=== PATIENT | male | born 1960 | race Caucasian/White ===

== ENCOUNTER 2017-04-29 11:39 | Inpatient (IN) ==
[2017-04-29] MEDS ORDERED: 0.9 % Sodium Chloride 1,000 ML IVC ONE (12:17)
--- NOTE | 2017-04-29 12:29 | Emergency Department Note ---
Disposition Clinical Impression: Symptomatic anemia, Portal hypertension due to antiretroviral drug Disposition: Admitted As Inpatient Condition: Fair Referrals: NO,PCP [Non-Partnered Physician] - Forms: Work/School Release, ED Satisfaction Letter General Adult HPI - General Chief complaint: ED Abdominal Pain Stated complaint: N/V Abd Pain Time Seen by Provider: 04/29/17 11:44 Source: patient Limitations: no limitations Nursing Notes Reviewed: Yes Vital Signs Reviewed: Yes - History of Present Illness HPI Narrative: 56-year-old male history of HIV diagnosed [address] Deleon for this. Due to the fact that he was taking care of a friend he was unable to get his medication and his wine out about 3 weeks ago. He has a predispose history of ulcers and hernia on his left lower abdominal area. Patient states he has been having numerous odorous loose stools. Increasing abdominal pain. No vomiting fevers or chills. He shaky. And he has been having scleral icterus according to his friend was present. Patient states he initially contracted HIV from sexual contact from her prior acquaintance was still has since passed on. Patient denies headache, photophobia, chest pain, shortness of breath, dysuria. He states that his appetite has been down. Patient denies alcohol or IV drug use. He says the only drugs he takes as his prescription medicine. Patient does use tobacco and smoke daily. Pain Scale: 8 - Related Data Previous Rx's Medication Instructions Recorded Amoxicillin/Clavulanate [Augmentin] 875 mg PO BIDWM #20 tablet 12/16/15 HYDROcodone/Acet 5/325 mg [[place] 1 tab PO Q6H PRN #10 tab 12/16/15 5-325 mg] Furosemide [Lasix] 40 mg PO DAILY #30 tab 02/24/16 Spironolactone [Aldactone] 25 mg PO DAILY #30 tablet 02/24/16 Albuterol Sulfate [Albuterol 2 puff IH Q4HR #1 hfa.aer.ad 10/30/16 Inhaler] Azithromycin [Azithromycin 6-Tab 250 mg PO PER PKG DI #6 tab 10/30/16 Pack] Benzonatate [Tessalon] 200 mg PO BID #10 capsule 10/30/16 Allergies Allergy/AdvReac Type Severity Reaction Status Date / Time No Known Allergies Allergy Verified 12/16/15 14:52 All systems ED: reviewed and negative except as stated. Constitutional: Reports: weakness, weight change, night sweats Gastrointestinal: Reports: abdominal pain, nausea, diarrhea. Denies: vomiting Neurological: Reports: weakness Past Medical History - Past Medical History Attestation: Yes The following information was validated with the patient. Source: patient Medical history: Reports: HIV/AIDS Psychiatric history: Reports: no psych history - Social History Smoking Status: Current every day smoker Smokeless Tobacco Status: No Alcohol use: Reports: none Drug use: Reports: none Physical Exam - General Limitations: no limitations General appearance: alert, in no apparent distress, cachectic - Head Head exam: atraumatic, normocephalic - Eye Eye exam: Present: PERRL, EOMI, scleral icterus - ENT ENT exam: normal exam, normal oropharynx, mucous membranes moist - Neck Neck exam: Present: normal inspection, full ROM - Chest Chest inspection: Present: normal inspection, symmetric chest wall rise - Respiratory Respiratory exam: Present: normal lung sounds bilaterally - Abdominal Exam Abdominal exam: Present: soft, Non-Tender, hernia (Patient has an easily reducible left inguinal hernia without scrotal involvement. He was to have some hepatomegaly and some slight distention but no fluid wave. No rebound or guarding.). Absent: guarding, rebound - Male exam: Present: normal inspection, normal testicular lie, circumcised - Extremities Exam Extremities exam: Present: normal inspection, full ROM. Absent: tenderness - Expanded Lower Extremity Exam Neurovascular/Tendon exam: Present: normal capillary refill. Absent: pulse deficit Gait: observed and normal - Back Exam Back exam: Present: normal inspection - Neurological Exam Neurological exam: Present: alert, oriented X3, CN II-XII intact - Psychiatric Psychiatric exam: Present: normal affect, normal mood - Skin Skin exam: Present: warm, intact Course - Reevaluation(s) Reevaluation #1: Patient has long-standing history of HIV disease. His been diagnosed over 30 years ago undertreatment.BeenoutofallofhisHIVmeds "mnjyxapn3frmlw.Patientisphysicalexaminationshowsslowicterusslightabdominaldiste ntionpre - existingleftinguinalhernia.Andcomplaintsofloosestoolsandweakness.Patienthadscree ninglabsabdominalpelvicCTIVfluids.Dispositionpending. Time: 12:36 Reevaluation #2: ED workup is nearly complete. Abdominal pelvic CT interpreted by radiology as cirrhosis with hepatosplenomegaly and portal hypertension. With a large amount of ascites.. Rectal examination was normal tone and brown stool guaiac negative. Patient's hemoglobin was critically low at 3.0 low within it has ever been. 3 units PRBC of been ordered. Patient will be admitted for symptomatic anemia. hospitalist pH awaiting callback Time: 14:07 Reevaluation #3: Case with the hospitalist , who recommended that we consult infectious disease which I did. Which was Dr. DOBBS, who agreed to see the patient. I now recalling the hospitalist and will admit the patient. Time: 14:48 Vital Signs Temperature 98.2 F 04/29/17 11:41 Pulse Rate 75 04/29/17 11:41 Respiratory Rate 16 04/29/17 11:41 Blood Pressure 110/47 04/29/17 11:41 O2 Sat by Pulse Oximetry 98 04/29/17 11:41 Temperature 98.2 F 04/29/17 11:41 Pulse Rate 75 04/29/17 11:41 Respiratory Rate 16 04/29/17 11:41 Blood Pressure 110/47 04/29/17 11:41 O2 Sat by Pulse Oximetry 98 04/29/17 11:41 Oxygen Delivery Oxygen Delivery Room Air Medical Decision Making - Lab Data Result diagrams: 04/29/17 13:21 04/29/17 12:41 Lab Results 04/29/17 04/29/17 04/29/17 Range/Units 12:41 13:05 13:21 WBC 5.4 (4.3-11.1) K/mcL RBC 1.35 L (4.19-5.50) M/mcL Hgb 3.0 L* (12.9-16.9) g/dL Hct 10.5 L* (37.5-50.1) % MCV 77.8 L (83.0-100.0) fL MCH 22.2 L (28.0-33.3) pg MCHC 28.6 L (31.6-35.5) g/dL RDW 22.5 H (11.5-14.5) % Plt Count 45 L (140-400) K/mcL MPV 11.9 (9.4-12.4) fL Immature Gran % 0.6 (0-4) % Seg Neutrophils % 70.5 % Lymphocytes % 11.4 % Monocytes % 16.9 % Eosinophils % 0.6 % Basophils % 0.0 % Neutrophils # 3.8 (1.6-8.9) K/mcL Lymphocytes # 0.6 (0.6-4.6) K/mcL Monocytes # 0.9 (0.0-1.3) K/mcL Eosinophils # 0.0 (0.0-0.6) K/mcL Basophils # 0.0 (0.0-0.2) K/mcL Nucleated RBCs/100 WBC 0.4 H (0) /100 WBC Platelet Estimate Decreased L (Normal) Hypochromasia Present A (Not Present) Anisocytosis 2+ A (Not Present) Microcytosis Present A (Not Present) Sodium 138 (136-145) mEq/L Potassium 3.4 L (3.5-4.5) mEq/L Chloride 106 (98-109) mEq/L Carbon Dioxide 22 (19-29) mEq/L BUN 14 (8-26) mg/dL Creatinine 0.92 (0.72-1.25) mg/dL Est GFR ( Amer) > 60 (> 60) Est GFR (Non-Af Amer) > 60 (> 60) BUN/Creatinine Ratio 15 (6-26) Glucose 158 H (70-99) mg/dL Calculated Osmolality 290 (280-300) Lactic Acid 3.1 H (0.5-2.2) mmol/L Calcium 8.2 L (8.6-10.8) mg/dL Total Bilirubin 1.0 (0.2-1.2) mg/dL Direct Bilirubin 0.5 (0.0-0.5) mg/dL Indirect Bilirubin 0.5 (0.0-1.2) mg/dL AST 42 H (5-34) Units/L ALT 33 (0-55) Units/L Alkaline Phosphatase 79 (38-126) Units/L Serum Total Protein 5.2 L (6.0-8.3) g/dL Albumin 2.6 L (3.5-5.0) g/dL Globulin 2.6 (2.4-3.5) g/dL Albumin/Globulin Ratio 1.0 L (1.1-2.2) Amylase 45 (25-125) Units/L Lipase 80 H (8-78) Units/L Blood Type Antibody Screen Crossmatch 04/29/17 Range/Units 13:21 WBC (4.3-11.1) K/mcL RBC (4.19-5.50) M/mcL Hgb (12.9-16.9) g/dL Hct (37.5-50.1) % MCV (83.0-100.0) fL MCH (28.0-33.3) pg MCHC (31.6-35.5) g/dL RDW (11.5-14.5) % Plt Count (140-400) K/mcL MPV (9.4-12.4) fL Immature Gran % (0-4) % Seg Neutrophils % % Lymphocytes % % Monocytes % % Eosinophils % % Basophils % % Neutrophils # (1.6-8.9) K/mcL Lymphocytes # (0.6-4.6) K/mcL Monocytes # (0.0-1.3) K/mcL Eosinophils # (0.0-0.6) K/mcL Basophils # (0.0-0.2) K/mcL Nucleated RBCs/100 WBC (0) /100 WBC Platelet Estimate (Normal) Hypochromasia (Not Present) Anisocytosis (Not Present) Microcytosis (Not Present) Sodium (136-145) mEq/L Potassium (3.5-4.5) mEq/L Chloride (98-109) mEq/L Carbon Dioxide (19-29) mEq/L BUN (8-26) mg/dL Creatinine (0.72-1.25) mg/dL Est GFR ( Amer) (> 60) Est GFR (Non-Af Amer) (> 60) BUN/Creatinine Ratio (6-26) Glucose (70-99) mg/dL Calculated Osmolality (280-300) Lactic Acid (0.5-2.2) mmol/L Calcium (8.6-10.8) mg/dL Total Bilirubin (0.2-1.2) mg/dL Direct Bilirubin (0.0-0.5) mg/dL Indirect Bilirubin (0.0-1.2) mg/dL AST (5-34) Units/L ALT (0-55) Units/L Alkaline Phosphatase (38-126) Units/L Serum Total Protein (6.0-8.3) g/dL Albumin (3.5-5.0) g/dL Globulin (2.4-3.5) g/dL Albumin/Globulin Ratio (1.1-2.2) Amylase (25-125) Units/L Lipase (8-78) Units/L Blood Type A POSITIVE Antibody Screen NEGATIVE Crossmatch See Detail
[2017-04-29 13:04] LABS: Alanine Aminotransferase 33 Units/L (0-55); Albumin 2.6 g/dL (3.5-5.0); Alkaline Phosphatase 79 Units/L (38-126); Amylase 45 Units/L (25-125); Aspartate Amino Transferase 42 Units/L (5-34); BUN/Creatinine Ratio 15 (6-26); Bilirubin,Direct 0.5 mg/dL (0.0-0.5); Bilirubin,Indirect 0.5 mg/dL (0.0-1.2); Blood Urea Nitrogen 14 mg/dL (8-26); Calcium 8.2 mg/dL (8.6-10.8); Carbon Dioxide 22 mEq/L (19-29); Chloride 106 mEq/L (98-109); Globulin 2.6 g/dL (2.4-3.5); Glucose 158 mg/dL (70-99); Lipase 80 Units/L (8-78); Osmolality,Calculated 290 (280-300); Potassium 3.4 mEq/L (3.5-4.5); Sodium 138 mEq/L (136-145); Total Protein 5.2 g/dL (6.0-8.3); eGFR For African Americans > 60 (> 60); eGFR For Non-African Americans > 60 (> 60)
[2017-04-29 13:29] LABS: Eosinophils % 0.6 %; Immature Granulocytes % 0.6 % (0-4); Lymphocytes # 0.6 K/mcL (0.6-4.6); Lymphocytes % 11.4 %; Mean Corpuscular HGB Conc 28.6 g/dL (31.6-35.5); Mean Corpuscular Hemoglobin 22.2 pg (28.0-33.3); Mean Corpuscular Volume 77.8 fL (83.0-100.0); Mean Platelet Volume 11.9 fL (9.4-12.4); Monocytes # 0.9 K/mcL (0.0-1.3); Monocytes % 16.9 %; Neutrophils # 3.8 K/mcL (1.6-8.9); Nucleated Red Blood Cells 0.4 /100 WBC (0); Red Blood Count 1.35 M/mcL (4.19-5.50); Red Cell Distribution Width 22.5 % (11.5-14.5); Segmented Neutrophils % 70.5 %
[2017-04-29 13:32] LABS: Platelet Count 45 K/mcL (140-400)
[2017-04-29 13:35] LABS: Hematocrit 10.5 % (37.5-50.1)
[2017-04-29 13:59] LABS: Hypochromasia Present (Not Present)
[2017-04-29 14:00] LABS: Anisocytosis 2+ (Not Present); Microcytosis Present (Not Present); Platelet Estimate Decreased (Normal)
[2017-04-29] MEDS ORDERED: *HR* OxyCODONE Immed Rel 5 MG TABLET PO PRN (15:37)
[2017-04-29] MEDS ORDERED: Acetaminophen 325 MG TABLET PO PRN (15:37)
[2017-04-29] MEDS ORDERED: Ondansetron 4 MG/2 ML VIAL IVP PRN (15:37)
[2017-04-29] MEDS ORDERED: *HR* HYDROmorphone (PF) 1 MG/ML SYRINGE IVP PRN (15:37)
[2017-04-29] MEDS ORDERED: Naloxone 0.4 MG/ML INJ IVP PRN (15:37)
[2017-04-29] MEDS ORDERED: Azithromycin 250 MG TABLET PO SCH (16:00)
[2017-04-29] MEDS ORDERED: Furosemide 40 MG/4 ML VIAL IVP ONE (16:28)
[2017-04-29] MEDS ORDERED: RITONAVIR PO SCH ×3 (16:30→21:00)
[2017-04-29] MEDS ORDERED: LOPINAVIR PO SCH ×3 (16:30→21:00)
--- NOTE | 2017-04-29 16:30 | Internal Med History&Physical ---
Date of Encounter: 04/29/17 Time of Encounter: 16:29 Assessment and Plan (1) Symptomatic anemia Current visit: Yes Status: Acute Presenting Hb of 3.0 4 RBCS ordered Give one dose lasix prior to transfusion Check iron level, vitamin B12, folate Multifactorial: Possibly chronic GIB , malabsorption from chronic diarrhea, bone marrow suppression from HIV/AIDS High risk patient for sudden decompensation and cardiac arrest Patient is full code (2) Alcoholic cirrhosis of liver with ascites Current visit: Yes Status: Acute IR consulted for drainage Start on Ceftriaxone for prophylaxis for SBP in the setting of suspected GIB with liver cirrhosis LFTS look unremarkable for now Patient is not coagulopathic NO indication to check ammonia level at this time, patient is awake, alert and oriented (3) Diarrhea Current visit: Yes Status: Acute Acute on chronic, 3 weeks duration, In the setting of HIV/AIDS CD4 count unknown Patient is afebrile, no leukocytosis, although patient may not be able to mount a WBC reaction Send Stool work up, ova and parasites, C.diff Stool is not bloody at this time Will replace potassium and continue to monitor Qualifiers: Diarrhea type: unspecified type Qualified Code(s): R19.7 - Diarrhea, unspecified (4) Esophageal varices in alcoholic cirrhosis Current visit: Yes Status: Acute Suspected history of esophageal varices, no documentation per chart Patient's anemia may be acute on chronic, His last HB one year ago was 9 Dr. Delaney has been consulted on the phone, spoke to him, he will see the patient a.m Keep NPO from AL for a.m EGD. (5) HIV disease Current visit: Yes Status: Acute I will start the patient on Azithromycin and Bactrim for MAC and PCP prophylaxis respectively Viral load was sent by ER Infectious disease team has been consulted, will hold off restarting antirtrovirals till ID reviews patient Obtain STAT CXR due to history of chronic, unproductive cough (6) Portal hypertension Current visit: Yes Status: Acute As in cirrhosis (7) Lactic acidosis Current visit: Yes Status: Acute Presenting lactate of 3.1 May be multifactoria given his severe anemia and liver disease Received 1L IVF in ER Repeat lactate 4-6 hrs He denies abdominal pain and his abdomen exam is not tender, he is low suspicion for bowel ischemia (8) Thrombocytopenia associated with AIDS Current visit: Yes Status: Acute Multifactorial: HIV/AIDS, Liver disease/Portal HTN/Splenomegaly PLT count [id number] Suspected chronic GI bleed Receieving RBCs at this time Monitor PLT and transfsue prn (9) AIDS (acquired immune deficiency syndrome) Current visit: Yes Status: Suspected Suspected, follow CD4 count, as in HIV, start PCP and MAC prophylaxis Infectious disease team consulted Internal Medicine - H&P: HPI Chief complaint: Shortness of breath Admitted From: Home Plans for Post Hospital Care: Home History of present illness: Mr. Anthony is a 56 year old male , known HIV/AIDS (Unsure of his last CD4 count ), States he hasn't used his antivirals in 3 weeks because he was taking care of a friend he also has a PMH of Liver Cirrhosis with portal HTN, Tobacco abuse, Questionable CHF Patint presents with complains of one episode of hematemesis with clots one week ago, chronic cough unproductive of sputum 3 weeks now, recurrent watery diarrhea, dyspnea on exertion initially and now at rest. He denies fever or chills or sick contacts' he also reports dizziness and easy fatiguability He has not been to the ER since his episode of hematemesis, he does not know what his CD4 count is He also reports early satiety, leg swelling, abdominal bloating and discomfort He denies melena and reports his stool is tori martins, patient is seen to be incontinent with tori colored stool staining his underwear. He smokes 1PPd for the past 40 years He quit drinking ~30 years ago? after his diagnosis of Cirrhosis He denies chest pain, change in urinary habits, hematuria, or hematochezia Past Med Surg Social Fam HX - Past Medical History Medical history: cirrhosis, HIV/AIDS Psychiatric history: no psych history - Social History Smoking Status: Current every day smoker Smokeless Tobacco Status: No Alcohol use: none Drug use: none Internal Medicine - H&P: Meds Aspirin/Caffeine [Anacin 400-32 mg Tablet] 1 each PO Q4H PRN 04/29/17 [History] Calcium Carbonate [Calcium] 500 mg PO DAILY 04/29/17 [History] Darunavir Ethanolate [Prezista] 800 mg PO DAILY 04/29/17 [History] Multivitamin [Multi-Day Vitamins] 1 each PO DAILY 04/29/17 [History] Paroxetine [Paxil] 20 mg PO DAILY 04/29/17 [History] Potassium 99 mg PO DAILY 04/29/17 [History] Raltegravir Potassium [Isentress] 400 mg PO BID 04/29/17 [History] Ritonavir [Norvir] 100 mg PO DAILY 04/29/17 [History] lamiVUDine [Epivir] 150 mg PO BID 04/29/17 [History] Allergies No Known Allergies Allergy (Verified 12/16/15 14:52) All Systems PM: A 10-system review of systems was performed and is negative for pertinent findings except as documented above in the HPI. - Constitutional Constitutional: as per HPI - EENT Eyes: as per HPI Ears: as per HPI Nose, mouth and throat: as per HPI - Cardiovascular Cardiovascular ROS IM: as per HPI - Respiratory Respiratory: as per HPI - Gastrointestinal Gastrointestinal: as per HPI - Musculoskeletal Musculoskeletal ROS IM: as per HPI - Integumentary Integumentary IM: as per HPI - Neurological Neurological ROS: as per HPI - Hematologic/Lymphatic Hematologic/Lymphatic: as per HPI - Constitutional Vitals: Temp Pulse Resp BP Pulse Ox 98.3 F 98 18 129/72 93 04/29/17 16:00 04/29/17 16:00 04/29/17 16:00 04/29/17 16:00 04/29/17 15:44 Patient is seen at bedside disheveled, unkempt with darkened toes and fingers, cold extremities, clinically pale, in mild respiratory distress, HR 96, BP WNL, he has bilateral basal crackles, no wheezing, he has dry ora mucosa, his HR is WNL and heart sounds are S1, S2 only, no m/g/r. His abdomen is soft but distended, he has ascites with fluid thrill, hepatosplenomegaly, no tenderness. He has bilateral digital clubbing and 1+ pedal edema bilaterally Internal Med - H&P Results - Labs CBC & Chem 7: 04/29/17 13:21 04/29/17 12:41 Labs: Labs and Imaging reviewed: Hb of 3.0, MCV 77, microcytosis, hypochromiasia, PLT count is 4,000, hypokalemia, lactate 3.1, mild hyperbiliruinemia, Abd CT shows bilateral pleural effusions and ascites, esophagitis, splenomegaly and liver cirrhosis No CXR ordered
--- NOTE | 2017-04-29 16:34 | Infectious Disease Consult ---
Date of Encounter: 04/29/17 Time of Encounter: 16:32 Assessment and Plan (1) HIV disease Status: Acute Assessment and plan: Diagnosed 30 years ago Physical patient of Dr. Underwood Most recent regimen included Lamivudine, raltegravir and boosted darunavir most recent CD4 and VL from March of this year are 399 and UD respectively non compliant with meds for now concern for AIDS syndrome check CD4, HIV VL, baseline labs (might check genotype if VL >1000) will start patient on Truvada, Kaletra and Raltegravir d/w pharmacy staff, they dont have any other PI's on formulary (2) Liver cirrhosis, alcoholic Status: Acute Assessment and plan: secondary to ETOH abuse will check MELD score complicated with portal HTN and esophageal varices no signs of SBP on physical exam Qualifiers: Ascites presence: with ascites Qualified Code(s): K70.31 - Alcoholic cirrhosis of liver with ascites (3) Portal hypertension Status: Acute (4) Esophageal varices in alcoholic cirrhosis Status: Acute (5) Severe anemia Status: Acute Assessment and plan: etiology not clear concern for anemia due to UGIB (had vomited blood clots 2 days ago); specially with history of esophageal varices could also be multifactorial specially that patient has has HIV and concern for Disseminated MAC or disseminated Histo will start empiric clarithromycin but will hold off itra until further results are back (since patient with liver cirrhosis) ask heme/onc to evaluate get bone marrow biopsy specially if no obvious source of bleeding is noted. being transfused 4 units of PRBC (6) Diarrhea Status: Acute Assessment and plan: not sure if this is due to HIV itself, an opportunistic infection or other get GI panel Qualifiers: Diarrhea type: unspecified type Qualified Code(s): R19.7 - Diarrhea, unspecified (7) Alcoholic cirrhosis of liver with ascites Status: Acute (8) Cough Status: Acute Assessment and plan: likelly due to copd due to tobacco abuse but since patient is high risk, recommend getting a cxr Infectious Disease HPI - Data of Consult Patient: new to practice Consult date: 04/29/17 Requesting Physician: Kelly Everett Primary Care Provider: Willie Underwood MD - Consult Narrative Reason for consult: HIV History of present illness: Mr. Anthony is a 56 year old male with past medical history significant for HIV diagnosed about 30 years ago, liver cirrhosis secondary to EtOH abuse, portal hypertension and cachexia came into the emergency department complaining of severe fatigue, lightheadedness, weakness, dyspnea on exertion and intermittent diarrhea. Patient denied any fevers or chills. No headache no neck stiffness. Patient denied any URI symptoms. Patient does have cough with sputum production but he tells me that is chronic for him. Patient denied any nausea or vomiting currently but he stated that 2 days ago he had a vomiting episode and he had large amount of blood including large blood clots that he brought up. Patient came into the emergency department for evaluation. Since admission patient has been hemodynamically stable, heart rate has been the 70s, patient has not had any fever. Patient's hemoglobin was noted to be 3. Rest of the workup was really not impressive. Patient was admitted and we were consulted to evaluate the patient's make further recommendations. Currently patient laying in bed, appears comfortable. I asked the patient why he hasn't been compliant with his antiretroviral medication and he states he was too busy because his friend was in the hospital and he was taking care of him. Patient has not had a bowel movement since admission. He otherwise feels stable. On further questioning and reviewing medical records, Patient most recent blood work was done in August 2016 which revealed a WBC of 5.5, CD4 of 399, HIV viral load was under 20, his hemoglobin at that time was 12.1 and platelets of 18 9. On reviewing patient's records patient's most recent regimen included limited Shilpa, raltegravir, boosted darunavir. I called Dr. Underwood to discuss the patient and see if this is the accurate regimen that the patient was on just awaiting his response. CC: Kelly Everett Past Med Surg Social Fam HX - Past Medical History Medical history: HIV/AIDS Psychiatric history: no psych history - Social History Smoking Status: Current every day smoker Smokeless Tobacco Status: No Alcohol use: none Drug use: none Infectious Disease-CN:Meds Aspirin/Caffeine [Anacin 400-32 mg Tablet] 1 each PO Q4H PRN 04/29/17 [History] Calcium Carbonate [Calcium] 500 mg PO DAILY 04/29/17 [History] Darunavir Ethanolate [Prezista] 800 mg PO DAILY 04/29/17 [History] Multivitamin [Multi-Day Vitamins] 1 each PO DAILY 04/29/17 [History] Paroxetine [Paxil] 20 mg PO DAILY 04/29/17 [History] Potassium 99 mg PO DAILY 04/29/17 [History] Raltegravir Potassium [Isentress] 400 mg PO BID 04/29/17 [History] Ritonavir [Norvir] 100 mg PO DAILY 04/29/17 [History] lamiVUDine [Epivir] 150 mg PO BID 04/29/17 [History] Allergies No Known Allergies Allergy (Verified 12/16/15 14:52) Review of systems: 10 point review of systems done, negative other for what mentioned in the history of present illness. Exam - Constitutional Vitals: Temp Pulse Resp BP Pulse Ox 98.3 F 98 18 129/72 93 04/29/17 16:00 04/29/17 16:00 04/29/17 16:00 04/29/17 16:00 04/29/17 15:44 General appearance: cooperative, disheveled, no acute distress, no febrile - Head Head exam: Present: atraumatic, normocephalic - Eye Eye exam: Present: EOMI, PERRL, sclera anicteric. Absent: conjunctival injection - ENT ENT exam: Present: mucous membranes dry Additional comments: No oral lesions appreciated no oral thrush. - Neck Neck exam: Present: full ROM, normal inspection. Absent: lymphadenopathy - Respiratory Additional comments: Air sounds decreased universally both lung [place]. There is some diffuse rhonchi at the bases. Poor inspiratory effort. - Cardiovascular Cardiovascular exam: Present: RRR, +S1, +S2. Absent: systolic murmur - GI/Abdominal GI/Abdominal exam: Present: distended, normal bowel sounds, soft. Absent: rebound Additional comments: Distended with positive shifting dullness likely secondary to ascites - Extremities Exam Extremities exam: Present: full ROM, normal inspection. Absent: tenderness - Back Exam Back exam: Present: normal inspection. Absent: vertebral tenderness - Neurological Exam Neurological exam: Present: alert, oriented X3. Absent: speech deficit - Skin Skin exam: Present: normal color. Absent: rash Additional comments: A couple black lesions one in was for arm on one is on his other hand that does not appear to be malignant Infectious Disease CN: Results - Labs CBC & Chem 7: 04/29/17 13:21 04/29/17 12:41 Consult Discharge Plan - Plan Referrals: Willie Underwood MD [Primary Care Provider] -
[2017-04-29 17:10] LABS: Bilirubin,Urine Negative (Negative); Blood,Urine Negative (Negative); Clarity,Urine Clear (Clear); Color,Urine Yellow (Yellow); Glucose,Urine (UA) Normal (Normal); Ketones,Urine Negative (Negative); Leukocyte Esterase,Urine Negative (Negative); Nitrite,Urine Negative (Negative); Protein,Urine Negative (Neg-Trace); Specific Gravity,Urine 1.018 (1.010-1.025); Urobilinogen,Urine Normal (Normal)
[2017-04-29 18:13] LABS: % Iron Saturation 2 % (20-55); Iron 9 mcg/dL (65-175); Transferrin 289 mg/dL (174-364)
[2017-04-29] MEDS: Nystatin SUSP 5 ML UD.LIQ PO SCH ×2 (18:33→20:02)
[2017-04-29] MEDS: Sulfamethoxazole/Trimeth DS 1 EACH TABLET PO SCH (18:33)
[2017-04-29] MEDS: Pantoprazole 40 MG VIAL IVP SCH (18:33)
[2017-04-29 18:52] LABS: Folate 12.4 ng/mL (7.0-31.4)
--- NOTE | 2017-04-29 20:01 | Oncology Inp Consult Note ---
Date of Encounter: 04/30/17 Time of Encounter: 19:58 Assessment and Plan (1) AIDS (acquired immune deficiency syndrome) Status: Suspected Assessment and plan: He has been treated for 30 years. According to him he has HIV but not active AIDS. Dr. Meyers is concerned about disseminated MAC (2) Alcoholic cirrhosis of liver with ascites Status: Acute Assessment and plan: Thrombocytopenia partially due to cirrhosis. Hematemesis/melena .Again GI workup should help to see if he has any variceal bleeding or an abdominal ultrasound showed cirrhosis and mild ascites. He had interventional radiology guided paracentesis done Mildly elevated AST. Check viral hepatitis panel. His hepatitis panel was negative in 2016 (3) Severe anemia Status: Acute Assessment and plan: Clearly severe iron deficiency is playing a role. We will consider IV iron. GI workup Also we will do complete anemia workup. Ferritin low at 11. We will give IV iron Feraheme 510 mg Total folate TSH normal. No evidence of hemolysis. Vivek test and LDH normal Thrombocytopenia aggravated by cirrhosis. But given worsening of thrombocytopenia in the setting of anemia a bone marrow biopsy may be warranted - Data of Consult Patient: new to practice Requesting Physician: Kelly Everett Primary Care Provider: Willie Underwood MD - Consult Narrative Reason for consult: Severe anemia History of present illness: Mr. Anthony is a 56 year old male with past medical history significant for HIV diagnosed about 30 years ago, liver cirrhosis secondary to EtOH abuse, portal hypertension and cachexia admitted with severe anemia hemoglobin 3. MCV low at 77. 4 units of packed RBC transfusion hemoglobin improved to 6. He is clinically stable. Workup showed that her iron saturation. B12 folate normal Looking at the PCI he had macrocytosis in the past with MCV 102. So MCV 77 may indicate severe microcytosis for him. Rule out any GI bleeding as source of iron deficiency His hemoglobin has been around 9 in February 2016 but prior to that around 13-14 Thrombocytopenia dating back to 2006 and platelet count slowly dropped from 100 range to present to value of 45 By history he got HIV disease about 30 years ago through his then girlfriend. He is being treated for that and currently he has HIV but not active AIDS. He also used to drink alcohol heavily since teenage but stopped drinking alcohol several years ago Upper GI bleed/hematemesis 2 days. Melena for last 3 days He had variceal bleeding in the past and had EGD about the year or less ago. Past Med Surg Social Fam HX - Past Medical History Medical history: cirrhosis, HIV/AIDS Psychiatric history: no psych history - Social History Smoking Status: Current every day smoker Packs per day: 2 Smokeless Tobacco Status: No Alcohol use: none Drug use: none Medications and Allergies Aspirin/Caffeine [Anacin 400-32 mg Tablet] 1 each PO Q4H PRN 04/29/17 [History] Calcium Carbonate [Calcium] 500 mg PO DAILY 04/29/17 [History] Darunavir Ethanolate [Prezista] 800 mg PO DAILY 04/29/17 [History] Multivitamin [Multi-Day Vitamins] 1 each PO DAILY 04/29/17 [History] Paroxetine [Paxil] 20 mg PO DAILY 04/29/17 [History] Potassium 99 mg PO DAILY 04/29/17 [History] Raltegravir Potassium [Isentress] 400 mg PO BID 04/29/17 [History] Ritonavir [Norvir] 100 mg PO DAILY 04/29/17 [History] lamiVUDine [Epivir] 150 mg PO BID 04/29/17 [History] Allergies No Known Allergies Allergy (Verified 12/16/15 14:52) Review of systems: Alert and oriented. Able to carry on conversation. Fatigue which is improved since admission. Oncology - Exam - Constitutional Vitals: Temp Pulse Resp BP Pulse Ox 97.7 F 95 16 126/62 100 04/29/17 19:48 04/29/17 19:48 04/29/17 19:48 04/29/17 19:48 04/29/17 19:48 Exam: GENERAL: Alert and oriented, fatigued. Mental Status: Affect appropriate for circumstances HEENT: Sclerae anicteric. No mucositis or thrush. No other oral or pharyngeal lesions or erythema. Skin: No rashes or petechiae. No evidence of skin malignancy Lymph nodes: No cervical, supraclavicular, axillary, or inguinal adenopathy. Lungs: Air entry normal with normal breath sounds. No rhonchi or wheezing Cardiovascular: Regular rate and rhythm. No skipped beats Abdomen: Soft, mild epigastric tenderness. Mild ascites. Extremities: No edema. No calf swelling or tenderness. No joint deformity. Neurologic: Alert, cranial nerves II-XII intact; normal gait; no focal weakness or sensory abnormalities Oncology - Results - Labs Labs: Urine 04/29/17 Range/Units 16:30 Urine Color Yellow (Yellow) Urine Clarity Clear (Clear) Urine pH 6.0 (5.0-8.0) pH Units Ur Specific [place] 1.018 (1.010-1.025) Urine Protein Negative (Neg-Trace) mg/dL Urine Glucose (UA) Normal (Normal) mg/dL Consult Discharge Plan - Plan Referrals: Willie Underwood MD [Primary Care Provider] - (SENT WEB REQUEST ON 04-30-17 @ [phone] )
[2017-04-29] MEDS: Nicotine 21 MG PATCH.TD24 TD SCH (20:02)
[2017-04-29] MEDS: RALTEGRAVIR POTASSIUM 400 MG TABLET PO SCH (20:03)
[2017-04-29] MEDS ORDERED: 0.9 % Sodium Chloride 250 ML ONE (21:52)
[2017-04-29 22:17] LABS: Lactate Dehydrogenase 188 Units/L (159-327)
[2017-04-29 22:39] LABS: Ferritin 11 ng/ml (22-275)
[2017-04-30] MEDS ORDERED: 0.9 % Sodium Chloride 250 ML ONE ×2 (01:41→05:49)
[2017-04-30 05:24] LABS: Basophils % 0.2 %; Lymphocytes % 16.2 %; Mean Corpuscular HGB Conc 31.6 g/dL (31.6-35.5)
[2017-04-30 05:26] LABS: Eosinophils # 0.1 K/mcL (0.0-0.6); Eosinophils % 1.6 %; Lymphocytes # 0.8 K/mcL (0.6-4.6); Mean Corpuscular Volume 79.2 fL (83.0-100.0); Monocytes # 0.8 K/mcL (0.0-1.3); Monocytes % 15.8 %; Neutrophils # 3.2 K/mcL (1.6-8.9); Red Cell Distribution Width 20.9 % (11.5-14.5); Segmented Neutrophils % 65.2 %
[2017-04-30 05:36] LABS: BUN/Creatinine Ratio 14 (6-26); Blood Urea Nitrogen 11 mg/dL (8-26); Calcium 7.6 mg/dL (8.6-10.8); Carbon Dioxide 24 mEq/L (19-29); Chloride 106 mEq/L (98-109); Glucose 94 mg/dL (70-99); Magnesium 1.5 mg/dL (1.6-2.6); Osmolality,Calculated 281 (280-300); Phosphorous 2.4 mg/dL (2.3-4.7); Sodium 136 mEq/L (136-145); eGFR For African Americans > 60 (> 60); eGFR For Non-African Americans > 60 (> 60)
[2017-04-30 05:49] LABS: Platelet Count 41 K/mcL (140-400)
[2017-04-30] MEDS: Pantoprazole 40 MG VIAL IVP SCH ×2 (05:53→18:07)
[2017-04-30 07:26] LABS: Anisocytosis 2+ (Not Present); Platelet Estimate Decreased (Normal); Poikilocytosis 1+ (Not Present)
[2017-04-30] MEDS: RALTEGRAVIR POTASSIUM 400 MG TABLET PO SCH ×2 (08:23→21:13)
[2017-04-30] MEDS: Nystatin SUSP 5 ML UD.LIQ PO SCH ×4 (08:23→21:13)
[2017-04-30] MEDS: Sulfamethoxazole/Trimeth DS 1 EACH TABLET PO SCH ×2 (08:23→21:13)
[2017-04-30] MEDS: Nicotine 21 MG PATCH.TD24 TD SCH (08:24)
[2017-04-30] MEDS: LOPINAVIR PO SCH ×3 (08:24→21:19)
[2017-04-30] MEDS: RITONAVIR PO SCH ×3 (08:24→21:19)
[2017-04-30] MEDS ORDERED: Furosemide 40 MG/4 ML VIAL IVP SCH (09:00)
[2017-04-30 09:24] LABS: INR 1.7; Prothrombin Time 18.9 Seconds (9.4-12.1)
[2017-04-30 09:31] LABS: Albumin 2.8 g/dL (3.5-5.0); Albumin/Globulin Ratio 0.9 (1.1-2.2); Bilirubin,Direct 0.8 mg/dL (0.0-0.5); Bilirubin,Indirect 2.3 mg/dL (0.0-1.2); Total Protein 5.8 g/dL (6.0-8.3)
[2017-04-30 09:36] LABS: Bilirubin,Total 3.1 mg/dL (0.2-1.2)
--- NOTE | 2017-04-30 11:15 | IR Procedure Note ---
Date of procedure: 04/30/17 Consent Obtained: Written consent Timeout: Correct patient and procedure verified, Time out performed, Skin prep completed Local anesthetic: Lidocaine 1% Indications: Ascites Procedure Performed: Paracentesis Complications: None; Tolerated procedure well (Monitor on floor)
[2017-04-30] MEDS: Iron Sucrose Complex 200 MG in 0.9 % Sodium Chloride 100 ML IVPB SCH (11:38)
[2017-04-30 11:49] LABS: Hepatitis A Antibody IgM Nonreactive (Nonreactive); Hepatitis B Core IgM Nonreactive (Nonreactive); Hepatitis B Surface Antigen Nonreactive (Nonreactive); Hepatitis C Virus Antibody Nonreactive (Nonreactive)
[2017-04-30 12:33] LABS: RBC,Peritoneal Fluid < 0.002 M/mcL
--- NOTE | 2017-04-30 13:02 | Infectious Disease Progress No ---
Date of Encounter: 04/30/17 Time of Encounter: 13:00 - Assessment and Plan (1) HIV disease Current Visit: Yes Status: Acute Diagnosed 30 [address] ago[address] Willie Underwood. Most recent regimen included Lamivudine, Raltegravir, and boosted darunavir. Most recent CD4 399 and viral load undetectable. Non-compliant with medications for three weeks prior to admission. Concern for AIDS syndrome. Check CD4, HIV VL --> pending. WBC normal. Hgb improved at 6 this morning. Continue Truvada, Kaletra, and Raltegravir as prescribed. Continue Clarithromycin 500mg PO BID. Continue Bactrim DS 1 tab PO, but increase frequency to BID. (2) Cough Current Visit: Yes Status: Acute Chronic. Likely secondary to heavy tobacco use. CXR shows bilateral lower lobe airspace opacities concerning for developing PNA. Continue Bactrim, but increase to BID for PCP prophylaxis. Continue Clarithromycin. Continue Rocephin 1 gram IV daily. Get RIP. Check S. pneumo and Legionella UAT. Consider pulmonary consult for further evaluation. (3) Diarrhea Current Visit: Yes Status: Acute Etiology unclear: HIV vs. infectious. Send stool for GI panel. Qualifiers: Diarrhea type: unspecified type Qualified Code(s): R19.7 - Diarrhea, unspecified (4) Severe anemia Current Visit: Yes Status: Acute Etiology unclear: UGI bleed vs. other. Hgb 3 on admission. Improved after 4 units of PRBCs, but still only 6. No bleeding noted since admission. GI consulted and following. Considering possible EGD today. Hem/Onc consulted and following. Considering bone marrow biopsy if GI bleed workup negative. (5) Alcoholic cirrhosis of liver with ascites Current Visit: Yes Status: Acute Secondary to heavy ETOH use. GI consulted and following. Status post liver UTS this morning. Results pending. MELD score 18. Status post paracentesis this morning. Removed 2 liters of turbid fluid. Fluid sent for culture and cell count. Does not appear to be SBP based on cell count. Culture pending. (6) Esophageal varices in alcoholic cirrhosis Current Visit: Yes Status: Acute (7) Lactic acidosis Current Visit: Yes Status: Acute (8) Portal hypertension Current Visit: Yes Status: Chronic - Subjective Interval history: Patient seen and examined. No acute events noted overnight. Status post CT- guided paracentesis this morning. Specimen sent for cell count with diff and culture. States that overall he feels well. Denies fevers, chills, or rigors. Denies chest pain, shortness of breath, or cough. Denies nausea, vomiting, diarrhea, or constipation. Denies abdominal pain or appetite changes. Denies urinary complaints. Requesting something to eat, but is currently NPO for possible EGD later today. Infect Dis PN-Objective Data - Labs CBC & Chem 7: 04/30/17 04:40 04/30/17 04:40 Labs: Laboratory Results - last 24 hr 04/29/17 04/29/17 04/29/17 16:30 21:56 21:56 WBC RBC Hgb Hct MCV MCH MCHC RDW Plt Count MPV Immature Gran % Seg Neutrophils % Lymphocytes % Monocytes % Eosinophils % Basophils % Neutrophils # Lymphocytes # Monocytes # Eosinophils # Basophils # Nucleated RBCs/100 WBC Platelet Estimate Poikilocytosis Anisocytosis PT INR Sodium Potassium Chloride Carbon Dioxide BUN Creatinine Est GFR ( Amer) Est GFR (Non-Af Amer) BUN/Creatinine Ratio Glucose Calculated Osmolality Lactic Acid 2.7 H Calcium Phosphorus Magnesium Ferritin 11 L Total Bilirubin Direct Bilirubin Indirect Bilirubin AST ALT Alkaline Phosphatase Lactate Dehydrogenase 188 Serum Total Protein Albumin Globulin Albumin/Globulin Ratio TSH Urine Color Yellow Urine Clarity Clear Urine pH 6.0 Ur Specific [place] 1.018 Urine Protein Negative Urine Glucose (UA) Normal Urine Ketones Negative Urine Blood Negative Urine Nitrite Negative Urine Bilirubin Negative Urine Urobilinogen Normal Ur Leukocyte Esterase Negative Ur Culture Indicated? NO Peritoneal RBC Periton Tot Nuc Cells Peritoneal Albumin Hepatitis A IgM Ab Hep Bs Antigen Hep B Core IgM Ab Hepatitis C Ab Screen JACKIE, Poly Interpret 04/29/17 04/29/17 04/30/17 21:56 21:56 04:40 WBC 4.9 RBC 2.40 L Hgb 6.0 L* D Hct 19.0 L MCV 79.2 L MCH 25.0 L MCHC 31.6 RDW 20.9 H Plt Count 41 L MPV TNP Immature Gran % 1.0 Seg Neutrophils % 65.2 Lymphocytes % 16.2 Monocytes % 15.8 Eosinophils % 1.6 Basophils % 0.2 Neutrophils # 3.2 Lymphocytes # 0.8 Monocytes # 0.8 Eosinophils # 0.1 Basophils # 0.0 Nucleated RBCs/100 WBC 1.0 H Platelet Estimate Decreased L Poikilocytosis 1+ A Anisocytosis 2+ A PT INR Sodium Potassium Chloride Carbon Dioxide BUN Creatinine Est GFR ( Amer) Est GFR (Non-Af Amer) BUN/Creatinine Ratio Glucose Calculated Osmolality Lactic Acid Calcium Phosphorus Magnesium Ferritin Total Bilirubin Direct Bilirubin Indirect Bilirubin AST ALT Alkaline Phosphatase Lactate Dehydrogenase Serum Total Protein Albumin Globulin Albumin/Globulin Ratio TSH 0.979 Urine Color Urine Clarity Urine pH Ur Specific [place] Urine Protein Urine Glucose (UA) Urine Ketones Urine Blood Urine Nitrite Urine Bilirubin Urine Urobilinogen Ur Leukocyte Esterase Ur Culture Indicated? Peritoneal RBC Periton Tot Nuc Cells Peritoneal Albumin Hepatitis A IgM Ab Hep Bs Antigen Hep B Core IgM Ab Hepatitis C Ab Screen JACKIE, Poly Interpret NEG 04/30/17 04/30/17 04/30/17 04:40 09:03 09:03 WBC RBC Hgb Hct MCV MCH MCHC RDW Plt Count MPV Immature Gran % Seg Neutrophils % Lymphocytes % Monocytes % Eosinophils % Basophils % Neutrophils # Lymphocytes # Monocytes # Eosinophils # Basophils # Nucleated RBCs/100 WBC Platelet Estimate Poikilocytosis Anisocytosis PT 18.9 H INR 1.7 Sodium 136 Potassium 3.0 L Chloride 106 Carbon Dioxide 24 BUN 11 Creatinine 0.80 Est GFR ( Amer) > 60 Est GFR (Non-Af Amer) > 60 BUN/Creatinine Ratio 14 Glucose 94 Calculated Osmolality 281 Lactic Acid Calcium 7.6 L Phosphorus 2.4 Magnesium 1.5 L Ferritin Total Bilirubin 3.1 H D Direct Bilirubin 0.8 H Indirect Bilirubin 2.3 H AST 48 H ALT 41 Alkaline Phosphatase 91 Lactate Dehydrogenase Serum Total Protein 5.8 L Albumin 2.8 L Globulin 3.0 Albumin/Globulin Ratio 0.9 L TSH Urine Color Urine Clarity Urine pH Ur Specific [place] Urine Protein Urine Glucose (UA) Urine Ketones Urine Blood Urine Nitrite Urine Bilirubin Urine Urobilinogen Ur Leukocyte Esterase Ur Culture Indicated? Peritoneal RBC Periton Tot Nuc Cells Peritoneal Albumin Hepatitis A IgM Ab Hep Bs Antigen Hep B Core IgM Ab Hepatitis C Ab Screen JACKIE, Poly Interpret 04/30/17 04/30/17 09:03 11:10 WBC RBC Hgb Hct MCV MCH MCHC RDW Plt Count MPV Immature Gran % Seg Neutrophils % Lymphocytes % Monocytes % Eosinophils % Basophils % Neutrophils # Lymphocytes # Monocytes # Eosinophils # Basophils # Nucleated RBCs/100 WBC Platelet Estimate Poikilocytosis Anisocytosis PT INR Sodium Potassium Chloride Carbon Dioxide BUN Creatinine Est GFR ( Amer) Est GFR (Non-Af Amer) BUN/Creatinine Ratio Glucose Calculated Osmolality Lactic Acid Calcium Phosphorus Magnesium Ferritin Total Bilirubin Direct Bilirubin Indirect Bilirubin AST ALT Alkaline Phosphatase Lactate Dehydrogenase Serum Total Protein Albumin Globulin Albumin/Globulin Ratio TSH Urine Color Urine Clarity Urine pH Ur Specific [place] Urine Protein Urine Glucose (UA) Urine Ketones Urine Blood Urine Nitrite Urine Bilirubin Urine Urobilinogen Ur Leukocyte Esterase Ur Culture Indicated? Peritoneal RBC < 0.002 Periton Tot Nuc Cells 74 Peritoneal Albumin < 0.4 Hepatitis A IgM Ab Nonreactive Hep Bs Antigen Nonreactive Hep B Core IgM Ab Nonreactive Hepatitis C Ab Screen Nonreactive JACKIE, Poly Interpret Cultures: Cultures 04/29/17 18:35 Sputum Culture - Final Sputum Serology 04/30/17 04/30/17 04/29/17 Range/Units 11:10 09:03 16:30 Urine Color Yellow (Yellow) Urine Clarity Clear (Clear) Urine pH 6.0 (5.0-8.0) pH Units Ur Specific [place] 1.018 (1.010-1.025) Urine Protein Negative (Neg-Trace) mg/dL Urine Glucose (UA) Normal (Normal) mg/dL Urine Ketones Negative (Negative) mg/dL Urine Blood Negative (Negative) Urine Nitrite Negative (Negative) Urine Bilirubin Negative (Negative) Urine Urobilinogen Normal (Normal) mg/dL Ur Leukocyte Esterase Negative (Negative) Ur Culture Indicated? NO (NO) Peritoneal Appearance Pending Peritoneal Volume Pending Peritoneal RBC < 0.002 (0.000 - 0.002) M/mcL Periton Tot Nuc Cells 74 (0-300) TNC/mcL Periton Neutrophils Pending Periton Band Neuts Pending Peritoneal Eosinophils Pending Peritoneal Basophils Pending Periton Lymphocytes % Pending Periton Monocytes % Pending Periton Other Cells % Pending Peritoneal Albumin < 0.4 (No Ref Range) g/dL Hepatitis A IgM Ab Nonreactive (Nonreactive) Hep Bs Antigen Nonreactive (Nonreactive) Hep B Core IgM Ab Nonreactive (Nonreactive) Hepatitis C Ab Screen Nonreactive (Nonreactive) - Impressions Impressions Chest X-Ray 04/29/17 16:30 IMPRESSION: Bilateral lower lobe airspace opacity may represent developing infiltrates. Follow-up to resolution is recommended. D/ / Philly Davidson MD / Philly Davidson MD Interpreting Provider: Philly Davidson MD Liver Ultrasound 04/30/17 10:00 IMPRESSION: Cirrhotic liver, without evidence of focal mass. Small to moderate amount of ascites. Edematous appearance of the gallbladder wall, likely related to intrinsic liver disease. No evidence of gallstones. D/ / 04/30/2017 10:51:08 Pillo Andersen MD / cristhian Interpreting Provider: Pillo Andersen MD Exam - Constitutional Vitals: Temp Pulse Resp BP Pulse Ox 97.7 F 75 16 107/68 99 04/30/17 11:46 04/30/17 11:55 04/30/17 11:46 04/30/17 11:46 04/30/17 11:46 General appearance: cooperative, no acute distress, thin - Head Head exam: Present: atraumatic, normal inspection, normocephalic - Eye Eye exam: Present: EOMI, normal appearance, PERRL Pupils: Present: normal accommodation - ENT ENT exam: Present: mucous membranes moist - Neck Neck exam: Present: normal inspection - Respiratory Respiratory exam: Present: CTAB, rhonchi (bilateral bases). Absent: rales, respiratory distress, wheezes - Cardiovascular Cardiovascular exam: Present: RRR, +S1, +S2 - GI/Abdominal GI/Abdominal exam: Present: distended, normal bowel sounds, soft. Absent: tenderness - Extremities Exam Extremities exam: Present: normal inspection. Absent: joint swelling, pedal edema, tenderness - Neurological Exam Neurological exam: Present: alert, oriented X3, no focal deficits - Psychiatric Psychiatric exam: Present: normal affect, normal mood - Skin Skin exam: Present: dry, intact, normal color, warm Consult Discharge Plan - Plan Referrals: Willie Underwood MD [Primary Care Provider] - (SENT WEB REQUEST ON 04-30-17 @ [phone] ) - Attending Attestation I examined this patient and my medical decision-making was reviewed with the [employer]/PA/Advanced Practice Nurse/Resident Physician. I agree with the documented findings, disposition and treatment plan as described except to the extent set forth below.
--- NOTE | 2017-04-30 13:48 | Internal Med Progress Note ---
Date of Encounter: 04/30/17 Time of Encounter: 13:45 - Assessment and plan (1) Symptomatic anemia Current Visit: Yes Status: Acute Assessment and plan: possible multifactorial, has HIV and possible has opportunistic infections. Given history of portal hypertension and esophageal varices, will need to rule out GI bleed as well. Status post with units of blood transfusion last night, repeat hemoglobin today of 7.5 GI consulted for possible EGD, we will follow GI consultation recommendation. Denies any blood in the stool, has not had any bowel movements today. Monitor H&H. Transfuse as needed. noted to have severe iron deficiency, will start on IV iron sucrose as well appreciate oncology and ID recommendtaions. concern for AIDS syndrome check CD4, HIV VL. started on Truvada, Kaletra and Raltegravir, concern for Disseminated MAC or disseminated Histo,has been started on empiric clarithromycin. (2) Diarrhea Current Visit: Yes Status: Acute Assessment and plan: possible from HIV, no diarrhea today f/u GI panel Qualifiers: Qualified Code(s): R19.7 - Diarrhea, unspecified (3) Alcoholic cirrhosis of liver with ascites Current Visit: Yes Status: Acute Assessment and plan: decompensated liver cirrhosis with portal HTN GI has been consulted. Liver ultrasound shows cirrhotic liver without evidence of focal mass and small to moderate amount of ascites. Patient is status post paracentesis today, clinically does not have abdominal pain, no signs of SBP at this time. (4) Thrombocytopenia associated with AIDS Current Visit: Yes Status: Acute Assessment and plan: possible 2/2 portal HTN with cirrhosis. monitor for bleeding. (5) Cough Current Visit: Yes Status: Acute Assessment and plan: CXR shows bilateral lower lobe airspace opacities concerning for developing PNA. Continue Bactrim BID for PCP prophylaxis. Continue Clarithromycin. Continue Rocephin 1 gram IV daily. RIP. Check S. pneumo and Legionella UAT. - Subjective Interval history: Patient seen at the bedside, complaints of mild abdominal discomfort with the hernia. Denies any bowel movement today, no nausea or vomiting. Admitted for severe anemia, status post 4 units of blood transfusion yesterday. - Constitutional Vitals: Temp Pulse Resp BP Pulse Ox 97.7 F 75 16 107/68 99 04/30/17 11:46 04/30/17 11:55 04/30/17 11:46 04/30/17 11:46 04/30/17 11:46 General appearance: Present: A&O X 3, no acute distress Exam: HEENT: Sclerae anicteric. No mucositis or thrush. No other oral or pharyngeal lesions or erythema. Skin: No rashes or petechiae. No evidence of skin malignancy Lymph nodes: No cervical, supraclavicular, axillary, or inguinal adenopathy. Lungs: Air entry normal with normal breath sounds. No rhonchi or wheezing Cardiovascular: Regular rate and rhythm. No skipped beats Abdomen: Soft, mild epigastric tenderness. Mild ascites. Extremities: No edema. No calf swelling or tenderness. No joint deformity. Neurologic: Alert, cranial nerves II-XII intact; normal gait; no focal weakness or sensory abnormalities Internal Medicine: Result - Labs CBC & Chem 7: 04/30/17 14:47 04/30/17 04:40 Labs: Short CBC 04/30/17 Range/Units 04:40 WBC 4.9 (4.3-11.1) K/mcL Hgb 6.0 L* D (12.9-16.9) g/dL Hct 19.0 L (37.5-50.1) % Plt Count 41 L (140-400) K/mcL Neutrophils # 3.2 (1.6-8.9) K/mcL BMP 04/30/17 04:40 Sodium 136 Potassium 3.0 L Chloride 106 Carbon Dioxide 24 BUN 11 Creatinine 0.80 Glucose 94 Calcium 7.6 L Liver Function 04/30/17 Range/Units 09:03 Total Bilirubin 3.1 H D (0.2-1.2) mg/dL Direct Bilirubin 0.8 H (0.0-0.5) mg/dL AST 48 H (5-34) Units/L ALT 41 (0-55) Units/L Alkaline Phosphatase 91 (38-126) Units/L Albumin 2.8 L (3.5-5.0) g/dL Urine 04/29/17 Range/Units 16:30 Urine Color Yellow (Yellow) Urine Clarity Clear (Clear) Urine pH 6.0 (5.0-8.0) pH Units Ur Specific [place] 1.018 (1.010-1.025) Urine Protein Negative (Neg-Trace) mg/dL Urine Glucose (UA) Normal (Normal) mg/dL - ABG Interpretation ABG results: PT/INR, D-dimer PT 18.9 Seconds (9.4-12.1) H 04/30/17 09:03 - Impressions Impressions Chest X-Ray 04/29/17 16:30 IMPRESSION: Bilateral lower lobe airspace opacity may represent developing infiltrates. Follow-up to resolution is recommended. D/ / Philly Davidson MD / Philly Davidson MD Interpreting Provider: Philly Davidson MD Paracentesis Ultrasound 04/30/17 00:00 IMPRESSION: 1. Successful ultrasound guided paracentesis. D/ / Agapito Wyatt MD / Agapito Wyatt MD Interpreting Provider: Agapito Wyatt MD Liver Ultrasound 04/30/17 10:00 IMPRESSION: Cirrhotic liver, without evidence of focal mass. Small to moderate amount of ascites. Edematous appearance of the gallbladder wall, likely related to intrinsic liver disease. No evidence of gallstones. D/ / 04/30/2017 10:51:08 Pillo Andersen MD / cristhian Interpreting Provider: Pillo Andersen MD Consult Discharge Plan - Plan Referrals: Willie Underwood MD [Primary Care Provider] - (SENT WEB REQUEST ON 04-30-17 @ [phone] )
--- NOTE | 2017-04-30 13:52 | Gastroenterology Consult Note ---
Date of Encounter: 04/30/17 Time of Encounter: 10:45 - Assessment and plan (1) Symptomatic anemia Current Visit: Yes Status: Acute Assessment and plan: Hgb 3 with MCV 77.8, iron 9, and ferritin 11. He has received 4 units PRBC and Hgb this AM 6. Plan for EGD and colonoscopy tomorrow. Clear liquid diet today, no red or purple. NPO at midnight. If unable tolerate NuLytely please use MiraLAX prep. If not clear by 6 AM, give 2 tap water enemas. (2) Liver cirrhosis, alcoholic Current Visit: Yes Status: Acute Assessment and plan: MELD-Na 19, Child Kessler class C, DF 41.7. CT A/P shows cirrhosis with portal hypertension, ascites, wall thickening distal esophagus. We will complete liver workup. Check liver ultrasound for HCC surveillance. Plan for EGD tomorrow to evaluate varices. Keep patient NPO at midnight. Qualifiers: Ascites presence: with ascites Qualified Code(s): K70.31 - Alcoholic cirrhosis of liver with ascites (3) Esophageal varices in alcoholic cirrhosis Current Visit: Yes Status: Acute Assessment and plan: Plan for EGD tomorrow. Keep patient NPO at midnight. (4) HIV disease Current Visit: Yes Status: Acute Assessment and plan: Management per ID. - Time Spent With Patient Total time spent is greater than 50% in coordination of care (as documented) at patient's floor/unit and/or counseling patient: GI History of Present Illness - Data of Consult Patient: new to practice Consult date: 04/30/17 Requesting Physician: Kelly Everett - Consult Narrative Reason for consult: EBER History of present illness: Mr. Anthony is a 56 year old male with PMHx of HIV, liver cirrhosis secondary to alcohol abuse with portal HTN who presented with c/o one episode of hematemesis with clots 2 days ago, diarrhea, chronic cough, and dyspnea. He denies fever, chills, chest pain, nausea, vomiting, melena, or hematochezia. Pt states he quit drinking alcohol 30 years ago after his diagnosis with cirrhosis. On admission Hgb 3 with MCV 77.8, iron 9, and ferritin 11. He has received 4 units PRBC and Hgb this AM 6. Procedures: Colonoscopy 08/25/2013 Dr. Delaney: Congested mucosa in the entire colon recommended repeat in 5 years. EGD 01/24/2012 Dr. Delaney: Grade 3 esophageal varices, type I gastroesophageal varices without bleeding, esophagitis, MV tear NSAIDs: None Anticoagulation: None Past Med Surg Social Fam HX - Past Medical History Medical history: cirrhosis, HIV/AIDS Psychiatric history: no psych history - Social History Smoking Status: Current every day smoker Packs per day: 2 Smokeless Tobacco Status: No Alcohol use: none Drug use: none - Gastrointestinal Gastrointestinal: Present: as per HPI - Constitutional Constitutional: as per HPI - EENT Eyes: as per HPI Ears: Present: as per HPI Nose, mouth and throat: Present: as per HPI - Cardiovascular Cardiovascular ROS: Present: as per HPI - Respiratory Respiratory IM: Present: as per HPI - Genitourinary Genitourinary: Absent: change in color, Urinary frequency - Neurological ROS Neurological GI: Present: as per HPI - Hematologic/Lymphatic Hematologic/Lymphatic pediatric: Present: as per HPI - Musculoskeletal Musculoskeletal ROS GI: Present: as per HPI - Integumentary Integumentary GI: Present: as per HPI - Psychiatric ROS Psychiatric GI: Present: as per HPI - Endocrine Endocrine IM: Present: as per HPI - Constitutional Vitals: Temp Pulse Resp BP Pulse Ox 97.7 F 75 16 107/68 99 04/30/17 11:46 04/30/17 11:55 04/30/17 11:46 04/30/17 11:46 04/30/17 11:46 General appearance: Present: cooperative, A&O X 3, no acute distress, answers questions appropriately - Head Head exam: Present: atraumatic, normocephalic - Eye Eye exam: Present: normal appearance, sclera anicteric - ENT ENT exam: Present: mucous membranes moist - Neck Neck exam general surgery: Present: normal inspection, trachea midline - Respiratory Respiratory exam: Present: decreased breath sounds, CTAB. Absent: rales, rhonchi - Cardiovascular Cardiovascular exam: Present: RRR, +S1, +S2 - GI/Abdominal GI/Abdominal exam: Present: soft, no peritoneal signs. Absent: distended, firm , guarding, tenderness - Rectal Rectal exam: Present: deferred - Extremities Exam Extremities exam: Present: warm - Neurological Exam Neurological exam: Present: no focal deficits - Psychiatric Psychiatric exam: Present: normal affect, normal mood - Skin Skin exam: Present: dry, intact, normal color, warm Results - Labs CBC & Chem 7: 04/30/17 14:47 04/30/17 04:40 Labs: Last Result Calcium 7.6 mg/dL (8.6-10.8) L 04/30/17 04:40 Iron 9 mcg/dL (65-175) L 04/29/17 12:41 % Saturation 2 % (20-55) L 04/29/17 12:41 Transferrin 289 mg/dL (174-364) 04/29/17 12:41 Ferritin 11 ng/ml (22-275) L 04/29/17 21:56 Vitamin B12 951 pg/mL (213-816) H 04/29/17 12:40 Folate 12.4 ng/mL (7.0-31.4) 04/29/17 12:40 Peritoneal RBC < 0.002 M/mcL (0.000-0.002) 04/30/17 11:10 Periton Tot Nuc Cells 74 TNC/mcL (0-300) 04/30/17 11:10 Peritoneal Albumin < 0.4 g/dL (No Ref Range) 04/30/17 11:10 Entire Visit Hgb 6.0 g/dL (12.9-16.9) L* D 04/30/17 04:40 Hct 19.0 % (37.5-50.1) L 04/30/17 04:40 PT 18.9 Seconds (9.4-12.1) H 04/30/17 09:03 Ferritin 11 ng/ml (22-275) L 04/29/17 21:56 Total Bilirubin 3.1 mg/dL (0.2-1.2) H D 04/30/17 09:03 AST 48 Units/L (5-34) H 04/30/17 09:03 ALT 41 Units/L (0-55) 04/30/17 09:03 Amylase 45 Units/L (25-125) 04/29/17 12:41 Lipase 80 Units/L (8-78) H 04/29/17 12:41 Folate 12.4 ng/mL (7.0-31.4) 04/29/17 12:40 - ABG ABG results: PT/INR, D-dimer PT 18.9 Seconds (9.4-12.1) H 04/30/17 09:03 - Impressions Impressions Chest X-Ray 04/29/17 16:30 IMPRESSION: Bilateral lower lobe airspace opacity may represent developing infiltrates. Follow-up to resolution is recommended. D/ / Philly Davidson MD / Philly Davidson MD Interpreting Provider: Philly Davidson MD Paracentesis Ultrasound 04/30/17 00:00 IMPRESSION: 1. Successful ultrasound guided paracentesis. D/ / Agapito Wyatt MD / Agapito Wyatt MD Interpreting Provider: Agapito Wyatt MD Liver Ultrasound 04/30/17 10:00 IMPRESSION: Cirrhotic liver, without evidence of focal mass. Small to moderate amount of ascites. Edematous appearance of the gallbladder wall, likely related to intrinsic liver disease. No evidence of gallstones. D/ / 04/30/2017 10:51:08 Pillo Andersen MD / cristhian Interpreting Provider: Pillo Andersen MD Consult Discharge Plan - Plan Referrals: Willie Underwood MD [Primary Care Provider] - (SENT WEB REQUEST ON 04-30-17 @ [id number] )
[2017-04-30] MEDS ORDERED: Dextrose Gel 15 GM PO PRN ×2 (14:40)
[2017-04-30] MEDS ORDERED: *HR* Dextrose 50 % in Water (Syg) 50 ML SYRINGE IVP PRN (14:40)
[2017-04-30] MEDS ORDERED: D5% in Water 1,000 ML IVC PRN (14:40)
[2017-04-30] MEDS ORDERED: Magnesium Sulfate 2 GM in D5% in Water 100 ML IVPB ONE (14:45)
[2017-04-30 14:55] LABS: Hemoglobin 7.5 g/dL (12.9-16.9)
[2017-04-30 14:56] LABS: Appearance of Peritoneal Fl CLEAR (Clear)
[2017-04-30 16:58] LABS: Adenovirus Not Detected (Not Detect); Bordetella Pertussis Not Detected (Not Detect); Chlamydophila pneumoniae Not Detected (Not Detect); Coronavirus 229E Not Detected (Not Detect); Coronavirus HKU1 Not Detected (Not Detect); Coronavirus NL63 Not Detected (Not Detect); Coronavirus OC43 Not Detected (Not Detect); Human Metapneumovirus Not Detected (Not Detect); Human Rhinovirus/Enterovirus Not Detected (Not Detect); Influenza A Subtype 2009 H1 Not Detected (Not Detect); Influenza A Untypeable Not Detected (Not Detect); Influenza B Not Detected (Not Detect); Mycoplasma pneumoniae Not Detected (Not Detect); Parainfluenza Virus 1 Not Detected (Not Detect); Parainfluenza Virus 2 Not Detected (Not Detect); Parainfluenza Virus 3 Not Detected (Not Detect); Parainfluenza Virus 4 Not Detected (Not Detect); Respiratory Syncytial Virus Not Detected (Not Detect)
[2017-04-30] MEDS ORDERED: SODIUM CHLORIDE/NAHCO3/KCL/PEG 4,000 ML SOLN.RECON PO ONE (17:00)
[2017-05-01] MEDS: Pantoprazole 40 MG VIAL IVP SCH ×2 (05:34→19:14)
[2017-05-01 08:49] LABS: Hematocrit 25.1 % (37.5-50.1); Hemoglobin 7.7 g/dL (12.9-16.9); Mean Corpuscular HGB Conc 30.7 g/dL (31.6-35.5); Mean Corpuscular Hemoglobin 24.6 pg (28.0-33.3); Mean Corpuscular Volume 80.2 fL (83.0-100.0); Nucleated Red Blood Cells 1.4 /100 WBC (0); Red Blood Count 3.13 M/mcL (4.19-5.50); Red Cell Distribution Width 20.7 % (11.5-14.5)
[2017-05-01 08:51] LABS: Platelet Count 42 K/mcL (140-400)
[2017-05-01 09:08] LABS: BUN/Creatinine Ratio 9 (6-26); Blood Urea Nitrogen 7 mg/dL (8-26); Calcium 7.9 mg/dL (8.6-10.8); Carbon Dioxide 25 mEq/L (19-29); Chloride 107 mEq/L (98-109); Glucose 91 mg/dL (70-99); Osmolality,Calculated 286 (280-300); Potassium 3.2 mEq/L (3.5-4.5); Sodium 139 mEq/L (136-145); eGFR For African Americans > 60 (> 60); eGFR For Non-African Americans > 60 (> 60)
[2017-05-01] MEDS: Sulfamethoxazole/Trimeth DS 1 EACH TABLET PO SCH ×2 (09:10→20:08)
[2017-05-01] MEDS: Nicotine 21 MG PATCH.TD24 TD SCH (09:11)
[2017-05-01] MEDS: RALTEGRAVIR POTASSIUM 400 MG TABLET PO SCH ×2 (09:11→20:08)
[2017-05-01] MEDS: Nystatin SUSP 5 ML UD.LIQ PO SCH ×4 (09:11→20:08)
[2017-05-01 09:21] LABS: Lymphocytes # 1.1 K/mcL (0.6-4.6); Monocytes # 0.6 K/mcL (0.0-1.3); Neutrophils # 3.2 K/mcL (1.6-8.9)
[2017-05-01 09:22] LABS: Anisocytosis 1+ (Not Present); Polychromasia 1+ (Not Present)
--- NOTE | 2017-05-01 09:52 | Internal Med Progress Note ---
Date of Encounter: 05/01/17 Time of Encounter: 09:49 - Assessment and plan (1) Symptomatic anemia Current Visit: Yes Status: Acute Assessment and plan: possible multifactorial, has HIV and possible has opportunistic infections. Given history of portal hypertension and esophageal varices, will need to rule out GI bleed as well. Status post 4 units of blood transfusion last night, repeat hemoglobin today of 7.7 GI consulted colonoscopy adnEGD today, we will follow GI consultation recommendation. Monitor H&H. Transfuse as needed. noted to have severe iron deficiency, started on IV iron sucrose as well, b12 and folate normal appreciate oncology and ID recommendtaions. concern for AIDS syndrome follow CD4, HIV VL. started on Truvada, Kaletra and Raltegravir, concern for Disseminated MAC or disseminated Histo,has been started on empiric clarithromycin. (2) Diarrhea Current Visit: Yes Status: Acute Assessment and plan: possible from HIV, currently having loose stools from golytely f/u GI panel Qualifiers: Diarrhea type: unspecified type Qualified Code(s): R19.7 - Diarrhea, unspecified (3) Alcoholic cirrhosis of liver with ascites Current Visit: Yes Status: Acute Assessment and plan: decompensated liver cirrhosis with portal HTN GI has been consulted. Liver ultrasound shows cirrhotic liver without evidence of focal mass and small to moderate amount of ascites. Patient is status post paracentesis , clinically does not have abdominal pain, no signs of SBP at this time. (4) Thrombocytopenia associated with AIDS Current Visit: Yes Status: Acute Assessment and plan: possible 2/2 portal HTN with cirrhosis. monitor for bleeding. (5) Cough Current Visit: Yes Status: Acute Assessment and plan: CXR shows bilateral lower lobe airspace opacities concerning for developing PNA. Continue Bactrim BID for PCP prophylaxis. Continue Clarithromycin. Continue Rocephin 1 gram IV daily. will de escalate antibiotics once CD4 comes back. RIP is negative, clinically appears stable, saturating well on RA S. pneumo and Legionella UAT is negative - Subjective Interval history: Patient seen at the bedside, complaints of mild abdominal discomfort with the hernia and asking for a abdominal binder. reports that he was not able to finish the golytely, no nausea or vomiting. Admitted for severe anemia, status post 4 units of blood transfusion , hb remains stable. - Constitutional Vitals: Temp Pulse Resp BP Pulse Ox 98.0 F 95 15 107/69 100 06/29/17 07:08 05/01/17 07:08 05/01/17 07:08 05/01/17 07:08 05/01/17 07:08 General appearance: Present: A&O X 3, no acute distress Exam: HEENT: Sclerae anicteric. No mucositis or thrush. No other oral or pharyngeal lesions or erythema. Skin: No rashes or petechiae. No evidence of skin malignancy Lymph nodes: No cervical, supraclavicular, axillary, or inguinal adenopathy. Lungs: Air entry normal with normal breath sounds. No rhonchi or wheezing Cardiovascular: Regular rate and rhythm. No skipped beats Abdomen: Soft, mild epigastric tenderness. Mild ascites. Extremities: No edema. No calf swelling or tenderness. No joint deformity. Neurologic: Alert, cranial nerves II-XII intact; normal gait; no focal weakness or sensory abnormalities Internal Medicine: Result - Labs CBC & Chem 7: 05/01/17 08:09 05/01/17 08:09 Labs: Short CBC 04/30/17 05/01/17 Range/Units 14:47 08:09 WBC 4.9 (4.3-11.1) K/mcL Hgb 7.5 L D 7.7 L (12.9-16.9) g/dL Hct 24.0 L 25.1 L (37.5-50.1) % Plt Count 42 L (140-400) K/mcL Neutrophils # 3.2 (1.6-8.9) K/mcL BMP 05/01/17 08:09 Sodium 139 Potassium 3.2 L Chloride 107 Carbon Dioxide 25 BUN 7 L Creatinine 0.79 Glucose 91 Calcium 7.9 L - ABG Interpretation ABG results: PT/INR, D-dimer PT 18.9 Seconds (9.4-12.1) H 04/30/17 09:03 - Impressions Impressions Paracentesis Ultrasound 04/30/17 00:00 IMPRESSION: 1. Successful ultrasound guided paracentesis. D/ / Agapito Wyatt MD / Agapito Wyatt MD Interpreting Provider: Agapito Wyatt MD Liver Ultrasound 04/30/17 10:00 IMPRESSION: Cirrhotic liver, without evidence of focal mass. Small to moderate amount of ascites. Edematous appearance of the gallbladder wall, likely related to intrinsic liver disease. No evidence of gallstones. D/ / 04/30/2017 10:51:08 Pillo Andersen MD / cristhian Interpreting Provider: Pillo Andersen MD Consult Discharge Plan - Plan Referrals: Willie Underwood MD [Primary Care Provider] - (SENT WEB REQUEST ON 04-30-17 @ [phone] )
[2017-05-01] MEDS: Iron Sucrose Complex 200 MG in 0.9 % Sodium Chloride 100 ML IVPB SCH (09:59)
[2017-05-01] MEDS: LOPINAVIR PO SCH ×2 (10:23→20:08)
[2017-05-01] MEDS: RITONAVIR PO SCH ×2 (10:23→20:08)
[2017-05-01 14:28] LABS: HIV-1 Viral Load Interp DETECTED (Not Detected)
[2017-05-01 16:26] LABS: CD19 Percent 43 % (6-23); CD3 Percent 47 % (62-87); CD45RA Absolute 51 cells/uL (350-1100); CD45RA Percent 34 % (28-71); CD45RO Absolute 97 cells/uL (340-1150); CD45RO Percent 66 % (28-72); CD8 Percent 17 % (15-46); Natural Killer Cells Absolute 50 cells/uL (78-470); Natural Killer Cells Percent 9 % (4-26)
[2017-05-01] MEDS ORDERED: Tetracaine/Benzocaine/Butamben 200MG/SPRAY (100SPY/BOT) MM ONE (18:04)
[2017-05-01] MEDS ORDERED: Simethicone 40 MG/0.6 ML MLS IR ONE (18:04)
[2017-05-01] MEDS ORDERED: *HR* FentaNYL (PF) 100 MCG/2 ML VIAL ONE (18:14)
[2017-05-01] MEDS ORDERED: *HR* Midazolam HCl 5 MG/5 ML VIAL IVP ONE (18:14)
--- NOTE | 2017-05-01 18:17 | Infectious Disease Progress No ---
Date of Encounter: 05/01/17 Time of Encounter: 18:15 - Assessment and Plan (1) HIV disease Current Visit: Yes Status: Acute Diagnosed 30 years ago[address] with [address] Willie Underwood. Most recent regimen included Lamivudine, Raltegravir, and boosted darunavir. Most recent CD4 399 and viral load undetectable. Non-compliant with medications for three weeks prior to admission. Concern for AIDS syndrome. Check CD4 pending, HIV VL --> 120 WBC normal. Hgb improved Continue Truvada, Kaletra, and Raltegravir as prescribed. Continue Clarithromycin 500mg PO BID. Continue Bactrim DS 1 tab PO, but increase frequency to BID. (2) Cough Current Visit: Yes Status: Acute Chronic. Likely secondary to heavy tobacco use. CXR shows bilateral lower lobe airspace opacities concerning for developing PNA. Continue Bactrim, but increase to BID for PCP prophylaxis. Continue Clarithromycin. Continue Rocephin 1 gram IV daily. Get RIP. Check S. pneumo and Legionella UAT. repeat CXR (3) Diarrhea Current Visit: Yes Status: Acute Etiology unclear: HIV vs. infectious. Send stool for GI panel. Qualifiers: Diarrhea type: unspecified type Qualified Code(s): R19.7 - Diarrhea, unspecified (4) Severe anemia Current Visit: Yes Status: Acute Etiology unclear: UGI bleed vs. other. Hgb 3 on admission. Improved after 4 units of PRBCs, but still only 6. No bleeding noted since admission. GI consulted and following. Considering possible EGD today. Hem/Onc consulted and following. Considering bone marrow biopsy if GI bleed workup negative. (5) Alcoholic cirrhosis of liver with ascites Current Visit: Yes Status: Acute Secondary to heavy ETOH use. GI consulted and following. Status post liver UTS this morning. Results pending. MELD score 18. Status post paracentesis this morning. Removed 2 liters of turbid fluid. Fluid sent for culture and cell count. Does not appear to be SBP based on cell count. Culture pending. (6) Esophageal varices in alcoholic cirrhosis Current Visit: Yes Status: Acute (7) Lactic acidosis Current Visit: Yes Status: Acute (8) Portal hypertension Current Visit: Yes Status: Chronic (9) Indirect hyperbilirubinemia Current Visit: Yes Status: Acute etiology? await hematology input - Subjective Interval history: Patient seen and examined. appears very comfortable no acute distress being prepped for a colonoscopy tomorrow Infect Dis PN-Objective Data - Labs CBC & Chem 7: 05/01/17 08:09 05/01/17 08:09 Labs: Laboratory Results - last 24 hr 05/01/17 05/01/17 08:09 08:09 WBC 4.9 RBC 3.13 L Hgb 7.7 L Hct 25.1 L MCV 80.2 L MCH 24.6 L MCHC 30.7 L RDW 20.7 H Plt Count 42 L MPV TNP Seg Neutrophils % 66.0 Lymphocytes % 22.0 Monocytes % 12.0 Neutrophils # 3.2 Lymphocytes # 1.1 Monocytes # 0.6 Nucleated RBCs/100 WBC 1.4 H Polychromasia 1+ A Anisocytosis 1+ A Sodium 139 Potassium 3.2 L Chloride 107 Carbon Dioxide 25 BUN 7 L Creatinine 0.79 Est GFR ( Amer) > 60 Est GFR (Non-Af Amer) > 60 BUN/Creatinine Ratio 9 Glucose 91 Calculated Osmolality 286 Calcium 7.9 L Cultures: Cultures 04/30/17 11:10 Gram Stain - Final Ascites Fluid 04/30/17 15:58 Legionella Antigen - Final Urine,Random-Not Preferred Streptococcus pneumoniae Antigen (M - Final 04/29/17 18:35 Sputum Culture - Final Sputum Serology 04/30/17 04/30/17 04/30/17 Range/Units 15:10 11:10 09:03 Urine Color (Yellow) Urine Clarity (Clear) Urine pH (5.0-8.0) pH Units Ur Specific [place] (1.010-1.025) Urine Protein (Neg-Trace) mg/dL Urine Glucose (UA) (Normal) mg/dL Urine Ketones (Negative) mg/dL Urine Blood (Negative) Urine Nitrite (Negative) Urine Bilirubin (Negative) Urine Urobilinogen (Normal) mg/dL Ur Leukocyte Esterase (Negative) Ur Culture Indicated? (NO) Peritoneal Appearance CLEAR (Clear) Peritoneal Volume 1200.0 mL Peritoneal RBC < 0.002 (0.000 - 0.002) M/mcL Periton Tot Nuc Cells 74 (0-300) TNC/mcL Periton Neutrophils 34.5 % Periton Band Neuts TNP Peritoneal Eosinophils TNP Peritoneal Basophils TNP Periton Lymphocytes % 55.2 % Periton Monocytes % 10.3 % Periton Other Cells % TNP Peritoneal Albumin < 0.4 (No Ref Range) g/dL Chlamy pneumoniae PCR Not Detected (Not Detect) Adenovirus (PCR) Not Detected (Not Detect) B. pertussis DNA (PCR) Not Detected (Not Detect) Coronavirus OC43 (PCR) Not Detected (Not Detect) Coronavirus HKU1 (PCR) Not Detected (Not Detect) Coronavirus 229E (PCR) Not Detected (Not Detect) Coronavirus NL63 (PCR) Not Detected (Not Detect) Hepatitis A IgM Ab Nonreactive (Nonreactive) Hep Bs Antigen Nonreactive (Nonreactive) Hep B Core IgM Ab Nonreactive (Nonreactive) Hepatitis C Ab Screen Nonreactive (Nonreactive) Human Metapneumovir PCR Not Detected (Not Detect) Influenza A (H1) PCR Not Detected (Not Detect) Influ A (H1N1/09) PCR Not Detected (Not Detect) Influenza A (H3) PCR Not Detected (Not Detect) Influenza A Untype (PCR) Not Detected (Not Detect) Influenza Type B (PCR) Not Detected (Not Detect) M.pneumoniae DNA (PCR) Not Detected (Not Detect) Parainfluenza 1 (PCR) Not Detected (Not Detect) Parainfluenza 2 (PCR) Not Detected (Not Detect) Parainfluenza 3 (PCR) Not Detected (Not Detect) Parainfluenza 4 (PCR) Not Detected (Not Detect) RSV (PCR) Not Detected (Not Detect) Entero/Rhino (PCR) Not Detected (Not Detect) 04/29/17 Range/Units 16:30 Urine Color Yellow (Yellow) Urine Clarity Clear (Clear) Urine pH 6.0 (5.0-8.0) pH Units Ur Specific [place] 1.018 (1.010-1.025) Urine Protein Negative (Neg-Trace) mg/dL Urine Glucose (UA) Normal (Normal) mg/dL Urine Ketones Negative (Negative) mg/dL Urine Blood Negative (Negative) Urine Nitrite Negative (Negative) Urine Bilirubin Negative (Negative) Urine Urobilinogen Normal (Normal) mg/dL Ur Leukocyte Esterase Negative (Negative) Ur Culture Indicated? NO (NO) Peritoneal Appearance (Clear) Peritoneal Volume mL Peritoneal RBC (0.000 - 0.002) M/mcL Periton Tot Nuc Cells (0-300) TNC/mcL Periton Neutrophils % Periton Band Neuts Peritoneal Eosinophils Peritoneal Basophils Periton Lymphocytes % % Periton Monocytes % % Periton Other Cells % Peritoneal Albumin (No Ref Range) g/dL Chlamy pneumoniae PCR (Not Detect) Adenovirus (PCR) (Not Detect) B. pertussis DNA (PCR) (Not Detect) Coronavirus OC43 (PCR) (Not Detect) Coronavirus HKU1 (PCR) (Not Detect) Coronavirus 229E (PCR) (Not Detect) Coronavirus NL63 (PCR) (Not Detect) Hepatitis A IgM Ab (Nonreactive) Hep Bs Antigen (Nonreactive) Hep B Core IgM Ab (Nonreactive) Hepatitis C Ab Screen (Nonreactive) Human Metapneumovir PCR (Not Detect) Influenza A (H1) PCR (Not Detect) Influ A (H1N1/09) PCR (Not Detect) Influenza A (H3) PCR (Not Detect) Influenza A Untype (PCR) (Not Detect) Influenza Type B (PCR) (Not Detect) M.pneumoniae DNA (PCR) (Not Detect) Parainfluenza 1 (PCR) (Not Detect) Parainfluenza 2 (PCR) (Not Detect) Parainfluenza 3 (PCR) (Not Detect) Parainfluenza 4 (PCR) (Not Detect) RSV (PCR) (Not Detect) Entero/Rhino (PCR) (Not Detect) Exam - Constitutional Vitals: Temp Pulse Resp BP Pulse Ox 98.1 F 93 18 119/67 95 05/01/17 14:37 05/01/17 18:12 05/01/17 18:12 05/01/17 18:12 05/01/17 18:12 General appearance: no acute distress, no febrile - Respiratory Respiratory exam: Present: CTAB. Absent: wheezes - Cardiovascular Cardiovascular exam: Present: RRR, +S1, +S2 - GI/Abdominal GI/Abdominal exam: Present: normal bowel sounds, soft. Absent: tenderness - Extremities Exam Extremities exam: Present: normal inspection. Absent: pedal edema - Neurological Exam Neurological exam: Present: alert, oriented X3. Absent: speech deficit Consult Discharge Plan - Plan Referrals: Willie Underwood MD [Primary Care Provider] - (SENT WEB REQUEST ON 04-30-17 @ [phone] )
[2017-05-01] MEDS: *HR* Midazolam HCl 5 MG/5 ML VIAL IVP PRN ×4 (18:18→18:35)
[2017-05-01] MEDS: *HR* FentaNYL (PF) 100 MCG/2 ML VIAL IVP PRN ×3 (18:18→18:32)
[2017-05-02 03:56] LABS: Kappa Qnt Free Light Chains 6.17 mg/dL (0.33-1.94); Lambda Qnt Free Light Chains 5.48 mg/dL (0.57-2.63)
[2017-05-02] MEDS: Pantoprazole 40 MG VIAL IVP SCH (05:55)
[2017-05-02 07:24] LABS: AFP Tumor Marker Non-Pregnant 4 ng/mL (0-9); Alpha-1-Antitrypsin 240 mg/dL (90-200); Ceruloplasmin 24 mg/dL (17-54)
[2017-05-02 07:27] LABS: Myeloperoxidase Ab 4 AU/mL (0-19); Serine Protease-3 Antibody 0 AU/mL (0-19)
[2017-05-02] MEDS: RALTEGRAVIR POTASSIUM 400 MG TABLET PO SCH (08:21)
[2017-05-02] MEDS: Sulfamethoxazole/Trimeth DS 1 EACH TABLET PO SCH (08:22)
[2017-05-02] MEDS: Nystatin SUSP 5 ML UD.LIQ PO SCH ×2 (08:22→16:24)
[2017-05-02] MEDS: LOPINAVIR PO SCH (08:22)
[2017-05-02] MEDS: Sucralfate 1 GM TABLET PO SCH ×2 (08:22→12:32)
[2017-05-02] MEDS: Nicotine 21 MG PATCH.TD24 TD SCH (08:22)
[2017-05-02] MEDS: RITONAVIR PO SCH (08:22)
[2017-05-02 08:48] LABS: Basophils % 0.5 %; Hemoglobin 7.9 g/dL (12.9-16.9); Lymphocytes % 14.9 %
[2017-05-02 08:50] LABS: Eosinophils # 0.1 K/mcL (0.0-0.6); Eosinophils % 1.5 %; Hematocrit 26.1 % (37.5-50.1); Immature Platelets 20.5 % (1.1-6.1); Lymphocytes # 0.8 K/mcL (0.6-4.6); Mean Corpuscular HGB Conc 30.3 g/dL (31.6-35.5); Mean Corpuscular Hemoglobin 25.1 pg (28.0-33.3); Mean Corpuscular Volume 82.9 fL (83.0-100.0); Monocytes % 17.3 %; Neutrophils # 3.5 K/mcL (1.6-8.9); Nucleated Red Blood Cells 0.7 /100 WBC (0); Platelet Count 48 K/mcL (140-400); Red Blood Count 3.15 M/mcL (4.19-5.50); Red Cell Distribution Width 21.4 % (11.5-14.5); Segmented Neutrophils % 63.8 %
[2017-05-02 09:02] LABS: BUN/Creatinine Ratio 10 (6-26); Blood Urea Nitrogen 9 mg/dL (8-26); Calcium 8.1 mg/dL (8.6-10.8); Carbon Dioxide 23 mEq/L (19-29); Chloride 108 mEq/L (98-109); Glucose 122 mg/dL (70-99); Osmolality,Calculated 284 (280-300); Potassium 3.8 mEq/L (3.5-4.5); Sodium 137 mEq/L (136-145); eGFR For African Americans > 60 (> 60); eGFR For Non-African Americans > 60 (> 60)
[2017-05-02] MEDS: Iron Sucrose Complex 200 MG in 0.9 % Sodium Chloride 100 ML IVPB SCH (09:47)
[2017-05-02 14:44] LABS: ANA IgG by ELISA NONE DETECTED (None Detected)
[2017-05-02 14:45] LABS: F-Actin (sm muscle) Ab IgG 14 Units (0-19)
--- NOTE | 2017-05-02 15:54 | Infectious Disease Progress No ---
Date of Encounter: 05/02/17 Time of Encounter: 15:52 - Assessment and Plan (1) HIV disease Current Visit: Yes Status: Acute Diagnosed 30 years ago[address] with Dr[address] Willie Underwood. Most recent regimen included Lamivudine, Raltegravir, and boosted darunavir. Most recent CD4 399 and viral load undetectable. Non-compliant with medications for three weeks prior to admission. Concern for AIDS syndrome. CD4 169, HIV VL --> 120 WBC normal. Hgb improved Continue Truvada, Kaletra, and Raltegravir as prescribed. prescription written Continue Clarithromycin 500mg PO BID x 7 days total Continue Bactrim DS 1 tab PO for pjp prophylaxis. pt to follow up with Dr. jeffries after d/c (2) Cough Current Visit: Yes Status: Acute Chronic. Likely secondary to heavy tobacco use. CXR shows bilateral lower lobe airspace opacities concerning for developing PNA. Continue Bactrim, but increase to BID for PCP prophylaxis. Continue Clarithromycin. Continue Rocephin 1 gram IV daily. Get RIP. Check S. pneumo and Legionella UAT. repeat CXR (3) Diarrhea Current Visit: Yes Status: Acute Etiology unclear: HIV vs. infectious. Send stool for GI panel. Qualifiers: Diarrhea type: unspecified type Qualified Code(s): R19.7 - Diarrhea, unspecified (4) Severe anemia Current Visit: Yes Status: Acute Etiology unclear: UGI bleed vs. other. Hgb 3 on admission. Improved after 4 units of PRBCs, but still only 6. No bleeding noted since admission. GI consulted and following. Considering possible EGD today. Hem/Onc consulted and following. Considering bone marrow biopsy if GI bleed workup negative. (5) Alcoholic cirrhosis of liver with ascites Current Visit: Yes Status: Acute Secondary to heavy ETOH use. GI consulted and following. Status post liver UTS this morning. Results pending. MELD score 18. Status post paracentesis this morning. Removed 2 liters of turbid fluid. Fluid sent for culture and cell count. Does not appear to be SBP based on cell count. Culture pending. (6) Esophageal varices in alcoholic cirrhosis Current Visit: Yes Status: Acute (7) Lactic acidosis Current Visit: Yes Status: Acute (8) Portal hypertension Current Visit: Yes Status: Chronic (9) Indirect hyperbilirubinemia Current Visit: Yes Status: Acute etiology? await hematology input - Subjective Interval history: Patient seen and examined. appears very comfortable no acute distress doing much better. hospitalist wants to d/c home concenr for the anemia and for elevated indirect bilirubin. Notified hospitalist of my concerns Infect Dis PN-Objective Data - Labs CBC & Chem 7: 05/02/17 08:23 05/02/17 08:23 Labs: Laboratory Results - last 24 hr 04/29/17 04/29/17 04/30/17 21:56 21:56 09:03 WBC RBC Hgb Hct MCV MCH MCHC RDW Plt Count MPV Immature Gran % Seg Neutrophils % Lymphocytes % Monocytes % Eosinophils % Basophils % Neutrophils # Lymphocytes # Monocytes # Eosinophils # Basophils # Nucleated RBCs/100 WBC Immature Plt Fraction Sodium Potassium Chloride Carbon Dioxide BUN Creatinine Est GFR ( Amer) Est GFR (Non-Af Amer) BUN/Creatinine Ratio Glucose Calculated Osmolality Calcium Imlii-4-Qqyezloyval 240 H Ceruloplasmin 24 Tumor Marker AFP 4 ERICA Screen NONE DETECTED Myeloperoxidase Ab 4 Mitochondria M2 IgG Ab 4.1 F-Actin IgG Antibody 14 Serine Protease 3 Ab 0 Lymphocyte Subset Cmmnt SEE NOTE Natural Killer Cells 50 L % NK Cells 9 % CD3 Cells 47 L Absolute CD3 Count 272 L % CD4 Cells 29 L Absolute CD4 Count 167 L T-Lymph CD4/CD8 Ratio 1.71 % CD8 Cells 17 Absolute CD8 Count 99 L Absolute CD19 Count 251 Total CD19+ B Cells % 43 H % CD45RA 34 Absolute CD45RA Count 51 L % CD45RO 66 Absolute CD45RO Count 97 L Free [place] LC, Quant 6.17 H Free Lambda LC, Quant 5.48 H Free [place]/Lambda Ratio 1.13 Beta-(1,3)-D-Glucan <31 B-(1,3)-D-Glucan Intrp NEGATIVE 05/02/17 05/02/17 08:23 08:23 WBC 5.5 RBC 3.15 L Hgb 7.9 L Hct 26.1 L MCV 82.9 L MCH 25.1 L MCHC 30.3 L RDW 21.4 H Plt Count 48 L MPV TNP Immature Gran % 2.0 Seg Neutrophils % 63.8 Lymphocytes % 14.9 Monocytes % 17.3 Eosinophils % 1.5 Basophils % 0.5 Neutrophils # 3.5 Lymphocytes # 0.8 Monocytes # 1.0 Eosinophils # 0.1 Basophils # 0.0 Nucleated RBCs/100 WBC 0.7 H Immature Plt Fraction 20.5 H Sodium 137 Potassium 3.8 Chloride 108 Carbon Dioxide 23 BUN 9 Creatinine 0.87 Est GFR ( Amer) > 60 Est GFR (Non-Af Amer) > 60 BUN/Creatinine Ratio 10 Glucose 122 H Calculated Osmolality 284 Calcium 8.1 L [id number] Ceruloplasmin Tumor Marker AFP ERICA Screen Myeloperoxidase Ab Mitochondria M2 IgG Ab F-Actin IgG Antibody Serine Protease 3 Ab Lymphocyte Subset Cmmnt Natural Killer Cells % NK Cells % CD3 Cells Absolute CD3 Count % CD4 Cells Absolute CD4 Count T-Lymph CD4/CD8 Ratio % CD8 Cells Absolute CD8 Count Absolute CD19 Count Total CD19+ B Cells % % CD45RA Absolute CD45RA Count % CD45RO Absolute CD45RO Count Free [place] LC, Quant Free Lambda LC, Quant Free [place]/Lambda Ratio Beta-(1,3)-D-Glucan B-(1,3)-D-Glucan Intrp Cultures: Cultures 04/30/17 11:10 Gram Stain - Final Ascites Fluid Body Fluid Culture - Preliminary 04/30/17 15:58 Legionella Antigen - Final Urine,Random-Not Preferred Streptococcus pneumoniae Antigen (M - Final 04/29/17 18:35 Sputum Culture - Final Sputum Serology 04/30/17 04/30/17 04/30/17 Range/Units 15:10 11:10 09:03 Urine Color (Yellow) Urine Clarity (Clear) Urine pH (5.0-8.0) pH Units Ur Specific [place] (1.010-1.025) Urine Protein (Neg-Trace) mg/dL Urine Glucose (UA) (Normal) mg/dL Urine Ketones (Negative) mg/dL Urine Blood (Negative) Urine Nitrite (Negative) Urine Bilirubin (Negative) Urine Urobilinogen (Normal) mg/dL Ur Leukocyte Esterase (Negative) Ur Culture Indicated? (NO) Peritoneal Appearance CLEAR (Clear) Peritoneal Volume 1200.0 mL Peritoneal RBC < 0.002 (0.000 - 0.002) M/mcL [place] Tot Nuc Cells 74 (0-300) TNC/mcL [place] Neutrophils 34.5 % [place] Band Neuts TNP Peritoneal Eosinophils TNP Peritoneal Basophils TNP [place] Lymphocytes % 55.2 % [place] Monocytes % 10.3 % [place] Other Cells % TNP Peritoneal Albumin < 0.4 (No Ref Range) g/dL Chlamy pneumoniae PCR Not Detected (Not Detect) Adenovirus (PCR) Not Detected (Not Detect) B. pertussis DNA (PCR) Not Detected (Not Detect) Coronavirus OC43 (PCR) Not Detected (Not Detect) Coronavirus HKU1 (PCR) Not Detected (Not Detect) Coronavirus 229E (PCR) Not Detected (Not Detect) Coronavirus NL63 (PCR) Not Detected (Not Detect) Hepatitis A IgM Ab Nonreactive (Nonreactive) Hep Bs Antigen Nonreactive (Nonreactive) Hep B Core IgM Ab Nonreactive (Nonreactive) Hepatitis C Ab Screen Nonreactive (Nonreactive) Human Metapneumovir PCR Not Detected (Not Detect) Influenza A (H1) PCR Not Detected (Not Detect) Influ A (H1N1/09) PCR Not Detected (Not Detect) Influenza A (H3) PCR Not Detected (Not Detect) Influenza A Untype (PCR) Not Detected (Not Detect) Influenza Type B (PCR) Not Detected (Not Detect) M.pneumoniae DNA (PCR) Not Detected (Not Detect) Parainfluenza 1 (PCR) Not Detected (Not Detect) Parainfluenza 2 (PCR) Not Detected (Not Detect) Parainfluenza 3 (PCR) Not Detected (Not Detect) Parainfluenza 4 (PCR) Not Detected (Not Detect) RSV (PCR) Not Detected (Not Detect) Entero/Rhino (PCR) Not Detected (Not Detect) Beta-(1,3)-D-Glucan pg/mL B-(1,3)-D-Glucan Intrp (Negative) 04/29/17 04/29/17 Range/Units 21:56 16:30 Urine Color Yellow (Yellow) Urine Clarity Clear (Clear) Urine pH 6.0 (5.0-8.0) pH Units Ur Specific [place] 1.018 (1.010-1.025) Urine Protein Negative (Neg-Trace) mg/dL Urine Glucose (UA) Normal (Normal) mg/dL Urine Ketones Negative (Negative) mg/dL Urine Blood Negative (Negative) Urine Nitrite Negative (Negative) Urine Bilirubin Negative (Negative) Urine Urobilinogen Normal (Normal) mg/dL Ur Leukocyte Esterase Negative (Negative) Ur Culture Indicated? NO (NO) Peritoneal Appearance (Clear) Peritoneal Volume mL Peritoneal RBC (0.000 - 0.002) M/mcL [place] Tot Nuc Cells (0-300) TNC/mcL [place] Neutrophils % [place] Band Neuts Peritoneal Eosinophils Peritoneal Basophils [place] Lymphocytes % % [place] Monocytes % % [place] Other Cells % Peritoneal Albumin (No Ref Range) g/dL Chlamy pneumoniae PCR (Not Detect) Adenovirus (PCR) (Not Detect) B. pertussis DNA (PCR) (Not Detect) Coronavirus OC43 (PCR) (Not Detect) Coronavirus HKU1 (PCR) (Not Detect) Coronavirus 229E (PCR) (Not Detect) Coronavirus NL63 (PCR) (Not Detect) Hepatitis A IgM Ab (Nonreactive) Hep Bs Antigen (Nonreactive) Hep B Core IgM Ab (Nonreactive) Hepatitis C Ab Screen (Nonreactive) Human Metapneumovir PCR (Not Detect) Influenza A (H1) PCR (Not Detect) Influ A (H1N1/09) PCR (Not Detect) Influenza A (H3) PCR (Not Detect) Influenza A Untype (PCR) (Not Detect) Influenza Type B (PCR) (Not Detect) M.pneumoniae DNA (PCR) (Not Detect) Parainfluenza 1 (PCR) (Not Detect) Parainfluenza 2 (PCR) (Not Detect) Parainfluenza 3 (PCR) (Not Detect) Parainfluenza 4 (PCR) (Not Detect) RSV (PCR) (Not Detect) Entero/Rhino (PCR) (Not Detect) Beta-(1,3)-D-Glucan <31 pg/mL B-(1,3)-D-Glucan Intrp NEGATIVE (Negative) - Impressions Impressions Liver Ultrasound 04/30/17 10:00 IMPRESSION: Cirrhotic liver, without evidence of focal mass. Small to moderate amount of ascites. Edematous appearance of the gallbladder wall, likely related to intrinsic liver disease. No evidence of gallstones. D/ / 04/30/2017 10:51:08 Pillo Andersen MD / cristhian Interpreting Provider: Pillo Andersen MD Exam - Constitutional Vitals: Temp Pulse Resp BP Pulse Ox 97.2 F L 97 16 117/67 93 05/02/17 11:45 05/02/17 11:45 05/02/17 11:45 05/02/17 11:45 05/02/17 11:45 General appearance: no acute distress, no febrile - Head Head exam: Present: atraumatic, normocephalic - Respiratory Respiratory exam: Present: CTAB. Absent: wheezes - Cardiovascular Cardiovascular exam: Present: RRR, +S1, +S2 - Extremities Exam Extremities exam: Present: normal inspection - Neurological Exam Neurological exam: Present: alert, oriented X3. Absent: speech deficit Consult Discharge Plan - Plan Referrals: Willie Underwood MD [Primary Care Provider] - 05/12/17 1:20 pm () Joel Rios, PROJECT LEADER [Advanced Practice Nurse] - (SENT REQUEST ON 05-02-17 @ 1037)
[2017-05-02 15:59] VITALS: BP 114/64
--- NOTE | 2017-05-02 17:03 | Discharge Summary ---
Date of Encounter: 05/02/17 Time of Encounter: 16:54 - Discharge Diagnosis (1) Symptomatic anemia Priority: Primary Status: Acute (2) Diarrhea Priority: Secondary Status: Acute Qualifiers: Diarrhea type: unspecified type Qualified Code(s): R19.7 - Diarrhea, unspecified (3) Alcoholic cirrhosis of liver with ascites Priority: Secondary Status: Acute (4) Thrombocytopenia associated with AIDS Priority: Secondary Status: Acute (5) Cough Priority: Secondary Status: Acute - Discharge Medications Prescriptions: Clarithromycin [Biaxin] 500 mg PO BID #6 tablet Ferrous Sulfate 325 mg PO BIDWM 30 Days Sulfamethoxazole/Trimeth DS [Bactrim Ds] 1 each PO DAILY #30 tablet Home Medications: Aspirin/Caffeine [Anacin 400-32 mg Tablet] 1 each PO Q4H PRN 04/29/17 [History] Calcium Carbonate [Calcium] 500 mg PO DAILY 04/29/17 [History] Multivitamin [Multi-Day Vitamins] 1 each PO DAILY 04/29/17 [History] Paroxetine [Paxil] 20 mg PO DAILY 04/29/17 [History] Potassium 99 mg PO DAILY 04/29/17 [History] Raltegravir Potassium [Isentress] 400 mg PO BID 04/29/17 [History] lamiVUDine [Epivir] 150 mg PO BID 04/29/17 [History] Clarithromycin [Biaxin] 500 mg PO BID #6 tablet 05/02/17 [Rx] Ferrous Sulfate 325 mg PO BIDWM 30 Days 05/02/17 [Rx] Sulfamethoxazole/Trimeth DS [Bactrim Ds] 1 each PO DAILY #30 tablet 05/02/17 [Rx ] Allergies/Adverse Reactions: Allergies No Known Allergies Allergy (Verified 12/16/15 14:52) Procedures/tests Complete & Pending: Procedures Performed prior 72 hours Category Date Time Status US liver [US] Routine Exams 04/30/17 10:00 Completed IR paracentesis ultrasound [IR] Routine IR 04/30/17 Completed Date of admission: 04/29/17 15:31 Primary care physician: Willie Underwood MD Consults: 04/29/17 15:44 Consult to Interventional Radiology [CONS] Routine Consulting Provider: Radiology Interventional Cols Reason for Consult: Ascites, for paracentensis Call Completed: No 04/29/17 15:45 Consult to Gastroenterology [CONS] Routine Consulting Provider: Gastroenterology Shilpa Reason for Consult: Severe iron defficiency anemia, esophagitis, r/o GI bleed , Call Completed: No 04/29/17 16:18 Consult to Oncology Hematology [CONS] Stat Consulting Provider: Sully Moscoso Reason for Consult: severe anemia Call Completed: Yes 04/29/17 17:55 Consult to Can Tester [CONS] Routine Reason for SW Consult: discharge planning. Discharging clinician: Kelly Everett Anticipated date of discharge: 05/02/17 - Patient Status Disposition: Home, Self-Care Condition: Fair Functional capacity at discharge: independent ambulation Overall status at discharge: patient is progressing back to baseline - Discharge Instructions Instructions: Anemia (GEN) Follow Up With: Willie Udnerwood MD [Primary Care Provider] - 05/12/17 1:20 pm () Joel Rios CNP [Advanced Practice Nurse] - (SENT REQUEST ON 05-02-17 @ 1037) - Diet and Activity Activity: resume usual activities as tolerated Diet: advance to your usual diet Interval History: Mr. Anthony is a 56 year old male with past medical history significant for HIV diagnosed about 30 years ago, liver cirrhosis secondary to EtOH abuse, portal hypertension and cachexia came into the emergency department complaining of severe fatigue, lightheadedness, weakness, dyspnea on exertion and intermittent diarrhea. Patient denied any fevers or chills. Patient came into the emergency department for evaluation. Workup at ED revealed severe anemia with hemoglobin of 3, no obvious bleeding, he was transfused 4 units of blood which increased his hemoglobin to 7.5. GI was also consulted given history of esophageal varices, underwent EGD and colonoscopy which did not show any signs of acute bleeding. Anemia workup showed severe iron deficiency and was started on iron sucrose. oncology was consulted, Anemia at this time seems to be multifactorial, possible from long standing HIV(non compliant to meds), severe iron deficiency, he did respond to blood transfusion and iron transfusion without further dropping of hemoglobin. Patient denies any bleeding in the stool or having melena, slight increase in bilirubin was noted which was concerning for possible hemolysis, however H&H has not dropped and patient is clinically better. He also has history of liver cirrhosis secondary to alcohol abuse. No signs of SBP on exam, he underwent therapeutic paracentesis. CD4 169, HIV VL --> 120, he was placed on apropriate prophlactic therapy for PCP with bactrim, CXR showed b/l pneumonia and was tretaed with IV ceftriaxone. RIP ands urien legionella is negative. HE was started on HIV meds by ID. he will be dc on oral clarithromycin to complete 7 days and bactrim DS for PCP propylaxis. HE is being dc in stable condition adn will f/u with oncology and Dr. Willie Underwood. Hospital course: Mr. Anthony is a 56 year old male - Time Spent with Patient Total time spent providing and/or coordinating discharge services: - Constitutional Vitals: Temp Pulse Resp BP Pulse Ox 98.2 F 94 16 114/64 93 05/02/17 15:57 05/02/17 15:57 05/02/17 15:57 05/02/17 15:57 05/02/17 11:45 General appearance: Present: A&O X 3, no acute distress Exam: HEENT: Sclerae anicteric. No mucositis or thrush. No other oral or pharyngeal lesions or erythema. Skin: No rashes or petechiae. No evidence of skin malignancy Lymph nodes: No cervical, supraclavicular, axillary, or inguinal adenopathy. Lungs: Air entry normal with normal breath sounds. No rhonchi or wheezing Cardiovascular: Regular rate and rhythm. No skipped beats Abdomen: Soft, mild epigastric tenderness. Mild ascites. Extremities: No edema. No calf swelling or tenderness. No joint deformity. Neurologic: Alert, cranial nerves II-XII intact; normal gait; no focal weakness or sensory abnormalities
[2017-05-03 04:02] LABS: Alpha 2 Globulin (PEP) 0.51 g/dL (0.48-1.05); Beta Globulin (PEP) 0.59 g/dL (0.48-1.10)
[2017-05-03 10:23] LABS: IFE Reflexed IFE Done; Immunoglobulin A 216 mg/dL (68-408); Immunoglobulin G 824 mg/dL (768-1632); Immunoglobulin M 50 mg/dL (35-263)
== END 2017-05-02 17:49 | disposition home or self-care (01) | DRG 977 ==
LOC: EMEROO 11:39 → 2NNU 15:31
PROVIDERS: ADMIT Internal Medicine; ATTEND Internal Medicine Endocrinology, Diabetes & Metabolism
PROC: ENDOEBX (2017-05-01 18:00)
PROC: ENDOCBX (2017-05-01 18:00)

== ENCOUNTER 2017-05-07 14:08 | Inpatient (IN) ==
--- NOTE | 2017-05-07 16:45 | Emergency Department Note ---
Disposition Clinical Impression: Alcoholic cirrhosis of liver with ascites, HIV disease, Thrombocytopenia associated with AIDS Disposition: Admitted As Inpatient Condition: Undetermined Referrals: Willie Underwood MD [Primary Care Provider] - Forms: Work/School Release, ED Satisfaction Letter Time of Disposition: 19:29 Abdominal Pain HPI - General Chief Complaint: ED Abdominal Pain Stated Complaint: Abdominal pain/bloating Time Seen by Provider: 05/07/17 15:09 Source: patient Mode of arrival: ambulatory Limitations: no limitations Nursing Notes Reviewed: Yes Vital Signs Reviewed: Yes - History of Present Illness HPI Narrative: 56-year-old male with history of HIV, liver cirrhosis associated with alcohol abuse, arrives [facility] emergency department with increase swelling of his abdomen. The patient states that the swelling was drained roughly 2 weeks ago when he was admitted to the hospital for similar complaints. The patient states that it has progressively gotten worse since then. The patient states that was his first paracentesis. The patient denies any fevers, pain associated with it but does admit to a large amount of abdomen swelling that is pushed out an inguinal hernia the patient has had for years. The patient denies any other complaints at this time is resting comfortably. He is alert and oriented and answering questions appropriately. Pt Subjective Complaint: other (Swelling of abdomen) Onset (ago): week(s) (2) Consistency: Worsening Location: diffuse Pain Severity: mild Pain Scale: 2 Quality: aching Radiation: none Migration to: no migration Improves with: nothing Worsens with: nothing Context: history of similar episodes Associated symptoms: Reports: denies other symptoms Treatments prior to arrival: none - Related Data Home Medications Medication Instructions Recorded Confirmed Aspirin/Caffeine [Anacin 400-32 mg 1 each PO Q4H PRN 04/29/17 04/29/17 Tablet] Calcium Carbonate [Calcium] 500 mg PO DAILY 04/29/17 04/29/17 Multivitamin [Multi-Day Vitamins] 1 each PO DAILY 04/29/17 04/29/17 Paroxetine [Paxil] 20 mg PO DAILY 04/29/17 04/29/17 Potassium 99 mg PO DAILY 04/29/17 04/29/17 Raltegravir Potassium [Isentress] 400 mg PO BID 04/29/17 04/29/17 lamiVUDine [Epivir] 150 mg PO BID 06/27/17 06/27/17 Previous Rx's Medication Instructions Recorded Clarithromycin [Biaxin] 500 mg PO BID #6 tablet 05/02/17 Ferrous Sulfate 325 mg PO BIDWM 30 Days 05/02/17 Sulfamethoxazole/Trimeth DS 1 each PO DAILY #30 tablet 05/02/17 [Bactrim Ds] Allergies Allergy/AdvReac Type Severity Reaction Status Date / Time No Known Allergies Allergy Verified 05/07/17 15:08 All systems ED: reviewed and negative except as stated. Constitutional: Reports: weakness. Denies: fever, chills, weight change Eyes: Denies: eye pain, eye discharge, vision change ENT ED: Denies: ear pain, throat pain, dental pain, hearing loss, epistaxis, congestion, dysphagia Cardiovascular: Denies: chest pain, palpitations, dyspnea on exertion, edema, syncope Respiratory: Denies: cough, dyspnea, wheezes, hemoptysis, stridor Gastrointestinal: Reports: other (Abdominal swelling). Denies: abdominal pain, nausea, vomiting, diarrhea, constipation, hematemesis, melena, hematochezia Genitourinary: Denies: urgency, dysuria, frequency, hematuria Musculoskeletal: Denies: back pain, neck pain, arthralgia, myalgia Integumentary: Denies: rash, abrasion, lesions Neurological: Denies: headache, weakness, numbness, paresthesias, confusion, abnormal gait, vertigo Abdominal Pain PMH - Past Medical History Medical history: Reports: cirrhosis, HIV/AIDS Male Surgical History: Reports: no surgical history Psychiatric history: Reports: no psych history - Social History Smoking status: Current every day smoker Alcohol use: Reports: none Drug use: Reports: none Physical Exam - General Limitations: no limitations General appearance: alert, in no apparent distress, cachectic - Head Head exam: atraumatic, normocephalic, normal inspection - Eye Eye exam: Present: normal appearance, PERRL, EOMI - ENT ENT exam: normal exam, normal oropharynx, mucous membranes moist - Neck Neck exam: Present: normal inspection, full ROM, trachea midline - Chest Chest inspection: Present: normal inspection, symmetric chest wall rise - Respiratory Respiratory exam: Present: normal lung sounds bilaterally - Cardiovascular Cardiovascular exam: Present: regular rate, normal rhythm, normal heart sounds - Abdominal Exam Abdominal exam: Present: soft, Non-Tender, distention, normal bowel sounds, ascites. Absent: tenderness, guarding, rebound, rigidity - Extremities Exam Extremities exam: Present: normal inspection - Neurological Exam Neurological exam: Present: alert, oriented X3 - Skin Skin exam: Present: warm, dry, intact, other (Jaundiced) Course Vital Signs Temperature 98.9 F 05/07/17 14:59 Pulse Rate 97 05/07/17 14:59 Respiratory Rate 18 05/07/17 14:59 Blood Pressure 127/75 05/07/17 14:59 O2 Sat by Pulse Oximetry 97 05/07/17 14:59 Temperature 98.9 F 05/07/17 14:59 Pulse Rate 70 05/07/17 18:30 Respiratory Rate 16 05/07/17 18:30 Blood Pressure 149/75 05/07/17 18:30 O2 Sat by Pulse Oximetry 100 05/07/17 18:30 Oxygen Delivery Oxygen Delivery Room Air Abdominal Pain - MDM Narrative Medical decision making narrative: On bedside ultrasound that the patient has ascites. The patient's abdomen is mildly tender but not more than normal. The patient does have a left inguinal hernia that is baseline for him. He states that it is hurting him but is easily reducible just difficult to given the patient's ascites. The patient demonstrates no obvious signs of infectious etiology. The patient's platelets are 41 and we do not currently feel comfortable performing a paracentesis here in the emergency department him and his platelet count. In addition to this interventional radiology is no longer on site. We will admit the patient to the hospital for further workup and consultation to interventional radiology. The patient was made aware and agrees to this plan. Accepted by Dr. aMrte. - Medical Records Medical records reviewed: Yes I reviewed the patient's medical records. - Lab Data Lab results reviewed: Yes I reviewed the patient's lab results. Result diagrams: 05/07/17 17:05/07/17 17: Lab Results 05/07/17 05/07/17 05/07/17 Range/Units 17: 17: 17: WBC 3.0 L (4.3-11.1) K/mcL RBC 3.58 L (4.19-5.50) M/mcL Hgb 9.3 L (12.9-16.9) g/dL Hct 31.7 L (37.5-50.1) % MCV 88.5 (83.0-100.0) fL MCH 26.0 L (28.0-33.3) pg MCHC 29.3 L (31.6-35.5) g/dL RDW 25.8 H (11.5-14.5) % Plt Count 41 L (140-400) K/mcL MPV TNP Immature Gran % 0.7 (0-4) % Seg Neutrophils % 55.7 % Lymphocytes % 25.8 % Monocytes % 15.1 % Eosinophils % 2.0 % Basophils % 0.7 % Neutrophils # 1.7 (1.6-8.9) K/mcL Lymphocytes # 0.8 (0.6-4.6) K/mcL Monocytes # 0.5 (0.0-1.3) K/mcL Eosinophils # 0.1 (0.0-0.6) K/mcL Basophils # 0.0 (0.0-0.2) K/mcL Platelet Estimate Marked Decrease L (Normal) Anisocytosis 3+ A (Not Present) PT (9.4-12.1) Seconds INR Sodium 139 (136-145) mEq/L Potassium 4.3 (3.5-4.5) mEq/L Chloride 110 H (98-109) mEq/L Carbon Dioxide 26 (19-29) mEq/L BUN 9 (8-26) mg/dL Creatinine 0.74 (0.72-1.25) mg/dL Est GFR ( Amer) > 60 (> 60) Est GFR (Non-Af Amer) > 60 (> 60) BUN/Creatinine Ratio 12 (6-26) Glucose 105 H (70-99) mg/dL Calculated Osmolality 287 (280-300) Calcium 8.3 L (8.6-10.8) mg/dL Total Bilirubin 1.7 H (0.2-1.2) mg/dL Direct Bilirubin 0.8 H (0.0-0.5) mg/dL Indirect Bilirubin 0.9 (0.0-1.2) mg/dL AST 51 H (5-34) Units/L ALT 39 (0-55) Units/L Alkaline Phosphatase 95 (38-126) Units/L Ammonia (18-72) mcmol/L Troponin I 0.01 (0-0.03) ng/mL Serum Total Protein 5.7 L (6.0-8.3) g/dL Albumin 2.7 L (3.5-5.0) g/dL Globulin 3.0 (2.4-3.5) g/dL Albumin/Globulin Ratio 0.9 L (1.1-2.2) Lipase 37 (8-78) Units/L Urine Color (Yellow) Urine Clarity (Clear) Urine pH (5.0-8.0) pH Units Ur Specific Biggers (1.010-1.025) Urine Protein (Neg-Trace) mg/dL Urine Glucose (UA) (Normal) mg/dL Urine Ketones (Negative) mg/dL Urine Blood (Negative) Urine Nitrite (Negative) Urine Bilirubin (Negative) Urine Urobilinogen (Normal) mg/dL Ur Leukocyte Esterase (Negative) Urine Microscopic RBC (0-3) per hpf Urine Microscopic WBC (0-3) per hpf Ur Squamous Epith Cells (None-Few) per lpf Urine Bacteria (None-Few) per hpf Hyaline Casts (None-Few) per lpf Urine Mucus (Few) Ur Culture Indicated? (NO) 05/07/17 05/07/17 05/07/17 Range/Units 17:01 17:01 17:27 WBC (4.3-11.1) K/mcL RBC (4.19-5.50) M/mcL Hgb (12.9-16.9) g/dL Hct (37.5-50.1) % MCV (83.0-100.0) fL MCH (28.0-33.3) pg MCHC (31.6-35.5) g/dL RDW (11.5-14.5) % Plt Count (140-400) K/mcL MPV Immature Gran % (0-4) % Seg Neutrophils % % Lymphocytes % % Monocytes % % Eosinophils % % Basophils % % Neutrophils # (1.6-8.9) K/mcL Lymphocytes # (0.6-4.6) K/mcL Monocytes # (0.0-1.3) K/mcL Eosinophils # (0.0-0.6) K/mcL Basophils # (0.0-0.2) K/mcL Platelet Estimate (Normal) Anisocytosis (Not Present) PT 17.5 H (9.4-12.1) Seconds INR 1.6 Sodium (136-145) mEq/L Potassium (3.5-4.5) mEq/L Chloride (98-109) mEq/L Carbon Dioxide (19-29) mEq/L BUN (8-26) mg/dL Creatinine (0.72-1.25) mg/dL Est GFR ( Amer) (> 60) Est GFR (Non-Af Amer) (> 60) BUN/Creatinine Ratio (6-26) Glucose (70-99) mg/dL Calculated Osmolality (280-300) Calcium (8.6-10.8) mg/dL Total Bilirubin (0.2-1.2) mg/dL Direct Bilirubin (0.0-0.5) mg/dL Indirect Bilirubin (0.0-1.2) mg/dL AST (5-34) Units/L ALT (0-55) Units/L Alkaline Phosphatase (38-126) Units/L Ammonia 23 (18-72) mcmol/L Troponin I (0-0.03) ng/mL Serum Total Protein (6.0-8.3) g/dL Albumin (3.5-5.0) g/dL Globulin (2.4-3.5) g/dL Albumin/Globulin Ratio (1.1-2.2) Lipase (8-78) Units/L Urine Color Dark Yellow (Yellow) Urine Clarity Cloudy A (Clear) Urine pH 6.0 (5.0-8.0) pH Units Ur Specific Biggers 1.024 (1.010-1.025) Urine Protein Negative (Neg-Trace) mg/dL Urine Glucose (UA) Normal (Normal) mg/dL Urine Ketones Negative (Negative) mg/dL Urine Blood Negative (Negative) Urine Nitrite Negative (Negative) Urine Bilirubin Negative (Negative) Urine Urobilinogen Normal (Normal) mg/dL Ur Leukocyte Esterase Negative (Negative) Urine Microscopic RBC 0-3 (0-3) per hpf Urine Microscopic WBC 0-3 (0-3) per hpf Ur Squamous Epith Cells Moderate H (None-Few) per lpf Urine Bacteria None Seen (None-Few) per hpf Hyaline Casts None Seen (None-Few) per lpf Urine Mucus Moderate H (Few) Ur Culture Indicated? NO (NO) Attestation Statement - Attestation Attestation: I examined this patient and my medical decision-making was reviewed with the ELECTRON GUN INSPECTOR/PA/Advanced Practice Nurse/Resident Physician. I agree with the documented findings, disposition and treatment plan as described except to the extent set forth below.
--- NOTE | 2017-05-07 16:48 | Emergency Department Note ---
START Narrative - START START: I examined this patient and my medical decision-making was reviewed with the ORDER DETAILER/PA/Advanced Practice Nurse/Resident Physician. I agree with the documented findings, disposition and treatment plan as described except to the extent set forth below. will check serial abd labs. afebrile. vss
[2017-05-07 17:18] LABS: INR 1.6; Prothrombin Time 17.5 Seconds (9.4-12.1)
[2017-05-07 17:24] LABS: Alanine Aminotransferase 39 Units/L (0-55); Albumin 2.7 g/dL (3.5-5.0); Albumin/Globulin Ratio 0.9 (1.1-2.2); Alkaline Phosphatase 95 Units/L (38-126); Aspartate Amino Transferase 51 Units/L (5-34); BUN/Creatinine Ratio 12 (6-26); Bilirubin,Direct 0.8 mg/dL (0.0-0.5); Bilirubin,Indirect 0.9 mg/dL (0.0-1.2); Bilirubin,Total 1.7 mg/dL (0.2-1.2); Blood Urea Nitrogen 9 mg/dL (8-26); Calcium 8.3 mg/dL (8.6-10.8); Carbon Dioxide 26 mEq/L (19-29); Chloride 110 mEq/L (98-109); Glucose 105 mg/dL (70-99); Lipase 37 Units/L (8-78); Osmolality,Calculated 287 (280-300); Potassium 4.3 mEq/L (3.5-4.5); Sodium 139 mEq/L (136-145); Total Protein 5.7 g/dL (6.0-8.3); eGFR For African Americans > 60 (> 60); eGFR For Non-African Americans > 60 (> 60)
[2017-05-07 17:25] LABS: Basophils % 0.7 %; Eosinophils # 0.1 K/mcL (0.0-0.6); Hematocrit 31.7 % (37.5-50.1); Hemoglobin 9.3 g/dL (12.9-16.9); Immature Granulocytes % 0.7 % (0-4); Lymphocytes # 0.8 K/mcL (0.6-4.6); Lymphocytes % 25.8 %; Mean Corpuscular HGB Conc 29.3 g/dL (31.6-35.5); Mean Corpuscular Volume 88.5 fL (83.0-100.0); Monocytes # 0.5 K/mcL (0.0-1.3); Monocytes % 15.1 %; Neutrophils # 1.7 K/mcL (1.6-8.9); Red Blood Count 3.58 M/mcL (4.19-5.50); Red Cell Distribution Width 25.8 % (11.5-14.5); Segmented Neutrophils % 55.7 %
[2017-05-07 17:26] LABS: Platelet Count 41 K/mcL (140-400)
[2017-05-07 17:37] LABS: Bilirubin,Urine Negative (Negative); Blood,Urine Negative (Negative); Clarity,Urine Cloudy (Clear); Color,Urine Dark Yellow (Yellow); Glucose,Urine (UA) Normal (Normal); Ketones,Urine Negative (Negative); Leukocyte Esterase,Urine Negative (Negative); Nitrite,Urine Negative (Negative); Protein,Urine Negative (Neg-Trace); Specific Gravity,Urine 1.024 (1.010-1.025); Urobilinogen,Urine Normal (Normal)
[2017-05-07 17:39] LABS: Bacteria,Urine None Seen per hpf (None-Few); Hyaline Casts,Urine None Seen per lpf (None-Few); RBC,Urine 0-3 per hpf (0-3); Squamous Epithelial Cell,Urine Moderate per lpf (None-Few); WBC,Urine 0-3 per hpf (0-3)
[2017-05-07 17:51] LABS: Mucus,Urine Moderate (Few)
[2017-05-07 18:25] LABS: Anisocytosis 3+ (Not Present); Platelet Estimate Marked Decrease (Normal)
[2017-05-07] MEDS ORDERED: Naloxone 0.4 MG/ML INJ IVP PRN (21:10)
[2017-05-07] MEDS ORDERED: Acetaminophen 325 MG TABLET PO PRN (21:10)
[2017-05-07] MEDS ORDERED: *HR* Morphine 2 MG/ML SYRINGE IVP PRN (21:10)
[2017-05-07] MEDS ORDERED: Ondansetron 4 MG/2 ML VIAL IVP PRN (21:10)
[2017-05-07] MEDS ORDERED: Furosemide 40 MG/4 ML VIAL IVP ONE (21:19)
[2017-05-07] MEDS ORDERED: ASPIRIN PO PRN (21:24)
[2017-05-07] MEDS ORDERED: CAFFEINE PO PRN (21:24)
--- NOTE | 2017-05-07 21:40 | Internal Med History&Physical ---
<Froilan Kwan - Last Filed: 05/07/17 22:23> Date of Encounter: 05/07/17 Time of Encounter: 20:30 Assessment and Plan (1) Alcoholic cirrhosis of liver with ascites Current visit: Yes Status: Acute Patient presents with increased ascites from last admission one week ago. Patient received paracentesis during last admission. Consult for interventional radiology placed for another paracentesis tomorrow (05/08/17). IV Lasix 40 mg ordered. 50 mg spironolactone daily ordered to help with fluid retention. Monitor I&O and daily weight. Nutrition consult ordered for assessment of patient's current diet and dietary needs. (2) Abdominal pain Current visit: Yes Status: Acute Patient presents with abdominal pain related to current ascites. Pain is generalized over abdomen due to increased ascites from the past week. IV Lasix 40 mg ordered ONCE. Spironolactone 50 mg daily ordered to help with fluid retention. Monitor I&O and daily weight. Pain medication ordered for mild, moderate, and severe pain PRN. Qualifiers: Abdominal location: generalized Qualified Code(s): R10.84 - Generalized abdominal pain (3) Cough Current visit: Yes Status: Acute Patient presents with cough and complaint of recent change in color of sputum. He reports his sputum is yellow in color now. Patient was treated during his recent hospital admission of 04/29/17 for pneumonia. Sputum culture ordered. 2- View CXR ordered to assess for resolution of pneumonia. (4) Diarrhea Current visit: Yes Status: Acute Patient presents with acute diarrhea that he reports has worsened over the past few days since his last admission to the hospital. Patient was previously placed on antibiotics for pneumonia and takes Bactrim prophylactically. C diff tox panel ordered as well as GI/stool panel. Will adjust treatment plan based on these results. Qualifiers: Diarrhea type: unspecified type Qualified Code(s): R19.7 - Diarrhea, unspecified (5) Severe anemia Current visit: Yes Status: Chronic Patient presents with history of severe anemia related to his current health status. Patient's current Hgb is 9.3 and Hct is 31.7 upon admission. This is improved from his previous admission of 04/29/17 when he required 4 units of PRBCs due to his anemia. Will monitor patient's H&H. (6) Thrombocytopenia Current visit: Yes Status: Acute Patient presents with chronic thrombocytopenia related to his HIV and immunocompromised status. Follow-up labs ordered to monitor patient's WBC and platelet status. Will continue patient's antiretroviral medications. (7) HIV disease Current visit: Yes Status: Chronic Patient presents with history of chronic HIV. Will continue patient's antiretroviral medications. Sputum culture and 2-View CXR ordered to assess for resolution of previous pneumonia. Will also continue patient's PO Bactrim. Follow-up labs ordered. (8) DVT prophylaxis Current visit: Yes Status: Acute Patient to be placed on DVT prophylaxis due to admission protocol and current bed rest status. Continuous SCDs for his lower extremities ordered. Internal Medicine - H&P: HPI Chief complaint: Abdominal pain r/t ascites Admitted From: Emergency Dept Plans for Post Hospital Care: Home History of present illness: Mr. Anthony is a 56 year old male who presents from the ED with chief complaint of abdominal pain related to his chronic ascites. Patient reports he was hospitalized for similar complaint on 04/29/17 when paracentesis was done to remove ascites fluid. Patient was also chronically anemic during his last admission which required transfusion of 4 units of PRBCs. Patient also reports he has HIV and is currently under the care of Dr. Underwood and he is compliant with taking his medications. Patient reports abdominal tenderness and pain as well as some dizziness but denies recent illness, fever, chills, nausea, vomiting, generalized weakness, unusual bleeding at this time, pre-syncope, or syncope. Patient was diagnosed during previous admission with pneumonia and placed on antibiotics and sent home with PO antibiotics. Patient is at moderate risk for continued infection due to recent hospitalization and previous diagnosis, so he will be placed as observation status with orders for C diff toxin screen, sputum culture, GI/stool panel, continuation of his home Bactrim, and 2-view CXR to assess lungs for infection. Order for consult to interventional radiology placed for possible paracentesis. Follow-up labs ordered. Patient to be monitored closely. Time spent with patient >40 minutes. Past Med Surg Social Fam HX - Past Medical History Source: patient Medical history: cirrhosis, HIV/AIDS Psychiatric history: no psych history - Past Surgical History Surgical History: no surgical history - Social History Smoking Status: Current every day smoker Packs per day: 1 1/2 PPD Smokeless Tobacco Status: No Alcohol use: none Drug use: none Current living situation: Home Activity Level: Independent ambulation Recent Out of Country Travel Within the Last 8 Weeks: No Exposure or Possible Exposure to Illness During Travel: No - Family History Father Living Status: Age at : 61 Cause of : Lung cancer Hx Family Cancer: Yes (Lung) Mother Living Status: Age at : 56 Cause of : Breast cancer Hx Family Cancer: Yes (Breast) Grandfather Hx Family Cancer: Yes (Lung) Hx Family Psychosocial Disorders: Yes (Alcoholism) Brother History Unknown: Yes Living Status: Still Living Sister History Unknown: Yes Internal Medicine - H&P: Meds Aspirin/Caffeine [Anacin 400-32 mg Tablet] 1 each PO Q4H PRN 04/29/17 [History] Calcium Carbonate [Calcium] 500 mg PO DAILY 04/29/17 [History] Multivitamin [Multi-Day Vitamins] 1 each PO DAILY 04/29/17 [History] Paroxetine [Paxil] 20 mg PO DAILY 04/29/17 [History] Potassium 99 mg PO DAILY 04/29/17 [History] Raltegravir Potassium [Isentress] 400 mg PO BID 04/29/17 [History] Clarithromycin [Biaxin] 500 mg PO BID #6 tablet 05/02/17 [Rx] Ferrous Sulfate 325 mg PO BIDWM 30 Days 05/02/17 [Rx] Sulfamethoxazole/Trimeth DS [Bactrim Ds] 1 each PO DAILY #30 tablet 05/02/17 [Rx ] Emtricitabine/Tenofovir [Truvada] 1 tab PO DAILY 05/07/17 [History] Lopinavir/Ritonavir [Kaletra] 1 tab PO BID 05/07/17 [History] Allergies No Known Allergies Allergy (Verified 05/07/17 15:08) All Systems PM: A 10-system review of systems was performed and is negative for pertinent findings except as documented above in the HPI. - Constitutional Constitutional: no chills, no fever(s), no night sweats - EENT Eyes: no change in vision, no discharge, no pain, no photophobia Ears: no ear discharge, no ear pain, no tinnitus Nose, mouth and throat: no dysphagia, no nasal discharge, no neck pain, no sore throat - Breasts Breasts: as per HPI - Cardiovascular Cardiovascular ROS IM: no chest pain, no diaphoresis, no dyspnea, no lightheadedness, no palpitations, no syncope - Respiratory Respiratory: as per HPI, cough, change in phlegm color (Yellow), no dyspnea, no wheezing, no excessive phlegm production - Gastrointestinal Gastrointestinal: as per HPI, abdominal pain, diarrhea, other (Ascites) - Genitourinary Genitourinary ROS male: as per HPI - Musculoskeletal Musculoskeletal ROS IM: no numbness, no tingling - Integumentary Integumentary IM: no rash, no unusual bruising - Neurological Neurological ROS: no confusion, no convulsions, no focal weakness, no numbness, no tingling, no tremor(s) - Psychiatric Psychiatric: as per HPI - Endocrine Endocrine IM: as per HPI - Hematologic/Lymphatic Hematologic/Lymphatic: no easy bruising - Allergic/Immunologic Allergic/Immunologic: as per HPI - Constitutional Vitals: Temp Pulse Resp BP Pulse Ox 97.2 F L 77 16 142/72 95 05/07/17 20:15 05/07/17 20:15 05/07/17 20:15 05/07/17 20:15 05/07/17 20:15 General appearance: Present: cooperative, A&O X 3, pleasant, no acute distress, answers questions appropriately - Head Head exam: Present: atraumatic, normocephalic - Eye Eye exam: Present: PERRL, conjuntiva pink, sclera anicteric Pupils: Present: PERRL - ENT ENT exam: Present: normal exam, normal external ear exam - Neck Neck exam general surgery: Present: supple, trachea midline. Absent: lymphadenopathy - Respiratory Respiratory exam: Present: wheezes (All lobes bilaterally) - Cardiovascular Cardiovascular exam: Present: RRR, +S1, +S2. Absent: diastolic murmur, gallop, rubs, systolic murmur - GI/Abdominal GI/Abdominal exam: Present: diminished bowel sounds, distended, firm, tenderness - Rectal Rectal exam: Present: deferred - Additional comments: exam deferred. - Extremities Exam Extremities exam: Present: warm, radial pulses palpable and symetrical. Absent : calf tenderness, cyanotic, pedal edema - Back Exam Back exam: Present: normal inspection - Neurological Exam Neurological exam: Present: CN II-XII intact, oriented X3, no focal deficits. Absent: pronater drift, facial droop, speech deficit - Psychiatric Psychiatric exam: Present: normal affect, normal mood - Skin Skin exam: Present: dry, intact Internal Med - H&P Results - Labs CBC & Chem 7: 05/07/17 17:01 05/07/17 17:01 - Diagnostic Studies Abdominal x-ray Additional comments: Impressions Abdomen X-Ray 05/07/17 15:10 IMPRESSION: 1. Nonobstructive bowel gas pattern. 2. Fullness of the abdomen, likely due to ascites. D/ / Jeff Farrell MD / Jeff Farrell MD Interpreting Provider: Jeff Farrell MD <Kelly Everett - Last Filed: 05/08/17 01:03> Date of Encounter: 05/08/17 Internal Medicine - H&P: HPI History of present illness: Mr. Anthony is a 56 year old male All Systems PM: A 10-system review of systems was performed and is negative for pertinent findings except as documented above in the HPI. - Constitutional Vitals: Temp Pulse Resp BP Pulse Ox 97.5 F L 81 14 129/68 98 05/08/17 00:17 05/08/17 00:17 05/08/17 00:17 05/08/17 00:17 05/08/17 00:17 Internal Med - H&P Results - Labs CBC & Chem 7: 05/07/17 17:01 05/07/17 17:01 - Impressions ITS Impressions Chest X-Ray 05/07/17 21:46 IMPRESSION: Mild left basilar airspace disease, atelectasis and/or pneumonia. D/ / Mackenzie Turner Cha, MD / Mackenzie Turner Cha, MD Interpreting Provider: Mackenzie Turner Cha, MD - Attending Attestation I examined this patient and my medical decision-making was reviewed with the INTEGRITY ASSESSOR/PA/Advanced Practice Nurse/Resident Physician. I agree with the documented findings, disposition and treatment plan as described except to the extent set forth below. 56 y/o male with HIV and alcoholic cirrhosis with portal hypertension and ascites who was recently admitted to the hospital for severe anemia. CD4 count less than 200, ID was consulted, restarted on HIV medication, patient noncompliant to medications, status post 4 units of blood transfusion, status post EGD and colonoscopy with no esophageal viruses or acute bleeding on last admission. Was also started on PCP prophylaxis and was treated for pneumonia with IV ceftriaxone, discharged on clarithromycin. Comes back again with abdominal distention and discomfort, also has an inguinal hernia that is reducible however reports that it is very uncomfortable. Does not have any signs of SBP on exam, had paracentesis on last admission. Consult IR for repeat paracentesis, will give 1 dose of Lasix IV and start on spironolactone. Patient was just treated for pneumonia, doubt he has a new pneumonia, will observe for now, follow sputum gram stain and cx.
[2017-05-07] MEDS: Pantoprazole 40 MG VIAL IVP SCH (22:25)
[2017-05-08] MEDS: *HR* HYDROcodone/Acet 5/325 mg TABLET PO PRN ×3 (04:41→17:56)
[2017-05-08 05:32] LABS: Eosinophils % 2.3 %
[2017-05-08 05:34] LABS: Basophils % 0.3 %; Eosinophils # 0.1 K/mcL (0.0-0.6); Hematocrit 27.9 % (37.5-50.1); Hemoglobin 8.1 g/dL (12.9-16.9); Immature Platelets 19.9 % (1.1-6.1); Lymphocytes # 0.8 K/mcL (0.6-4.6); Lymphocytes % 26.8 %; Mean Corpuscular Hemoglobin 25.6 pg (28.0-33.3); Monocytes # 0.4 K/mcL (0.0-1.3); Monocytes % 13.4 %; Neutrophils # 1.7 K/mcL (1.6-8.9); Red Blood Count 3.17 M/mcL (4.19-5.50); Segmented Neutrophils % 56.2 %
[2017-05-08 05:40] LABS: Platelet Count 39 K/mcL (140-400)
[2017-05-08 05:44] LABS: BUN/Creatinine Ratio 10 (6-26); Blood Urea Nitrogen 8 mg/dL (8-26); Calcium 8.1 mg/dL (8.6-10.8); Carbon Dioxide 24 mEq/L (19-29); Chloride 108 mEq/L (98-109); Chol/HDL Ratio 3.7 (0-4.9); Cholesterol 81 mg/dL (< 200); Glucose 107 mg/dL (70-99); HDL Cholesterol 22 mg/dL (40-59); LDL Cholesterol,Calculated 47 mg/dL (0-99); Magnesium 1.5 mg/dL (1.6-2.6); Osmolality,Calculated 287 (280-300); Phosphorous 3.7 mg/dL (2.3-4.7); Potassium 4.1 mEq/L (3.5-4.5); Sodium 139 mEq/L (136-145); Triglycerides 60 mg/dL (< 150); eGFR For African Americans > 60 (> 60); eGFR For Non-African Americans > 60 (> 60)
[2017-05-08 06:09] LABS: Platelet Estimate Marked Decrease (Normal)
[2017-05-08 06:10] LABS: Anisocytosis 2+ (Not Present); Hypochromasia Present (Not Present); Polychromasia 1+ (Not Present)
[2017-05-08] MEDS: Pantoprazole 40 MG VIAL IVP SCH (08:30)
[2017-05-08] MEDS: RITONAVIR PO SCH ×2 (08:30→20:07)
[2017-05-08] MEDS: Sulfamethoxazole/Trimeth DS 1 EACH TABLET PO SCH (08:30)
[2017-05-08] MEDS: RALTEGRAVIR POTASSIUM 400 MG TABLET PO SCH ×2 (08:30→20:07)
[2017-05-08] MEDS: LOPINAVIR PO SCH ×2 (08:30→20:07)
[2017-05-08] MEDS: Multivit/Ca/Min/Fe/FA 1 TAB TABLET PO SCH (08:30)
--- NOTE | 2017-05-08 09:53 | Internal Med Progress Note ---
Date of Encounter: 05/08/17 Time of Encounter: 09:51 - Assessment and plan (1) Alcoholic cirrhosis of liver with ascites Current Visit: Yes Status: Acute Assessment and plan: Ascites secondary to liver cirrhosis Interventional radiology consulted for paracenteses, give albumin prior to procedure Avoid alcohol (2) HIV disease Current Visit: Yes Status: Chronic Assessment and plan: continue patient's antiretroviral medications (3) Diarrhea Current Visit: Yes Status: Acute Assessment and plan: related to HIV Qualifiers: Diarrhea type: unspecified type Qualified Code(s): R19.7 - Diarrhea, unspecified (4) Cough Current Visit: Yes Status: Acute Assessment and plan: The patient was treated for pneumonia, chest x-ray shows left lower lobe opacity , he is a lot less symptomatic and is currently on prophylactic Bactrim (5) Thrombocytopenia associated with AIDS Current Visit: Yes Status: Chronic - Subjective Interval history: Physical very bloated, complains of abdominal pain, mild shortness of breath, his cough has not gotten worse, no fevers, no dysuria, has chronic diarrhea - Constitutional Vitals: Temp Pulse Resp BP Pulse Ox 97.3 F L 80 18 96/56 97 05/08/17 07:20 05/08/17 07:20 05/08/17 07:20 05/08/17 08:07 05/08/17 08:43 General appearance: Present: cooperative, A&O X 3, pleasant, no acute distress, answers questions appropriately - Head Head exam: Present: atraumatic, normocephalic - Eye Eye exam: Present: PERRL, conjuntiva pink, sclera anicteric Pupils: Present: PERRL - Neck Neck exam general surgery: Present: supple, trachea midline. Absent: lymphadenopathy - Respiratory Respiratory exam: Present: CTAB. Absent: accessory muscle use, rales, rhonchi, wheezes - Cardiovascular Cardiovascular exam: Present: RRR, +S1, +S2. Absent: diastolic murmur, gallop, rubs, systolic murmur - GI/Abdominal GI/Abdominal exam: Present: distended (Ascites noticed), normal bowel sounds, soft, no peritoneal signs. Absent: tenderness - Extremities Exam Extremities exam: Present: warm, radial pulses palpable and symetrical. Absent : calf tenderness, cyanotic, pedal edema - Neurological Exam Neurological exam: Present: CN II-XII intact, oriented X3, no focal deficits. Absent: pronater drift, facial droop, speech deficit - Skin Skin exam: Present: dry, intact Internal Medicine: Result - Labs CBC & Chem 7: 05/08/17 04:35 05/08/17 04:35 Labs: Short CBC 05/08/17 Range/Units 04:35 WBC 3.1 L (4.3-11.1) K/mcL Hgb 8.1 L (12.9-16.9) g/dL Hct 27.9 L (37.5-50.1) % Plt Count 39 L (140-400) K/mcL Neutrophils # 1.7 (1.6-8.9) K/mcL BMP 05/08/17 04:35 Sodium 139 Potassium 4.1 Chloride 108 Carbon Dioxide 24 BUN 8 Creatinine 0.79 Glucose 107 H Calcium 8.1 L - ABG Interpretation ABG results: PT/INR, D-dimer PT 17.5 Seconds (9.4-12.1) H 05/07/17 17:01 - Impressions Impressions Chest X-Ray 05/07/17 21:46 IMPRESSION: Mild left basilar airspace disease, atelectasis and/or pneumonia. D/ / Mackenzie Turner Cha, MD / Mackenzie Turner Cha, MD Interpreting Provider: Mackenzie Turner Cha, MD - VTE Documentation of Mechanical Device: Intermittent pneumatic compression device Consult Discharge Plan - Plan Referrals: Willie Underwood MD [Primary Care Provider] -
[2017-05-08] MEDS ORDERED: Albumin 25% 25gram/100mL 25 GM/100 ML IV.SOLN IVC SCH (10:00)
[2017-05-08] MEDS: Nicotine 21 MG PATCH.TD24 TD SCH (10:17)
[2017-05-08] MEDS ORDERED: 0.9 % Sodium Chloride 250 ML ONE ×2 (12:48→18:09)
[2017-05-08] MEDS: Sucralfate 1 GM TABLET PO SCH ×2 (17:57→20:07)
[2017-05-08] MEDS ORDERED: Lactulose Oral Soln 20 GM/30 ML UDC PO ONE (18:33)
[2017-05-09 05:03] LABS: Hemoglobin 8.2 g/dL (12.9-16.9)
[2017-05-09 05:05] LABS: Hematocrit 27.7 % (37.5-50.1); Immature Platelets 12.1 % (1.1-6.1); Mean Corpuscular HGB Conc 29.6 g/dL (31.6-35.5); Mean Corpuscular Hemoglobin 25.3 pg (28.0-33.3); Mean Corpuscular Volume 85.5 fL (83.0-100.0); Red Blood Count 3.24 M/mcL (4.19-5.50); Red Cell Distribution Width 24.4 % (11.5-14.5)
[2017-05-09 05:13] LABS: Platelet Count 47 K/mcL (140-400)
[2017-05-09 05:15] LABS: BUN/Creatinine Ratio 11 (6-26); Blood Urea Nitrogen 9 mg/dL (8-26); Calcium 8.4 mg/dL (8.6-10.8); Carbon Dioxide 25 mEq/L (19-29); Chloride 106 mEq/L (98-109); Glucose 103 mg/dL (70-99); Osmolality,Calculated 277 (280-300); Potassium 4.2 mEq/L (3.5-4.5); Sodium 134 mEq/L (136-145); eGFR For African Americans > 60 (> 60); eGFR For Non-African Americans > 60 (> 60)
[2017-05-09] MEDS: Sucralfate 1 GM TABLET PO SCH ×2 (07:51→11:45)
--- NOTE | 2017-05-09 08:01 | Discharge Summary ---
Date of Encounter: 05/09/17 Time of Encounter: 07:58 - Discharge Diagnosis (1) Alcoholic cirrhosis of liver with ascites Priority: Primary Status: Acute (2) HIV disease Priority: Secondary Status: Chronic (3) Diarrhea Priority: Secondary Status: Acute Qualifiers: Diarrhea type: unspecified type Qualified Code(s): R19.7 - Diarrhea, unspecified (4) Cough Priority: Secondary Status: Acute (5) Thrombocytopenia associated with AIDS Priority: Secondary Status: Chronic - Discharge Medications Prescriptions: Furosemide [Lasix] 20 mg PO DAILY #30 tablet Spironolactone [Aldactone] 50 mg PO DAILY #30 tablet Home Medications: Aspirin/Caffeine [Anacin 400-32 mg Tablet] 1 each PO Q4H PRN 04/29/17 [History] Calcium Carbonate [Calcium] 500 mg PO DAILY 04/29/17 [History] Multivitamin [Multi-Day Vitamins] 1 each PO DAILY 04/29/17 [History] Paroxetine [Paxil] 20 mg PO DAILY 04/29/17 [History] Potassium 99 mg PO DAILY 04/29/17 [History] Raltegravir Potassium [Isentress] 400 mg PO BID 04/29/17 [History] Clarithromycin [Biaxin] 500 mg PO BID #6 tablet 05/02/17 [Rx] Ferrous Sulfate 325 mg PO BIDWM 30 Days 05/02/17 [Rx] Sulfamethoxazole/Trimeth DS [Bactrim Ds] 1 each PO DAILY #30 tablet 05/02/17 [Rx ] Emtricitabine/Tenofovir [Truvada] 1 tab PO DAILY 05/07/17 [History] Lopinavir/Ritonavir [Kaletra] 1 tab PO BID 05/07/17 [History] Furosemide [Lasix] 20 mg PO DAILY #30 tablet 05/09/17 [Rx] Spironolactone [Aldactone] 50 mg PO DAILY #30 tablet 05/09/17 [Rx] Allergies/Adverse Reactions: Allergies No Known Allergies Allergy (Verified 05/07/17 15:08) Date of admission: 05/08/17 13:08 Primary care physician: Willie Underwood MD - Patient Status Disposition: Home, Self-Care Condition: Fair Overall status at discharge: patient is progressing back to baseline - Discharge Instructions Follow Up With: Willie Underwood MD [Primary Care Provider] - Additional Instructions: Follow-up with primary care physician within the next 7 days. Start spironolactone and Lasix. Quit smoking. - Diet and Activity Activity: increase activity as tolerated Diet: low fat, low cholesterol Hospital course: Mr. Anthony is a 56 year old male with a past medical history of HIV, cirrhosis , alcohol abuse, tobacco abuse, hypertension, GERD who presented from the ED with a chief complaint of abdominal pain related to his chronic ascites. Patient reported that he was hospitalized for similar complaint on 04/29/17 when a paracentesis was done to remove ascites fluid. Patient was also chronically anemic during his last admission which required transfusion of 4 units of PRBCs. Patient also reports he has HIV and is currently under the care of Dr. Underwood and he is compliant with taking his medications. Patient reported abdominal tenderness and pain as well as some dizziness but denies recent illness, fever, chills, nausea, vomiting, generalized weakness, unusual bleeding at this time, pre-syncope, or syncope. Patient was diagnosed during previous admission with pneumonia and was placed on antibiotics and sent home with PO antibiotics. A chest x-ray showed a persistent left lower lobe opacity but he was not symptomatic. Will require another chest x-ray in 4 weeks. His platelets were low at 39 and improved to 47 after 2 units of platelets. He was scheduled to have a paracenteses but he had to be postponed as his platelets were low. She will be discharged home after having the paracentesis later today. The patient was started also on Lasix and spironolactone. The patient will receive albumin prior to the procedure Time spent discussing smoking cessation with patient: 3 to 10 minutes - Time Spent with Patient Total time spent providing and/or coordinating discharge services: Greater than 30 minutes (40 min) - Constitutional Vitals: Temp Pulse Resp BP Pulse Ox 97.7 F 84 17 121/79 96 05/09/17 07:08 05/09/17 07:08 05/09/17 07:08 05/09/17 07:08 05/09/17 07:08 General appearance: Present: cachectic, cooperative, A&O X 3, pleasant, no acute distress, answers questions appropriately - Head Head exam: Present: atraumatic, normocephalic - Eye Eye exam: Present: PERRL, conjuntiva pink, sclera anicteric Pupils: Present: PERRL - Neck Neck exam general surgery: Present: supple, trachea midline. Absent: lymphadenopathy - Respiratory Respiratory exam: Present: decreased breath sounds, CTAB. Absent: accessory muscle use, rales, rhonchi, wheezes - Cardiovascular Cardiovascular exam: Present: RRR, +S1, +S2. Absent: diastolic murmur, gallop, rubs, systolic murmur - GI/Abdominal GI/Abdominal exam: Present: distended (Ascites noticed with left inguinal hernia easily reducible), normal bowel sounds, soft, no peritoneal signs. Absent: tenderness - Extremities Exam Extremities exam: Present: warm, radial pulses palpable and symetrical. Absent : calf tenderness, cyanotic, pedal edema - Neurological Exam Neurological exam: Present: CN II-XII intact, oriented X3, no focal deficits. Absent: pronater drift, facial droop, speech deficit - Skin Skin exam: Present: dry, intact - VTE Documentation of Mechanical Device: Intermittent pneumatic compression device
--- NOTE | 2017-05-09 09:03 | IR Procedure Note ---
Date of procedure: 05/09/17 Consent Obtained: Verbal consent, Written consent Timeout: Correct patient and procedure verified, Correct site verified, Time out performed, Skin prep completed Local anesthetic: Lidocaine 1% Indications: Ascites Procedure Performed: Paracentesis Site/Technique: US guided paracentesis Results/Findings: Moderate ascites Estimated blood loss (cc): 0 Complications: None; Tolerated procedure well Post Procedure Treatment Plan: Continue inpatient care
[2017-05-09] MEDS: Albumin 25% 25gram/100mL 25 GM/100 ML IV.SOLN IVC SCH ×2 (09:36→11:45)
[2017-05-09 10:13] LABS: Appearance of Peritoneal Fl CLEAR (Clear)
[2017-05-09 10:16] LABS: RBC,Peritoneal Fluid < 0.002 M/mcL
[2017-05-09] MEDS: RITONAVIR PO SCH (10:19)
[2017-05-09] MEDS: LOPINAVIR PO SCH (10:19)
[2017-05-09] MEDS: Multivit/Ca/Min/Fe/FA 1 TAB TABLET PO SCH (10:20)
[2017-05-09] MEDS: RALTEGRAVIR POTASSIUM 400 MG TABLET PO SCH (10:20)
[2017-05-09] MEDS: Sulfamethoxazole/Trimeth DS 1 EACH TABLET PO SCH (10:21)
[2017-05-09] MEDS: Nicotine 21 MG PATCH.TD24 TD SCH (10:21)
[2017-05-09 10:43] VITALS: BP 109/63
== END 2017-05-09 14:17 | disposition home or self-care (01) | DRG 432 ==
LOC: EMEROO 14:08 → 3ANU 14:08
PROVIDERS: ADMIT Internal Medicine Endocrinology, Diabetes & Metabolism; ATTEND Internal Medicine

== ENCOUNTER 2017-08-19 17:31 | Inpatient (IN) ==
[2017-08-19] MEDS ORDERED: *HR* LORazepam 2 MG/ML VIAL IVP ONE (17:37)
[2017-08-19] MEDS ORDERED: MVI, adult with vitamin K 10 ML in 0.9 % Sodium Chloride 1,000 ML IVC ONE (17:37)
[2017-08-19] MEDS ORDERED: Pantoprazole 40 MG VIAL IVP ONE (17:41)
--- NOTE | 2017-08-19 17:56 | Emergency Department Note ---
START Narrative - START START: I examined this patient and my medical decision-making was reviewed with the Resident Physician. I agree with the documented findings, disposition and treatment plan as described except to the extent set forth below. 58 year old HIV/TILA alcoholic with liver cirrhoiss presents with upper GI bleed and bloody diarrhea. He has presented like this a few months ago but then had ascites as well. Patinet states that he has been evlauted for his bloody stools but today started vomitting with increased blood and does not have a history of esophageal varcies secondary to a scope. WE will work up paitnet as an upper GI bleed and treat with protonix at this time and treat with banana bag and MVI for likely defecincies. Most likely will be admitted to medicine today.
--- NOTE | 2017-08-19 17:57 | Emergency Department Note ---
Disposition Clinical Impression: Upper gastrointestinal hemorrhage, Melena Syncope Qualifiers: Syncope type: unspecified Qualified Code(s): R55 - Syncope and collapse Fatigue Qualifiers: Fatigue type: unspecified Qualified Code(s): R53.83 - Other fatigue Disposition: Admitted As Inpatient Condition: Serious Time of Disposition: 00:16 GI Bleed HPI - General Chief complaint: ED GI Bleed Stated complaint: gi bleed Time Seen by Provider: 08/19/17 17:32 Source: EMS Mode of arrival: EMS Limitations: no limitations Nursing Notes Reviewed: Yes Vital Signs Reviewed: Yes - History of Present Illness HPI Narrative: 57 year old male presents to ED via EMS for syncopal episode x1 this afternoon as well as gross hematemesis x1 today. States stood up from seated position, felt lightheaded, and layed back on bed before blacking out. Was in presence of friend; patient states was not witnessed seizing and was oriented on return of consciousness. Denies any injury during episode. Afterwards, had one episode of gross hematemesis; states has also noted melanotic stools. Has been generally fatigued for several weeks. No fevers, chills, sweats, chest pain, palpitations, abdominal pain, nausea, diarrhea, dysuria, hematuria, or leg edema. Patient states has had similar bleeding in the past, but EGD & colonoscopy failed to elucidate source. Patient is HIV positive and currently is not on any pharmacology therapy. Denies any other medical conditions or medications at this time. Current smoker. States has history of alcohol abuse, but denies current use. - Related Data Home Medications Medication Instructions Recorded Confirmed Aspirin/Caffeine [Anacin 400-32 mg 1 each PO Q4H PRN 04/29/17 05/07/17 Tablet] Calcium Carbonate [Calcium] 500 mg PO DAILY 04/29/17 05/07/17 Multivitamin [Multi-Day Vitamins] 1 each PO DAILY 04/29/17 05/07/17 Paroxetine [Paxil] 20 mg PO DAILY 04/29/17 05/07/17 Potassium 99 mg PO DAILY 04/29/17 05/07/17 Raltegravir Potassium [Isentress] 400 mg PO BID 04/29/17 05/07/17 Emtricitabine/Tenofovir [Truvada] 1 tab PO DAILY 05/07/17 05/07/17 Lopinavir/Ritonavir [Kaletra] 1 tab PO BID 05/07/17 05/07/17 Previous Rx's Medication Instructions Recorded Clarithromycin [Biaxin] 500 mg PO BID #6 tablet 05/02/17 Ferrous Sulfate 325 mg PO BIDWM 30 Days tablet 05/02/17 Sulfamethoxazole/Trimeth DS 1 each PO DAILY #30 tablet 05/02/17 [Bactrim Ds] Furosemide [Lasix] 20 mg PO DAILY #30 tablet 05/09/17 Spironolactone [Aldactone] 50 mg PO DAILY #30 tablet 05/09/17 Allergies Allergy/AdvReac Type Severity Reaction Status Date / Time No Known Allergies Allergy Verified 08/19/17 17:49 All systems ED: reviewed and negative except as stated. Review of Systems: As Per HPI Past Medical History - Past Medical History Attestation: Yes The following information was validated with the patient. Medical history: Reports: cirrhosis, HIV/AIDS Surgical history: Reports: no surgical history Psychiatric history: Reports: no psych history - Social History Smoking Status: Current every day smoker Smokeless Tobacco Status: No Alcohol use: Reports: none Drug use: Reports: none Physical Exam - General General appearance: alert, in no apparent distress - Head Head exam: normocephalic - Eye Eye exam: Present: PERRL, EOMI. Absent: scleral icterus, conjunctival injection - ENT ENT exam: other (Mucosal pallor appreciable, dry mucosa, dry blood around lips) - Chest Chest inspection: Present: normal inspection, symmetric chest wall rise - Respiratory Respiratory exam: Present: normal lung sounds bilaterally. Absent: respiratory distress, wheezes - Cardiovascular Cardiovascular exam: Present: regular rate, normal rhythm, normal heart sounds - Abdominal Exam Abdominal exam: Present: soft, Non-Tender, organomegaly (Liver palpable below right rib margin) - Rectal Exam Peer Educator present during exam: Yes (CATRACHITA Muñiz) Rectal exam: Present: normal rectal tone, black stool. Absent: bloody stool - Extremities Exam Extremities exam: Absent: pedal edema - Expanded Lower Extremity Exam Neurovascular/Tendon exam: Absent: pulse deficit - Neurological Exam Neurological exam: Present: alert, oriented X3 - Psychiatric Psychiatric exam: Present: normal affect - Skin Skin exam: Present: warm, dry, pallor. Absent: cyanosis, diaphoresis Course Course Narrative: HIV-positive patient with history of hepatic cirrhosis due to alcoholism and history of G.I. bleed presents with syncopal episode and gross bloody vomitus. Checked CBC, CMP, EtOH, PT/PTT, and hemoccult. Patient anemic and questionably at baseline, does have positive hemoccult stool. CT head ordered due to fall during ED course which was negative for intracranial hemorrhage. Also did CT Chest/Abd/Pelvis; see results. - Reevaluation(s) Reevaluation #1: Patient fell out of bed attempting to ambulate to room toilet sustaining laceration to left superolateral orbit. CT ordered. Time: 19:34 Vital Signs Temperature 98.2 F 08/19/17 17:46 Pulse Rate 108 08/19/17 17:46 Respiratory Rate 16 08/19/17 17:46 Blood Pressure 109/69 08/19/17 17:46 O2 Sat by Pulse Oximetry 97 08/19/17 17:46 Temperature 98.2 F 08/19/17 17:46 Pulse Rate 98 08/19/17 22:26 Respiratory Rate 14 08/19/17 23:35 Blood Pressure 114/70 08/19/17 23:35 O2 Sat by Pulse Oximetry 94 08/19/17 22:26 Oxygen Delivery Oxygen Delivery Room Air GI Bleed - MDM Narrative Medical decision making narrative: Patient has had syncopal episode as well as clinical signs of gastrointestinal bleed, including grossly bloody vomitus and dry blood around mouth; patient also has heme-positive stool and is generally unsteady on his feet as evidenced by a fall while simply attempting to ambulate to ED room commode. Patient is also anemic at this time though it is not clear whether not this is a baseline for him; this will need trending. Thoracic and abdominal imaging demonstrate several abnormalities including possible gastroesophageal varices which, combined with gross hematemesis, will necessitate consult by GI. Hospitalist, Dr. Russ, accepts patient as medical inpatient. - Lab Data Lab results reviewed: Yes I reviewed the patient's lab results. Lab results narrative: Laboratory Last Values WBC 10.5 K/mcL (4.3-11.1) 08/19/17 18:13 RBC 3.43 M/mcL (4.19-5.50) L 08/19/17 18:13 Hgb 8.0 g/dL (12.9-16.9) L 08/19/17 18:13 Hct 25.4 % (37.5-50.1) L 08/19/17 18:13 MCV 74.1 fL (83.0-100.0) L 08/19/17 18:13 MCH 23.3 pg (28.0-33.3) L 08/19/17 18:13 MCHC 31.5 g/dL (31.6-35.5) L 08/19/17 18:13 RDW 19.0 % (11.5-14.5) H 08/19/17 18:13 Plt Count 119 K/mcL (140-400) L 08/19/17 18:13 MPV TNP 08/19/17 18:13 Immature Gran % 0.9 % (0-4) 08/19/17 18:13 Seg Neutrophils % 65.8 % 08/19/17 18:13 Lymphocytes % 21.0 % 08/19/17 18:13 Monocytes % 11.1 % 08/19/17 18:13 Eosinophils % 0.9 % 08/19/17 18:13 Basophils % 0.3 % 08/19/17 18:13 Neutrophils # 6.9 K/mcL (1.6-8.9) 08/19/17 18:13 Lymphocytes # 2.2 K/mcL (0.6-4.6) 08/19/17 18:13 Monocytes # 1.2 K/mcL (0.0-1.3) 08/19/17 18:13 Eosinophils # 0.1 K/mcL (0.0-0.6) 08/19/17 18:13 Basophils # 0.0 K/mcL (0.0-0.2) 08/19/17 18:13 Platelet Estimate Slight Decrease (Normal) L 08/19/17 18:13 Immature Plt Fraction 9.6 % (1.1-6.1) H 08/19/17 18:13 Polychromasia 1+ (Not Present) A 08/19/17 18:13 Hypochromasia Present (Not Present) A 08/19/17 18:13 PT 17.5 Seconds (9.4-12.1) H 08/19/17 18:13 INR 1.6 08/19/17 18:13 APTT 28.8 Seconds (26.0-36.0) 08/19/17 18:13 Sodium 137 mEq/L (136-145) 08/19/17 18:13 Potassium 4.4 mEq/L (3.5-4.5) 08/19/17 18:13 Chloride 107 mEq/L (98-109) 08/19/17 18:13 Carbon Dioxide 25 mEq/L (19-29) 08/19/17 18:13 BUN 43 mg/dL (8-26) H 08/19/17 18:13 Creatinine 0.83 mg/dL (0.72-1.25) 08/19/17 18:13 Est GFR ( Amer) > 60 (> 60) 08/19/17 18:13 Est GFR (Non-Af Amer) > 60 (> 60) 08/19/17 18:13 BUN/Creatinine Ratio 52 (6-26) H 08/19/17 18:13 Glucose 100 mg/dL (70-99) H 08/19/17 18:13 Calculated Osmolality 295 (280-300) 08/19/17 18:13 Lactic Acid 2.3 mmol/L (0.5-2.2) H 08/19/17 18:13 Calcium 8.8 mg/dL (8.6-10.8) 08/19/17 18:13 Magnesium 1.3 mg/dL (1.6-2.6) L 08/19/17 18:13 Total Bilirubin 0.5 mg/dL (0.2-1.2) 08/19/17 18:13 AST 36 Units/L (5-34) H 08/19/17 18:13 ALT 28 Units/L (0-55) 08/19/17 18:13 Alkaline Phosphatase 59 Units/L (38-126) 08/19/17 18:13 Troponin I 0.00 ng/mL (0-0.03) 08/19/17 18:13 Serum Total Protein 5.4 g/dL (6.0-8.3) L 08/19/17 18:13 Albumin 2.5 g/dL (3.5-5.0) L 08/19/17 18:13 Globulin 2.9 g/dL (2.4-3.5) 08/19/17 18:13 Albumin/Globulin Ratio 0.9 (1.1-2.2) L 08/19/17 18:13 Lipase 96 Units/L (8-78) H 08/19/17 18:13 Stool Occult Blood Positive (Negative) A 08/19/17 19:30 Ethyl Alcohol < 10 mg/dL (0-10) 08/19/17 20:50 Blood Type A POSITIVE 08/19/17 18:13 Antibody Screen NEGATIVE 08/19/17 18:13 Result diagrams: 08/19/17 18:13 08/19/17 18:13 Lab Results 08/19/17 08/19/17 08/19/17 Range/Units 18:13 18:13 18:13 WBC 10.5 (4.3-11.1) K/mcL RBC 3.43 L (4.19-5.50) M/mcL Hgb 8.0 L (12.9-16.9) g/dL Hct 25.4 L (37.5-50.1) % MCV 74.1 L (83.0-100.0) fL MCH 23.3 L (28.0-33.3) pg MCHC 31.5 L (31.6-35.5) g/dL RDW 19.0 H (11.5-14.5) % Plt Count 119 L (140-400) K/mcL MPV TNP Immature Gran % 0.9 (0-4) % Seg Neutrophils % 65.8 % Lymphocytes % 21.0 % Monocytes % 11.1 % Eosinophils % 0.9 % Basophils % 0.3 % Neutrophils # 6.9 (1.6-8.9) K/mcL Lymphocytes # 2.2 (0.6-4.6) K/mcL Monocytes # 1.2 (0.0-1.3) K/mcL Eosinophils # 0.1 (0.0-0.6) K/mcL Basophils # 0.0 (0.0-0.2) K/mcL Platelet Estimate Slight Decrease L (Normal) Immature Plt Fraction 9.6 H (1.1-6.1) % Polychromasia 1+ A (Not Present) Hypochromasia Present A (Not Present) PT 17.5 H (9.4-12.1) Seconds INR 1.6 APTT 28.8 (26.0-36.0) Seconds Sodium 137 (136-145) mEq/L Potassium 4.4 (3.5-4.5) mEq/L Chloride 107 (98-109) mEq/L Carbon Dioxide 25 (19-29) mEq/L BUN 43 H (8-26) mg/dL Creatinine 0.83 (0.72-1.25) mg/dL Est GFR ( Amer) > 60 (> 60) Est GFR (Non-Af Amer) > 60 (> 60) BUN/Creatinine Ratio 52 H (6-26) Glucose 100 H (70-99) mg/dL Calculated Osmolality 295 (280-300) Lactic Acid (0.5-2.2) mmol/L Calcium 8.8 (8.6-10.8) mg/dL Magnesium 1.3 L (1.6-2.6) mg/dL Total Bilirubin 0.5 (0.2-1.2) mg/dL AST 36 H (5-34) Units/L ALT 28 (0-55) Units/L Alkaline Phosphatase 59 (38-126) Units/L Troponin I (0-0.03) ng/mL Serum Total Protein 5.4 L (6.0-8.3) g/dL Albumin 2.5 L (3.5-5.0) g/dL Globulin 2.9 (2.4-3.5) g/dL Albumin/Globulin Ratio 0.9 L (1.1-2.2) Lipase 96 H (8-78) Units/L Stool Occult Blood (Negative) Ethyl Alcohol (0-10) mg/dL Blood Type Antibody Screen 08/19/17 08/19/17 08/19/17 Range/Units 18:13 18:13 18:13 WBC (4.3-11.1) K/mcL RBC (4.19-5.50) M/mcL Hgb (12.9-16.9) g/dL Hct (37.5-50.1) % MCV (83.0-100.0) fL MCH (28.0-33.3) pg MCHC (31.6-35.5) g/dL RDW (11.5-14.5) % Plt Count (140-400) K/mcL MPV Immature Gran % (0-4) % Seg Neutrophils % % Lymphocytes % % Monocytes % % Eosinophils % % Basophils % % Neutrophils # (1.6-8.9) K/mcL Lymphocytes # (0.6-4.6) K/mcL Monocytes # (0.0-1.3) K/mcL Eosinophils # (0.0-0.6) K/mcL Basophils # (0.0-0.2) K/mcL Platelet Estimate (Normal) Immature Plt Fraction (1.1-6.1) % Polychromasia (Not Present) Hypochromasia (Not Present) PT (9.4-12.1) Seconds INR APTT (26.0-36.0) Seconds Sodium (136-145) mEq/L Potassium (3.5-4.5) mEq/L Chloride (98-109) mEq/L Carbon Dioxide (19-29) mEq/L BUN (8-26) mg/dL Creatinine (0.72-1.25) mg/dL Est GFR ( Amer) (> 60) Est GFR (Non-Af Amer) (> 60) BUN/Creatinine Ratio (6-26) Glucose (70-99) mg/dL Calculated Osmolality (280-300) Lactic Acid 2.3 H (0.5-2.2) mmol/L Calcium (8.6-10.8) mg/dL Magnesium (1.6-2.6) mg/dL Total Bilirubin (0.2-1.2) mg/dL AST (5-34) Units/L ALT (0-55) Units/L Alkaline Phosphatase (38-126) Units/L Troponin I 0.00 (0-0.03) ng/mL Serum Total Protein (6.0-8.3) g/dL Albumin (3.5-5.0) g/dL Globulin (2.4-3.5) g/dL Albumin/Globulin Ratio (1.1-2.2) Lipase (8-78) Units/L Stool Occult Blood (Negative) Ethyl Alcohol (0-10) mg/dL Blood Type A POSITIVE Antibody Screen NEGATIVE 08/19/17 08/19/17 Range/Units 19:30 20:50 WBC (4.3-11.1) K/mcL RBC (4.19-5.50) M/mcL Hgb (12.9-16.9) g/dL Hct (37.5-50.1) % MCV (83.0-100.0) fL MCH (28.0-33.3) pg MCHC (31.6-35.5) g/dL RDW (11.5-14.5) % Plt Count (140-400) K/mcL MPV Immature Gran % (0-4) % Seg Neutrophils % % Lymphocytes % % Monocytes % % Eosinophils % % Basophils % % Neutrophils # (1.6-8.9) K/mcL Lymphocytes # (0.6-4.6) K/mcL Monocytes # (0.0-1.3) K/mcL Eosinophils # (0.0-0.6) K/mcL Basophils # (0.0-0.2) K/mcL Platelet Estimate (Normal) Immature Plt Fraction (1.1-6.1) % Polychromasia (Not Present) Hypochromasia (Not Present) PT (9.4-12.1) Seconds INR APTT (26.0-36.0) Seconds Sodium (136-145) mEq/L Potassium (3.5-4.5) mEq/L Chloride (98-109) mEq/L Carbon Dioxide (19-29) mEq/L BUN (8-26) mg/dL Creatinine (0.72-1.25) mg/dL Est GFR ( Amer) (> 60) Est GFR (Non-Af Amer) (> 60) BUN/Creatinine Ratio (6-26) Glucose (70-99) mg/dL Calculated Osmolality (280-300) Lactic Acid (0.5-2.2) mmol/L Calcium (8.6-10.8) mg/dL Magnesium (1.6-2.6) mg/dL Total Bilirubin (0.2-1.2) mg/dL AST (5-34) Units/L ALT (0-55) Units/L Alkaline Phosphatase (38-126) Units/L Troponin I (0-0.03) ng/mL Serum Total Protein (6.0-8.3) g/dL Albumin (3.5-5.0) g/dL Globulin (2.4-3.5) g/dL Albumin/Globulin Ratio (1.1-2.2) Lipase (8-78) Units/L Stool Occult Blood Positive A (Negative) Ethyl Alcohol < 10 (0-10) mg/dL Blood Type Antibody Screen - Radiology Data Radiology results reviewed: Yes I reviewed the patient's radiology results. Chest X-Ray 08/19/17 17:37 IMPRESSION: No acute cardiopulmonary process. D/ / Joel Willis MD / Joel Willis MD Interpreting Provider: Joel Willis MD Abdomen/Pelvis CT 08/19/17 19:17 IMPRESSION: Mild wall thickening involving multiple loops of small bowel as well as more prominent wall thickening involving the ascending colon. Findings likely infectious or inflammatory in etiology. Prominent wall thickening of the bladder which is slightly asymmetrically more prominent on the right. Findings may be related to chronic cystitis however recommend direct visualization to exclude underlying lesion. Pelvic varices. D/ / Rosa Goodrich MD / Rosa Goodrich MD Interpreting Provider: Rosa Goodrich MD Chest CTA 08/19/17 19:17 IMPRESSION: 1. No evidence of pulmonary embolism or aortic dissection. 2. Marked mural thickening of the esophagus, especially inferiorly. Although this could be secondary to esophagitis or possibly gastroesophageal varices, neoplasm must also be considered. Direct visualization is recommended. Gastroenterologic consultation also recommended. 3. Evidence of splenomegaly, with possible cirrhosis. D/ / Jesus Mata MD / Jesus Mata MD Interpreting Provider: Jesus Mata MD Head CT 08/19/17 19:23 IMPRESSION: No acute intracranial abnormality. Right maxillary sinusitis. D/ / Rosa Goodrich MD / Rosa Goodrich MD Interpreting Provider: Rosa Goodrich MD - EKG Data EKG attestation: Yes I reviewed and interpreted this EKG. EKG results narrative: 08/19/2017 1738: rate 118, KS interval 96, QRS 92, QTC 427, axis 75, no significant ST segment or T wave abnormalities. Sinus tach without evidence of STEMI.
[2017-08-19 18:26] LABS: Eosinophils % 0.9 %; Immature Granulocytes % 0.9 % (0-4); Mean Corpuscular Volume 74.1 fL (83.0-100.0); Platelet Count 119 K/mcL (140-400)
[2017-08-19 18:28] LABS: Basophils % 0.3 %; Eosinophils # 0.1 K/mcL (0.0-0.6); Hematocrit 25.4 % (37.5-50.1); Immature Platelets 9.6 % (1.1-6.1); Lymphocytes # 2.2 K/mcL (0.6-4.6); Mean Corpuscular HGB Conc 31.5 g/dL (31.6-35.5); Mean Corpuscular Hemoglobin 23.3 pg (28.0-33.3); Monocytes # 1.2 K/mcL (0.0-1.3); Monocytes % 11.1 %; Neutrophils # 6.9 K/mcL (1.6-8.9); Red Blood Count 3.43 M/mcL (4.19-5.50); Segmented Neutrophils % 65.8 %
[2017-08-19 18:30] LABS: INR 1.6; Prothrombin Time 17.5 Seconds (9.4-12.1)
[2017-08-19 18:33] LABS: Activated Partial Thrombo Time 28.8 Seconds (26.0-36.0)
[2017-08-19 18:42] LABS: Alanine Aminotransferase 28 Units/L (0-55); Albumin 2.5 g/dL (3.5-5.0); Albumin/Globulin Ratio 0.9 (1.1-2.2); Alkaline Phosphatase 59 Units/L (38-126); Aspartate Amino Transferase 36 Units/L (5-34); BUN/Creatinine Ratio 52 (6-26); Bilirubin,Total 0.5 mg/dL (0.2-1.2); Blood Urea Nitrogen 43 mg/dL (8-26); Calcium 8.8 mg/dL (8.6-10.8); Carbon Dioxide 25 mEq/L (19-29); Chloride 107 mEq/L (98-109); Globulin 2.9 g/dL (2.4-3.5); Glucose 100 mg/dL (70-99); Lipase 96 Units/L (8-78); Magnesium 1.3 mg/dL (1.6-2.6); Osmolality,Calculated 295 (280-300); Potassium 4.4 mEq/L (3.5-4.5); Sodium 137 mEq/L (136-145); Total Protein 5.4 g/dL (6.0-8.3); eGFR For African Americans > 60 (> 60); eGFR For Non-African Americans > 60 (> 60)
[2017-08-19 18:56] LABS: Hypochromasia Present (Not Present); Platelet Estimate Slight Decrease (Normal); Polychromasia 1+ (Not Present)
[2017-08-19] MEDS ORDERED: MetroNIDAZOLE 500 MG/100 ML 500 MG/100 ML BAG IVPB ONE (22:14)
[2017-08-20] MEDS ORDERED: Naloxone 0.4 MG/ML INJ IVP PRN (00:34)
[2017-08-20] MEDS ORDERED: *HR* LORazepam 2 MG/ML VIAL IVP PRN ×3 (00:40)
[2017-08-20] MEDS ORDERED: Magnesium Sulfate 2 GM in D5% in Water 100 ML IVPB ONE (00:43)
[2017-08-20] MEDS ORDERED: Pantoprazole 40 MG VIAL IVP SCH (00:45)
[2017-08-20] MEDS ORDERED: 0.9 % Sodium Chloride 1,000 ML IVC SCH ×2 (00:45→19:15)
--- NOTE | 2017-08-20 01:05 | Internal Med History&Physical ---
Date of Encounter: 08/19/17 Time of Encounter: 23:00 Assessment and Plan (1) HIV disease Current visit: No Status: Chronic Patient on HIV medication. CD4 count 167 on 04/29/17. Continue outpatient follow-up (2) Liver cirrhosis, alcoholic Current visit: No Status: Acute Continue supportive treatment. CT abdominal shows no large amount of ascites to be drained now Qualifiers: Ascites presence: without ascites Qualified Code(s): K70.30 - Alcoholic cirrhosis of liver without ascites (3) Esophageal varices in alcoholic cirrhosis Current visit: No Status: Acute Patient's CT scan suspect esophagitis neoplasm. Patient has GI bleed. We will consider consult GI. Review patient's old chart. He had EGD in April 2017, unremarkable. (4) DVT prophylaxis Current visit: No Status: Acute EPCD, No anticoagulation because of GI bleed. (5) Upper gastrointestinal hemorrhage Current visit: Yes Status: Acute Pt has melena, coffee-ground emesis, dizziness/syncope probably due to orthostatic hypotension. Patient has esophagus varicosis with a high risk of GI bleed. - We will place patient on nothing by mouth, IV fluid. - Closely monitor his vitals and H/H, may consider transfuse 1 unit of blood as patient has symptomatic anemia. - IV PPI - GI consult (6) Syncope Current visit: Yes Status: Acute Most likely due to orthostatic hypotension caused by a GI bleed. We will place the patient on continuous cardiac monitoring. Will check echo and duplex carotid. Qualifiers: Syncope type: unspecified Qualified Code(s): R55 - Syncope and collapse Internal Medicine - H&P: HPI Chief complaint: Coffee-ground emesis Admitted From: Home Plans for Post Hospital Care: Home History of present illness: Mr. Anthony is a 57 year old male with history of alcoholism, cirrhosis, HIV presents to ER for dizziness, syncope, and coffee-ground emesis since this noon. Patient said he has black stool recently. Start to have dizziness and syncope once today. Patient denies any trauma during syncope. He was sent to ER, where he was found guaiac positive. Patient's hemoglobin is at about 8, which is his baseline. He has mild tachycardia and BP at the lower side. Patient was admitted for GI bleed. Patient is full code. Past Med Surg Social Fam HX - Past Medical History Medical history: cirrhosis, HIV/AIDS Psychiatric history: no psych history - Past Surgical History Surgical History: no surgical history - Social History Smoking Status: Current every day smoker Packs per day: 1 Smokeless Tobacco Status: No Alcohol use: none Drug use: none - Family History Father Living Status: Hx Family Cancer: Yes (Lung) Mother Living Status: Hx Family Cancer: Yes (Breast) Grandfather Hx Family Cancer: Yes (Lung) Brother Living Status: Still Living Internal Medicine - H&P: Meds Aspirin/Caffeine [Anacin 400-32 mg Tablet] 1 each PO Q4H PRN 04/29/17 [History] Calcium Carbonate [Calcium] 500 mg PO DAILY 04/29/17 [History] Multivitamin [Multi-Day Vitamins] 1 each PO DAILY 04/29/17 [History] Paroxetine [Paxil] 20 mg PO DAILY 04/29/17 [History] Potassium 99 mg PO DAILY 04/29/17 [History] Raltegravir Potassium [Isentress] 400 mg PO BID 04/29/17 [History] Clarithromycin [Biaxin] 500 mg PO BID #6 tablet 05/02/17 [Rx] Ferrous Sulfate 325 mg PO BIDWM 30 Days tablet 05/02/17 [Rx] Sulfamethoxazole/Trimeth DS [Bactrim Ds] 1 each PO DAILY #30 tablet 05/02/17 [Rx ] Emtricitabine/Tenofovir [Truvada] 1 tab PO DAILY 05/07/17 [History] Lopinavir/Ritonavir [Kaletra] 1 tab PO BID 05/07/17 [History] Furosemide [Lasix] 20 mg PO DAILY #30 tablet 05/09/17 [Rx] Spironolactone [Aldactone] 50 mg PO DAILY #30 tablet 05/09/17 [Rx] 3 Allergy/AdvReac Type Severity Reaction Status Date / Time No Known Allergies Allergy Verified 08/19/17 17:49 All Systems PM: A 10-system review of systems was performed and is negative for pertinent findings except as documented above in the HPI. - Constitutional Vitals: Temp Pulse Resp BP Pulse Ox 97.9 F 97 17 99/58 100 08/20/17 00:14 08/20/17 00:14 08/20/17 00:14 08/20/17 00:14 08/20/17 00:14 General appearance: Present: A&O X 3, no acute distress, answers questions appropriately - Head Head exam: Present: atraumatic, normocephalic - Eye Eye exam: Present: PERRL, conjuntiva pink, sclera anicteric Pupils: Present: PERRL - Neck Neck exam general surgery: Present: supple, trachea midline. Absent: lymphadenopathy - Respiratory Respiratory exam: Present: CTAB. Absent: accessory muscle use, rales, rhonchi, wheezes - Cardiovascular Cardiovascular exam: Present: RRR, +S1, +S2. Absent: diastolic murmur, gallop, rubs, systolic murmur - GI/Abdominal GI/Abdominal exam: Present: normal bowel sounds, soft, no peritoneal signs. Absent: distended, tenderness - Extremities Exam Extremities exam: Present: warm, radial pulses palpable and symmetrical. Absent : calf tenderness, cyanotic, pedal edema - Neurological Exam Neurological exam: Present: CN II-XII intact, oriented X3, no focal deficits. Absent: pronater drift, facial droop, speech deficit - Skin Skin exam: Present: dry, intact Internal Med - H&P Results - Labs CBC & Chem 7: 08/19/17 18:13 08/19/17 18:13
[2017-08-20] MEDS: 0.9 % Sodium Chloride 1,000 ML IVC SCH ×4 (01:31→15:41)
[2017-08-20 02:01] LABS: INR 1.5; Prothrombin Time 16.7 Seconds (9.4-12.1)
[2017-08-20 02:02] LABS: BUN/Creatinine Ratio 49 (6-26); Blood Urea Nitrogen 38 mg/dL (8-26); Carbon Dioxide 24 mEq/L (19-29); Chloride 110 mEq/L (98-109); Glucose 119 mg/dL (70-99); Magnesium 1.8 mg/dL (1.6-2.6); Osmolality,Calculated 300 (280-300); Potassium 4.5 mEq/L (3.5-4.5); Sodium 140 mEq/L (136-145); eGFR For African Americans > 60 (> 60); eGFR For Non-African Americans > 60 (> 60)
[2017-08-20 02:08] LABS: Basophils % 0.2 %; Hematocrit 21.1 % (37.5-50.1); Hemoglobin 6.5 g/dL (12.9-16.9); Mean Corpuscular HGB Conc 30.8 g/dL (31.6-35.5)
[2017-08-20 02:10] LABS: Eosinophils % 0.5 %; Immature Granulocytes % 0.3 % (0-4); Immature Platelets 8.9 % (1.1-6.1); Lymphocytes # 1.8 K/mcL (0.6-4.6); Lymphocytes % 29.4 %; Mean Corpuscular Hemoglobin 23.4 pg (28.0-33.3); Mean Corpuscular Volume 75.9 fL (83.0-100.0); Monocytes # 0.9 K/mcL (0.0-1.3); Monocytes % 15.1 %; Neutrophils # 3.3 K/mcL (1.6-8.9); Red Blood Count 2.78 M/mcL (4.19-5.50); Segmented Neutrophils % 54.5 %
[2017-08-20 02:11] LABS: Platelet Count 79 K/mcL (140-400)
[2017-08-20] MEDS: Octreotide 400 MCG in 0.9 % Sodium Chloride 100 ML IVC SCH ×3 (02:36→19:55)
[2017-08-20 02:38] LABS: Hypochromasia Present (Not Present); Platelet Estimate Decreased (Normal)
[2017-08-20] MEDS ORDERED: 0.9 % Sodium Chloride 250 ML ONE ×2 (02:59→06:15)
[2017-08-20] MEDS ORDERED: Pantoprazole 40 MG in 0.9 % Sodium Chloride Mini Bag 100 ML IVC SCH (07:45)
[2017-08-20] MEDS: Nicotine 21 MG PATCH.TD24 TD SCH (08:07)
[2017-08-20] MEDS ORDERED: *HR* Midazolam HCl 2 MG/2 ML VIAL IV ONE (09:53)
[2017-08-20] MEDS ORDERED: *HR* Midazolam HCl 5 MG/5 ML VIAL IVP ONE ×2 (09:53→14:56)
[2017-08-20] MEDS ORDERED: *HR* Etomidate 20 MG/10 ML AMPUL IVP ONE (09:53)
[2017-08-20 10:56] LABS: Hematocrit 22.2 % (37.5-50.1); Hemoglobin 7.5 g/dL (12.9-16.9)
[2017-08-20] MEDS: Pantoprazole 40 MG VIAL IVP SCH ×2 (10:59→17:16)
[2017-08-20] MEDS ORDERED: 0.9 % Sodium Chloride 4,000 ML ONE (11:39)
--- NOTE | 2017-08-20 11:56 | Gastroenterology Consult Note ---
<Joel Rios - Last Filed: 08/20/17 11:53> Date of Encounter: 08/20/17 Time of Encounter: 10:20 - Assessment and plan (1) Symptomatic anemia Current Visit: No Status: Acute Assessment and plan: Hgb on admission was 8 and this AM Hgb 6.5. Continue to monitor CBC and transfuse PRBC as needed. Plan for EGD today to r/o esophagitis, gastritis, duodenitis, PUD, MW tear, or AVM. (2) Esophagitis determined by endoscopy Current Visit: Yes Status: Acute Assessment and plan: EGD 05/01/2017 shows LA grade D esophagitis, continue PPI. (3) Liver cirrhosis, alcoholic Current Visit: No Status: Acute Assessment and plan: On this admission, MELD Na 14, Child-Kessler class B, DF 32.7. Qualifiers: Ascites presence: without ascites Qualified Code(s): K70.30 - Alcoholic cirrhosis of liver without ascites (4) HIV disease Current Visit: No Status: Chronic - Time Spent With Patient Total time spent is greater than 50% in coordination of care (as documented) at patient's floor/unit and/or counseling patient: GI History of Present Illness - Data of Consult Patient: known to practice within the last 3 years Consult date: 08/20/17 Requesting Physician: Kelsey Fonseca MD - Consult Narrative Reason for consult: GI Bleed History of present illness: Mr. Anthony is a 57 year old male with PMHx of HIV, liver cirrhosis secondary to alcohol abuse with portal HTN who presented to the ED with dizziness, syncope , and coffee-ground emesis. He also reported lack stool recently. He denied any trauma during syncope. FOBT was positive in the ED. Hgb on admission was 8 and this AM Hgb 6.5. CT A/P with mild wall thickening involving multiple loops of small bowel as well as prominent wall thickening involving ascending colon, likely infectious or inflammatory etiology. CTA chest with marked mural thickening of esophagus, especially inferiorly. Could be secondary to esophagitis or varices, but neoplasm considered. He was started on Octreotide gtt and Protonix gtt. Procedures: EGD 05/01/2017: LA grade D esophagitis; non-bleeding gastric ulcers. Colonoscopy 05/01/2017 Dr. Delaney: No polyps. 3 small anal warts noted. Repeat Cscope 10 years. NSAIDs: None Anticoagulation: None Past Med Surg Social Fam HX - Past Medical History Medical history: cirrhosis, HIV/AIDS Psychiatric history: no psych history - Past Surgical History Surgical History: no surgical history - Social History Smoking Status: Current every day smoker Packs per day: 1 Smokeless Tobacco Status: No Alcohol use: none Drug use: none - Family History Father Living Status: Hx Family Cancer: Yes (Lung) Mother Living Status: Hx Family Cancer: Yes (Breast) Grandfather Hx Family Cancer: Yes (Lung) Brother Living Status: Still Living - Gastrointestinal Gastrointestinal: Present: as per HPI - Constitutional Constitutional: as per HPI - EENT Eyes: as per HPI Ears: Present: as per HPI Nose, mouth and throat: Present: as per HPI - Cardiovascular Cardiovascular ROS: Present: as per HPI - Respiratory Respiratory IM: Present: as per HPI - Genitourinary Genitourinary: Absent: change in color, Urinary frequency - Neurological ROS Neurological GI: Present: as per HPI - Hematologic/Lymphatic Hematologic/Lymphatic pediatric: Present: as per HPI - Musculoskeletal Musculoskeletal ROS GI: Present: as per HPI - Integumentary Integumentary GI: Present: as per HPI - Psychiatric ROS Psychiatric GI: Present: as per HPI - Endocrine Endocrine IM: Present: as per HPI - Constitutional Vitals: Temp Pulse Resp BP Pulse Ox 98.7 F 82 14 82/54 93 08/20/17 09:16 08/20/17 11:13 08/20/17 09:16 08/20/17 11:13 08/20/17 11:13 General appearance: Present: cooperative, A&O X 3, no acute distress, answers questions appropriately - Head Head exam: Present: atraumatic, normocephalic - Eye Eye exam: Present: normal appearance, sclera anicteric - ENT ENT exam: Present: mucous membranes dry - Neck Neck exam general surgery: Present: normal inspection, trachea midline - Respiratory Respiratory exam: Present: CTAB - Cardiovascular Cardiovascular exam: Present: RRR, +S1, +S2 - GI/Abdominal GI/Abdominal exam: Present: soft, no peritoneal signs. Absent: distended, firm , guarding, tenderness - Rectal Rectal exam: Present: deferred - Extremities Exam Extremities exam: Present: warm - Neurological Exam Neurological exam: Present: no focal deficits - Psychiatric Psychiatric exam: Present: normal affect, normal mood - Skin Skin exam: Present: dry, intact, normal color, warm Results - Labs CBC & Chem 7: 08/20/17 10:48 08/20/17 01:43 Labs: Last Result Calcium 8.0 mg/dL (8.6-10.8) L 08/20/17 01:43 Troponin I 0.00 ng/mL (0-0.03) 08/19/17 18:13 Stool Occult Blood Positive (Negative) A 08/19/17 19:30 Entire Visit Hgb 7.5 g/dL (12.9-16.9) L 08/20/17 10:48 Hct 22.2 % (37.5-50.1) L 08/20/17 10:48 PT 16.7 Seconds (9.4-12.1) H 08/20/17 01:43 Total Bilirubin 0.5 mg/dL (0.2-1.2) 08/19/17 18:13 AST 36 Units/L (5-34) H 08/19/17 18:13 ALT 28 Units/L (0-55) 08/19/17 18:13 Lipase 96 Units/L (8-78) H 08/19/17 18:13 - ABG ABG results: PT/INR, D-dimer PT 16.7 Seconds (9.4-12.1) H 08/20/17 01:43 Consult Discharge Plan - Plan Referrals: Willie Underwood MD [Primary Care Provider] - <Siria Delaney - Last Filed: 08/20/17 13:53> Date of Encounter: 08/20/17 Time of Encounter: 13:40 - Time Spent With Patient Total time spent is greater than 50% in coordination of care (as documented) at patient's floor/unit and/or counseling patient: GI History of Present Illness - Data of Consult Requesting Physician: Kelsey Fonseca MD - Consult Narrative History of present illness: Mr. Anthony is a 57 year old male - Constitutional Vitals: Temp Pulse Resp BP Pulse Ox 98.7 F 104 12 95/58 100 08/20/17 09:16 08/20/17 12:00 08/20/17 12:00 08/20/17 12:00 08/20/17 12:00 Results - Labs CBC & Chem 7: 08/20/17 10:48 08/20/17 01:43 Labs: Last Result Calcium 8.0 mg/dL (8.6-10.8) L 08/20/17 01:43 Troponin I 0.00 ng/mL (0-0.03) 08/19/17 18:13 Stool Occult Blood Positive (Negative) A 08/19/17 19:30 Entire Visit Hgb 7.5 g/dL (12.9-16.9) L 08/20/17 10:48 Hct 22.2 % (37.5-50.1) L 08/20/17 10:48 PT 16.7 Seconds (9.4-12.1) H 08/20/17 01:43 Total Bilirubin 0.5 mg/dL (0.2-1.2) 08/19/17 18:13 AST 36 Units/L (5-34) H 08/19/17 18:13 ALT 28 Units/L (0-55) 08/19/17 18:13 Lipase 96 Units/L (8-78) H 08/19/17 18:13 - ABG ABG results: PT/INR, D-dimer PT 16.7 Seconds (9.4-12.1) H 08/20/17 01:43 - Impressions Impressions Echocardiogram 08/20/17 00:59 Impressions: Technically challenging study with suboptimal windows. Exam was performed in the supine position using subcostal images only. Overall, grossly LV systolic function appears normal and is estimated at EF 65%. Mild left ventricular diastolic dysfunction. Normal right ventricular structure and function. Valves not well visualized. No significant valvular dysfunction by Doppler. Unable to estimate RVSP. Findings: Study Quality * Technically challenging due to suboptimal echocardiographic windows. Exam was performed in the supine position. Only subcostal images were obtained. ECG Findings * Normal sinus rhythm. Left Ventricle * Normal LV chamber size, wall thickness and function. * LVEF 65%. * Mild left ventricular diastolic dysfunction. Aortic Valve * No aortic regurgitation. * Aortic valve not well visualized. * No aortic stenosis. Mitral Valve * No mitral regurgitation. * No mitral stenosis. * Normal mitral valve structure. Tricuspid Valve * Tricuspid valve not well visualized. * No tricuspid regurgitation. Pulmonic Valve * Pulmonic valve not well visualized. * Suboptimal Doppler signal. Pulmonary Artery * Pulmonary artery not well visualized. Aorta * Not well visualized. Right Ventricle * Normal right ventricular structure and function. Left Atrium * Left atrium is not well visualized. Right Atrium * Right atrium is not well visualized. Pericardium * There is no pericardial effusion present. Interatrial Septum * Interatrial septum not well evaluated. IVC * The IVC is not well evaluated. - Attending Attestation I examined this patient and my medical decision-making was reviewed with the Resident Physician. I agree with the documented findings, disposition and treatment plan as described except to the extent set forth by colopathy. Patient with cirrhosis and/HIV now with upper GI bleeding last EGD did not show any obvious varices and review of CAT scan [facility] radiologist does not show any obvious varices. Patient already intubated on the ventilator and he will have an EGD done in the OR. Meanwhile transfuse as needed continue octreotide And PPI drip. Correct coagulopathy/low platelets
[2017-08-20] MEDS ORDERED: *HR* FentaNYL (PF) 100 MCG/2 ML VIAL ONE ×2 (12:12→13:29)
[2017-08-20] MEDS ORDERED: Heparin 1,000 UNITS/500 mL NS 500 ML ONE (12:13)
--- NOTE | 2017-08-20 12:32 | Anesthesia Evaluation PreOp ---
Date of Encounter: 08/20/17 Time of Encounter: 12:32 - Past History Planned Operation: Emergent Alcohol Use: none Drug use: none Medications and Allergies Aspirin/Caffeine [Anacin 400-32 mg Tablet] 1 each PO Q4H PRN 04/29/17 [History] Calcium Carbonate [Calcium] 500 mg PO DAILY 04/29/17 [History] Multivitamin [Multi-Day Vitamins] 1 each PO DAILY 04/29/17 [History] Paroxetine [Paxil] 20 mg PO DAILY 04/29/17 [History] Potassium 99 mg PO DAILY 04/29/17 [History] Raltegravir Potassium [Isentress] 400 mg PO BID 04/29/17 [History] Clarithromycin [Biaxin] 500 mg PO BID #6 tablet 05/02/17 [Rx] Ferrous Sulfate 325 mg PO BIDWM 30 Days tablet 05/02/17 [Rx] Sulfamethoxazole/Trimeth DS [Bactrim Ds] 1 each PO DAILY #30 tablet 05/02/17 [Rx ] Emtricitabine/Tenofovir [Truvada] 1 tab PO DAILY 05/07/17 [History] Lopinavir/Ritonavir [Kaletra] 1 tab PO BID 05/07/17 [History] Furosemide [Lasix] 20 mg PO DAILY #30 tablet 05/09/17 [Rx] Spironolactone [Aldactone] 50 mg PO DAILY #30 tablet 05/09/17 [Rx] 3 Allergy/AdvReac Type Severity Reaction Status Date / Time No Known Allergies Allergy Verified 08/19/17 17:49 Anesthesia Results - Labs 08/20/17 10:48 08/20/17 01:43 Laboratory Results WBC 6.0 K/mcL (4.3-11.1) 08/20/17 01:43 RBC 2.78 M/mcL (4.19-5.50) L 08/20/17 01:43 Hgb 7.5 g/dL (12.9-16.9) L 08/20/17 10:48 Hct 22.2 % (37.5-50.1) L 08/20/17 10:48 MCV 75.9 fL (83.0-100.0) L 08/20/17 01:43 MCH 23.4 pg (28.0-33.3) L 08/20/17 01:43 MCHC 30.8 g/dL (31.6-35.5) L 08/20/17 01:43 RDW 19.0 % (11.5-14.5) H 08/20/17 01:43 Plt Count 79 K/mcL (140-400) L 08/20/17 01:43 MPV TNP 08/20/17 01:43 Immature Gran % 0.3 % (0-4) 08/20/17 01:43 Seg Neutrophils % 54.5 % 08/20/17 01:43 Lymphocytes % 29.4 % 08/20/17 01:43 Monocytes % 15.1 % 08/20/17 01:43 Eosinophils % 0.5 % 08/20/17 01:43 Basophils % 0.2 % 08/20/17 01:43 Neutrophils # 3.3 K/mcL (1.6-8.9) 08/20/17 01:43 Lymphocytes # 1.8 K/mcL (0.6-4.6) 08/20/17 01:43 Monocytes # 0.9 K/mcL (0.0-1.3) 08/20/17 01:43 Eosinophils # 0.0 K/mcL (0.0-0.6) 08/20/17 01:43 Basophils # 0.0 K/mcL (0.0-0.2) 08/20/17 01:43 Platelet Estimate Decreased (Normal) L 08/20/17 01:43 Immature Plt Fraction 8.9 % (1.1-6.1) H 08/20/17 01:43 Polychromasia 1+ (Not Present) A 08/19/17 18:13 Hypochromasia Present (Not Present) A 08/20/17 01:43 PT 16.7 Seconds (9.4-12.1) H 08/20/17 01:43 INR 1.5 08/20/17 01:43 APTT 28.8 Seconds (26.0-36.0) 08/19/17 18:13 Sodium 140 mEq/L (136-145) 08/20/17 01:43 Potassium 4.5 mEq/L (3.5-4.5) 08/20/17 01:43 Chloride 110 mEq/L (98-109) H 08/20/17 01:43 Carbon Dioxide 24 mEq/L (19-29) 08/20/17 01:43 BUN 38 mg/dL (8-26) H 08/20/17 01:43 Creatinine 0.78 mg/dL (0.72-1.25) 08/20/17 01:43 Est GFR ( Amer) > 60 (> 60) 08/20/17 01:43 Est GFR (Non-Af Amer) > 60 (> 60) 08/20/17 01:43 BUN/Creatinine Ratio 49 (6-26) H 08/20/17 01:43 Glucose 119 mg/dL (70-99) H 08/20/17 01:43 POC Glucose 140 (58-89) H 08/20/17 05:42 Calculated Osmolality 300 (280-300) 08/20/17 01:43 Lactic Acid 2.3 mmol/L (0.5-2.2) H 08/19/17 18:13 Calcium 8.0 mg/dL (8.6-10.8) L 08/20/17 01:43 Magnesium 1.8 mg/dL (1.6-2.6) 08/20/17 01:43 Total Bilirubin 0.5 mg/dL (0.2-1.2) 08/19/17 18:13 AST 36 Units/L (5-34) H 08/19/17 18:13 ALT 28 Units/L (0-55) 08/19/17 18:13 Alkaline Phosphatase 59 Units/L (38-126) 08/19/17 18:13 Troponin I 0.00 ng/mL (0-0.03) 08/19/17 18:13 Serum Total Protein 5.4 g/dL (6.0-8.3) L 08/19/17 18:13 Albumin 2.5 g/dL (3.5-5.0) L 08/19/17 18:13 Globulin 2.9 g/dL (2.4-3.5) 08/19/17 18:13 Albumin/Globulin Ratio 0.9 (1.1-2.2) L 08/19/17 18:13 Lipase 96 Units/L (8-78) H 08/19/17 18:13 Stool Occult Blood Positive (Negative) A 08/19/17 19:30 Ethyl Alcohol < 10 mg/dL (0-10) 08/19/17 20:50 Blood Type A POSITIVE 08/19/17 18:13 Antibody Screen NEGATIVE 08/19/17 18:13 Crossmatch See Detail 08/19/17 18:13 Impressions Chest X-Ray 08/19/17 17:37 IMPRESSION: No acute cardiopulmonary process. D/ / Joel Willis MD / Joel Willis MD Interpreting Provider: Joel Willis MD Abdomen/Pelvis CT 08/19/17 19:17 IMPRESSION: Mild wall thickening involving multiple loops of small bowel as well as more prominent wall thickening involving the ascending colon. Findings likely infectious or inflammatory in etiology. Prominent wall thickening of the bladder which is slightly asymmetrically more prominent on the right. Findings may be related to chronic cystitis however recommend direct visualization to exclude underlying lesion. Pelvic varices. D/ / Rosa Goodrich MD / Rosa Goodrich MD Interpreting Provider: Rosa Goodrich MD Chest CTA 08/19/17 19:17 IMPRESSION: 1. No evidence of pulmonary embolism or aortic dissection. 2. Marked mural thickening of the esophagus, especially inferiorly. Although this could be secondary to esophagitis or possibly gastroesophageal varices, neoplasm must also be considered. Direct visualization is recommended. Gastroenterologic consultation also recommended. 3. Evidence of splenomegaly, with possible cirrhosis. D/ / Jesus Mata MD / Jesus Mata MD Interpreting Provider: Jesus Mata MD Head CT 08/19/17 19:23 IMPRESSION: No acute intracranial abnormality. Right maxillary sinusitis. D/ / Rosa Goodrich MD / Rosa Goodrich MD Interpreting Provider: Rosa Goodrich MD Echocardiogram 08/20/17 00:59 Impressions: Technically challenging study with suboptimal windows. Exam was performed in the supine position using subcostal images only. Overall, grossly LV systolic function appears normal and is estimated at EF 65%. Mild left ventricular diastolic dysfunction. Normal right ventricular structure and function. Valves not well visualized. No significant valvular dysfunction by Doppler. Unable to estimate RVSP. Findings: Study Quality * Technically challenging due to suboptimal echocardiographic windows. Exam was performed in the supine position. Only subcostal images were obtained. ECG Findings * Normal sinus rhythm. Left Ventricle * Normal LV chamber size, wall thickness and function. * LVEF 65%. * Mild left ventricular diastolic dysfunction. Aortic Valve * No aortic regurgitation. * Aortic valve not well visualized. * No aortic stenosis. Mitral Valve * No mitral regurgitation. * No mitral stenosis. * Normal mitral valve structure. Tricuspid Valve * Tricuspid valve not well visualized. * No tricuspid regurgitation. Pulmonic Valve * Pulmonic valve not well visualized. * Suboptimal Doppler signal. Pulmonary Artery * Pulmonary artery not well visualized. Aorta * Not well visualized. Right Ventricle * Normal right ventricular structure and function. Left Atrium * Left atrium is not well visualized. Right Atrium * Right atrium is not well visualized. Pericardium * There is no pericardial effusion present. Interatrial Septum * Interatrial septum not well evaluated. IVC * The IVC is not well evaluated.
--- NOTE | 2017-08-20 12:35 | Procedure Note ---
Date of procedure: 08/20/17 Anesthesia: IV sedation Surgeon: Gilbert Mendieta Condition: critical Disposition: ICU Procedures: Internal Med - Intubation Sedative: Versed Amount Given: 2 Laryngoscope: fiber optic video scope ET tube size: 8 ET tube uncuffed: No Tube secured depth (cm): 23 Tube secured location: lips Tube placement confirmation: visualized tube passing through cords, equal breath sounds bilaterally, no breath sounds over epigastrium, confirmation by capnometry Patient tolerated procedure: well, no complications Intubation complications: none Additional comments: I personally did the procedure myself
--- NOTE | 2017-08-20 12:35 | Pulmonology Progress Note ---
Date of Encounter: 08/20/17 Time of Encounter: 12:30 Subjective Principal diagnosis: GI Bleed Interval history: Patient arrived in critical condition with hemoptysis and AO on arrival. Patient was receiving blood at the time. Patient intubated and a central line was placed. He will go straight to surgery. Objective PUL Vital signs: Last Vital Signs Temp 98.7 F 08/20/17 09:16 Pulse 82 08/20/17 11:13 Resp 14 08/20/17 09:16 BP 82/54 08/20/17 11:13 Pulse Ox 93 08/20/17 11:13 Results - Laboratory Findings CBC and BMP: 08/20/17 10:48 08/20/17 01:43 PT/INR, D-dimer PT 16.7 Seconds (9.4-12.1) H 08/20/17 01:43 Abnormal lab findings: Abnormal lab results RBC 2.78 M/mcL (4.19-5.50) L 08/20/17 01:43 Hgb 7.5 g/dL (12.9-16.9) L 08/20/17 10:48 Hct 22.2 % (37.5-50.1) L 08/20/17 10:48 MCV 75.9 fL (83.0-100.0) L 08/20/17 01:43 MCH 23.4 pg (28.0-33.3) L 08/20/17 01:43 MCHC 30.8 g/dL (31.6-35.5) L 08/20/17 01:43 RDW 19.0 % (11.5-14.5) H 08/20/17 01:43 Plt Count 79 K/mcL (140-400) L 08/20/17 01:43 Platelet Estimate Decreased (Normal) L 08/20/17 01:43 Immature Plt Fraction 8.9 % (1.1-6.1) H 08/20/17 01:43 Polychromasia 1+ (Not Present) A 08/19/17 18:13 Hypochromasia Present (Not Present) A 08/20/17 01:43 PT 16.7 Seconds (9.4-12.1) H 08/20/17 01:43 Chloride 110 mEq/L (98-109) H 08/20/17 01:43 BUN 38 mg/dL (8-26) H 08/20/17 01:43 BUN/Creatinine Ratio 49 (6-26) H 08/20/17 01:43 Glucose 119 mg/dL (70-99) H 08/20/17 01:43 POC Glucose 140 (58-89) H 08/20/17 05:42 Lactic Acid 2.3 mmol/L (0.5-2.2) H 08/19/17 18:13 Calcium 8.0 mg/dL (8.6-10.8) L 08/20/17 01:43 AST 36 Units/L (5-34) H 08/19/17 18:13 Serum Total Protein 5.4 g/dL (6.0-8.3) L 08/19/17 18:13 Albumin 2.5 g/dL (3.5-5.0) L 08/19/17 18:13 Albumin/Globulin Ratio 0.9 (1.1-2.2) L 08/19/17 18:13 Lipase 96 Units/L (8-78) H 08/19/17 18:13 Stool Occult Blood Positive (Negative) A 08/19/17 19:30 - Clinical Findings Intake & Output: Intake & Output 08/19/17 08/20/17 08/20/17 23:59 07:59 15:59 Intake Total 300 / 300 1804 / 1804 Output Total 200 / 200 Balance 100 / 100 1804 / 1804 Pulmonary Procedures - Central Line Placement Right Femoral Patient placed on monitor/pulse ox: Yes MD prep: mask, gown, gloves Central line prep: Chlorhexidine scrub, sterile drapes applied Ultrasound used for placement: Yes Central line lumen inserted: triple Post procedure: sutured in place, good blood return, all ports aspirated, flushed, capped, sterile dressing applied Patient tolerated procedure: well Complications: none Additional comments: Procedure was done emergently due to patient vomiting copious amounts of blood and bloody diarrhea as well. Patient intubated then line was placed. Consult Discharge Plan - Plan Referrals: Willie Underwood MD [Primary Care Provider] -
[2017-08-20] MEDS ORDERED: EPHEDrine 50 MG/ML VIAL ONE (12:51)
[2017-08-20] MEDS ORDERED: *HR* Propofol 200 MG/20 ML VIAL IVP ONE (12:52)
[2017-08-20] MEDS ORDERED: *HR* Etomidate 40 MG/20 ML VIAL IVP ONE (12:53)
[2017-08-20] MEDS ORDERED: *HR* Phenylephrine 10 MG/ML VIAL ONE (12:53)
[2017-08-20] MEDS ORDERED: *HR* FentaNYL (PF) 100 MCG/2 ML VIAL IVP ONE (13:36)
--- NOTE | 2017-08-20 13:44 | Internal Med Progress Note ---
Date of Encounter: 08/20/17 Time of Encounter: 09:20 - Assessment and plan (1) Hemorrhagic shock Current Visit: Yes Status: Acute Assessment and plan: Transferred patient to ICU and he will now be followed and managed per intensive care team. PRBC transfusion. Also transfuse platelets and FFP. He did receive IV vitamin K this morning. INR 1.5. Gastroenterology consulted and awaiting to and will take patient to or for upper GI endoscopy. Most likely bleeding varices versus bleeding ulcer. Patient did have grade D esophagitis during his last scope done in April of this year. High risk for complications including from hemorrhagic shock. Critical care time 35 minutes (2) Upper gastrointestinal hemorrhage Current Visit: Yes Status: Acute Assessment and plan: From possible esophageal varices or peptic ulcer disease. Continue IV PPI and octreotide. (3) Anemia Current Visit: Yes Status: Acute Assessment and plan: Severe anemia due to GI bleed. Hemoglobin 7.5 with patient continued episodes of hematemesis. We will transfuse packed red blood cells and monitor blood counts closely. Qualifiers: Anemia type: other cause Other causes of anemia: acute posthemorrhagic Qualified Code(s): D62 - Acute posthemorrhagic anemia (4) HIV disease Current Visit: Yes Status: Chronic Assessment and plan: Patient has not been on any medications for 3-4 months. Ordered viral load and CD4 count (5) Liver cirrhosis, alcoholic Current Visit: Yes Status: Chronic Assessment and plan: With esophageal viruses. Supportive care. IV fluids. Folic acid and thiamine. Qualifiers: Ascites presence: without ascites Qualified Code(s): K70.30 - Alcoholic cirrhosis of liver without ascites (6) Syncope Current Visit: Yes Status: Acute Assessment and plan: Patient had an episode of syncope from severe anemia. He has not had any further episodes since then but remains at risk with hemorrhagic shock. Continue to monitor vital signs closely. Qualifiers: Syncope type: unspecified Qualified Code(s): R55 - Syncope and collapse (7) Symptomatic anemia Current Visit: Yes Status: Acute (8) Severe anemia Current Visit: Yes Status: Chronic - Subjective Interval history: Initially patient was seen lying in bed. Appeared comfortable. Denied any new episodes of emesis. Was feeling very thirsty and requesting ice chips. Was told that he was going to undergo upper GI endoscopy soon as requested to be nothing by mouth for the procedure. At around 11 AM, patient began to have an episode of hematemesis with bright red blood. His blood pressure was around 82/54. He was immediately started on normal saline bolus. 2 more units of packed red blood cells were ordered for stat transfusion. Patient's wound began to have another episode of hematemesis and so was transferred to ICU. I also spoke again with Dr. Delaney and notified him about patient's change in status and he was going to make arrangements for taking patient to OR for upper GI endoscopy. Patient continues to be on intravenous octreotide drip. I also discussed his case with the fishing floats assembler Dr. Mendieta. - Constitutional Vitals: Temp Pulse Resp BP Pulse Ox 98.7 F 104 12 95/58 100 08/20/17 09:16 08/20/17 12:00 08/20/17 12:00 08/20/17 12:00 08/20/17 12:00 General appearance: Present: cachectic, A&O X 3, severe distress, answers questions appropriately - ENT Additional comments: Blood-tinged oral mucosa - Neck Neck exam general surgery: Present: supple, trachea midline. Absent: lymphadenopathy - Respiratory Respiratory exam: Present: CTAB. Absent: accessory muscle use, rales, rhonchi, wheezes - Cardiovascular Cardiovascular exam: Present: RRR, +S1, +S2. Absent: diastolic murmur, gallop, rubs, systolic murmur - GI/Abdominal GI/Abdominal exam: Present: normal bowel sounds, soft, tenderness (epigastric), no peritoneal signs. Absent: distended - Neurological Exam Neurological exam: Present: alert, oriented X3, no focal deficits. Absent: facial droop, speech deficit - Skin Skin exam: Present: dry, intact Internal Medicine: Result - Labs CBC & Chem 7: 08/20/17 10:48 08/20/17 01:43 Labs: Short CBC 08/20/17 08/20/17 Range/Units 01:43 10:48 WBC 6.0 (4.3-11.1) K/mcL Hgb 6.5 L D 7.5 L (12.9-16.9) g/dL Hct 21.1 L 22.2 L (37.5-50.1) % Plt Count 79 L (140-400) K/mcL Neutrophils # 3.3 (1.6-8.9) K/mcL [facility] 08/20/17 01:43 Sodium 140 Potassium 4.5 Chloride 110 H Carbon Dioxide 24 BUN 38 H Creatinine 0.78 Glucose 119 H Calcium 8.0 L - ABG Interpretation ABG results: PT/INR, D-dimer PT 16.7 Seconds (9.4-12.1) H 08/20/17 01:43 - Impressions Impressions Echocardiogram 08/20/17 00:59 Impressions: Technically challenging study with suboptimal windows. Exam was performed in the supine position using subcostal images only. Overall, grossly LV systolic function appears normal and is estimated at EF 65%. Mild left ventricular diastolic dysfunction. Normal right ventricular structure and function. Valves not well visualized. No significant valvular dysfunction by Doppler. Unable to estimate RVSP. Findings: Study Quality * Technically challenging due to suboptimal echocardiographic windows. Exam was performed in the supine position. Only subcostal images were obtained. ECG Findings * Normal sinus rhythm. Left Ventricle * Normal LV chamber size, wall thickness and function. * LVEF 65%. * Mild left ventricular diastolic dysfunction. Aortic Valve * No aortic regurgitation. * Aortic valve not well visualized. * No aortic stenosis. Mitral Valve * No mitral regurgitation. * No mitral stenosis. * Normal mitral valve structure. Tricuspid Valve * Tricuspid valve not well visualized. * No tricuspid regurgitation. Pulmonic Valve * Pulmonic valve not well visualized. * Suboptimal Doppler signal. Pulmonary Artery * Pulmonary artery not well visualized. Aorta * Not well visualized. Right Ventricle * Normal right ventricular structure and function. Left Atrium * Left atrium is not well visualized. Right Atrium * Right atrium is not well visualized. Pericardium * There is no pericardial effusion present. Interatrial Septum * Interatrial septum not well evaluated. IVC * The IVC is not well evaluated. Consult Discharge Plan - Plan Referrals: Willie nUderwood MD [Primary Care Provider] -
[2017-08-20] MEDS ORDERED: *HR* EPINEPHrine 1 MG/10 ML SYRINGE ONE (14:09)
[2017-08-20] MEDS ORDERED: Lacri-Lube 3.5 GM TUBE BOTH EYES PRN (14:19)
[2017-08-20] MEDS: Thiamine (B-1) 100 MG, Folic Acid 1 MG, MVI, adult with vitamin K 10 ML in 0.9 % Sodi... IVPB SCH (14:20)
[2017-08-20] MEDS ORDERED: FentaNYL (PF) 1,000 MCG in 0.9 % Sodium Chloride 80 ML IVC SCH (14:30)
[2017-08-20 15:13] LABS: INR 1.7; Prothrombin Time 18.2 Seconds (9.4-12.1)
[2017-08-20 15:15] LABS: Activated Partial Thrombo Time 28.4 Seconds (26.0-36.0); Ionized Calcium 0.91 mmol/L (1.15-1.35)
[2017-08-20 15:18] LABS: BUN/Creatinine Ratio 39 (6-26); Blood Urea Nitrogen 31 mg/dL (8-26); Carbon Dioxide 19 mEq/L (19-29); Chloride 116 mEq/L (98-109); Glucose 160 mg/dL (70-99); Magnesium 1.6 mg/dL (1.6-2.6); Osmolality,Calculated 302 (280-300); Phosphorous 3.9 mg/dL (2.3-4.7); Potassium 5.1 mEq/L (3.5-4.5); Sodium 141 mEq/L (136-145); eGFR For African Americans > 60 (> 60); eGFR For Non-African Americans > 60 (> 60)
[2017-08-20 15:21] LABS: Calcium 6.3 mg/dL (8.6-10.8)
[2017-08-20 15:56] LABS: Hematocrit 26.1 % (37.5-50.1); Hemoglobin 8.6 g/dL (12.9-16.9)
[2017-08-20] MEDS: Calcium Gluconate 1,000 MG in D5% in Water 100 ML IVPB PRN (15:57)
[2017-08-20] MEDS: Magnesium Sulfate 2 GM in D5% in Water 100 ML IVPB PRN (16:02)
[2017-08-20 16:05] LABS: ABG Base Excess -6 mEq/L (-2 to 3); ABG HCO3 20 mEq/L (21-27); ABG Oxygen Saturation 99 % (95-98); ABG PCO2 40 mmHg (35-45); ABG PH 7.31 pH Units (7.32-7.45); ABG PO2 167 mmHg (85-104); ABG TCO2 21 mEq/L (20-26); Blood Gas Modality PRVC; Blood Gas PEEP 5 cm H2O; Blood Gas Respiration Rate 12; Blood Gas VT 430 cc
--- NOTE | 2017-08-20 16:50 | Pulmonology Consult Note ---
<Anthony Casey - Last Filed: 08/20/17 19:20> Date of Encounter: 08/20/17 Time of Encounter: 12:30 Assessment and Plan (1) Hemorrhagic shock Current Visit: Yes Status: Acute Patient arrived to ICU AOx3 however he was having copious amounts of hematemesis. Patient was intubated immediately and taken to OR Patient found to having bleeding gastric ulcer that was clipped Central line placed in right femoral Hgb is 8.6 at this time Patient receiving LR's for fluid resuscitation. Received multiple pRBC and FFP prior to surgery. (2) Upper gastrointestinal hemorrhage Current Visit: Yes Status: Acute Cause found to be gastric ulcer. Continue IV PPI. On prophylactic antibiotics. (3) Anemia Current Visit: Yes Status: Acute stable at this time, bleeding controlled. Will check coags. Qualifiers: Anemia type: other cause Other causes of anemia: acute posthemorrhagic Qualified Code(s): D62 - Acute posthemorrhagic anemia (4) HIV disease Current Visit: Yes Status: Chronic Patient has not been on medications for 3-4 months. Medicine is following viral load and CD4 count. (5) Liver cirrhosis, alcoholic Current Visit: Yes Status: Chronic Receiving folic acid and thiamine. Qualifiers: Ascites presence: without ascites Qualified Code(s): K70.30 - Alcoholic cirrhosis of liver without ascites (6) Syncope Current Visit: Yes Status: Acute Patient had an episode of syncope from severe anemia. He has not had any further episodes since then but remains at risk with hemorrhagic shock. Continue to monitor vital signs closely. Qualifiers: Syncope type: unspecified Qualified Code(s): R55 - Syncope and collapse History of Present Illness Consult date: 08/20/17 Requesting physician: Kelsey Fonseca Chief complaint: GI Bleed History of present illness: Pt is a 57M MHx of alcoholism, HIV/AIDS, and cirrhosis presenting with hx of coffee-ground emesis that started yesterday around noon associated with syncope and dizziness. His BP was 82/54 and he was immediately started on NS bolus. He received 2 more units of pRBCs for stat transfusion and ICU was consulted. He was intubated immediately, central line placed, and sent to OR. Patient found to have gastric ulcer bleed that was clipped. Will continue to monitor hgb and replace fluids. On GI Bleed prophylactic antibiotics. Past Med Surg Social Fam HX - Past Medical History Medical history: cirrhosis, HIV/AIDS Psychiatric history: no psych history - Past Surgical History Surgical History: no surgical history - Social History Smoking Status: Current every day smoker Packs per day: 1 Smokeless Tobacco Status: No Alcohol use: none Drug use: none - Family History Father Living Status: Hx Family Cancer: Yes (Lung) Mother Living Status: Hx Family Cancer: Yes (Breast) Grandfather Hx Family Cancer: Yes (Lung) Brother Living Status: Still Living Medications and Allergies Aspirin/Caffeine [Anacin 400-32 mg Tablet] 1 each PO Q4H PRN 04/29/17 [History] Calcium Carbonate [Calcium] 500 mg PO DAILY 04/29/17 [History] Multivitamin [Multi-Day Vitamins] 1 each PO DAILY 04/29/17 [History] Paroxetine [Paxil] 20 mg PO DAILY 04/29/17 [History] Potassium 99 mg PO DAILY 04/29/17 [History] Raltegravir Potassium [Isentress] 400 mg PO BID 04/29/17 [History] Clarithromycin [Biaxin] 500 mg PO BID #6 tablet 05/02/17 [Rx] Ferrous Sulfate 325 mg PO BIDWM 30 Days tablet 05/02/17 [Rx] Sulfamethoxazole/Trimeth DS [Bactrim Ds] 1 each PO DAILY #30 tablet 05/02/17 [Rx ] Emtricitabine/Tenofovir [Truvada] 1 tab PO DAILY 05/07/17 [History] Lopinavir/Ritonavir [Kaletra] 1 tab PO BID 05/07/17 [History] Furosemide [Lasix] 20 mg PO DAILY #30 tablet 05/09/17 [Rx] Spironolactone [Aldactone] 50 mg PO DAILY #30 tablet 05/09/17 [Rx] 3 Allergy/AdvReac Type Severity Reaction Status Date / Time No Known Allergies Allergy Verified 08/19/17 17:49 ROS unobtainable: due to endotracheal tube All Systems: A 10-system review of systems was performed and is negative for pertinent findings except as documented above in the HPI. Physical Examination Vital Signs: Vital Signs, Last 4 Hours Temp Pulse Resp BP Pulse Ox 08/20/17 16:00 98 26 107/72 100 08/20/17 15:42 26 108/70 100 08/20/17 15:24 98 26 114/67 100 08/20/17 14:05 97.7 F 97 24 130/83 100 08/20/17 14:00 27 100 General appearance: other (patient was having hematemesis and intubated. ) Eyes: nonicteric ENT: oropharynx moist Cardiovascular: regular rate and rhythm Extremities: no edema, no ischemia or petechiae Musculoskeletal: no deformities normal mental status mood appropriate, affect normal Exam limited due to patient clinical status. Ventilator Settings Ventilator Settings: Ventilator Settings, Last 8 Hours Ventilator Mode VC+ Ventilator Mode A/C Ventilator Mode A/C Ventilator Mode A/C Ventilator Mode A/C Ventilator Mode VC+ Ventilator Mode A/C Ventilator Mode A/C Ventilator Tidal Volume 430 Setting Ventilator Tidal Volume 430 Setting Ventilator Tidal Volume 430 Setting Ventilator Tidal Volume 430 Setting Ventilator Tidal Volume 430 Setting Ventilator Tidal Volume 500 Setting Ventilator Tidal Volume 500 Setting Ventilator Tidal Volume 500 Setting Ventilator Respiratory Rate 12 Setting Ventilator Respiratory Rate 12 Setting Ventilator Respiratory Rate 12 Setting Ventilator Respiratory Rate 12 Setting Ventilator Respiratory Rate 12 Setting Ventilator Respiratory Rate 12 Setting Ventilator Respiratory Rate 12 Setting Ventilator Respiratory Rate 12 Setting Actual Respiratory Rate 26 Actual Respiratory Rate 26 Actual Respiratory Rate 27 Actual Respiratory Rate 19 Positive End Expiratory 5 Pressure Positive End Expiratory 5 Pressure Positive End Expiratory 5 Pressure Positive End Expiratory 5 Pressure Positive End Expiratory 5 Pressure Positive End Expiratory 5 Pressure Positive End Expiratory 5 Pressure Positive End Expiratory 5 Pressure Peak Inspiratory Airway 9 Pressure Peak Inspiratory Airway 13 Pressure Peak Inspiratory Airway 29 Pressure Results - Laboratory Findings CBC and BMP: 08/20/17 14:44 08/20/17 14:44 ABG ABG pH 7.31 pH Units (7.32-7.45) L 08/20/17 16:00 ABG pCO2 40 mmHg (35-45) 08/20/17 16:00 ABG pO2 167 mmHg (85-104) H 08/20/17 16:00 ABG O2 Saturation 99 % (95-98) H 08/20/17 16:00 PT/INR, D-dimer PT 18.2 Seconds (9.4-12.1) H 08/20/17 14:44 Abnormal lab findings: Abnormal lab results RBC 2.78 M/mcL (4.19-5.50) L 08/20/17 01:43 Hgb 8.6 g/dL (12.9-16.9) L 08/20/17 14:44 Hct 26.1 % (37.5-50.1) L 08/20/17 14:44 MCV 75.9 fL (83.0-100.0) L 08/20/17 01:43 MCH 23.4 pg (28.0-33.3) L 08/20/17 01:43 MCHC 30.8 g/dL (31.6-35.5) L 08/20/17 01:43 RDW 19.0 % (11.5-14.5) H 08/20/17 01:43 Plt Count 79 K/mcL (140-400) L 08/20/17 01:43 Platelet Estimate Decreased (Normal) L 08/20/17 01:43 Immature Plt Fraction 8.9 % (1.1-6.1) H 08/20/17 01:43 Polychromasia 1+ (Not Present) A 08/19/17 18:13 Hypochromasia Present (Not Present) A 08/20/17 01:43 PT 18.2 Seconds (9.4-12.1) H 08/20/17 14:44 Fibrinogen 102 mg/dL (169-393) L 08/20/17 14:44 ABG pH 7.31 pH Units (7.32-7.45) L 08/20/17 16:00 ABG pO2 167 mmHg (85-104) H 08/20/17 16:00 ABG HCO3 20 mEq/L (21-27) L 08/20/17 16:00 ABG O2 Saturation 99 % (95-98) H 08/20/17 16:00 ABG Base Excess -6 mEq/L (-2 to 3) L 08/20/17 16:00 Potassium 5.1 mEq/L (3.5-4.5) H 08/20/17 14:44 Chloride 116 mEq/L (98-109) H 08/20/17 14:44 BUN 31 mg/dL (8-26) H 08/20/17 14:44 BUN/Creatinine Ratio 39 (6-26) H 08/20/17 14:44 Glucose 160 mg/dL (70-99) H 08/20/17 14:44 POC Glucose 138 (58-89) H 08/20/17 14:06 Calculated Osmolality 302 (280-300) H 08/20/17 14:44 Lactic Acid 2.3 mmol/L (0.5-2.2) H 08/19/17 18:13 Calcium 6.3 mg/dL (8.6-10.8) L D 08/20/17 14:44 Ionized Calcium 0.91 mmol/L (1.15-1.35) L 08/20/17 14:44 AST 36 Units/L (5-34) H 08/19/17 18:13 Serum Total Protein 5.4 g/dL (6.0-8.3) L 08/19/17 18:13 Albumin 2.5 g/dL (3.5-5.0) L 08/19/17 18:13 Albumin/Globulin Ratio 0.9 (1.1-2.2) L 08/19/17 18:13 Lipase 96 Units/L (8-78) H 08/19/17 18:13 Stool Occult Blood Positive (Negative) A 08/19/17 19:30 - Clinical Findings Intake & Output: Intake & Output 08/20/17 08/20/17 08/20/17 07:59 15:59 23:59 Intake Total 300 / 300 2804 / 2804 Output Total 200 / 200 600 / 600 Balance 100 / 100 2204 / 2204 Weight 65.771 kg Pulmonary Procedures - Central Line Placement Right Femoral MD prep: mask, gown, gloves Central line prep: Chlorhexidine scrub Ultrasound used for placement: Yes Central line lumen inserted: triple Post procedure: sutured in place, good blood return, all ports aspirated, flushed, capped, sterile dressing applied Patient tolerated procedure: well Complications: none Additional comments: Procedure was done emergently, patient was intubated due to hematemesis from GI bleed Consult Discharge Plan - Plan Referrals: Willie Underwood MD [Primary Care Provider] - <Gilbert Mendieta - Last Filed: 08/20/17 20:42> Date of Encounter: 08/20/17 All Systems: A 10-system review of systems was performed and is negative for pertinent findings except as documented above in the HPI. Physical Examination Vital Signs: Vital Signs, Last 4 Hours Pulse Resp BP Pulse Ox 08/20/17 19:26 22 100 08/20/17 18:00 107 25 108/61 100 08/20/17 17:10 25 100 08/20/17 17:00 100 26 105/60 100 Ventilator Settings Ventilator Settings: Ventilator Settings, Last 8 Hours Ventilator Mode VC+ Ventilator Mode VC+ Ventilator Mode VC+ Ventilator Mode VC+ Ventilator Mode VC+ Ventilator Mode A/C Ventilator Mode A/C Ventilator Mode A/C Ventilator Mode A/C Ventilator Mode VC+ Ventilator Tidal Volume 460 Setting Ventilator Tidal Volume 460 Setting Ventilator Tidal Volume 460 Setting Ventilator Tidal Volume 430 Setting Ventilator Tidal Volume 430 Setting Ventilator Tidal Volume 430 Setting Ventilator Tidal Volume 430 Setting Ventilator Tidal Volume 430 Setting Ventilator Tidal Volume 430 Setting Ventilator Tidal Volume 500 Setting Ventilator Respiratory Rate 16 Setting Ventilator Respiratory Rate 16 Setting Ventilator Respiratory Rate 16 Setting Ventilator Respiratory Rate 12 Setting Ventilator Respiratory Rate 12 Setting Ventilator Respiratory Rate 12 Setting Ventilator Respiratory Rate 12 Setting Ventilator Respiratory Rate 12 Setting Ventilator Respiratory Rate 12 Setting Ventilator Respiratory Rate 12 Setting Actual Respiratory Rate 22 Actual Respiratory Rate 25 Actual Respiratory Rate 25 Actual Respiratory Rate 26 Actual Respiratory Rate 26 Actual Respiratory Rate 26 Actual Respiratory Rate 27 Positive End Expiratory 5 Pressure Positive End Expiratory 5 Pressure Positive End Expiratory 5 Pressure Positive End Expiratory 5 Pressure Positive End Expiratory 5 Pressure Positive End Expiratory 5 Pressure Positive End Expiratory 5 Pressure Positive End Expiratory 5 Pressure Positive End Expiratory 5 Pressure Positive End Expiratory 5 Pressure Peak Inspiratory Airway 10 Pressure Peak Inspiratory Airway 10 Pressure Peak Inspiratory Airway 10 Pressure Peak Inspiratory Airway 9 Pressure Peak Inspiratory Airway 13 Pressure Results - Laboratory Findings CBC and BMP: 08/20/17 14:44 08/20/17 14:44 ABG ABG pH 7.31 pH Units (7.32-7.45) L 08/20/17 16:00 ABG pCO2 40 mmHg (35-45) 08/20/17 16:00 ABG pO2 167 mmHg (85-104) H 08/20/17 16:00 ABG O2 Saturation 99 % (95-98) H 08/20/17 16:00 PT/INR, D-dimer PT 18.2 Seconds (9.4-12.1) H 08/20/17 14:44 Abnormal lab findings: Abnormal lab results RBC 2.78 M/mcL (4.19-5.50) L 08/20/17 01:43 Hgb 8.6 g/dL (12.9-16.9) L 08/20/17 14:44 Hct 26.1 % (37.5-50.1) L 08/20/17 14:44 MCV 75.9 fL (83.0-100.0) L 08/20/17 01:43 MCH 23.4 pg (28.0-33.3) L 08/20/17 01:43 MCHC 30.8 g/dL (31.6-35.5) L 08/20/17 01:43 RDW 19.0 % (11.5-14.5) H 08/20/17 01:43 Plt Count 79 K/mcL (140-400) L 08/20/17 01:43 Platelet Estimate Decreased (Normal) L 08/20/17 01:43 Immature Plt Fraction 8.9 % (1.1-6.1) H 08/20/17 01:43 Polychromasia 1+ (Not Present) A 08/19/17 18:13 Hypochromasia Present (Not Present) A 08/20/17 01:43 PT 18.2 Seconds (9.4-12.1) H 08/20/17 14:44 Fibrinogen 102 mg/dL (169-393) L 08/20/17 14:44 ABG pH 7.31 pH Units (7.32-7.45) L 08/20/17 16:00 ABG pO2 167 mmHg (85-104) H 08/20/17 16:00 ABG HCO3 20 mEq/L (21-27) L 08/20/17 16:00 ABG O2 Saturation 99 % (95-98) H 08/20/17 16:00 ABG Base Excess -6 mEq/L (-2 to 3) L 08/20/17 16:00 Potassium 5.1 mEq/L (3.5-4.5) H 08/20/17 14:44 Chloride 116 mEq/L (98-109) H 08/20/17 14:44 BUN 31 mg/dL (8-26) H 08/20/17 14:44 BUN/Creatinine Ratio 39 (6-26) H 08/20/17 14:44 Glucose 160 mg/dL (70-99) H 08/20/17 14:44 POC Glucose 138 (58-89) H 08/20/17 14:06 Calculated Osmolality 302 (280-300) H 08/20/17 14:44 Lactic Acid 2.3 mmol/L (0.5-2.2) H 08/19/17 18:13 Calcium 6.3 mg/dL (8.6-10.8) L D 08/20/17 14:44 Ionized Calcium 0.91 mmol/L (1.15-1.35) L 08/20/17 14:44 AST 36 Units/L (5-34) H 08/19/17 18:13 Serum Total Protein 5.4 g/dL (6.0-8.3) L 08/19/17 18:13 Albumin 2.5 g/dL (3.5-5.0) L 08/19/17 18:13 Albumin/Globulin Ratio 0.9 (1.1-2.2) L 08/19/17 18:13 Lipase 96 Units/L (8-78) H 08/19/17 18:13 Stool Occult Blood Positive (Negative) A 08/19/17 19:30 - Clinical Findings Intake & Output: Intake & Output 08/20/17 08/20/17 08/20/17 07:59 15:59 23:59 Intake Total 300 / 300 2804 / 2804 314 / 314 Output Total 200 / 200 600 / 600 Balance 100 / 100 2204 / 2204 314 / 314 Weight 65.771 kg - Attending Attestation I saw the patient with the resident agree with History and Physical exam findings. Labs and Radiology were reviewed Patient is on PRVC mode BEAD PICKER: Patient is intubated and sedated , before intubation was conscious oriented ,intubated for airway protection for GI bleed. NECK : No JVD appreciated Pulmonary : Patient aspirated after three episodes of hematemesis was intubated was put on PRVC mode adjusted TV 6-7 ml of ideal body weight , Gas exchange adequate . CXR shows ET tube in satisfactory position with some keft sided effusion Cardiac : Acute blood loss anemia leading to hemorrhagic shock resuscitated now hemodynamically stable will recheck lactate in AM. Nutrition/GI: Patient had a emergency endoscopy in the OR which showed bleeding ulcer at the cardia of the stomach , the base of the ulcer was clipped.Will continue IV PPI Renal : Keep up the resuscitation renal labs reviewed Heme onc : Patient has acute blood anemia with coagulopathy , INR is stable , hypofribrinogenemia ID : Will do SBP prophy;axis to continue Ciprofloxacin Musculo skeletal : No acute issues Disposition : Critical Code status: Full Code Family/POA: not known will coordinate with social work. Patient spent 35 minutes of Critical Care time excluding putting Central line and Intubation.
[2017-08-20] MEDS: Lacri-Lube 3.5 GM TUBE BOTH EYES SCH ×3 (17:12→23:13)
[2017-08-20] MEDS ORDERED: Famotidine 20 MG/2 ML VIAL IVP SCH (18:00)
[2017-08-20] MEDS ORDERED: Ringers Solution, Lactated 1,000 ML IVC ONE (18:50)
[2017-08-20] MEDS: Chlorhexidine Rinse 15 ML MOUTHWASH MM SCH (20:01)
[2017-08-20] MEDS: Pantoprazole 40 MG in 0.9 % Sodium Chloride Mini Bag 100 ML IVC SCH (21:20)
[2017-08-20] MEDS ORDERED: Sod Bicarb 150mEq/D5W 150 MEQ/1,000 ML IV.SOLN IVC SCH (21:30)
[2017-08-20 22:28] LABS: Eosinophils % 0.7 %; Red Cell Distribution Width 17.2 % (11.5-14.5)
[2017-08-20 22:30] LABS: Basophils % 0.3 %; Eosinophils # 0.1 K/mcL (0.0-0.6); Hematocrit 25.9 % (37.5-50.1); Hemoglobin 8.5 g/dL (12.9-16.9); Immature Granulocytes % 0.5 % (0-4); Immature Platelets 7.1 % (1.1-6.1); Lymphocytes # 1.8 K/mcL (0.6-4.6); Mean Corpuscular HGB Conc 32.8 g/dL (31.6-35.5); Mean Corpuscular Hemoglobin 27.4 pg (28.0-33.3); Mean Corpuscular Volume 83.5 fL (83.0-100.0); Mean Platelet Volume 11.9 fL (9.4-12.4); Monocytes % 9.9 %; Nucleated Red Blood Cells 0.3 /100 WBC (0); Segmented Neutrophils % 69.6 %
[2017-08-20 22:35] LABS: Neutrophils # 6.8 K/mcL (1.6-8.9); Platelet Count 87 K/mcL (140-400)
[2017-08-20 22:43] LABS: BUN/Creatinine Ratio 33 (6-26); Blood Urea Nitrogen 28 mg/dL (8-26); Calcium 6.3 mg/dL (8.6-10.8); Carbon Dioxide 20 mEq/L (19-29); Chloride 116 mEq/L (98-109); Glucose 129 mg/dL (70-99); Osmolality,Calculated 297 (280-300); Potassium 4.4 mEq/L (3.5-4.5); Sodium 140 mEq/L (136-145); eGFR For African Americans > 60 (> 60); eGFR For Non-African Americans > 60 (> 60)
[2017-08-21] MEDS: Calcium Gluconate 1,000 MG in D5% in Water 100 ML IVPB PRN ×3 (00:12→17:19)
[2017-08-21] MEDS: FentaNYL (PF) 3,000 MCG in 0.9 % Sodium Chloride 240 ML IVC SCH (01:05)
[2017-08-21] MEDS: Pantoprazole 40 MG in 0.9 % Sodium Chloride Mini Bag 100 ML IVC SCH ×5 (01:10→20:33)
[2017-08-21] MEDS: Lacri-Lube 3.5 GM TUBE BOTH EYES SCH ×6 (04:05→23:44)
[2017-08-21 04:30] LABS: Basophils % 0.3 %; Eosinophils # 0.1 K/mcL (0.0-0.6); Eosinophils % 1.7 %; Hematocrit 22.9 % (37.5-50.1); Hemoglobin 7.6 g/dL (12.9-16.9); Immature Platelets 6.7 % (1.1-6.1); Lymphocytes # 1.3 K/mcL (0.6-4.6); Lymphocytes % 21.6 %; Mean Corpuscular HGB Conc 33.2 g/dL (31.6-35.5); Mean Corpuscular Hemoglobin 27.8 pg (28.0-33.3); Mean Corpuscular Volume 83.9 fL (83.0-100.0); Mean Platelet Volume 12.4 fL (9.4-12.4); Monocytes # 0.8 K/mcL (0.0-1.3); Monocytes % 13.7 %; Neutrophils # 3.8 K/mcL (1.6-8.9); Nucleated Red Blood Cells 0.8 /100 WBC (0); Platelet Count 68 K/mcL (140-400); Red Blood Count 2.73 M/mcL (4.19-5.50); Red Cell Distribution Width 17.3 % (11.5-14.5); Segmented Neutrophils % 61.7 %
[2017-08-21 04:33] LABS: INR 1.5; Ionized Calcium 0.96 mmol/L (1.15-1.35); Prothrombin Time 16.4 Seconds (9.4-12.1)
[2017-08-21 04:35] LABS: Activated Partial Thrombo Time 29.5 Seconds (26.0-36.0)
[2017-08-21 04:40] LABS: BUN/Creatinine Ratio 33 (6-26); Blood Urea Nitrogen 29 mg/dL (8-26); Calcium 6.5 mg/dL (8.6-10.8); Carbon Dioxide 23 mEq/L (19-29); Chloride 114 mEq/L (98-109); Glucose 136 mg/dL (70-99); Osmolality,Calculated 300 (280-300); Phosphorous 3.1 mg/dL (2.3-4.7); Potassium 4.2 mEq/L (3.5-4.5); Sodium 141 mEq/L (136-145); eGFR For African Americans > 60 (> 60); eGFR For Non-African Americans > 60 (> 60)
[2017-08-21] MEDS: Octreotide 400 MCG in 0.9 % Sodium Chloride 100 ML IVC SCH ×4 (04:47→21:53)
[2017-08-21] MEDS ORDERED: 0.9 % Sodium Chloride 250 ML ONE (06:39)
[2017-08-21] MEDS ORDERED: Sodium Bicarbonate 150 MEQ in D5% in Water 1,000 ML IVC SCH (07:30)
[2017-08-21] MEDS: Nicotine 21 MG PATCH.TD24 TD SCH (08:41)
[2017-08-21] MEDS: Chlorhexidine Rinse 15 ML MOUTHWASH MM SCH ×2 (08:41→20:32)
--- NOTE | 2017-08-21 08:42 | Pulmonology Progress Note ---
<Anthony Casey - Last Filed: 08/21/17 11:16> Date of Encounter: 08/21/17 Time of Encounter: 08:36 Assessment and Plan (1) Hemorrhagic shock Current Visit: Yes Status: Acute Patient found to having bleeding gastric ulcer that was clipped Patient is borderline tachycardic and BP is 106/65. He has received a total of 5 PRBC, 1 plasma, and 1 platelets prior to surgery. HgB is 7.6 down from 8.6 yesterday, I suspect this is due to decrease in hemoconcentration after fluid administration. No bright red blood from g-tube. Patient received 2 L of NS a 1L LR since surgery Patient receiving LR's for fluid resuscitation. Received multiple pRBC - 5 units and FFP prior to surgery. Plan to extubate later this afternoon as well. (2) Upper gastrointestinal hemorrhage Current Visit: Yes Status: Acute Bleeding ulcer - clipped in OR Patient stable overnight IV protonix Continue IV octreotide Cipro BID 400mg (3) Anemia Current Visit: Yes Status: Acute As discussed above Coags improving - PT 18.2 --> 16.4, INR 1.7 --> 1.5, and PTT 29.5 --> 29.5, Fibrinogen 102 aiming for fibrinogen >150 Patient receiving 1 unit cryoprecipitate Recheck in afternoon Qualifiers: Anemia type: other cause Other causes of anemia: acute posthemorrhagic Qualified Code(s): D62 - Acute posthemorrhagic anemia (4) Pleural effusion Current Visit: Yes Status: Acute Left pleural effusion. Suspect secondary to liver disease and 3rd spacing of fluids. Will diurese this afternoon if VS remain stable. (5) Fever Current Visit: Yes Status: Acute 102F yesterday around 18:00 Blood cultures sent. On GI Bleed prophylactic antibiotic Urine and culture added today Qualifiers: Fever type: unspecified Qualified Code(s): R50.9 - Fever, unspecified (6) Liver cirrhosis, alcoholic Current Visit: Yes Status: Chronic Monitoring vitals and I/Os closely Will order Liver US If blood pressure stable, patient will undergo diuresis this afternoon Vitamin B-1 and Folate replacement Negative for Hepatitis C in April 2017 Qualifiers: Ascites presence: without ascites Qualified Code(s): K70.30 - Alcoholic cirrhosis of liver without ascites (7) HIV disease Current Visit: Yes Status: Chronic Patient has not been on medications for 3-[address] Zapata is following patient, recommend consult when patient is stepdown prior to discharge (8) Syncope Current Visit: Yes Status: Acute Patient had an episode of syncope from severe anemia. He has not had any further episodes since then but remains at risk with hemorrhagic shock. Continue to monitor vital signs closely. Qualifiers: Syncope type: unspecified Qualified Code(s): R55 - Syncope and collapse Subjective Principal diagnosis: GI Bleed Interval history: Pt is a 57M MHx of alcoholism, HIV/AIDS, and cirrhosis presenting with hx of coffee-ground emesis that started yesterday around noon associated with syncope and dizziness. His BP was 82/54 and he was immediately started on NS bolus. He received 2 more units of pRBCs for stat transfusion and ICU was consulted. He was intubated immediately, central line placed, and sent to OR. Patient found to have gastric ulcer bleed that was clipped. Will continue to monitor hgb and replace fluids. On GI Bleed prophylactic antibiotics. Continue on octreotide. Plan to extubate later today. Objective PUL Vital signs: Last Vital Signs Temp 99.6 F 08/21/17 08:05 Pulse 102 08/21/17 08:05 Resp 19 08/21/17 08:05 BP 106/65 08/21/17 08:05 Pulse Ox 98 08/21/17 08:05 General appearance: other (Patient on ventilator at this time) Eyes: nonicteric ENT: oropharynx dry Neck: supple Effort: other (ON vent) Cardiovascular: other (Regular rhythm, patient is tachycardic around 110) Gastrointestinal: normoactive bowel sounds, soft, non-distended Integumentary: normal Extremities: no cyanosis, no edema, no clubbing other (intubated on vent) Ventilator Settings Ventilator Settings: Ventilator Settings, Last 8 Hours Ventilator Mode VC+ Ventilator Mode VC+ Ventilator Mode VC+ Ventilator Mode VC+ Ventilator Mode VC+ Ventilator Mode VC+ Ventilator Mode VC+ Ventilator Mode VC+ Ventilator Mode VC+ Ventilator Mode VC+ Ventilator Mode VC+ Ventilator Mode VC+ Ventilator Mode VC+ Ventilator Tidal Volume 460 Setting Ventilator Tidal Volume 460 Setting Ventilator Tidal Volume 460 Setting Ventilator Tidal Volume 460 Setting Ventilator Tidal Volume 460 Setting Ventilator Tidal Volume 460 Setting Ventilator Tidal Volume 460 Setting Ventilator Tidal Volume 460 Setting Ventilator Tidal Volume 460 Setting Ventilator Tidal Volume 460 Setting Ventilator Tidal Volume 460 Setting Ventilator Tidal Volume 460 Setting Ventilator Tidal Volume 460 Setting Ventilator Respiratory Rate 16 Setting Ventilator Respiratory Rate 16 Setting Ventilator Respiratory Rate 16 Setting Ventilator Respiratory Rate 16 Setting Ventilator Respiratory Rate 16 Setting Ventilator Respiratory Rate 16 Setting Ventilator Respiratory Rate 16 Setting Ventilator Respiratory Rate 16 Setting Ventilator Respiratory Rate 16 Setting Ventilator Respiratory Rate 16 Setting Ventilator Respiratory Rate 16 Setting Ventilator Respiratory Rate 16 Setting Ventilator Respiratory Rate 16 Setting Actual Respiratory Rate 19 Actual Respiratory Rate 16 Actual Respiratory Rate 16 Actual Respiratory Rate 16 Actual Respiratory Rate 16 Actual Respiratory Rate 20 Actual Respiratory Rate 16 Actual Respiratory Rate 16 Actual Respiratory Rate 21 Actual Respiratory Rate 16 Actual Respiratory Rate 16 Actual Respiratory Rate 21 Actual Respiratory Rate 16 Positive End Expiratory 5 Pressure Positive End Expiratory 5 Pressure Positive End Expiratory 5 Pressure Positive End Expiratory 5 Pressure Positive End Expiratory 5 Pressure Positive End Expiratory 5 Pressure Positive End Expiratory 5 Pressure Positive End Expiratory 5 Pressure Positive End Expiratory 5 Pressure Positive End Expiratory 5 Pressure Positive End Expiratory 5 Pressure Positive End Expiratory 5 Pressure Positive End Expiratory 5 Pressure Peak Inspiratory Airway 26 Pressure Peak Inspiratory Airway 24 Pressure Peak Inspiratory Airway 24 Pressure Peak Inspiratory Airway 22 Pressure Peak Inspiratory Airway 21 Pressure Peak Inspiratory Airway 23 Pressure Peak Inspiratory Airway 25 Pressure Peak Inspiratory Airway 23 Pressure Peak Inspiratory Airway 21 Pressure Peak Inspiratory Airway 23 Pressure Peak Inspiratory Airway 23 Pressure Peak Inspiratory Airway 23 Pressure Results - Laboratory Findings CBC and BMP: 08/21/17 04:20 08/21/17 04:20 ABG ABG pH 7.31 pH Units (7.32-7.45) L 08/20/17 16:00 ABG pCO2 40 mmHg (35-45) 08/20/17 16:00 ABG pO2 167 mmHg (85-104) H 08/20/17 16:00 ABG O2 Saturation 99 % (95-98) H 08/20/17 16:00 PT/INR, D-dimer PT 16.4 Seconds (9.4-12.1) H 08/21/17 04:20 Abnormal lab findings: Abnormal lab results RBC 2.73 M/mcL (4.19-5.50) L 08/21/17 04:20 Hgb 7.6 g/dL (12.9-16.9) L 08/21/17 04:20 Hct 22.9 % (37.5-50.1) L 08/21/17 04:20 MCH 27.8 pg (28.0-33.3) L 08/21/17 04:20 RDW 17.3 % (11.5-14.5) H 08/21/17 04:20 Plt Count 68 K/mcL (140-400) L 08/21/17 04:20 Nucleated RBCs/100 WBC 0.8 /100 WBC (0) H 08/21/17 04:20 Platelet Estimate Decreased (Normal) L 08/20/17 01:43 Immature Plt Fraction 6.7 % (1.1-6.1) H 08/21/17 04:20 Polychromasia 1+ (Not Present) A 08/19/17 18:13 Hypochromasia Present (Not Present) A 08/20/17 01:43 PT 16.4 Seconds (9.4-12.1) H 08/21/17 04:20 Fibrinogen 102 mg/dL (169-393) L 08/20/17 14:44 ABG pH 7.31 pH Units (7.32-7.45) L 08/20/17 16:00 ABG pO2 167 mmHg (85-104) H 08/20/17 16:00 ABG HCO3 20 mEq/L (21-27) L 08/20/17 16:00 ABG O2 Saturation 99 % (95-98) H 08/20/17 16:00 ABG Base Excess -6 mEq/L (-2 to 3) L 08/20/17 16:00 Chloride 114 mEq/L (98-109) H 08/21/17 04:20 BUN 29 mg/dL (8-26) H 08/21/17 04:20 BUN/Creatinine Ratio 33 (6-26) H 08/21/17 04:20 Glucose 136 mg/dL (70-99) H 08/21/17 04:20 POC Glucose 136 (58-89) H 08/20/17 23:48 Calcium 6.5 mg/dL (8.6-10.8) L 08/21/17 04:20 Ionized Calcium 0.96 mmol/L (1.15-1.35) L 08/21/17 04:20 AST 36 Units/L (5-34) H 08/19/17 18:13 Serum Total Protein 5.4 g/dL (6.0-8.3) L 08/19/17 18:13 Albumin 2.5 g/dL (3.5-5.0) L 08/19/17 18:13 Albumin/Globulin Ratio 0.9 (1.1-2.2) L 08/19/17 18:13 Lipase 96 Units/L (8-78) H 08/19/17 18:13 Stool Occult Blood Positive (Negative) A 08/19/17 19:30 - Clinical Findings Intake & Output: Intake & Output 08/20/17 08/21/17 08/21/17 23:59 07:59 15:59 Intake Total 1825.2 / 1825.2 721 / 721 Output Total 875 / 875 620 / 620 175 / 175 Balance 950.2 / 950.2 101 / 101 -175 / -175 Consult Discharge Plan - Plan Referrals: Willie Underwood MD [Primary Care Provider] - <Gilbert Mendieta S - Last Filed: 08/21/17 19:19> Date of Encounter: 08/21/17 Objective PUL Vital signs: Last Vital Signs Temp 101.7 F H 08/21/17 16:00 Pulse 110 08/21/17 16:00 Resp 13 08/21/17 16:00 BP 107/55 08/21/17 16:00 Pulse Ox 100 08/21/17 16:00 Ventilator Settings Ventilator Settings: Ventilator Settings, Last 8 Hours Ventilator Mode CPAP Ventilator Mode CPAP Ventilator Mode VC+ Ventilator Mode VC+ Ventilator Mode VC+ Ventilator Mode VC+ Ventilator Mode VC+ Ventilator Mode VC+ Ventilator Mode VC+ Ventilator Mode VC+ Ventilator Mode VC+ Ventilator Tidal Volume 460 Setting Ventilator Tidal Volume 460 Setting Ventilator Tidal Volume 460 Setting Ventilator Tidal Volume 460 Setting Ventilator Tidal Volume 460 Setting Ventilator Tidal Volume 460 Setting Ventilator Tidal Volume 460 Setting Ventilator Tidal Volume 460 Setting Ventilator Tidal Volume 460 Setting Ventilator Respiratory Rate 16 Setting Ventilator Respiratory Rate 16 Setting Ventilator Respiratory Rate 16 Setting Ventilator Respiratory Rate 16 Setting Ventilator Respiratory Rate 16 Setting Ventilator Respiratory Rate 16 Setting Ventilator Respiratory Rate 16 Setting Ventilator Respiratory Rate 16 Setting Ventilator Respiratory Rate 16 Setting Actual Respiratory Rate 14 Actual Respiratory Rate 20 Actual Respiratory Rate 22 Actual Respiratory Rate 22 Actual Respiratory Rate 23 Actual Respiratory Rate 23 Actual Respiratory Rate 25 Actual Respiratory Rate 22 Actual Respiratory Rate 22 Actual Respiratory Rate 22 Positive End Expiratory 5 Pressure Positive End Expiratory 5 Pressure Positive End Expiratory 5 Pressure Positive End Expiratory 5 Pressure Positive End Expiratory 5 Pressure Positive End Expiratory 5 Pressure Positive End Expiratory 5 Pressure Positive End Expiratory 5 Pressure Positive End Expiratory 5 Pressure Positive End Expiratory 5 Pressure Peak Inspiratory Airway 10 Pressure Peak Inspiratory Airway 18 Pressure Peak Inspiratory Airway 17 Pressure Peak Inspiratory Airway 17 Pressure Peak Inspiratory Airway 17 Pressure Peak Inspiratory Airway 10 Pressure Peak Inspiratory Airway 13 Pressure Peak Inspiratory Airway 23 Pressure Peak Inspiratory Airway 23 Pressure Peak Inspiratory Airway 24 Pressure Results - Laboratory Findings CBC and BMP: 08/21/17 17:16 08/21/17 17:16 ABG ABG pH 7.31 pH Units (7.32-7.45) L 08/20/17 16:00 ABG pCO2 40 mmHg (35-45) 08/20/17 16:00 ABG pO2 167 mmHg (85-104) H 08/20/17 16:00 ABG O2 Saturation 99 % (95-98) H 08/20/17 16:00 PT/INR, D-dimer PT 16.4 Seconds (9.4-12.1) H 08/21/17 04:20 Abnormal lab findings: Abnormal lab results RBC 2.73 M/mcL (4.19-5.50) L 08/21/17 04:20 Hgb 7.6 g/dL (12.9-16.9) L 08/21/17 04:20 Hct 22.9 % (37.5-50.1) L 08/21/17 04:20 MCH 27.8 pg (28.0-33.3) L 08/21/17 04:20 RDW 17.3 % (11.5-14.5) H 08/21/17 04:20 Plt Count 68 K/mcL (140-400) L 08/21/17 04:20 Nucleated RBCs/100 WBC 0.8 /100 WBC (0) H 08/21/17 04:20 Platelet Estimate Decreased (Normal) L 08/20/17 01:43 Immature Plt Fraction 6.7 % (1.1-6.1) H 08/21/17 04:20 Polychromasia 1+ (Not Present) A 08/19/17 18:13 Hypochromasia Present (Not Present) A 08/20/17 01:43 PT 16.4 Seconds (9.4-12.1) H 08/21/17 04:20 Fibrinogen 102 mg/dL (169-393) L 08/20/17 14:44 ABG pH 7.31 pH Units (7.32-7.45) L 08/20/17 16:00 ABG pO2 167 mmHg (85-104) H 08/20/17 16:00 ABG HCO3 20 mEq/L (21-27) L 08/20/17 16:00 ABG O2 Saturation 99 % (95-98) H 08/20/17 16:00 ABG Base Excess -6 mEq/L (-2 to 3) L 08/20/17 16:00 Chloride 114 mEq/L (98-109) H 08/21/17 04:20 BUN 29 mg/dL (8-26) H 08/21/17 04:20 BUN/Creatinine Ratio 33 (6-26) H 08/21/17 04:20 Glucose 136 mg/dL (70-99) H 08/21/17 04:20 POC Glucose 122 (58-89) H 08/21/17 11:33 Calcium 6.5 mg/dL (8.6-10.8) L 08/21/17 04:20 Ionized Calcium 0.97 mmol/L (1.15-1.35) L 08/21/17 15:30 AST 36 Units/L (5-34) H 08/19/17 18:13 Serum Total Protein 5.4 g/dL (6.0-8.3) L 08/19/17 18:13 Albumin 2.5 g/dL (3.5-5.0) L 08/19/17 18:13 Albumin/Globulin Ratio 0.9 (1.1-2.2) L 08/19/17 18:13 Lipase 96 Units/L (8-78) H 08/19/17 18:13 Ur Specific [place] 1.026 (1.010-1.025) H 08/21/17 11:17 Urine Blood Trace (Negative) H 08/21/17 11:17 Urine Microscopic RBC 5-15 per hpf (0-3) H 08/21/17 11:17 Ur Squamous Epith Cells Moderate per lpf (None-Few) H 08/21/17 11:17 Stool Occult Blood Positive (Negative) A 08/19/17 19:30 - Clinical Findings Intake & Output: Intake & Output 08/21/17 08/21/17 08/21/17 07:59 15:59 23:59 Intake Total 721 / 721 346 / 346 Output Total 620 / 620 675 / 675 Balance 101 / 101 -329 / -329 - Attending Attestation I saw the patient with the resident agree with History and Physical exam findings. 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 Taking longer time to come off medication , hepatic encephalopathy can be precipitated by GI bleed rifaximin 400 mg BID NECK : No JVD appreciated Pulmonary : Patient lung mechanics is good with low peak and plateau pressure low tidal volume strategy acceptable gas exchange. Decreased FIO2 , patient passed SBT but he was not following commands appropriately. Cardiac : Acute blood loss anemia leading to hemorrhagic shock now stable not on any vasopressors. Nutrition/GI: Bleeding ulcer at the cardia of the stomach , the base of the ulcer was clipped.Will continue IV PPI for another 24 hrs will stop octreotide in the morning . Patient has ascites that might contribute for the left sided effusion , when he is hemodynamically stable will start diuresing. Renal : Renal labs were reviewed and the urine output Heme onc : Patient has acute blood anemia with coagulopathy , INR is stable , 1 unit of cryoprecipitate will check fibrinogen and coag will check Hb if it less than 7 will transfuse. ID :Patient is spiking fever can be due to aspiration pneumonitis did blood cultures will do sputum cultures , will cover with Zosyn will follow cultures WBC is stable Musculo skeletal : No acute issues Disposition : Critical Code status: Full Code Family/POA: not known will coordinate with social work. Spent 32 minutes of Critical care
[2017-08-21 11:27] LABS: Bilirubin,Urine Negative (Negative); Blood,Urine Trace (Negative); Clarity,Urine Clear (Clear); Color,Urine Yellow (Yellow); Glucose,Urine (UA) Normal (Normal); Ketones,Urine Negative (Negative); Leukocyte Esterase,Urine Negative (Negative); Nitrite,Urine Negative (Negative); Protein,Urine Negative (Neg-Trace); Specific Gravity,Urine 1.026 (1.010-1.025); Urobilinogen,Urine Normal (Normal)
[2017-08-21 11:29] LABS: Bacteria,Urine None Seen per hpf (None-Few); Hyaline Casts,Urine None Seen per lpf (None-Few); Squamous Epithelial Cell,Urine Moderate per lpf (None-Few); WBC,Urine 0-3 per hpf (0-3)
--- NOTE | 2017-08-21 14:26 | Gastroenterology Progress Note ---
<Joel Rios - Last Filed: 08/21/17 14:24> Date of Encounter: 08/21/17 Time of Encounter: 10:30 - Assessment and plan (1) Gastric ulcer Current Visit: Yes Status: Acute Assessment and plan: EGD with oozing cratered gastric ulcer with visible vessel in the cardia, 6 mm in size, 5 clips placed for hemostasis. Continue Protonix drip and octreotide drip for at least the next 24 hours. Qualifiers: Gastric ulcer chronicity: acute Gastric ulcer complication status: with hemorrhage Qualified Code(s): K25.0 - Acute gastric ulcer with hemorrhage (2) Symptomatic anemia Current Visit: Yes Status: Acute Assessment and plan: Hgb improved to 7.6. Continue to monitor CBC and transfuse PRBC as needed. EGD with oozing cratered gastric ulcer with visible vessel in the cardia, 6 mm in size, 5 clips placed for hemostasis. (3) Esophagitis determined by endoscopy Current Visit: Yes Status: Acute Assessment and plan: EGD 05/01/2017 shows LA grade D esophagitis, continue PPI. (4) Liver cirrhosis, alcoholic Current Visit: Yes Status: Chronic Assessment and plan: On admission, MELD Na 14, Child-Kessler class B, DF 32.7. Qualifiers: Ascites presence: without ascites Qualified Code(s): K70.30 - Alcoholic cirrhosis of liver without ascites (5) HIV disease Current Visit: Yes Status: Chronic - Time Spent With Patient Total time spent is greater than 50% in coordination of care (as documented) at patient's floor/unit and/or counseling patient: - Subjective Interval history: Pt remains intubated and is unresponsive. EGD completed 08/20 that showed an oozing cratered ulcer. - Constitutional Vitals: Temp Pulse Resp BP Pulse Ox 98.4 F 114 20 110/57 99 08/21/17 11:00 08/21/17 14:00 08/21/17 14:00 08/21/17 14:00 08/21/17 14:00 General appearance: Present: answers questions appropriately Exam: intubated and unresponsive - Head Head exam: Present: atraumatic, normocephalic - Eye Eye exam: Present: normal appearance, sclera anicteric - ENT Additional comments: ET tube and OG tube in place - Neck Neck exam general surgery: Present: normal inspection, trachea midline - Respiratory Additional comments: Mechanical breath sounds - Cardiovascular Cardiovascular exam: Present: RRR, +S1, +S2 - GI/Abdominal GI/Abdominal exam: Present: soft, no peritoneal signs. Absent: distended, firm , guarding - Rectal Rectal exam: Present: deferred - Extremities Exam Extremities exam: Present: warm - Neurological Exam Additional comments: Unresponsive - Skin Skin exam: Present: dry, intact, normal color, warm Results - Labs CBC & Chem 7: 08/21/17 04:20 08/21/17 04:20 Labs: Last Result Calcium 6.5 mg/dL (8.6-10.8) L 08/21/17 04:20 Troponin I 0.00 ng/mL (0-0.03) 08/19/17 18:13 Stool Occult Blood Positive (Negative) A 08/19/17 19:30 Entire Visit Hgb 7.6 g/dL (12.9-16.9) L 08/21/17 04:20 Hct 22.9 % (37.5-50.1) L 08/21/17 04:20 PT 16.4 Seconds (9.4-12.1) H 08/21/17 04:20 Total Bilirubin 0.5 mg/dL (0.2-1.2) 08/19/17 18:13 AST 36 Units/L (5-34) H 08/19/17 18:13 ALT 28 Units/L (0-55) 08/19/17 18:13 Lipase 96 Units/L (8-78) H 08/19/17 18:13 - ABG ABG results: ABG ABG pH 7.31 pH Units (7.32-7.45) L 08/20/17 16:00 ABG pCO2 40 mmHg (35-45) 08/20/17 16:00 ABG pO2 167 mmHg (85-104) H 08/20/17 16:00 ABG O2 Saturation 99 % (95-98) H 08/20/17 16:00 PT/INR, D-dimer PT 16.4 Seconds (9.4-12.1) H 08/21/17 04:20 - Impressions Impressions Chest X-Ray 08/20/17 14:39 IMPRESSION: Suboptimally positioned NG tube. Recommend advancing by approximately 8 cm and repeating x-ray. Left pleural effusion. D/ / Wesly Victor MD / Wesly Victor MD Interpreting Provider: Wesly Victor MD X-Ray 08/20/17 14:39 IMPRESSION: Suboptimally positioned NG tube. Recommend advancing by approximately 8 cm and repeating x-ray. Left pleural effusion. D/ / Wesly Victor MD / Wesly Victor MD Interpreting Provider: Wesly Victor MD Liver Ultrasound 08/21/17 10:48 IMPRESSION: Ascites is identified in the upper abdomen. Gallbladder sludge. D/ / Rajeev Srinivasan MD / Rajeev Srinivasan MD Interpreting Provider: Rajeev Srinivasan MD Consult Discharge Plan - Plan Referrals: Willie Underwood MD [Primary Care Provider] - <RhettVeniceSiria - Last Filed: 08/21/17 18:09> Date of Encounter: 08/21/17 Time of Encounter: 17:40 - Time Spent With Patient Total time spent is greater than 50% in coordination of care (as documented) at patient's floor/unit and/or counseling patient: - Constitutional Vitals: Temp Pulse Resp BP Pulse Ox 101.7 F H 110 13 107/55 100 08/21/17 16:00 08/21/17 16:00 08/21/17 16:00 08/21/17 16:00 08/21/17 16:00 Results - Labs CBC & Chem 7: 08/21/17 17:16 08/21/17 17:16 Labs: Last Result Calcium 6.4 mg/dL (8.6-10.8) L 08/21/17 17:16 Troponin I 0.00 ng/mL (0-0.03) 08/19/17 18:13 Stool Occult Blood Positive (Negative) A 08/19/17 19:30 Entire Visit Hgb 6.6 g/dL (12.9-16.9) L 08/21/17 17:16 Hct 19.8 % (37.5-50.1) L 08/21/17 17:16 PT 16.4 Seconds (9.4-12.1) H 08/21/17 04:20 Total Bilirubin 0.5 mg/dL (0.2-1.2) 08/19/17 18:13 AST 36 Units/L (5-34) H 08/19/17 18:13 ALT 28 Units/L (0-55) 08/19/17 18:13 Lipase 96 Units/L (8-78) H 08/19/17 18:13 - ABG ABG results: ABG ABG pH 7.31 pH Units (7.32-7.45) L 08/20/17 16:00 ABG pCO2 40 mmHg (35-45) 08/20/17 16:00 ABG pO2 167 mmHg (85-104) H 08/20/17 16:00 ABG O2 Saturation 99 % (95-98) H 08/20/17 16:00 PT/INR, D-dimer PT 16.4 Seconds (9.4-12.1) H 08/21/17 04:20 - Impressions Impressions Liver Ultrasound 08/21/17 10:48 IMPRESSION: Ascites is identified in the upper abdomen. Gallbladder sludge. D/ / Rajeev Srinivasan MD / Rajeev Srinivasan MD Interpreting Provider: Rajeev Srinivasan MD - Attending Attestation I examined this patient and my medical decision-making was reviewed with the Resident Physician. I agree with the documented findings, disposition and treatment plan as described except to the extent set forth below. Patient with acute upper GI bleed due to gastric ulcers status post clipping. Patient with underlying cirrhosis but no obvious varices were seen. Recommendation continue PPI drip for another 24 and then switch to by mouth/or IV, DC octreotide drip in the morning
[2017-08-21] MEDS: Dexmedetomidine HCl 400 MCG/100 ML MLS IVC SCH (15:50)
[2017-08-21] MEDS ORDERED: Furosemide 40 MG/4 ML VIAL IVP ONE (16:57)
[2017-08-21 17:25] LABS: Basophils % 0.2 %; Eosinophils % 0.4 %; Hematocrit 19.8 % (37.5-50.1); Hemoglobin 6.6 g/dL (12.9-16.9); Immature Granulocytes % 0.2 % (0-4); Immature Platelets 6.9 % (1.1-6.1); Lymphocytes # 0.6 K/mcL (0.6-4.6); Lymphocytes % 11.7 %; Mean Corpuscular HGB Conc 33.3 g/dL (31.6-35.5); Mean Corpuscular Hemoglobin 28.1 pg (28.0-33.3); Mean Corpuscular Volume 84.3 fL (83.0-100.0); Mean Platelet Volume 11.2 fL (9.4-12.4); Monocytes # 0.6 K/mcL (0.0-1.3); Monocytes % 11.9 %; Neutrophils # 4.1 K/mcL (1.6-8.9); Nucleated Red Blood Cells 0.4 /100 WBC (0); Platelet Count 50 K/mcL (140-400); Red Blood Count 2.35 M/mcL (4.19-5.50); Red Cell Distribution Width 17.7 % (11.5-14.5); Segmented Neutrophils % 75.6 %
[2017-08-21 17:30] LABS: Ionized Calcium 0.96 mmol/L (1.15-1.35)
[2017-08-21 17:37] LABS: BUN/Creatinine Ratio 29 (6-26); Blood Urea Nitrogen 23 mg/dL (8-26); Calcium 6.4 mg/dL (8.6-10.8); Carbon Dioxide 28 mEq/L (19-29); Chloride 109 mEq/L (98-109); Glucose 154 mg/dL (70-99); Magnesium 1.8 mg/dL (1.6-2.6); Osmolality,Calculated 297 (280-300); Phosphorous 1.8 mg/dL (2.3-4.7); Potassium 3.6 mEq/L (3.5-4.5); Sodium 140 mEq/L (136-145); eGFR For African Americans > 60 (> 60); eGFR For Non-African Americans > 60 (> 60)
[2017-08-21 17:42] LABS: Platelet Estimate Decreased (Normal)
[2017-08-21] MEDS: Thiamine (B-1) 100 MG, Folic Acid 1 MG, MVI, adult with vitamin K 10 ML in 0.9 % Sodi... IVPB SCH (17:50)
[2017-08-21 18:14] LABS: INR 1.7; Prothrombin Time 18.3 Seconds (9.4-12.1)
[2017-08-21 18:54] LABS: Activated Partial Thrombo Time 29.1 Seconds (26.0-36.0)
[2017-08-21] MEDS: Piperacillin/Tazobactam 3.375 GM in D5% in Water (Mini-Bag+) 100 ML IVPB SCH (23:40)
[2017-08-22 00:07] LABS: BUN/Creatinine Ratio 27 (6-26); Blood Urea Nitrogen 20 mg/dL (8-26); Calcium 6.7 mg/dL (8.6-10.8); Carbon Dioxide 27 mEq/L (19-29); Chloride 109 mEq/L (98-109); Glucose 108 mg/dL (70-99); Magnesium 1.8 mg/dL (1.6-2.6); Osmolality,Calculated 293 (280-300); Potassium 3.8 mEq/L (3.5-4.5); Sodium 140 mEq/L (136-145); eGFR For African Americans > 60 (> 60); eGFR For Non-African Americans > 60 (> 60)
[2017-08-22 00:20] LABS: Ionized Calcium 0.98 mmol/L (1.15-1.35)
[2017-08-22] MEDS: FentaNYL (PF) 3,000 MCG in 0.9 % Sodium Chloride 240 ML IVC SCH (01:16)
[2017-08-22] MEDS: Potassium Chloride 40 MEQ/200 ML BAG IVPB PRN ×2 (01:20→11:03)
[2017-08-22] MEDS: Pantoprazole 40 MG in 0.9 % Sodium Chloride Mini Bag 100 ML IVC SCH ×6 (01:34→23:11)
[2017-08-22] MEDS: Magnesium Sulfate 2 GM in D5% in Water 100 ML IVPB PRN (02:20)
[2017-08-22] MEDS: Calcium Gluconate 1,000 MG in D5% in Water 100 ML IVPB PRN ×3 (02:21→17:40)
[2017-08-22 03:46] LABS: Basophils % 0.2 %; Eosinophils # 0.1 K/mcL (0.0-0.6); Hematocrit 21.8 % (37.5-50.1); Hemoglobin 7.2 g/dL (12.9-16.9); Immature Granulocytes % 0.4 % (0-4); Immature Platelets 6.8 % (1.1-6.1); Lymphocytes # 0.7 K/mcL (0.6-4.6); Lymphocytes % 14.5 %; Mean Corpuscular Volume 84.8 fL (83.0-100.0); Mean Platelet Volume 11.1 fL (9.4-12.4); Monocytes # 0.6 K/mcL (0.0-1.3); Monocytes % 12.5 %; Red Blood Count 2.57 M/mcL (4.19-5.50); Red Cell Distribution Width 17.4 % (11.5-14.5); Segmented Neutrophils % 71.4 %
[2017-08-22 03:50] LABS: Neutrophils # 3.6 K/mcL (1.6-8.9); Platelet Count 47 K/mcL (140-400)
--- NOTE | 2017-08-22 04:18 | Pulmonology Progress Note ---
<Mo Russ - Last Filed: 08/22/17 07:11> Date of Encounter: 08/22/17 Time of Encounter: 04:17 Assessment and Plan (1) Hemorrhagic shock Current Visit: Yes Status: Acute Patient's blood pressure has remained stable without any pressors overnight He did have another unit of pRBCs yesterday evening and Hb did respond from 6.6 to 7.2 over a 10 hour period Will recheck CBC at noon today and will transfuse again if needed Received cryoprecipitate yesterday and his fibrinogen has increased to normal limits He did receive a unit of platelets but did not respond appropriately, and an additional unit has been ordered GTube is currently draining greenish fluid, no additional signs of bleeding from lo or stool Overall thus far he has received 6 units RBC, 1 plasma, 3 platelets, and 1 cryoprecipitate (2) Fever Current Visit: Yes Status: Acute Patient continues to have fever overnight and received a dose of Tylenol just before midnight Zosyn was added yesterday after blood cultures were collected; results are still pending Aspiration pneumonitis is a likely etiology but cannot rule out SBP as another potential source as liver US revealed ascites WBC remain WNL and his heart rate has been stable in 90's Qualifiers: Fever type: unspecified Qualified Code(s): R50.9 - Fever, unspecified (3) Gastric ulcer Current Visit: Yes Status: Acute s/p day 1 after 6 mm gastric cardia ulcer was clipped x 5 by GI Per GI, continue protonix drip and plan to stop octreotide today Qualifiers: Gastric ulcer chronicity: acute Gastric ulcer complication status: with hemorrhage Qualified Code(s): K25.0 - Acute gastric ulcer with hemorrhage (4) Symptomatic anemia Current Visit: Yes Status: Acute Management as above with PRN transfusions of RBC/platelets Will continue to closely follow H/H (5) Thrombocytopenia Current Visit: No Status: Chronic Patient has chronic thrombocytopenia 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/HIV He did receive 1 unit of platelets yesterday but his numbers continue to drop from 50 to 47 this morning Will order an additional unit of platelets to keep him at a goal of > 50; recheck CBC at noon (6) Liver cirrhosis, alcoholic Current Visit: Yes Status: Chronic Liver ultrasound revealed ascites and gallbladder sludge He may benefit from paracentesis at some point to rule out SBP as he remains febrile and was not following commands during SBT yesterday Per GI, his MELD Na score = 14 and Child-Kessler Class B upon admission DF = 32.7 so he may benefit from steroids; will defer to GI if this is necessary Qualifiers: Ascites presence: without ascites Qualified Code(s): K70.30 - Alcoholic cirrhosis of liver without ascites (7) Pleural effusion Current Visit: Yes Status: Acute Left pleural effusion identified on CXR on 08/20 that was not present on 08/19 Likely secondary to aggressive fluid/blood product administration as he is roughly + 5 L net overall If patient remains hemodynamically stable, will trial diuretics (8) Hypocalcemia Current Visit: Yes Status: Acute Suspect secondary to GI losses Currently on electrolyte replacement protocol (9) HIV disease Current Visit: Yes Status: Chronic Per documentation he has not been on his HIV medications for 3 months Infectious disease is aware of patient, but will consult once he is more stable Subjective Principal diagnosis: GI Bleed Interval history: Pt seen and examined. He remains intubated and sedated without any family at beside. Per RN patient did not have any overnight events other than mild agitation right at shift change when his sedatives were decreased. He also has a sustained fever of 101 overnight and was given Tylenol. Objective PUL Vital signs: Last Vital Signs Temp 101.7 F H 08/21/17 23:30 Pulse 91 08/22/17 04:03 Resp 16 08/22/17 04:14 BP 93/53 08/22/17 04:14 Pulse Ox 100 08/22/17 04:14 General appearance: no acute distress (intubated and sedated) Eyes: nonicteric ENT: oropharynx moist Neck: supple Effort: normal Auscultation: bilateral: clear Percussion: bilateral: not dull Tactile fremitus: bilateral: normal Cardiovascular: regular rate and rhythm Gastrointestinal: normoactive bowel sounds, non-distended Integumentary: normal Extremities: no cyanosis, no clubbing, edema (trace) Musculoskeletal: no deformities, ROM normal unable to assess due to mental status Ventilator Settings Ventilator Settings: Ventilator Settings, Last 8 Hours Ventilator Mode VC+ Ventilator Mode VC+ Ventilator Mode VC+ Ventilator Mode VC+ Ventilator Mode VC+ Ventilator Mode VC+ Ventilator Mode VC+ Ventilator Mode VC+ Ventilator Mode VC+ Ventilator Mode VC+ Ventilator Mode VC+ Ventilator Mode VC+ Ventilator Tidal Volume 460 Setting Ventilator Tidal Volume 460 Setting Ventilator Tidal Volume 460 Setting Ventilator Tidal Volume 460 Setting Ventilator Tidal Volume 460 Setting Ventilator Tidal Volume 460 Setting Ventilator Tidal Volume 460 Setting Ventilator Tidal Volume 460 Setting Ventilator Tidal Volume 460 Setting Ventilator Tidal Volume 460 Setting Ventilator Tidal Volume 460 Setting Ventilator Tidal Volume 460 Setting Ventilator Respiratory Rate 16 Setting Ventilator Respiratory Rate 16 Setting Ventilator Respiratory Rate 16 Setting Ventilator Respiratory Rate 16 Setting Ventilator Respiratory Rate 16 Setting Ventilator Respiratory Rate 16 Setting Ventilator Respiratory Rate 16 Setting Ventilator Respiratory Rate 16 Setting Ventilator Respiratory Rate 16 Setting Ventilator Respiratory Rate 16 Setting Ventilator Respiratory Rate 16 Setting Ventilator Respiratory Rate 16 Setting Actual Respiratory Rate 16 Actual Respiratory Rate 18 Actual Respiratory Rate 17 Actual Respiratory Rate 18 Actual Respiratory Rate 19 Actual Respiratory Rate 18 Actual Respiratory Rate 18 Actual Respiratory Rate 19 Actual Respiratory Rate 20 Actual Respiratory Rate 20 Actual Respiratory Rate 23 Actual Respiratory Rate 20 Positive End Expiratory 5 Pressure Positive End Expiratory 5 Pressure Positive End Expiratory 5 Pressure Positive End Expiratory 5 Pressure Positive End Expiratory 5 Pressure Positive End Expiratory 5 Pressure Positive End Expiratory 5 Pressure Positive End Expiratory 5 Pressure Positive End Expiratory 5 Pressure Positive End Expiratory 5 Pressure Positive End Expiratory 5 Pressure Positive End Expiratory 5 Pressure Peak Inspiratory Airway 19 Pressure Peak Inspiratory Airway 19 Pressure Peak Inspiratory Airway 18 Pressure Peak Inspiratory Airway 21 Pressure Peak Inspiratory Airway 20 Pressure Peak Inspiratory Airway 19 Pressure Peak Inspiratory Airway 19 Pressure Peak Inspiratory Airway 21 Pressure Peak Inspiratory Airway 17 Pressure Peak Inspiratory Airway 15 Pressure Peak Inspiratory Airway 15 Pressure Peak Inspiratory Airway 15 Pressure Results - Laboratory Findings CBC and BMP: 08/22/17 03:37 08/21/17 23:45 ABG ABG pH 7.31 pH Units (7.32-7.45) L 08/20/17 16:00 ABG pCO2 40 mmHg (35-45) 08/20/17 16:00 ABG pO2 167 mmHg (85-104) H 08/20/17 16:00 ABG O2 Saturation 99 % (95-98) H 08/20/17 16:00 PT/INR, D-dimer PT 18.3 Seconds (9.4-12.1) H 08/21/17 17:16 Abnormal lab findings: Abnormal lab results RBC 2.57 M/mcL (4.19-5.50) L 08/22/17 03:37 Hgb 7.2 g/dL (12.9-16.9) L 08/22/17 03:37 Hct 21.8 % (37.5-50.1) L 08/22/17 03:37 RDW 17.4 % (11.5-14.5) H 08/22/17 03:37 Plt Count 47 K/mcL (140-400) L 08/22/17 03:37 Nucleated RBCs/100 WBC 0.4 /100 WBC (0) H 08/21/17 17:16 Platelet Estimate Decreased (Normal) L 08/21/17 17:16 Immature Plt Fraction 6.8 % (1.1-6.1) H 08/22/17 03:37 Polychromasia 1+ (Not Present) A 08/19/17 18:13 Hypochromasia Present (Not Present) A 08/20/17 01:43 PT 18.3 Seconds (9.4-12.1) H 08/21/17 17:16 ABG pH 7.31 pH Units (7.32-7.45) L 08/20/17 16:00 ABG pO2 167 mmHg (85-104) H 08/20/17 16:00 ABG HCO3 20 mEq/L (21-27) L 08/20/17 16:00 ABG O2 Saturation 99 % (95-98) H 08/20/17 16:00 ABG Base Excess -6 mEq/L (-2 to 3) L 08/20/17 16:00 BUN/Creatinine Ratio 27 (6-26) H 08/21/17 23:45 Glucose 108 mg/dL (70-99) H 08/21/17 23:45 POC Glucose 161 (58-89) H 08/21/17 18:45 Calcium 6.7 mg/dL (8.6-10.8) L 08/21/17 23:45 Ionized Calcium 0.98 mmol/L (1.15-1.35) L 08/21/17 23:45 Phosphorus 1.8 mg/dL (2.3-4.7) L 08/21/17 17:16 AST 36 Units/L (5-34) H 08/19/17 18:13 Serum Total Protein 5.4 g/dL (6.0-8.3) L 08/19/17 18:13 Albumin 2.5 g/dL (3.5-5.0) L 08/19/17 18:13 Albumin/Globulin Ratio 0.9 (1.1-2.2) L 08/19/17 18:13 Lipase 96 Units/L (8-78) H 08/19/17 18:13 Ur Specific Tower 1.026 (1.010-1.025) H 08/21/17 11:17 Urine Blood Trace (Negative) H 08/21/17 11:17 Urine Microscopic RBC 5-15 per hpf (0-3) H 08/21/17 11:17 Ur Squamous Epith Cells Moderate per lpf (None-Few) H 08/21/17 11:17 Stool Occult Blood Positive (Negative) A 08/19/17 19:30 - Clinical Findings Intake & Output: Intake & Output 08/21/17 08/21/17 08/22/17 15:59 23:59 07:59 Intake Total 456 / 456 1105 / 1105 930.2 / 930.2 Output Total 675 / 675 730 / 730 705 / 705 Balance -219 / -219 375 / 375 225.2 / 225.2 Weight 65.5 kg Consult Discharge Plan - Plan Referrals: Willie Underwood MD [Primary Care Provider] - <Gilbert Mendieta S - Last Filed: 08/22/17 14:59> Date of Encounter: 08/22/17 Objective PUL Vital signs: Last Vital Signs Temp 97.4 F L 08/22/17 13:00 Pulse 82 08/22/17 14:00 Resp 17 08/22/17 14:00 BP 97/60 08/22/17 14:00 Pulse Ox 100 08/22/17 14:00 Ventilator Settings Ventilator Settings: Ventilator Settings, Last 8 Hours Ventilator Mode VC+ Ventilator Mode VC+ Ventilator Mode VC+ Ventilator Mode VC+ Ventilator Mode VC+ Ventilator Mode VC+ Ventilator Mode CPAP Ventilator Mode CPAP Ventilator Mode CPAP Ventilator Mode VC+ Ventilator Mode CPAP Ventilator Mode CPAP Ventilator Tidal Volume 460 Setting Ventilator Tidal Volume 460 Setting Ventilator Tidal Volume 460 Setting Ventilator Tidal Volume 460 Setting Ventilator Tidal Volume 460 Setting Ventilator Tidal Volume 460 Setting Ventilator Tidal Volume 460 Setting Ventilator Tidal Volume 460 Setting Ventilator Tidal Volume 460 Setting Ventilator Tidal Volume 460 Setting Ventilator Tidal Volume 460 Setting Ventilator Tidal Volume 460 Setting Ventilator Respiratory Rate 16 Setting Ventilator Respiratory Rate 16 Setting Ventilator Respiratory Rate 16 Setting Ventilator Respiratory Rate 16 Setting Ventilator Respiratory Rate 16 Setting Ventilator Respiratory Rate 16 Setting Ventilator Respiratory Rate 16 Setting Ventilator Respiratory Rate 16 Setting Ventilator Respiratory Rate 16 Setting Ventilator Respiratory Rate 16 Setting Ventilator Respiratory Rate 16 Setting Ventilator Respiratory Rate 16 Setting Actual Respiratory Rate 17 Actual Respiratory Rate 17 Actual Respiratory Rate 17 Actual Respiratory Rate 17 Actual Respiratory Rate 17 Actual Respiratory Rate 17 Actual Respiratory Rate 16 Actual Respiratory Rate 16 Actual Respiratory Rate 16 Actual Respiratory Rate 19 Actual Respiratory Rate 19 Actual Respiratory Rate 19 Positive End Expiratory 5 Pressure Positive End Expiratory 5 Pressure Positive End Expiratory 5 Pressure Positive End Expiratory 5 Pressure Positive End Expiratory 5 Pressure Positive End Expiratory 5 Pressure Positive End Expiratory 5 Pressure Positive End Expiratory 5 Pressure Positive End Expiratory 5 Pressure Peak Inspiratory Airway 19 Pressure Peak Inspiratory Airway 19 Pressure Peak Inspiratory Airway 19 Pressure Peak Inspiratory Airway 20 Pressure Peak Inspiratory Airway 20 Pressure Peak Inspiratory Airway 20 Pressure Peak Inspiratory Airway 20 Pressure Peak Inspiratory Airway 20 Pressure Peak Inspiratory Airway 20 Pressure Peak Inspiratory Airway 20 Pressure Peak Inspiratory Airway 20 Pressure Peak Inspiratory Airway 20 Pressure Results - Laboratory Findings CBC and BMP: 08/22/17 12:15 08/22/17 09:00 ABG ABG pH 7.31 pH Units (7.32-7.45) L 08/20/17 16:00 ABG pCO2 40 mmHg (35-45) 08/20/17 16:00 ABG pO2 167 mmHg (85-104) H 08/20/17 16:00 ABG O2 Saturation 99 % (95-98) H 08/20/17 16:00 PT/INR, D-dimer PT 18.3 Seconds (9.4-12.1) H 08/21/17 17:16 Abnormal lab findings: Abnormal lab results WBC 4.0 K/mcL (4.3-11.1) L 08/22/17 12:15 RBC 2.44 M/mcL (4.19-5.50) L 08/22/17 12:15 Hgb 6.8 g/dL (12.9-16.9) L 08/22/17 12:15 Hct 21.1 % (37.5-50.1) L 08/22/17 12:15 MCH 27.9 pg (28.0-33.3) L 08/22/17 12:15 RDW 17.7 % (11.5-14.5) H 08/22/17 12:15 Plt Count 55 K/mcL (140-400) L 08/22/17 12:15 Lymphocytes # 0.5 K/mcL (0.6-4.6) L 08/22/17 12:15 Nucleated RBCs/100 WBC 0.5 /100 WBC (0) H 08/22/17 12:15 Platelet Estimate Decreased (Normal) L 08/21/17 17:16 Immature Plt Fraction 8.9 % (1.1-6.1) H 08/22/17 12:15 Polychromasia 1+ (Not Present) A 08/19/17 18:13 Hypochromasia Present (Not Present) A 08/20/17 01:43 PT 18.3 Seconds (9.4-12.1) H 08/21/17 17:16 ABG pH 7.31 pH Units (7.32-7.45) L 08/20/17 16:00 ABG pO2 167 mmHg (85-104) H 08/20/17 16:00 ABG HCO3 20 mEq/L (21-27) L 08/20/17 16:00 ABG O2 Saturation 99 % (95-98) H 08/20/17 16:00 ABG Base Excess -6 mEq/L (-2 to 3) L 08/20/17 16:00 Creatinine 0.66 mg/dL (0.72-1.25) L 08/22/17 09:00 Glucose 117 mg/dL (70-99) H 08/22/17 09:00 POC Glucose 129 (58-89) H 08/22/17 05:26 Calcium 6.9 mg/dL (8.6-10.8) L 08/22/17 09:00 Ionized Calcium 1.03 mmol/L (1.15-1.35) L 08/22/17 09:00 Phosphorus 1.8 mg/dL (2.3-4.7) L 08/22/17 09:00 AST 36 Units/L (5-34) H 08/19/17 18:13 Serum Total Protein 5.4 g/dL (6.0-8.3) L 08/19/17 18:13 Albumin 2.5 g/dL (3.5-5.0) L 08/19/17 18:13 Albumin/Globulin Ratio 0.9 (1.1-2.2) L 08/19/17 18:13 Lipase 96 Units/L (8-78) H 08/19/17 18:13 Ur Specific Tower 1.026 (1.010-1.025) H 08/21/17 11:17 Urine Blood Trace (Negative) H 08/21/17 11:17 Urine Microscopic RBC 5-15 per hpf (0-3) H 08/21/17 11:17 Ur Squamous Epith Cells Moderate per lpf (None-Few) H 08/21/17 11:17 Stool Occult Blood Positive (Negative) A 08/19/17 19:30 - Clinical Findings Intake & Output: Intake & Output 08/21/17 08/22/17 08/22/17 23:59 07:59 15:59 Intake Total 1105 / 1105 1900.2 / 1900.2 100 / 100 Output Total 730 / 730 705 / 705 425 / 425 Balance 375 / 375 1195.2 / 1195.2 -325 / -325 Weight 65.5 kg - Attending Attestation I saw the patient with the resident agree with History and Physical exam findings. Labs and Radiology were reviewed Patient is on PRVC mode [employer]: Patient is intubated and sedated during night with Versed and Fentanyl switched off the medications during my morning rounds if he gets agitated will start on Precedex. Patient is not waking up probably due to sedation , possible hepatic encephalopathy can be precipitated by GI bleed rifaximin 400 mg BID to add lactulose will check Ammonia levels NECK : No JVD appreciated Pulmonary : Patient lung mechanics is good with low peak and plateau pressure low tidal volume strategy acceptable gas exchange. Decreased FIO2 , patient is not waking up will attempt spontaneous breathing trial afternoon Cardiac : Acute blood loss anemia leading to hemorrhagic shock now stable not on any vasopressors. Nutrition/GI: Bleeding ulcer at the cardia of the stomach , the base of the ulcer was clipped.Will continue IV PPI for today then switch IV BID ,To stop octreotide . CT abdomen and pelvis showed some ascitic fluid around the liver some fluid collection in the pelvis. There is no safe pocket to tap ascites for analysis Renal : Renal labs were reviewed and the urine output. He is positive will start diuresing Heme onc : Patient has acute blood anemia with coagulopathy , INR is stable , 1 unit of cryoprecipitate given with Fibrinogen now in acceptable limits , transfusion trigger less than 7 ID :Patient is spiking fever can be due to aspiration pneumonitis did blood cultures will do sputum cultures , will cover with Zosyn and Vancomycin did Tello scanned no obvious acute abormalities in Head , Abdomen and pelvis. Ct chest showed bilateral bibasilar airspace disease . ID consulted as patient has HIV disease to start anti retroviral therapy . Checking Viral load and CD4 count Musculo skeletal : No acute issues Disposition : Critical Code status: Full Code Family/POA: 32 minutes of Critical care time spent.
[2017-08-22] MEDS: Lacri-Lube 3.5 GM TUBE BOTH EYES SCH ×6 (05:20→23:20)
[2017-08-22] MEDS: Octreotide 400 MCG in 0.9 % Sodium Chloride 100 ML IVC SCH ×2 (06:09→21:53)
[2017-08-22] MEDS ORDERED: Vancomycin 1,000 MG in D5% in Water 250 ML IVPB SCH (08:00)
[2017-08-22] MEDS: Chlorhexidine Rinse 15 ML MOUTHWASH MM SCH ×2 (09:07→21:46)
[2017-08-22] MEDS: Nicotine 21 MG PATCH.TD24 TD SCH (09:07)
[2017-08-22] MEDS: Piperacillin/Tazobactam 3.375 GM in D5% in Water (Mini-Bag+) 100 ML IVPB SCH ×3 (09:08→23:18)
[2017-08-22] MEDS: Vancomycin 1,000 MG in D5% in Water 250 ML IVPB SCH ×2 (09:09→21:47)
[2017-08-22 09:17] LABS: Ionized Calcium 1.03 mmol/L (1.15-1.35)
[2017-08-22 09:22] LABS: BUN/Creatinine Ratio 26 (6-26); Blood Urea Nitrogen 17 mg/dL (8-26); Calcium 6.9 mg/dL (8.6-10.8); Carbon Dioxide 27 mEq/L (19-29); Chloride 108 mEq/L (98-109); Glucose 117 mg/dL (70-99); Magnesium 2.1 mg/dL (1.6-2.6); Osmolality,Calculated 289 (280-300); Phosphorous 1.8 mg/dL (2.3-4.7); Potassium 3.9 mEq/L (3.5-4.5); Sodium 138 mEq/L (136-145); eGFR For African Americans > 60 (> 60); eGFR For Non-African Americans > 60 (> 60)
--- NOTE | 2017-08-22 10:55 | Infectious Disease Consult ---
Date of Encounter: 08/22/17 Time of Encounter: 10:53 Assessment and Plan (1) Sepsis Status: Acute Assessment and plan: The patient had fever and tachycardia. Source unclear: PNA vs. SBP vs. other. Improved. The patient has been afebrile since midnight. Tachycardia has resolved. Blood cultures drawn 08/21/17 are pending x 2 sets. Urinalysis negative. No evidence of skin/soft tissue wounds or infections. The patient had no complaints of URI symptoms at admission. Qualifiers: Sepsis type: sepsis due to unspecified organism Qualified Code(s): A41.9 - Sepsis, unspecified organism (2) Pneumonia Status: Acute Assessment and plan: Likely secondary to aspiration. CT scan of the chest shows bilateral lower airspace consolidation concerning for PNA vs. atelectasis vs. aspiration per radiology. The patient likely suffered an aspiration event prior to intubation given the large amount of hematemesis per documentation. Continue Zosyn 3.375 grams IV Q8H. Continue Vancomycin IV for now. Pharmacy to dose. Goal trough ~15. Duration of treatment depends on the clinical picture. Monitor renal function and for drug toxicity and dose-adjust antibiotics. Qualifiers: Pneumonia type: aspiration pneumonia Aspiration pneumonia type: due to vomit Laterality: bilateral Lung location: lower lobe of lung Qualified Code(s): J69.0 - Pneumonitis due to inhalation of food and vomit (3) Upper gastrointestinal hemorrhage Status: Acute Assessment and plan: Secondary to gastric ulcer. Status post EGD 08/20/[address] Delaney. Endo report reviewed. Large gastric ulcer with visible vessel status post clipping. No evidence of recurrent bleeding. GI continues to follow. (4) Hemorrhagic shock Status: Acute Assessment and plan: Secondary to UGI bleed. Patient had hypotension and tachycardia. Resolved. (5) Anemia Status: Acute Assessment and plan: Secondary to GI bleed. Stable. Further management per the GI and primary teams. Qualifiers: Anemia type: other cause Other causes of anemia: acute posthemorrhagic Qualified Code(s): D62 - Acute posthemorrhagic anemia (6) Gastric ulcer Status: Acute Qualifiers: Gastric ulcer chronicity: acute Gastric ulcer complication status: with hemorrhage Qualified Code(s): K25.0 - Acute gastric ulcer with hemorrhage (7) Ascites Status: Acute Assessment and plan: Liver UTS and CT of the abdomen and pelvis show interval development of moderate intra-abdominal pelvic ascites. Likely secondary to aggressive fluid volume resuscitation in the setting of liver cirrhosis, but given the patient's acute onset of sepsis, consider SBP. Recommend paracentesis to send specimen for cell count with differential, protein, glucose, LDH, and culture. Continue Cipro 400mg IV BID for now. If paracentesis does not indicate SBP, may discontinue. Qualifiers: Ascites type: due to alcoholic cirrhosis Qualified Code(s): K70.31 - Alcoholic cirrhosis of liver with ascites (8) Pleural effusion Status: Acute Assessment and plan: CT of the chest shows new bilateral pleural effusions. Likely secondary to aggressive fluid volume resuscitation. Management per the pulmonology team. (9) Syncope Status: Acute Assessment and plan: Likely secondary to orthostatic hypotension from GI bleed. No further syncopal events since admission. Qualifiers: Syncope type: unspecified Qualified Code(s): R55 - Syncope and collapse (10) Thrombocytopenia Status: Chronic Assessment and plan: Likely secondary to AIDS, but worsened in the setting of acute infection/ illness. Continue to trend. Transfuse as appropriate per the primary team. (11) AIDS (acquired immune deficiency syndrome) Status: Suspected Assessment and plan: Diagnosed with HIV 30 years ago. Has a history of non-compliance. Last CD4 count in June was 258, VL undetectable. Follows with Dr. Underwood and was actually seen by him on the day of admission and had medications refilled. No indications to start ART at this time. Will wait for the patient to stabilize and consider re-starting at that time. Check CD4 count and HIV viral load --> pending. (12) Liver cirrhosis, alcoholic Status: Chronic Qualifiers: Ascites presence: without ascites Qualified Code(s): K70.30 - Alcoholic cirrhosis of liver without ascites Infectious Disease HPI - Data of Consult Patient: known to practice within the last 3 years Consult date: 08/22/17 Requesting Physician: Kelsey Fonseca MD Primary Care Provider: Willie Underwood MD - Consult Narrative Reason for consult: Fever History of present illness: Mr. Anthony is a 57 year old male is medical history of liver cirrhosis, esophageal varices, HIV/AIDS, and GI bleed. The patient was admitted to the hospital August 19 for upper GI bleed and syncope. We are consult August 22 for further evaluation and treatment recommendations regarding fever. The patient's a 57-year-old male, known to the infectious disease services were consulted on this case back in April of this year. At that time, the patient was also admitted for upper GI bleed and had been noncompliant with his HIV medications and we were asked to see him to recommend anti-retroviral therapy while hospitalized. On the day of admission, the patient states that he had a syncopal episode and hematemesis and came to the ER. Upon arrival, he was afebrile and tachycardic. Laboratory studies revealed a normal white blood cell count. Fecal occult blood test was positive. He did have an episode of hematemesis in the ER. Chest x-ray was negative. CT of the abdomen and pelvis showed mild wall thickening of the ascending colon as well as proximal wall thickening of the bladder and pelvic varices. CT head was completed due to a fall the patient stayed in the emergency department and was negative. The patient was admitted to the hospital for GI consult. While awaiting EGD, the patient had a large amount of bright red blood in his vomit. He subsequently ended up intubated and transferred to the ICU. He had an EGD that showed a large gastric ulcer that required 5 clips. Later that evening, he started having a fever with a MAXIMUM TEMPERATURE of 102.6 and tachycardia. His white blood cell count has remained normal. Urinalysis was negative. Blood cultures are pending 2 sets. Liver ultrasound showed large amount of ascites and gallbladder sludge. The patient had a CT the abdomen and pelvis that showed bilateral lower lobe lung partial consolidation concerning for pneumonia as well as moderate intra-abdominal pelvic ascites. CT of the chest showed bilateral pleural effusions with bilateral lower lobe airspace consolidation concerning for pneumonia versus atelectasis versus aspiration. There is also noted to be mild mediastinal lymphadenopathy and mild bilateral lower lobe mucus plugging. CT head was also repeated that was negative. Currently, the patient is on IV vancomycin and IV Zosyn and IV Cipro. We've been asked to evaluate and make further recommendations. During my exam today, the patient remains intubated and on minimal sedation. He remains unresponsive to verbal or painful stimuli. All of the information is obtained from the medical record as I unable to get any information from the patient. CC: Kelsey Fonseca MD Past Med Surg Social Fam HX - Past Medical History Source: old records reviewed, nursing notes reviewed Medical history: cirrhosis, HIV/AIDS (Diagnosed 30 years ago. ), hyperlipidemia , other (thrombocytopenia, anemia, esophageal varices, osteopenia, pneumonia, wasting disease) Psychiatric history: other (chronic mood disorder) - Past Surgical History Surgical History: other (EGD/Colonoscopy) - Social History Smoking Status: Current every day smoker Packs per day: 1 Smokeless Tobacco Status: No Alcohol use: none Drug use: none Occupational status: unemployed Current living situation: Home - Independent Activity Level: Independent ambulation Recent Out of Country Travel Within the Last 8 Weeks: No Exposure or Possible Exposure to Illness During Travel: No - Family History Father Living Status: Hx Family Cancer: Yes (Lung) Mother Living Status: Hx Family Cancer: Yes (Breast) Grandfather Hx Family Cancer: Yes (Lung) Brother Living Status: Still Living Infectious Disease-CN:Meds Aspirin/Caffeine [Anacin 400-32 mg Tablet] 1 each PO Q4H PRN 04/29/17 [History] Calcium Carbonate [Calcium] 500 mg PO DAILY 04/29/17 [History] Multivitamin [Multi-Day Vitamins] 1 each PO DAILY 04/29/17 [History] Paroxetine [Paxil] 20 mg PO DAILY 04/29/17 [History] Potassium 99 mg PO DAILY 04/29/17 [History] Raltegravir Potassium [Isentress] 400 mg PO BID 04/29/17 [History] Clarithromycin [Biaxin] 500 mg PO BID #6 tablet 05/02/17 [Rx] Ferrous Sulfate 325 mg PO BIDWM 30 Days tablet 05/02/17 [Rx] Sulfamethoxazole/Trimeth DS [Bactrim Ds] 1 each PO DAILY #30 tablet 05/02/17 [Rx ] Emtricitabine/Tenofovir [Truvada] 1 tab PO DAILY 05/07/17 [History] Lopinavir/Ritonavir [Kaletra] 1 tab PO BID 05/07/17 [History] Furosemide [Lasix] 20 mg PO DAILY #30 tablet 05/09/17 [Rx] Spironolactone [Aldactone] 50 mg PO DAILY #30 tablet 05/09/17 [Rx] 3 Allergy/AdvReac Type Severity Reaction Status Date / Time No Known Allergies Allergy Verified 08/19/17 17:49 ROS unobtainable: due to endotracheal tube Exam - Constitutional Vitals: Temp Pulse Resp BP Pulse Ox 98.4 F 80 19 82/52 100 08/22/17 09:52 08/22/17 10:14 08/22/17 10:14 08/22/17 10:14 08/22/17 10:14 General appearance: no acute distress, thin, no febrile - Head Head exam: Present: atraumatic, normal inspection, normocephalic - Eye Eye exam: Present: normal appearance, PERRL Pupils: Present: normal accommodation Additional comments: No subconjunctival hemorrhage noted. - ENT ENT exam: Present: mucous membranes moist - Neck Neck exam: Present: normal inspection - Respiratory Respiratory exam: Present: rales (bilateral bases). Absent: respiratory distress, rhonchi, wheezes Additional comments: O2 via the ventilator. FiO2 35%, PEEP 5, TV 500. - Cardiovascular Cardiovascular exam: Present: RRR, +S1, +S2 - GI/Abdominal GI/Abdominal exam: Present: distended, normal bowel sounds, soft. Absent: tenderness Additional comments: Benson catheter draining dark, cloudy yellow urine. OG tube without blood or gastric drainage at this time. - Extremities Exam Extremities exam: Present: normal inspection. Absent: joint swelling, pedal edema, tenderness Additional comments: No endocarditis stigmata noted. - Neurological Exam Neurological exam: Present: altered (Sedated) Additional comments: Patient unresponsive to verbal or painful stimuli on minimal sedation. - Psychiatric Additional comments: Unable to assess. - Skin Skin exam: Present: dry, intact, normal color, warm - Additional findings Additional findings: Right femoral CVC with transparent dressing C/D/I. Infectious Disease CN: Results - Labs CBC & Chem 7: 08/22/17 03:37 08/22/17 09:00 Cultures: Blood cultures pending x 2 sets. Serology: Serology 08/21/17 Range/Units 11:17 Urine Color Yellow (Yellow) Urine Clarity Clear (Clear) Urine pH 6.0 (5.0-8.0) pH Units Ur Specific [place] 1.026 H (1.010-1.025) Urine Protein Negative (Neg-Trace) mg/dL Urine Glucose (UA) Normal (Normal) mg/dL Urine Ketones Negative (Negative) mg/dL Urine Blood Trace H (Negative) Urine Nitrite Negative (Negative) Urine Bilirubin Negative (Negative) Urine Urobilinogen Normal (Normal) mg/dL Ur Leukocyte Esterase Negative (Negative) Urine Microscopic RBC 5-15 H (0-3) per hpf Urine Microscopic WBC 0-3 (0-3) per hpf Ur Squamous Epith Cells Moderate H (None-Few) per lpf Urine Bacteria None Seen (None-Few) per hpf Hyaline Casts None Seen (None-Few) per lpf Ur Culture Indicated? NO (NO) - VTE Documentation of Mechanical Device: Intermittent pneumatic compression device Consult Discharge Plan - Plan Referrals: Willie Underwood MD [Primary Care Provider] -
[2017-08-22] MEDS: Lactulose Oral Soln 20 GM/30 ML UDC PO SCH ×4 (11:03→21:46)
[2017-08-22 12:39] LABS: Eosinophils % 2.3 %
[2017-08-22 12:40] LABS: Basophils % 0.3 %; Eosinophils # 0.1 K/mcL (0.0-0.6); Hematocrit 21.1 % (37.5-50.1); Hemoglobin 6.8 g/dL (12.9-16.9); Immature Granulocytes % 0.5 % (0-4); Immature Platelets 8.9 % (1.1-6.1); Lymphocytes # 0.5 K/mcL (0.6-4.6); Lymphocytes % 12.1 %; Mean Corpuscular HGB Conc 32.2 g/dL (31.6-35.5); Mean Corpuscular Hemoglobin 27.9 pg (28.0-33.3); Mean Corpuscular Volume 86.5 fL (83.0-100.0); Mean Platelet Volume 11.3 fL (9.4-12.4); Monocytes # 0.6 K/mcL (0.0-1.3); Monocytes % 14.4 %; Neutrophils # 2.8 K/mcL (1.6-8.9); Nucleated Red Blood Cells 0.5 /100 WBC (0); Red Blood Count 2.44 M/mcL (4.19-5.50); Red Cell Distribution Width 17.7 % (11.5-14.5); Segmented Neutrophils % 70.4 %
[2017-08-22 13:13] LABS: Platelet Count 55 K/mcL (140-400)
[2017-08-22] MEDS ORDERED: 0.9 % Sodium Chloride 250 ML ONE (14:53)
[2017-08-22] MEDS: Dexmedetomidine HCl 400 MCG/100 ML MLS IVC SCH (15:58)
[2017-08-22 16:15] LABS: INR 1.6; Phosphorous 1.8 mg/dL (2.3-4.7); Potassium 4.2 mEq/L (3.5-4.5); Prothrombin Time 17.4 Seconds (9.4-12.1)
[2017-08-22 16:17] LABS: Activated Partial Thrombo Time 29.9 Seconds (26.0-36.0)
[2017-08-22 16:22] LABS: Ionized Calcium 1.05 mmol/L (1.15-1.35)
[2017-08-22] MEDS ORDERED: Sodium Phosphate 30 MMOL in D5% in Water 100 ML IVPB ONE (16:44)
[2017-08-22] MEDS: Thiamine (B-1) 100 MG, Folic Acid 1 MG, MVI, adult with vitamin K 10 ML in 0.9 % Sodi... IVPB SCH (17:36)
[2017-08-23 03:38] LABS: Basophils % 0.2 %; Eosinophils % 0.9 %; Immature Granulocytes % 0.7 % (0-4)
[2017-08-23 03:40] LABS: Hemoglobin 8.4 g/dL (12.9-16.9); Immature Platelets 9.7 % (1.1-6.1); Lymphocytes # 0.4 K/mcL (0.6-4.6); Lymphocytes % 9.1 %; Mean Corpuscular HGB Conc 33.6 g/dL (31.6-35.5); Mean Corpuscular Hemoglobin 28.9 pg (28.0-33.3); Mean Corpuscular Volume 85.9 fL (83.0-100.0); Mean Platelet Volume 12.7 fL (9.4-12.4); Monocytes # 0.7 K/mcL (0.0-1.3); Monocytes % 15.9 %; Neutrophils # 3.2 K/mcL (1.6-8.9); Platelet Count 54 K/mcL (140-400); Red Blood Count 2.91 M/mcL (4.19-5.50); Red Cell Distribution Width 17.7 % (11.5-14.5); Segmented Neutrophils % 73.2 %
[2017-08-23 03:43] LABS: Ionized Calcium 1.03 mmol/L (1.15-1.35)
[2017-08-23 03:51] LABS: Alanine Aminotransferase 24 Units/L (0-55); Albumin/Globulin Ratio 0.7 (1.1-2.2); Alkaline Phosphatase 51 Units/L (38-126); Aspartate Amino Transferase 52 Units/L (5-34); BUN/Creatinine Ratio 18 (6-26); Bilirubin,Total 0.8 mg/dL (0.2-1.2); Blood Urea Nitrogen 12 mg/dL (8-26); Carbon Dioxide 26 mEq/L (19-29); Chloride 108 mEq/L (98-109); Globulin 2.7 g/dL (2.4-3.5); Glucose 135 mg/dL (70-99); Magnesium 1.8 mg/dL (1.6-2.6); Osmolality,Calculated 288 (280-300); Phosphorous 2.1 mg/dL (2.3-4.7); Sodium 138 mEq/L (136-145); Total Protein 4.7 g/dL (6.0-8.3); eGFR For African Americans > 60 (> 60); eGFR For Non-African Americans > 60 (> 60)
[2017-08-23] MEDS: Lacri-Lube 3.5 GM TUBE BOTH EYES SCH ×6 (04:00→23:58)
[2017-08-23] MEDS: Pantoprazole 40 MG in 0.9 % Sodium Chloride Mini Bag 100 ML IVC SCH (04:11)
[2017-08-23] MEDS: Octreotide 400 MCG in 0.9 % Sodium Chloride 100 ML IVC SCH (05:39)
[2017-08-23] MEDS: Calcium Gluconate 1,000 MG in D5% in Water 100 ML IVPB PRN ×2 (06:00→19:06)
[2017-08-23] MEDS: Magnesium Sulfate 2 GM in D5% in Water 100 ML IVPB PRN ×2 (07:24→19:06)
[2017-08-23] MEDS: Piperacillin/Tazobactam 3.375 GM in D5% in Water (Mini-Bag+) 100 ML IVPB SCH ×3 (07:34→23:57)
[2017-08-23] MEDS: Vancomycin 1,000 MG in D5% in Water 250 ML IVPB SCH (07:35)
--- NOTE | 2017-08-23 07:56 | Pulmonology Progress Note ---
<Manoj Kaplan - Last Filed: 08/23/17 09:09> Date of Encounter: 08/23/17 Time of Encounter: 07:53 Assessment and Plan (1) Hemorrhagic shock Current Visit: Yes Status: Acute Pressors were stopped on 08/21, BP has remained stable. MAP ~80-85. - hgb 8.4, has now received 7 units pRBC - Plt remains low at 54 today, after receiving 3 units of plt's + 1 unit of cryo. non-responding possible due to HIV status + Chronic Liver cirrhosis - GTube is currently draining clear. Stool has melena. no sign of blood from lo (2) Liver cirrhosis, alcoholic Current Visit: Yes Status: Chronic RUQ U/S 08/22/17 - suggestive orf cirrhosis with hepatic vasculature patent. Will consider paracentesis, currently location of fluid is prohibitive. MELD score 14, Child Kessler Class B - continue lactulose + rifaxamin - GI following Qualifiers: Ascites presence: without ascites Qualified Code(s): K70.30 - Alcoholic cirrhosis of liver without ascites (3) HIV disease Current Visit: Yes Status: Chronic Patient has been off of HAART Meds for last 3 months according to documentation review. 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 Since hospitalization patient has received 3 units of platelets + 1 unit of cryo. - after last plt replacement, platelets on lab did not respond (5) Pleural effusion Current Visit: Yes Status: Acute Left pleural effusion identified on CXR on 08/20 that was not present on 08/19 Likely secondary to aggressive fluid/blood product administration as he is roughly + 8 L net overall If patient remains hemodynamically stable, will trial diuretics - trial of 20 mg lasix (6) Gastric ulcer Current Visit: Yes Status: Acute Gastric cardia ulcer 6 mm clipped x5 by GI on 08/20. Octeotride stopped 08/22 - will D/C Protonix, and switched to IV BID Qualifiers: Gastric ulcer chronicity: acute Gastric ulcer complication status: with hemorrhage Qualified Code(s): K25.0 - Acute gastric ulcer with hemorrhage (7) Sepsis Current Visit: Yes Status: Acute Source possibly PNA vs SBP vs unlikley UTI. Patient during hospitalization has been febrile and tachy. no leukocytosis. And is currently intubated. lactic acid on admission 1.3. Blood Cx negative x2. U/A negative. Pleural effusion on imaging, and high chance of aspiration during hematemesis episode. - afebrile for last 48 hours - ID following Qualifiers: Sepsis type: sepsis due to unspecified organism Qualified Code(s): A41.9 - Sepsis, unspecified organism (8) Hypocalcemia Current Visit: Yes Status: Acute Suspect secondary to GI losses Currently on electrolyte replacement protocol (9) Symptomatic anemia Current Visit: Yes Status: Acute hgb 8.4 today. has received 7 units of pRBC since admission. - continue to closely monitor CBC (10) Fever Current Visit: Yes Status: Acute afebrile since evening of 08/21/2017 Qualifiers: Fever type: unspecified Qualified Code(s): R50.9 - Fever, unspecified (11) DVT prophylaxis Current Visit: Yes Status: Acute mech Subjective Principal diagnosis: GI Bleed Interval history: Mr Anthony is a 57 yo Male on day 5 of admission 2/2 GI bleed found to be in hemorrhagic shock w/ hx of EtOH abuse, HIV, and liver cirrhosis. No events overnight. Patient remains intubated and sedated. No fevers overnight. Objective PUL Vital signs: Last Vital Signs Temp 99.6 F 08/23/17 04:28 Pulse 89 08/23/17 07:22 Resp 18 08/23/17 07:41 BP 106/69 08/23/17 07:41 Pulse Ox 100 08/23/17 07:41 General appearance: asleep, other (small amounts of thrashing) Eyes: icteric [facility] Auscultation: bilateral: diminished breath sounds Cardiovascular: regular rate and rhythm Gastrointestinal: hypoactive bowel sounds, other (abd is distended with shifting dullness) Integumentary: normal Extremities: no cyanosis, no edema unable to assess due to mental status stool currently melena Ventilator Settings Ventilator Settings: Ventilator Settings, Last 8 Hours Ventilator Mode VC+ Ventilator Mode VC+ Ventilator Mode VC+ Ventilator Mode VC+ Ventilator Mode VC+ Ventilator Mode VC+ Ventilator Mode VC+ Ventilator Mode VC+ Ventilator Mode VC+ Ventilator Mode VC+ Ventilator Mode VC+ Ventilator Mode VC+ Ventilator Tidal Volume 460 Setting Ventilator Tidal Volume 460 Setting Ventilator Tidal Volume 460 Setting Ventilator Tidal Volume 460 Setting Ventilator Tidal Volume 460 Setting Ventilator Tidal Volume 460 Setting Ventilator Tidal Volume 460 Setting Ventilator Tidal Volume 460 Setting Ventilator Tidal Volume 460 Setting Ventilator Tidal Volume 460 Setting Ventilator Respiratory Rate 16 Setting Ventilator Respiratory Rate 16 Setting Ventilator Respiratory Rate 16 Setting Ventilator Respiratory Rate 16 Setting Ventilator Respiratory Rate 16 Setting Ventilator Respiratory Rate 16 Setting Ventilator Respiratory Rate 16 Setting Ventilator Respiratory Rate 16 Setting Ventilator Respiratory Rate 16 Setting Ventilator Respiratory Rate 16 Setting Actual Respiratory Rate 21 Actual Respiratory Rate 19 Actual Respiratory Rate 19 Actual Respiratory Rate 19 Actual Respiratory Rate 23 Actual Respiratory Rate 21 Actual Respiratory Rate 23 Actual Respiratory Rate 23 Actual Respiratory Rate 19 Actual Respiratory Rate 18 Actual Respiratory Rate 19 Actual Respiratory Rate 18 Positive End Expiratory 5 Pressure Positive End Expiratory 5 Pressure Positive End Expiratory 5 Pressure Positive End Expiratory 5 Pressure Positive End Expiratory 5 Pressure Positive End Expiratory 5 Pressure Positive End Expiratory 5 Pressure Positive End Expiratory 5 Pressure Positive End Expiratory 5 Pressure Positive End Expiratory 5 Pressure Positive End Expiratory 5 Pressure Positive End Expiratory 5 Pressure Peak Inspiratory Airway 21 Pressure Peak Inspiratory Airway 14 Pressure Peak Inspiratory Airway 14 Pressure Peak Inspiratory Airway 14 Pressure Peak Inspiratory Airway 15 Pressure Peak Inspiratory Airway 18 Pressure Peak Inspiratory Airway 18 Pressure Peak Inspiratory Airway 18 Pressure Peak Inspiratory Airway 16 Pressure Peak Inspiratory Airway 16 Pressure Peak Inspiratory Airway 13 Pressure Peak Inspiratory Airway 22 Pressure Results - Laboratory Findings CBC and BMP: 08/23/17 03:30 08/23/17 03:30 ABG ABG pH 7.31 pH Units (7.32-7.45) L 08/20/17 16:00 ABG pCO2 40 mmHg (35-45) 08/20/17 16:00 ABG pO2 167 mmHg (85-104) H 08/20/17 16:00 ABG O2 Saturation 99 % (95-98) H 08/20/17 16:00 PT/INR, D-dimer PT 17.4 Seconds (9.4-12.1) H 08/22/17 16:00 Abnormal lab findings: Abnormal lab results RBC 2.91 M/mcL (4.19-5.50) L 08/23/17 03:30 Hgb 8.4 g/dL (12.9-16.9) L D 08/23/17 03:30 Hct 25.0 % (37.5-50.1) L 08/23/17 03:30 RDW 17.7 % (11.5-14.5) H 08/23/17 03:30 Plt Count 54 K/mcL (140-400) L 08/23/17 03:30 MPV 12.7 fL (9.4-12.4) H 08/23/17 03:30 Lymphocytes # 0.4 K/mcL (0.6-4.6) L 08/23/17 03:30 Nucleated RBCs/100 WBC 0.5 /100 WBC (0) H 08/22/17 12:15 Platelet Estimate Decreased (Normal) L 08/21/17 17:16 Immature Plt Fraction 9.7 % (1.1-6.1) H 08/23/17 03:30 Polychromasia 1+ (Not Present) A 08/19/17 18:13 Hypochromasia Present (Not Present) A 08/20/17 01:43 PT 17.4 Seconds (9.4-12.1) H 08/22/17 16:00 ABG pH 7.31 pH Units (7.32-7.45) L 08/20/17 16:00 ABG pO2 167 mmHg (85-104) H 08/20/17 16:00 ABG HCO3 20 mEq/L (21-27) L 08/20/17 16:00 ABG O2 Saturation 99 % (95-98) H 08/20/17 16:00 ABG Base Excess -6 mEq/L (-2 to 3) L 08/20/17 16:00 Creatinine 0.68 mg/dL (0.72-1.25) L 08/23/17 03:30 Glucose 135 mg/dL (70-99) H 08/23/17 03:30 POC Glucose 121 (58-89) H 08/23/17 00:05 Calcium 7.0 mg/dL (8.6-10.8) L 08/23/17 03:30 Ionized Calcium 1.03 mmol/L (1.15-1.35) L 08/23/17 03:30 Phosphorus 2.1 mg/dL (2.3-4.7) L 08/23/17 03:30 AST 52 Units/L (5-34) H 08/23/17 03:30 Ammonia 80 mcmol/L (18-72) H 08/22/17 15:45 Serum Total Protein 4.7 g/dL (6.0-8.3) L 08/23/17 03:30 Albumin 2.0 g/dL (3.5-5.0) L 08/23/17 03:30 Albumin/Globulin Ratio 0.7 (1.1-2.2) L 08/23/17 03:30 Lipase 96 Units/L (8-78) H 08/19/17 18:13 Ur Specific [place] 1.026 (1.010-1.025) H 08/21/17 11:17 Urine Blood Trace (Negative) H 08/21/17 11:17 Urine Microscopic RBC 5-15 per hpf (0-3) H 08/21/17 11:17 Ur Squamous Epith Cells Moderate per lpf (None-Few) H 08/21/17 11:17 Stool Occult Blood Positive (Negative) A 08/19/17 19:30 - Clinical Findings Intake & Output: Intake & Output 08/22/17 08/22/17 08/23/17 15:59 23:59 07:59 Intake Total 615 / 615 1419 / 1419 1433.2 / 1433.2 Output Total 425 / 425 300 / 300 800 / 800 Balance 190 / 190 1119 / 1119 633.2 / 633.2 Weight 72.4 kg - VTE Documentation of Mechanical Device: Intermittent pneumatic compression device Consult Discharge Plan - Plan Referrals: Willie Underwood MD [Primary Care Provider] - <Gilbert Mendieta - Last Filed: 08/23/17 17:30> Date of Encounter: 08/23/17 Objective PUL Vital signs: Last Vital Signs Temp 98.5 F 08/23/17 11:46 Pulse 106 08/23/17 12:00 Resp 22 08/23/17 12:00 BP 118/75 08/23/17 12:00 Pulse Ox 100 08/23/17 12:00 Ventilator Settings Ventilator Settings: Ventilator Settings, Last 8 Hours Ventilator Mode VC+ Ventilator Mode VC+ Ventilator Mode VC+ Ventilator Mode VC+ Ventilator Mode VC+ Ventilator Mode VC+ Ventilator Mode VC+ Ventilator Mode VC+ Ventilator Mode VC+ Ventilator Tidal Volume 460 Setting Ventilator Tidal Volume 460 Setting Ventilator Tidal Volume 460 Setting Ventilator Tidal Volume 460 Setting Ventilator Tidal Volume 460 Setting Ventilator Tidal Volume 460 Setting Ventilator Tidal Volume 460 Setting Ventilator Tidal Volume 460 Setting Ventilator Tidal Volume 460 Setting Ventilator Respiratory Rate 16 Setting Ventilator Respiratory Rate 16 Setting Ventilator Respiratory Rate 16 Setting Ventilator Respiratory Rate 16 Setting Ventilator Respiratory Rate 16 Setting Ventilator Respiratory Rate 16 Setting Ventilator Respiratory Rate 16 Setting Ventilator Respiratory Rate 16 Setting Ventilator Respiratory Rate 16 Setting Actual Respiratory Rate 23 Actual Respiratory Rate 17 Actual Respiratory Rate 17 Actual Respiratory Rate 17 Actual Respiratory Rate 18 Actual Respiratory Rate 20 Actual Respiratory Rate 21 Actual Respiratory Rate 19 Actual Respiratory Rate 19 Positive End Expiratory 5 Pressure Positive End Expiratory 5 Pressure Positive End Expiratory 5 Pressure Positive End Expiratory 5 Pressure Positive End Expiratory 5 Pressure Positive End Expiratory 5 Pressure Positive End Expiratory 5 Pressure Positive End Expiratory 5 Pressure Positive End Expiratory 5 Pressure Peak Inspiratory Airway 14 Pressure Peak Inspiratory Airway 18 Pressure Peak Inspiratory Airway 18 Pressure Peak Inspiratory Airway 15 Pressure Peak Inspiratory Airway 17 Pressure Peak Inspiratory Airway 19 Pressure Peak Inspiratory Airway 21 Pressure Peak Inspiratory Airway 14 Pressure Peak Inspiratory Airway 14 Pressure Results - Laboratory Findings CBC and BMP: 08/23/17 03:30 08/23/17 03:30 ABG ABG pH 7.31 pH Units (7.32-7.45) L 08/20/17 16:00 ABG pCO2 40 mmHg (35-45) 08/20/17 16:00 ABG pO2 167 mmHg (85-104) H 08/20/17 16:00 ABG O2 Saturation 99 % (95-98) H 08/20/17 16:00 PT/INR, D-dimer PT 17.4 Seconds (9.4-12.1) H 08/22/17 16:00 Abnormal lab findings: Abnormal lab results RBC 2.91 M/mcL (4.19-5.50) L 08/23/17 03:30 Hgb 8.4 g/dL (12.9-16.9) L D 08/23/17 03:30 Hct 25.0 % (37.5-50.1) L 08/23/17 03:30 RDW 17.7 % (11.5-14.5) H 08/23/17 03:30 Plt Count 54 K/mcL (140-400) L 08/23/17 03:30 MPV 12.7 fL (9.4-12.4) H 08/23/17 03:30 Lymphocytes # 0.4 K/mcL (0.6-4.6) L 08/23/17 03:30 Nucleated RBCs/100 WBC 0.5 /100 WBC (0) H 08/22/17 12:15 Platelet Estimate Decreased (Normal) L 08/21/17 17:16 Immature Plt Fraction 9.7 % (1.1-6.1) H 08/23/17 03:30 Polychromasia 1+ (Not Present) A 08/19/17 18:13 Hypochromasia Present (Not Present) A 08/20/17 01:43 PT 17.4 Seconds (9.4-12.1) H 08/22/17 16:00 ABG pH 7.31 pH Units (7.32-7.45) L 08/20/17 16:00 ABG pO2 167 mmHg (85-104) H 08/20/17 16:00 ABG HCO3 20 mEq/L (21-27) L 08/20/17 16:00 ABG O2 Saturation 99 % (95-98) H 08/20/17 16:00 ABG Base Excess -6 mEq/L (-2 to 3) L 08/20/17 16:00 Creatinine 0.68 mg/dL (0.72-1.25) L 08/23/17 03:30 Glucose 135 mg/dL (70-99) H 08/23/17 03:30 POC Glucose 136 (58-89) H 08/23/17 11:04 Calcium 7.0 mg/dL (8.6-10.8) L 08/23/17 03:30 Ionized Calcium 1.03 mmol/L (1.15-1.35) L 08/23/17 03:30 Phosphorus 2.1 mg/dL (2.3-4.7) L 08/23/17 03:30 AST 52 Units/L (5-34) H 08/23/17 03:30 Ammonia 80 mcmol/L (18-72) H 08/22/17 15:45 Serum Total Protein 4.7 g/dL (6.0-8.3) L 08/23/17 03:30 Albumin 2.0 g/dL (3.5-5.0) L 08/23/17 03:30 Albumin/Globulin Ratio 0.7 (1.1-2.2) L 08/23/17 03:30 Lipase 96 Units/L (8-78) H 08/19/17 18:13 Ur Specific [place] 1.026 (1.010-1.025) H 08/21/17 11:17 Urine Blood Trace (Negative) H 08/21/17 11:17 Urine Microscopic RBC 5-15 per hpf (0-3) H 08/21/17 11:17 Ur Squamous Epith Cells Moderate per lpf (None-Few) H 08/21/17 11:17 Stool Occult Blood Positive (Negative) A 08/19/17 19:30 - Microbiology Findings Microbiology Findings: Microbiology, Last 48 Hours 08/21/17 00:48 Blood Culture - Preliminary Peripheral Venipuncture No growth. 08/21/17 00:49 Blood Culture - Preliminary Peripheral Venipuncture No growth. - Clinical Findings Intake & Output: Intake & Output 08/22/17 08/23/17 08/23/17 23:59 07:59 15:59 Intake Total 1419 / 1419 1433.2 / 1433.2 450 / 450 Output Total 300 / 300 950 / 950 1250 / 1250 Balance 1119 / 1119 483.2 / 483.2 -800 / -800 Weight 72.4 kg - Attending Attestation I saw the patient with the resident agree with History and Physical exam findings. Labs and Radiology were reviewed Patient is on PRVC mode [employer]: Patient is off sedation from yesterday afternoon wakes sometimes to verbal stimuli and sometimes painful stimuli patient ammonia level is high , most llikely hepatic encephalopathy after GI bleed NECK : No JVD appreciated Pulmonary : Patient lung mechanics is good with low peak and plateau pressure low tidal volume strategy acceptable gas exchange. Decreased FIO2 , patient had a SBT which he did well couldnt extubate because he was still drowsy not following commands will give one more day of lactulose and Rifaximin will try extubating tomorrow . Cardiac : Acute blood loss anemia leading to hemorrhagic shock now stable not on any vasopressors. Nutrition/GI: Bleeding ulcer at the cardia of the stomach , the base of the ulcer was clipped. To change continuous infusion of PPI to IV BID PPI . CT abdomen and pelvis showed some ascitic fluid around the liver some fluid collection in the pelvis. There is no safe pocket to tap ascites for analysis Renal : Renal labs were reviewed and the urine output. He is positive will start diuresing Heme onc : Patient has acute blood anemia with coagulopathy , INR is stable , 1 unit of cryoprecipitate given with Fibrinogen now in acceptable limits , transfusion trigger less than 7 . Blood HB is stable over 12 hrs ID :Patient did not spike fever almost 24 hrs now will continue the current antibiotics blood cultures are negative so far , treating as SBP could not tap the ascitic fluid because there is no safe pocket will reasess. Musculo skeletal : No acute issues Disposition : Critical Code status: Full Code Family/POA: Estranged family not met any family member. Spent 35 minutes of critical care time
[2017-08-23] MEDS: Lactulose Oral Soln 20 GM/30 ML UDC PO SCH ×4 (08:44→21:29)
[2017-08-23] MEDS: Chlorhexidine Rinse 15 ML MOUTHWASH MM SCH ×2 (08:44→21:26)
[2017-08-23] MEDS: Nicotine 21 MG PATCH.TD24 TD SCH (08:44)
[2017-08-23] MEDS ORDERED: Aminoglycoside Consult 1 EACH MC ONE (08:50)
[2017-08-23] MEDS ORDERED: Furosemide 20 MG/2 ML VIAL IVP ONE (08:58)
[2017-08-23] MEDS: Dexmedetomidine HCl 400 MCG/100 ML MLS IVC SCH ×2 (10:02→17:25)
[2017-08-23 17:25] LABS: Magnesium 1.6 mg/dL (1.6-2.6)
[2017-08-23] MEDS: Pantoprazole 40 MG VIAL IVP SCH (17:25)
[2017-08-23 17:29] LABS: Phosphorous 2.9 mg/dL (2.3-4.7); Potassium 3.9 mEq/L (3.5-4.5)
[2017-08-23 17:31] LABS: Ionized Calcium 1.02 mmol/L (1.15-1.35)
[2017-08-23 21:21] LABS: CD3 Percent 49 % (62-87); CD8 Percent 28 % (15-46)
[2017-08-23] MEDS: Vancomycin 1,250 MG in D5% in Water 250 ML IVPB SCH (21:27)
[2017-08-24] MEDS: Lacri-Lube 3.5 GM TUBE BOTH EYES SCH ×6 (04:00→23:34)
[2017-08-24 04:21] LABS: Hemoglobin 8.1 g/dL (12.9-16.9)
[2017-08-24 04:23] LABS: Hematocrit 24.8 % (37.5-50.1); Immature Platelets 11.2 % (1.1-6.1); Ionized Calcium 1.07 mmol/L (1.15-1.35); Mean Corpuscular HGB Conc 32.7 g/dL (31.6-35.5); Mean Corpuscular Hemoglobin 28.4 pg (28.0-33.3); Platelet Count 49 K/mcL (140-400); Red Blood Count 2.85 M/mcL (4.19-5.50); Red Cell Distribution Width 18.2 % (11.5-14.5)
[2017-08-24 04:30] LABS: BUN/Creatinine Ratio 18 (6-26); Blood Urea Nitrogen 12 mg/dL (8-26); Calcium 7.3 mg/dL (8.6-10.8); Carbon Dioxide 27 mEq/L (19-29); Chloride 104 mEq/L (98-109); Glucose 120 mg/dL (70-99); Magnesium 1.7 mg/dL (1.6-2.6); Osmolality,Calculated 283 (280-300); Phosphorous 2.5 mg/dL (2.3-4.7); Potassium 3.8 mEq/L (3.5-4.5); Sodium 136 mEq/L (136-145); eGFR For African Americans > 60 (> 60); eGFR For Non-African Americans > 60 (> 60)
[2017-08-24] MEDS: Dexmedetomidine HCl 400 MCG/100 ML MLS IVC SCH ×2 (05:13→18:47)
[2017-08-24] MEDS: Pantoprazole 40 MG VIAL IVP SCH ×2 (06:00→17:32)
[2017-08-24] MEDS: Potassium Chloride 40 MEQ/200 ML BAG IVPB PRN ×2 (06:01→13:19)
[2017-08-24] MEDS: Calcium Gluconate 1,000 MG in D5% in Water 100 ML IVPB PRN ×2 (06:15→13:36)
[2017-08-24] MEDS: Magnesium Sulfate 2 GM in D5% in Water 100 ML IVPB PRN ×2 (06:15→13:37)
[2017-08-24 07:57] LABS: ABG Base Excess 4 mEq/L (-2 to 3); ABG HCO3 29 mEq/L (21-27); ABG Oxygen Saturation 98 % (95-98); ABG PCO2 47 mmHg (35-45); ABG PO2 108 mmHg (85-104); ABG TCO2 30 mEq/L (20-26); Blood Gas Modality ASSIST CONTROL; Blood Gas PEEP 5 cm H2O; Blood Gas Pressure Support 5 cm H2O
--- NOTE | 2017-08-24 08:02 | Pulmonology Progress Note ---
<Manoj Kaplan - Last Filed: 08/24/17 08:55> Date of Encounter: 08/24/17 Time of Encounter: 07:46 Assessment and Plan (1) Hemorrhagic shock Current Visit: Yes Status: Acute Sedation was stopped on 08/21, BP has remained stable. MAP ~80-85. Net pRBC 7 + Plasma 1 + Plt 3 + cryo 1. - hgb 8.1. Closely monitor - Patient stable post-extubation - Stool continues to have melena. no sign of blood from lo (2) Liver cirrhosis, alcoholic Current Visit: Yes Status: Chronic RUQ U/S 08/22/17 - suggestive of cirrhosis with hepatic vasculature patent. Will consider paracentesis, currently location of fluid is prohibitive. MELD score 14, Child Kessler Class B. - will d/c lactulose + rifaxamin - GI following Qualifiers: Ascites presence: without ascites Qualified Code(s): K70.30 - Alcoholic cirrhosis of liver without ascites (3) HIV disease Current Visit: Yes Status: Chronic Patient has been off of HAART Meds for last 3 months according to documentation review. 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 Since hospitalization patient has received 3 units of platelets + 1 unit of cryo. - after last plt replacement, platelets on lab did not respond (5) Pleural effusion Current Visit: Yes Status: Acute Left pleural effusion identified on CXR on 08/20 that was not present on 08/19 Likely secondary to aggressive fluid/blood product administration as he is roughly + 7 L net overall - lasix 40 mg qd (6) Gastric ulcer Current Visit: Yes Status: Acute Gastric cardia ulcer 6 mm clipped x5 by GI on 08/20. Octeotride stopped 08/22 - continue IV PPI BID Qualifiers: Gastric ulcer chronicity: acute Gastric ulcer complication status: with hemorrhage Qualified Code(s): K25.0 - Acute gastric ulcer with hemorrhage (7) Sepsis Current Visit: Yes Status: Acute Source possibly PNA vs SBP vs unlikley UTI. Patient during hospitalization has been febrile and tachy. no leukocytosis. And is currently intubated. lactic acid on admission 1.3. Blood Cx negative x2. U/A negative. Pleural effusion on imaging, and high chance of aspiration during hematemesis episode. - afebrile for last 72 hours - ID following Qualifiers: Sepsis type: sepsis due to unspecified organism Qualified Code(s): A41.9 - Sepsis, unspecified organism (8) Hypocalcemia Current Visit: Yes Status: Acute Suspect secondary to GI losses - Currently on electrolyte replacement protocol (9) Symptomatic anemia Current Visit: Yes Status: Acute hgb >8 for last 2 days. has received 7 units of pRBC since admission. - continue to closely monitor CBC (10) Fever Current Visit: Yes Status: Acute afebrile since evening of 08/21/2017 Qualifiers: Fever type: unspecified Qualified Code(s): R50.9 - Fever, unspecified (11) DVT prophylaxis Current Visit: Yes Status: Acute mech Subjective Principal diagnosis: GI Bleed Interval history: Mr Anthony is a 57 yo Male on day 6 of admission 2/2 GI bleed found to be in hemorrhagic shock w/ hx of EtOH abuse, HIV, and liver cirrhosis. No events overnight. Patient was appropriately responding to verbal commands, and responded that he is currently in no pain. Objective PUL Vital signs: Last Vital Signs Temp 97.5 F L 08/24/17 03:00 Pulse 56 08/24/17 06:00 Resp 19 08/24/17 06:18 BP 96/62 08/24/17 06:18 Pulse Ox 100 08/24/17 06:18 General appearance: no acute distress, alert Eyes: other (left eye deviated laterally) Effort: other (mechanically ventilated) Auscultation: bilateral: diminished breath sounds Cardiovascular: regular rate and rhythm Gastrointestinal: hypoactive bowel sounds Integumentary: normal Extremities: no cyanosis, edema (upper and lower extremity edema 2/4) Musculoskeletal: no deformities other (patient was able to wiggle toes and squeeze hands bilaterally to verbal command) Ventilator Settings Ventilator Settings: Ventilator Settings, Last 8 Hours Ventilator Mode CPAP Ventilator Mode VC+ Ventilator Mode VC+ Ventilator Mode VC+ Ventilator Mode VC+ Ventilator Mode VC+ Ventilator Mode VC+ Ventilator Mode VC+ Ventilator Mode VC+ Ventilator Mode VC+ Ventilator Tidal Volume 460 Setting Ventilator Tidal Volume 460 Setting Ventilator Tidal Volume 460 Setting Ventilator Tidal Volume 460 Setting Ventilator Tidal Volume 460 Setting Ventilator Tidal Volume 460 Setting Ventilator Tidal Volume 460 Setting Ventilator Tidal Volume 460 Setting Ventilator Tidal Volume 460 Setting Ventilator Respiratory Rate 16 Setting Ventilator Respiratory Rate 16 Setting Ventilator Respiratory Rate 16 Setting Ventilator Respiratory Rate 16 Setting Ventilator Respiratory Rate 16 Setting Ventilator Respiratory Rate 16 Setting Ventilator Respiratory Rate 16 Setting Ventilator Respiratory Rate 16 Setting Ventilator Respiratory Rate 16 Setting Actual Respiratory Rate 19 Actual Respiratory Rate 16 Actual Respiratory Rate 16 Actual Respiratory Rate 16 Actual Respiratory Rate 16 Actual Respiratory Rate 18 Actual Respiratory Rate 16 Actual Respiratory Rate 16 Actual Respiratory Rate 17 Actual Respiratory Rate 17 Positive End Expiratory 5 Pressure Positive End Expiratory 5 Pressure Positive End Expiratory 5 Pressure Positive End Expiratory 5 Pressure Positive End Expiratory 5 Pressure Positive End Expiratory 5 Pressure Positive End Expiratory 5 Pressure Positive End Expiratory 5 Pressure Positive End Expiratory 5 Pressure Positive End Expiratory 5 Pressure Peak Inspiratory Airway 10 Pressure Peak Inspiratory Airway 20 Pressure Peak Inspiratory Airway 21 Pressure Peak Inspiratory Airway 21 Pressure Peak Inspiratory Airway 21 Pressure Peak Inspiratory Airway 22 Pressure Peak Inspiratory Airway 22 Pressure Peak Inspiratory Airway 20 Pressure Peak Inspiratory Airway 21 Pressure Peak Inspiratory Airway 21 Pressure Results - Laboratory Findings CBC and BMP: 08/24/17 04:00 08/24/17 04:00 ABG ABG pH 7.31 pH Units (7.32-7.45) L 08/20/17 16:00 ABG pCO2 40 mmHg (35-45) 08/20/17 16:00 ABG pO2 167 mmHg (85-104) H 08/20/17 16:00 ABG O2 Saturation 99 % (95-98) H 08/20/17 16:00 PT/INR, D-dimer PT 17.4 Seconds (9.4-12.1) H 08/22/17 16:00 Abnormal lab findings: Abnormal lab results WBC 3.5 K/mcL (4.3-11.1) L 08/24/17 04:00 RBC 2.85 M/mcL (4.19-5.50) L 08/24/17 04:00 Hgb 8.1 g/dL (12.9-16.9) L 08/24/17 04:00 Hct 24.8 % (37.5-50.1) L 08/24/17 04:00 RDW 18.2 % (11.5-14.5) H 08/24/17 04:00 Plt Count 49 K/mcL (140-400) L 08/24/17 04:00 Lymphocytes # 0.4 K/mcL (0.6-4.6) L 08/23/17 03:30 Nucleated RBCs/100 WBC 0.5 /100 WBC (0) H 08/22/17 12:15 Platelet Estimate Decreased (Normal) L 08/21/17 17:16 Immature Plt Fraction 11.2 % (1.1-6.1) H 08/24/17 04:00 Polychromasia 1+ (Not Present) A 08/19/17 18:13 Hypochromasia Present (Not Present) A 08/20/17 01:43 PT 17.4 Seconds (9.4-12.1) H 08/22/17 16:00 ABG pH 7.31 pH Units (7.32-7.45) L 08/20/17 16:00 ABG pO2 167 mmHg (85-104) H 08/20/17 16:00 ABG HCO3 20 mEq/L (21-27) L 08/20/17 16:00 ABG O2 Saturation 99 % (95-98) H 08/20/17 16:00 ABG Base Excess -6 mEq/L (-2 to 3) L 08/20/17 16:00 Creatinine 0.66 mg/dL (0.72-1.25) L 08/24/17 04:00 Glucose 120 mg/dL (70-99) H 08/24/17 04:00 POC Glucose 159 (58-89) H 08/23/17 23:33 Calcium 7.3 mg/dL (8.6-10.8) L 08/24/17 04:00 Ionized Calcium 1.07 mmol/L (1.15-1.35) L 08/24/17 04:00 AST 52 Units/L (5-34) H 08/23/17 03:30 Ammonia 80 mcmol/L (18-72) H 08/22/17 15:45 Serum Total Protein 4.7 g/dL (6.0-8.3) L 08/23/17 03:30 Albumin 2.0 g/dL (3.5-5.0) L 08/23/17 03:30 Albumin/Globulin Ratio 0.7 (1.1-2.2) L 08/23/17 03:30 Lipase 96 Units/L (8-78) H 08/19/17 18:13 Ur Specific [place] 1.026 (1.010-1.025) H 08/21/17 11:17 Urine Blood Trace (Negative) H 08/21/17 11:17 Urine Microscopic RBC 5-15 per hpf (0-3) H 08/21/17 11:17 Ur Squamous Epith Cells Moderate per lpf (None-Few) H 08/21/17 11:17 Stool Occult Blood Positive (Negative) A 08/19/17 19:30 Vancomycin Trough 7.3 mcg/mL (10-20) L 08/23/17 18:30 - Microbiology Findings Microbiology Findings: Microbiology, Last 48 Hours 08/21/17 00:48 Blood Culture - Preliminary Peripheral Venipuncture No growth. 08/21/17 00:49 Blood Culture - Preliminary Peripheral Venipuncture No growth. - Clinical Findings Intake & Output: Intake & Output 08/23/17 08/23/17 08/24/17 15:59 23:59 07:59 Intake Total 734 / 734 559 / 559 100 / 100 Output Total 1500 / 1500 500 / 500 400 / 400 Balance -766 / -766 59 / 59 -300 / -300 Weight 68.9 kg - VTE Documentation of Mechanical Device: Intermittent pneumatic compression device Consult Discharge Plan - Plan Referrals: Willie Underwood MD [Primary Care Provider] - <Gilbert Mendieta - Last Filed: 08/24/17 11:13> Date of Encounter: 08/24/17 Objective PUL Vital signs: Last Vital Signs Temp 97.1 F L 08/24/17 07:53 Pulse 62 08/24/17 10:00 Resp 20 08/24/17 10:00 BP 96/65 08/24/17 10:00 Pulse Ox 100 08/24/17 10:00 Ventilator Settings Ventilator Settings: Ventilator Settings, Last 8 Hours Ventilator Mode CPAP Ventilator Mode CPAP Ventilator Mode CPAP Ventilator Mode VC+ Ventilator Mode VC+ Ventilator Mode VC+ Ventilator Mode VC+ Ventilator Mode VC+ Ventilator Tidal Volume 460 Setting Ventilator Tidal Volume 460 Setting Ventilator Tidal Volume 460 Setting Ventilator Tidal Volume 460 Setting Ventilator Tidal Volume 460 Setting Ventilator Respiratory Rate 16 Setting Ventilator Respiratory Rate 16 Setting Ventilator Respiratory Rate 16 Setting Ventilator Respiratory Rate 16 Setting Ventilator Respiratory Rate 16 Setting Actual Respiratory Rate 21 Actual Respiratory Rate 19 Actual Respiratory Rate 16 Actual Respiratory Rate 16 Actual Respiratory Rate 16 Actual Respiratory Rate 16 Actual Respiratory Rate 18 Positive End Expiratory 5 Pressure Positive End Expiratory 5 Pressure Positive End Expiratory 5 Pressure Positive End Expiratory 5 Pressure Positive End Expiratory 5 Pressure Positive End Expiratory 5 Pressure Positive End Expiratory 5 Pressure Peak Inspiratory Airway 10 Pressure Peak Inspiratory Airway 10 Pressure Peak Inspiratory Airway 20 Pressure Peak Inspiratory Airway 21 Pressure Peak Inspiratory Airway 21 Pressure Peak Inspiratory Airway 21 Pressure Peak Inspiratory Airway 22 Pressure Results - Laboratory Findings CBC and BMP: 08/24/17 04:00 08/24/17 04:00 ABG ABG pH 7.40 pH Units (7.32-7.45) 08/24/17 07:40 ABG pCO2 47 mmHg (35-45) H 08/24/17 07:40 ABG pO2 108 mmHg (85-104) H 08/24/17 07:40 ABG O2 Saturation 98 % (95-98) 08/24/17 07:40 PT/INR, D-dimer PT 17.4 Seconds (9.4-12.1) H 08/22/17 16:00 Abnormal lab findings: Abnormal lab results WBC 3.5 K/mcL (4.3-11.1) L 08/24/17 04:00 RBC 2.85 M/mcL (4.19-5.50) L 08/24/17 04:00 Hgb 8.1 g/dL (12.9-16.9) L 08/24/17 04:00 Hct 24.8 % (37.5-50.1) L 08/24/17 04:00 RDW 18.2 % (11.5-14.5) H 08/24/17 04:00 Plt Count 49 K/mcL (140-400) L 08/24/17 04:00 Lymphocytes # 0.4 K/mcL (0.6-4.6) L 08/23/17 03:30 Nucleated RBCs/100 WBC 0.5 /100 WBC (0) H 08/22/17 12:15 Platelet Estimate Decreased (Normal) L 08/21/17 17:16 Immature Plt Fraction 11.2 % (1.1-6.1) H 08/24/17 04:00 Polychromasia 1+ (Not Present) A 08/19/17 18:13 Hypochromasia Present (Not Present) A 08/20/17 01:43 PT 17.4 Seconds (9.4-12.1) H 08/22/17 16:00 ABG pCO2 47 mmHg (35-45) H 08/24/17 07:40 ABG pO2 108 mmHg (85-104) H 08/24/17 07:40 ABG HCO3 29 mEq/L (21-27) H 08/24/17 07:40 ABG Total CO2 30 mEq/L (20-26) H 08/24/17 07:40 ABG Base Excess 4 mEq/L (-2 to 3) H 08/24/17 07:40 Creatinine 0.66 mg/dL (0.72-1.25) L 08/24/17 04:00 Glucose 120 mg/dL (70-99) H 08/24/17 04:00 POC Glucose 159 (58-89) H 08/23/17 23:33 Calcium 7.3 mg/dL (8.6-10.8) L 08/24/17 04:00 Ionized Calcium 1.07 mmol/L (1.15-1.35) L 08/24/17 04:00 AST 52 Units/L (5-34) H 08/23/17 03:30 Ammonia 80 mcmol/L (18-72) H 08/22/17 15:45 Serum Total Protein 4.7 g/dL (6.0-8.3) L 08/23/17 03:30 Albumin 2.0 g/dL (3.5-5.0) L 08/23/17 03:30 Albumin/Globulin Ratio 0.7 (1.1-2.2) L 08/23/17 03:30 Lipase 96 Units/L (8-78) H 08/19/17 18:13 Ur Specific [place] 1.026 (1.010-1.025) H 08/21/17 11:17 Urine Blood Trace (Negative) H 08/21/17 11:17 Urine Microscopic RBC 5-15 per hpf (0-3) H 08/21/17 11:17 Ur Squamous Epith Cells Moderate per lpf (None-Few) H 08/21/17 11:17 Stool Occult Blood Positive (Negative) A 08/19/17 19:30 Vancomycin Trough 7.3 mcg/mL (10-20) L 08/23/17 18:30 - Microbiology Findings Microbiology Findings: Microbiology, Last 48 Hours 08/21/17 00:48 Blood Culture - Preliminary Peripheral Venipuncture No growth. 08/21/17 00:49 Blood Culture - Preliminary Peripheral Venipuncture No growth. - Clinical Findings Intake & Output: Intake & Output 08/23/17 08/24/17 08/24/17 23:59 07:59 15:59 Intake Total 809 / 809 300 / 300 Output Total 500 / 500 575 / 575 Balance 309 / 309 -275 / -275 Weight 68.9 kg - Attending Attestation I saw the patient with the resident agree with History and Physical exam findings. Labs and Radiology were reviewed Patient is on PRVC mode will put him on spontaneous breathing trial and extubate. 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 NECK : No JVD appreciated Pulmonary : Patient was put on SBT patient RSBI was around 71 , patient is following commands , ABG reviewed after SBT good gas exchange gave orders to extubate. Cardiac : Acute blood loss anemia leading to hemorrhagic shock now stable not on any vasopressors. Nutrition/GI: Bleeding ulcer at the cardia of the stomach , the base of the ulcer was clipped. To continue PPI IV BID . CT abdomen and pelvis showed some ascitic fluid around the liver some fluid collection in the pelvis. There is no safe pocket to tap ascites for analysis . Patient is NPO possible ileus will try Metaclopramide if his nausea and vomitting not settled will need nasogastric tube. Renal : Renal labs were reviewed and the urine output. Diuresing Heme onc : Blood HB is stable over 24 hrs ID :Blood cultures are negative , will descalate antibiotics will stop vancomycin today , to continue Zosyn and Ciprofloxacin.ID consulted no need to start anti-retroviral therapy Musculo skeletal : No acute issues Disposition : Critical Code status: Full Code Family/POA: Estranged family not met any family member. I spent 35 minutes of Critical Care
[2017-08-24] MEDS: Nicotine 21 MG PATCH.TD24 TD SCH (08:08)
[2017-08-24] MEDS: Lactulose Oral Soln 20 GM/30 ML UDC PO SCH ×4 (08:08→19:54)
[2017-08-24] MEDS: Chlorhexidine Rinse 15 ML MOUTHWASH MM SCH ×2 (08:08→19:54)
[2017-08-24] MEDS: Piperacillin/Tazobactam 3.375 GM in D5% in Water (Mini-Bag+) 100 ML IVPB SCH ×3 (08:08→23:34)
[2017-08-24] MEDS: Vancomycin 1,250 MG in D5% in Water 250 ML IVPB SCH (08:15)
[2017-08-24] MEDS ORDERED: Metoclopramide 10 MG/2 ML VIAL IVP ONE (09:51)
[2017-08-24] MEDS: Furosemide 40 MG/4 ML VIAL IVP SCH (10:01)
[2017-08-24] MEDS ORDERED: Metoclopramide 10 MG/2 ML VIAL IVP PRN (11:20)
[2017-08-24] MEDS: Ondansetron 4 MG/2 ML VIAL IVP PRN (11:44)
[2017-08-24 13:01] LABS: Ionized Calcium 1.08 mmol/L (1.15-1.35)
[2017-08-24 13:04] LABS: Potassium 3.5 mEq/L (3.5-4.5)
[2017-08-24 13:08] LABS: Magnesium 1.5 mg/dL (1.6-2.6); Phosphorous 2.3 mg/dL (2.3-4.7)
[2017-08-24] MEDS: Potassium Phosphate 44 MEQ in 0.9 % Sodium Chloride 250 ML IVPB PRN (14:08)
[2017-08-24 22:58] LABS: Ionized Calcium 1.09 mmol/L (1.15-1.35)
[2017-08-24 23:04] LABS: Magnesium 1.5 mg/dL (1.6-2.6); Phosphorous 2.8 mg/dL (2.3-4.7); Potassium 3.8 mEq/L (3.5-4.5)
[2017-08-25] MEDS: Potassium Chloride 40 MEQ/200 ML BAG IVPB PRN (00:23)
[2017-08-25] MEDS: Dexmedetomidine HCl 400 MCG/100 ML MLS IVC SCH ×2 (00:27→05:33)
[2017-08-25] MEDS: Calcium Gluconate 1,000 MG in D5% in Water 100 ML IVPB PRN ×2 (00:49→21:17)
[2017-08-25] MEDS: Potassium Phosphate 44 MEQ in 0.9 % Sodium Chloride 250 ML IVPB PRN ×2 (00:49→21:16)
[2017-08-25] MEDS: Magnesium Sulfate 2 GM in D5% in Water 100 ML IVPB PRN ×3 (00:49→21:16)
[2017-08-25 03:56] LABS: Hemoglobin 8.9 g/dL (12.9-16.9)
[2017-08-25 03:58] LABS: Hematocrit 27.1 % (37.5-50.1); Immature Platelets 13.8 % (1.1-6.1); Mean Corpuscular HGB Conc 32.8 g/dL (31.6-35.5); Mean Corpuscular Hemoglobin 28.1 pg (28.0-33.3); Mean Corpuscular Volume 85.5 fL (83.0-100.0); Red Blood Count 3.17 M/mcL (4.19-5.50); Red Cell Distribution Width 17.5 % (11.5-14.5)
[2017-08-25] MEDS: Lacri-Lube 3.5 GM TUBE BOTH EYES SCH (04:05)
[2017-08-25 04:14] LABS: BUN/Creatinine Ratio 14 (6-26); Blood Urea Nitrogen 11 mg/dL (8-26); Carbon Dioxide 26 mEq/L (19-29); Chloride 105 mEq/L (98-109); Glucose 115 mg/dL (70-99); Potassium 4.5 mEq/L (3.5-4.5); Sodium 135 mEq/L (136-145); eGFR For African Americans > 60 (> 60); eGFR For Non-African Americans > 60 (> 60)
[2017-08-25 04:15] LABS: Calcium 7.6 mg/dL (8.6-10.8); Osmolality,Calculated 280 (280-300)
[2017-08-25 04:32] LABS: Platelet Count 59 K/mcL (140-400)
[2017-08-25] MEDS: Pantoprazole 40 MG VIAL IVP SCH ×2 (05:33→17:34)
[2017-08-25] MEDS ORDERED: *HR* LORazepam 2 MG/ML VIAL IVP PRN ×2 (06:03)
[2017-08-25] MEDS: *HR* LORazepam 2 MG/ML VIAL IVP PRN ×4 (06:17→22:52)
[2017-08-25] MEDS: Furosemide 40 MG/4 ML VIAL IVP SCH (07:50)
[2017-08-25] MEDS: Piperacillin/Tazobactam 3.375 GM in D5% in Water (Mini-Bag+) 100 ML IVPB SCH ×3 (07:50→23:11)
[2017-08-25] MEDS: Nicotine 21 MG PATCH.TD24 TD SCH (07:51)
[2017-08-25] MEDS: Lactulose Oral Soln 20 GM/30 ML UDC PO SCH ×4 (07:51→20:30)
[2017-08-25 07:55] LABS: HIV-1 Viral Load Interp DETECTED (Not Detected)
[2017-08-25 08:30] LABS: Ionized Calcium 1.1 mmol/L (1.15-1.35)
[2017-08-25 08:33] LABS: Magnesium 1.6 mg/dL (1.6-2.6); Potassium 4.2 mEq/L (3.5-4.5)
--- NOTE | 2017-08-25 09:02 | Pulmonology Progress Note ---
<Joel Cleveland - Last Filed: 08/25/17 09:20> Date of Encounter: 08/25/17 Time of Encounter: 08:57 Assessment and Plan (1) Hemorrhagic shock Current Visit: Yes Status: Acute Secondary to bleeding gastric ulcer which has been treated endoscopically. No evidence of active bleeding. Hgb stable, 8.9 today. Patient received a total of 7u pRBCs. (2) Gastric ulcer Current Visit: Yes Status: Acute S/P endoscopic clipping on 08/21/17. No evidence of active bleeding. Continue BID PPI. GI following Qualifiers: Gastric ulcer chronicity: acute Gastric ulcer complication status: with hemorrhage Qualified Code(s): K25.0 - Acute gastric ulcer with hemorrhage (3) Pleural effusion Current Visit: Yes Status: Acute Likely related to aggressive fluid hydration in the setting of hemorrhagic shock. Repeat CXR today shows effusion has resolved. (4) Pneumonia Current Visit: Yes Status: Acute CXR shows new RLL infiltrate, concern for aspiration PNA. WBC count stable, no evidence of sepsis. Continue current regimen with cipro and zosyn. Qualifiers: Pneumonia type: aspiration pneumonia Aspiration pneumonia type: due to vomit Laterality: bilateral Lung location: lower lobe of lung Qualified Code(s): J69.0 - Pneumonitis due to inhalation of food and vomit (5) HIV disease Current Visit: Yes Status: Chronic CD4 count 77. Will start Bactrim for PCP prophylaxis. Continue to hold antiretroviral therapy in the setting of acute illness. (6) Liver cirrhosis, alcoholic Current Visit: Yes Status: Chronic Qualifiers: Ascites presence: without ascites Qualified Code(s): K70.30 - Alcoholic cirrhosis of liver without ascites (7) Thrombocytopenia Current Visit: Yes Status: Chronic Secondary to HIV and chronic liver disease. No evidence of active bleeding, no indication for transfusion at this time. Continue to monitor. Subjective Principal diagnosis: GI Bleed Interval history: Patient seen and examined at bedside. Patient extremely lethargic due to sedating medication. Does not appear to be in an acute distress. Had an episode of vomiting this morning that was bilious in nature. No hematemasis noted. Objective PUL Vital signs: Last Vital Signs Temp 96.6 F L 08/25/17 08:40 Pulse 65 08/25/17 08:00 Resp 17 08/25/17 08:00 BP 95/58 08/25/17 08:00 Pulse Ox 100 08/25/17 08:00 General appearance: no acute distress, other (dishevled) Eyes: nonicteric Effort: normal Auscultation: bilateral: clear Cardiovascular: regular rate and rhythm Gastrointestinal: hypoactive bowel sounds, soft, non-tender, non-distended Extremities: no cyanosis, no clubbing, edema (trace LE bilaterally) unable to assess due to mental status (patient sedated and minimally responsive) Results - Laboratory Findings CBC and BMP: 08/25/17 03:35 08/25/17 08:15 ABG ABG pH 7.40 pH Units (7.32-7.45) 08/24/17 07:40 ABG pCO2 47 mmHg (35-45) H 08/24/17 07:40 ABG pO2 108 mmHg (85-104) H 08/24/17 07:40 ABG O2 Saturation 98 % (95-98) 08/24/17 07:40 PT/INR, D-dimer PT 17.4 Seconds (9.4-12.1) H 08/22/17 16:00 Abnormal lab findings: Abnormal lab results RBC 3.17 M/mcL (4.19-5.50) L 08/25/17 03:35 Hgb 8.9 g/dL (12.9-16.9) L 08/25/17 03:35 Hct 27.1 % (37.5-50.1) L 08/25/17 03:35 RDW 17.5 % (11.5-14.5) H 08/25/17 03:35 Plt Count 59 K/mcL (140-400) L 08/25/17 03:35 Lymphocytes # 0.4 K/mcL (0.6-4.6) L 08/23/17 03:30 Nucleated RBCs/100 WBC 0.5 /100 WBC (0) H 08/22/17 12:15 Platelet Estimate Decreased (Normal) L 08/21/17 17:16 Immature Plt Fraction 13.8 % (1.1-6.1) H 08/25/17 03:35 Polychromasia 1+ (Not Present) A 08/19/17 18:13 Hypochromasia Present (Not Present) A 08/20/17 01:43 PT 17.4 Seconds (9.4-12.1) H 08/22/17 16:00 ABG pCO2 47 mmHg (35-45) H 08/24/17 07:40 ABG pO2 108 mmHg (85-104) H 08/24/17 07:40 ABG HCO3 29 mEq/L (21-27) H 08/24/17 07:40 ABG Total CO2 30 mEq/L (20-26) H 08/24/17 07:40 ABG Base Excess 4 mEq/L (-2 to 3) H 08/24/17 07:40 Sodium 135 mEq/L (136-145) L 08/25/17 03:35 Glucose 115 mg/dL (70-99) H 08/25/17 03:35 POC Glucose 101 (58-89) H 08/25/17 05:35 Calcium 7.6 mg/dL (8.6-10.8) L 08/25/17 03:35 Ionized Calcium 1.10 mmol/L (1.15-1.35) L 08/25/17 08:15 AST 52 Units/L (5-34) H 08/23/17 03:30 Ammonia 80 mcmol/L (18-72) H 08/22/17 15:45 Serum Total Protein 4.7 g/dL (6.0-8.3) L 08/23/17 03:30 Albumin 2.0 g/dL (3.5-5.0) L 08/23/17 03:30 Albumin/Globulin Ratio 0.7 (1.1-2.2) L 08/23/17 03:30 Lipase 96 Units/L (8-78) H 08/19/17 18:13 Ur Specific [place] 1.026 (1.010-1.025) H 08/21/17 11:17 Urine Blood Trace (Negative) H 08/21/17 11:17 Urine Microscopic RBC 5-15 per hpf (0-3) H 08/21/17 11:17 Ur Squamous Epith Cells Moderate per lpf (None-Few) H 08/21/17 11:17 Stool Occult Blood Positive (Negative) A 08/19/17 19:30 Vancomycin Trough 7.3 mcg/mL (10-20) L 08/23/17 18:30 % CD3 Cells 49 % (62-87) L 08/22/17 13:17 Absolute CD3 Count 184 cells/uL (570-2400) L 08/22/17 13:17 % CD4 Cells 20 % (32-64) L 08/22/17 13:17 Absolute CD4 Count 77 cells/uL (430-1800) L 08/22/17 13:17 T-Lymph CD4/CD8 Ratio 0.71 ratio (0.80-3.90) L 08/22/17 13:17 Absolute CD8 Count 106 cells/uL (210-1200) L 08/22/17 13:17 HIV RNA Quant Info DETECTED (Not Detected) A 08/20/17 14:45 - Microbiology Findings Microbiology Findings: Microbiology, Last 48 Hours 08/21/17 00:48 Blood Culture - Preliminary Peripheral Venipuncture No growth. 08/21/17 00:49 Blood Culture - Preliminary Peripheral Venipuncture No growth. - Clinical Findings Intake & Output: Intake & Output 08/24/17 08/25/17 08/25/17 23:59 07:59 15:59 Intake Total 570 / 570 714 / 714 260 / 260 Output Total 425 / 425 250 / 250 300 / 300 Balance 145 / 145 464 / 464 -40 / -40 Weight 67.6 kg - VTE Documentation of Mechanical Device: Intermittent pneumatic compression device Consult Discharge Plan - Plan Referrals: Willie Underwood MD [Primary Care Provider] - <Salomón Mccullough - Last Filed: 08/25/17 11:27> Date of Encounter: 08/25/17 Objective PUL Vital signs: Last Vital Signs Temp 96.6 F L 08/25/17 08:40 Pulse 62 08/25/17 11:00 Resp 20 08/25/17 11:00 BP 84/38 08/25/17 11:00 Pulse Ox 100 08/25/17 11:00 Results - Laboratory Findings CBC and BMP: 08/25/17 03:35 08/25/17 08:15 ABG ABG pH 7.40 pH Units (7.32-7.45) 08/24/17 07:40 ABG pCO2 47 mmHg (35-45) H 08/24/17 07:40 ABG pO2 108 mmHg (85-104) H 08/24/17 07:40 ABG O2 Saturation 98 % (95-98) 08/24/17 07:40 PT/INR, D-dimer PT 17.4 Seconds (9.4-12.1) H 08/22/17 16:00 Abnormal lab findings: Abnormal lab results RBC 3.17 M/mcL (4.19-5.50) L 08/25/17 03:35 Hgb 8.9 g/dL (12.9-16.9) L 08/25/17 03:35 Hct 27.1 % (37.5-50.1) L 08/25/17 03:35 RDW 17.5 % (11.5-14.5) H 08/25/17 03:35 Plt Count 59 K/mcL (140-400) L 08/25/17 03:35 Lymphocytes # 0.4 K/mcL (0.6-4.6) L 08/23/17 03:30 Nucleated RBCs/100 WBC 0.5 /100 WBC (0) H 08/22/17 12:15 Platelet Estimate Decreased (Normal) L 08/21/17 17:16 Immature Plt Fraction 13.8 % (1.1-6.1) H 08/25/17 03:35 Polychromasia 1+ (Not Present) A 08/19/17 18:13 Hypochromasia Present (Not Present) A 08/20/17 01:43 PT 17.4 Seconds (9.4-12.1) H 08/22/17 16:00 ABG pCO2 47 mmHg (35-45) H 08/24/17 07:40 ABG pO2 108 mmHg (85-104) H 08/24/17 07:40 ABG HCO3 29 mEq/L (21-27) H 08/24/17 07:40 ABG Total CO2 30 mEq/L (20-26) H 08/24/17 07:40 ABG Base Excess 4 mEq/L (-2 to 3) H 08/24/17 07:40 Sodium 135 mEq/L (136-145) L 08/25/17 03:35 Glucose 115 mg/dL (70-99) H 08/25/17 03:35 POC Glucose 101 (58-89) H 08/25/17 05:35 Calcium 7.6 mg/dL (8.6-10.8) L 08/25/17 03:35 Ionized Calcium 1.10 mmol/L (1.15-1.35) L 08/25/17 08:15 AST 52 Units/L (5-34) H 08/23/17 03:30 Ammonia 80 mcmol/L (18-72) H 08/22/17 15:45 Serum Total Protein 4.7 g/dL (6.0-8.3) L 08/23/17 03:30 Albumin 2.0 g/dL (3.5-5.0) L 08/23/17 03:30 Albumin/Globulin Ratio 0.7 (1.1-2.2) L 08/23/17 03:30 Lipase 96 Units/L (8-78) H 08/19/17 18:13 Ur Specific [place] 1.026 (1.010-1.025) H 08/21/17 11:17 Urine Blood Trace (Negative) H 08/21/17 11:17 Urine Microscopic RBC 5-15 per hpf (0-3) H 08/21/17 11:17 Ur Squamous Epith Cells Moderate per lpf (None-Few) H 08/21/17 11:17 Stool Occult Blood Positive (Negative) A 08/19/17 19:30 Vancomycin Trough 7.3 mcg/mL (-20) L 08/23/17 18:30 % CD3 Cells 49 % (62-87) L 08/22/17 13:17 Absolute CD3 Count 184 cells/uL (570-2400) L 08/22/17 13:17 % CD4 Cells 20 % (32-64) L 08/22/17 13:17 Absolute CD4 Count 77 cells/uL (430-1800) L 08/22/17 13:17 T-Lymph CD4/CD8 Ratio 0.71 ratio (0.80-3.90) L 08/22/17 13:17 Absolute CD8 Count 106 cells/uL (210-1200) L 08/22/17 13:17 HIV RNA Quant Info DETECTED (Not Detected) A 08/20/17 14:45 - Microbiology Findings Microbiology Findings: Microbiology, Last 48 Hours 08/21/17 00:48 Blood Culture - Preliminary Peripheral Venipuncture No growth. 08/21/17 00:49 Blood Culture - Preliminary Peripheral Venipuncture No growth. - Clinical Findings Intake & Output: Intake & Output 08/24/17 08/25/17 08/25/17 23:59 07:59 15:59 Intake Total 570 / 570 714 / 714 312 / 312 Output Total 425 / 425 250 / 250 300 / 300 Balance 145 / 145 464 / 464 Weight 67.6 kg - Attending Attestation I examined this patient and my medical decision-making was reviewed with the Resident Physician. I agree with the documented findings, disposition and treatment plan as described except to the extent set forth below. Patient seen and examined. Labs, radiology, chart personally reviewed. Agree with resident's history and physical, assessment, plan with following comments: FI[employer]: Patient sedated and respond to stimuli. The goal to wean off Precedex and have him on CIWA protocol and remained stable then he can be transferred to the floor. Pulmonary: Acceptable oxygenation and ventilation. Review chest x-ray as a follow-up from previous one which showed evidence of possible aspiration pneumonia and he is on broad-spectrum antibiotics. Aspiration precautions. Cardiovascular: stable GI: Nutrition per dietary and GI prophylaxis per routine. Heme: DVT prophylaxis per routine ID: Continue antibiotics and plan to de-escalation Renal; urine out put and renal funtion reviewed Endorcine: blood glucose is monitored Lines: all lines checked and no evidence of infections Skin: skin care to prevent pressure ulcers per nursing routine care
[2017-08-25] MEDS ORDERED: Sulfamethoxazole/Trimeth Oral Soln 400-80mg/10 ML UDC PO SCH (09:30)
[2017-08-25] MEDS ORDERED: 0.9 % Sodium Chloride 500 ML ONE ×3 (10:19→12:39)
--- NOTE | 2017-08-25 14:23 | Infectious Disease Progress No ---
Date of Encounter: 08/25/17 Time of Encounter: 14:20 - Assessment and Plan (1) Sepsis Current Visit: Yes Status: Acute The patient had fever and tachycardia. Source likely PNA. Improved. The patient has been afebrile >24 hours. Blood cultures drawn 08/21/17 are NGTD x 2 sets. Urinalysis negative. No evidence of skin/soft tissue wounds or infections. The patient had no complaints of URI symptoms at admission. Qualifiers: Sepsis type: sepsis due to unspecified organism Qualified Code(s): A41.9 - Sepsis, unspecified organism (2) Pneumonia Current Visit: Yes Status: Acute Likely secondary to aspiration. CT scan of the chest showed bilateral lower airspace consolidation concerning for PNA vs. atelectasis vs. aspiration per radiology. The patient likely suffered an aspiration event prior to intubation given the large amount of hematemesis per documentation. Repeat CXR this morning shows evidence of RLL pneumonia, likely secondary to aspiration event yesterday. Continue Zosyn 3.375 grams IV Q8H. Continue Bactrim 15mg/kg/day for HCAP and PCP prophylaxis, but consider switching to IV since I'm not sure the patient's mental status is conducive to him taking medications by mouth at this point. Duration of treatment depends on the clinical picture. Monitor renal function and dose-adjust antibiotics. Qualifiers: Pneumonia type: aspiration pneumonia Aspiration pneumonia type: due to vomit Laterality: bilateral Lung location: lower lobe of lung Qualified Code(s): J69.0 - Pneumonitis due to inhalation of food and vomit (3) Upper gastrointestinal hemorrhage Current Visit: Yes Status: Acute Secondary to gastric ulcer. Status post EGD 08/20/[address] Delaney. Endo report reviewed. Large gastric ulcer with visible vessel status post clipping. No evidence of recurrent bleeding. GI continues to follow. (4) Hemorrhagic shock Current Visit: Yes Status: Acute Secondary to UGI bleed. Patient had hypotension and tachycardia. Resolved. (5) Anemia Current Visit: Yes Status: Acute Secondary to GI bleed. Stable. Further management per the GI and primary teams. Qualifiers: Anemia type: other cause Other causes of anemia: acute posthemorrhagic Qualified Code(s): D62 - Acute posthemorrhagic anemia (6) Gastric ulcer Current Visit: Yes Status: Acute Qualifiers: Gastric ulcer chronicity: acute Gastric ulcer complication status: with hemorrhage Qualified Code(s): K25.0 - Acute gastric ulcer with hemorrhage (7) Ascites Current Visit: Yes Status: Acute Liver UTS and CT of the abdomen and pelvis show interval development of moderate intra-abdominal pelvic ascites. Likely secondary to aggressive fluid volume resuscitation in the setting of liver cirrhosis. SBP less likely cause of the patient's sepsis. Discontinue Cipro and observe. Qualifiers: Ascites type: due to alcoholic cirrhosis Qualified Code(s): K70.31 - Alcoholic cirrhosis of liver with ascites (8) Pleural effusion Current Visit: Yes Status: Acute CT of the chest showed bilateral pleural effusions. Improved. Repeat CXR shows improvement. Likely secondary to aggressive fluid volume resuscitation. Management per the pulmonology team. (9) Syncope Current Visit: Yes Status: Acute Likely secondary to orthostatic hypotension from GI bleed. No further syncopal events since admission. Qualifiers: Syncope type: unspecified Qualified Code(s): R55 - Syncope and collapse (10) Thrombocytopenia Current Visit: Yes Status: Chronic Likely secondary to AIDS, but worsened in the setting of acute infection/ illness. Continue to trend. Transfuse as appropriate per the primary team. (11) AIDS (acquired immune deficiency syndrome) Current Visit: No Status: Suspected Diagnosed with HIV 30 years ago. Has a history of non-compliance. Last CD4 count in June was 258, VL undetectable. Follows with Dr. Underwood and was actually seen by him on the day of admission and had medications refilled. No indications to start ART at this time. Will wait for the patient to stabilize and consider re-starting at that time. CD4 count 77. Start Bactrim for PCP prophylaxis 15mg/kg daily. Consider IV form given the patient's mental status. Viral load is pending. (12) Liver cirrhosis, alcoholic Current Visit: Yes Status: Chronic Qualifiers: Ascites presence: without ascites Qualified Code(s): K70.30 - Alcoholic cirrhosis of liver without ascites - Subjective Interval history: Patient seen and examined. Weekend notes reviewed. Patient extubated 08/24/17, but remains sedated on Precedex, which is being weaned off. Nursing notes reveal that the patient likely aspirated tube feed yesterday prior to extubation as a large amount of tube feed was suctioned from the patient's ET tube. The patient opens eyes to verbal stimuli and follows some commands, but does not verbalize or attempt to communicate otherwise. Case discussed with Dr. Cleveland with the pulmonology team. CD4 count 77. VL still pending. Bactrim PCP prophylaxis started. No other new issues identified at this time. Infect Dis PN-Objective Data - Labs CBC & Chem 7: 08/25/17 03:35 08/25/17 08:15 Labs: Laboratory Results - last 24 hr 08/20/17 08/22/17 08/24/17 14:45 13:17 17:47 WBC RBC Hgb Hct MCV MCH MCHC RDW Plt Count MPV Immature Plt Fraction Sodium Potassium Chloride Carbon Dioxide BUN Creatinine Est GFR ( Amer) Est GFR (Non-Af Amer) BUN/Creatinine Ratio Glucose POC Glucose 150 H Calculated Osmolality Calcium Ionized Calcium Phosphorus Magnesium Lymph Subset Enumeration SEE NOTE % CD3 Cells 49 L Absolute CD3 Count 184 L % CD4 Cells 20 L Absolute CD4 Count 77 L T-Lymph CD4/CD8 Ratio 0.71 L % CD8 Cells 28 Absolute CD8 Count 106 L HIV-1 RNA copies/mL 35,000 HIV RNA Quant Info DETECTED A HIV-1 RNA Qnt Date Rpt 4.5 08/24/17 08/24/17 08/25/17 22:00 23:58 03:35 WBC 4.3 RBC 3.17 L Hgb 8.9 L Hct 27.1 L MCV 85.5 MCH 28.1 MCHC 32.8 RDW 17.5 H Plt Count 59 L MPV TNP Immature Plt Fraction 13.8 H Sodium Potassium 3.8 Chloride Carbon Dioxide BUN Creatinine Est GFR ( Amer) Est GFR (Non-Af Amer) BUN/Creatinine Ratio Glucose POC Glucose 109 H Calculated Osmolality Calcium Ionized Calcium 1.09 L Phosphorus 2.8 Magnesium 1.5 L Lymph Subset Enumeration % CD3 Cells Absolute CD3 Count % CD4 Cells Absolute CD4 Count T-Lymph CD4/CD8 Ratio % CD8 Cells Absolute CD8 Count HIV-1 RNA copies/mL HIV RNA Quant Info HIV-1 RNA Qnt Date Rpt 08/25/17 08/25/17 08/25/17 03:35 05:35 08:15 WBC RBC Hgb Hct MCV MCH MCHC RDW Plt Count MPV Immature Plt Fraction Sodium 135 L Potassium 4.5 4.2 Chloride 105 Carbon Dioxide 26 BUN 11 Creatinine 0.76 Est GFR ( Amer) > 60 Est GFR (Non-Af Amer) > 60 BUN/Creatinine Ratio 14 Glucose 115 H POC Glucose 101 H Calculated Osmolality 280 Calcium 7.6 L Ionized Calcium 1.10 L Phosphorus Magnesium 1.6 Lymph Subset Enumeration % CD3 Cells Absolute CD3 Count % CD4 Cells Absolute CD4 Count T-Lymph CD4/CD8 Ratio % CD8 Cells Absolute CD8 Count HIV-1 RNA copies/mL HIV RNA Quant Info HIV-1 RNA Qnt Date Rpt 08/25/17 12:16 WBC RBC Hgb Hct MCV MCH MCHC RDW Plt Count MPV Immature Plt Fraction Sodium Potassium Chloride Carbon Dioxide BUN Creatinine Est GFR ( Amer) Est GFR (Non-Af Amer) BUN/Creatinine Ratio Glucose POC Glucose 112 H Calculated Osmolality Calcium Ionized Calcium Phosphorus Magnesium Lymph Subset Enumeration % CD3 Cells Absolute CD3 Count % CD4 Cells Absolute CD4 Count T-Lymph CD4/CD8 Ratio % CD8 Cells Absolute CD8 Count HIV-1 RNA copies/mL HIV RNA Quant Info HIV-1 RNA Qnt Date Rpt Cultures: Cultures 08/21/17 00:48 Blood Culture - Preliminary Peripheral Venipuncture No growth. 08/21/17 00:49 Blood Culture - Preliminary Peripheral Venipuncture No growth. Serology 08/21/17 08/20/17 Range/Units 11:17 14:45 Urine Color Yellow (Yellow) Urine Clarity Clear (Clear) Urine pH 6.0 (5.0-8.0) pH Units Ur Specific [place] 1.026 H (1.010-1.025) Urine Protein Negative (Neg-Trace) mg/dL Urine Glucose (UA) Normal (Normal) mg/dL Urine Ketones Negative (Negative) mg/dL Urine Blood Trace H (Negative) Urine Nitrite Negative (Negative) Urine Bilirubin Negative (Negative) Urine Urobilinogen Normal (Normal) mg/dL Ur Leukocyte Esterase Negative (Negative) Urine Microscopic RBC 5-15 H (0-3) per hpf Urine Microscopic WBC 0-3 (0-3) per hpf Ur Squamous Epith Cells Moderate H (None-Few) per lpf Urine Bacteria None Seen (None-Few) per hpf Hyaline Casts None Seen (None-Few) per lpf Ur Culture Indicated? NO (NO) HIV-1 RNA copies/mL 35,000 cpy/mL HIV RNA Quant Info DETECTED A (Not Detected) HIV-1 RNA Qnt Date Rpt 4.5 log - Impressions Impressions KUB X-Ray 08/24/17 11:17 IMPRESSION: Right femoral catheter extends to the level of L1 vertebral body. Nonobstructive bowel gas pattern. D/ / Abhay Gurrola MD / Abhay Gurrola MD Interpreting Provider: Abhay Gurrola MD Chest X-Ray 08/25/17 08:46 IMPRESSION: Right lower lobe pneumonia with a small right pleural effusion. D/ / Pillo Andersen MD / Pillo Andersen MD Interpreting Provider: Pillo Andersen MD Exam - Constitutional Vitals: Temp Pulse Resp BP Pulse Ox 96.9 F L 66 26 89/56 100 08/25/17 13:02 08/25/17 14:00 08/25/17 14:00 08/25/17 14:00 08/25/17 14:00 General appearance: no acute distress, thin, no febrile - Head Head exam: Present: atraumatic, normal inspection, normocephalic - Eye Eye exam: Present: EOMI, normal appearance, PERRL Pupils: Present: normal accommodation - ENT ENT exam: Present: mucous membranes moist - Neck Neck exam: Present: normal inspection - Respiratory Respiratory exam: Present: rales (bilateral bases). Absent: respiratory distress, rhonchi, wheezes - Cardiovascular Cardiovascular exam: Present: RRR, +S1, +S2 - GI/Abdominal GI/Abdominal exam: Present: normal bowel sounds, soft. Absent: distended, tenderness - Extremities Exam Extremities exam: Present: normal inspection. Absent: joint swelling, pedal edema, tenderness - Neurological Exam Neurological exam: Present: altered (Sedated). Absent: facial droop - Skin Skin exam: Present: dry, intact, normal color, warm - Additional findings Additional findings: Right femoral triple lumen CVC without erythema, drainage, or tenderness. - VTE Documentation of Mechanical Device: Intermittent pneumatic compression device Consult Discharge Plan - Plan Referrals: Willie Underwood MD [Primary Care Provider] -
[2017-08-25] MEDS: Ondansetron 4 MG/2 ML VIAL IVP PRN (15:27)
[2017-08-25] MEDS: Albumin 25% 25gram/100mL 25 GM/100 ML IV.SOLN IVC SCH ×2 (15:27→17:35)
[2017-08-26] MEDS: *HR* LORazepam 2 MG/ML VIAL IVP PRN (03:14)
[2017-08-26] MEDS: Pantoprazole 40 MG VIAL IVP SCH ×2 (05:05→18:19)
[2017-08-26 05:08] LABS: Hemoglobin 8.6 g/dL (12.9-16.9); Immature Platelets 12.4 % (1.1-6.1); Mean Corpuscular HGB Conc 33.1 g/dL (31.6-35.5); Mean Corpuscular Hemoglobin 28.1 pg (28.0-33.3); Red Blood Count 3.06 M/mcL (4.19-5.50); Red Cell Distribution Width 17.8 % (11.5-14.5)
[2017-08-26 05:13] LABS: Ionized Calcium 1.07 mmol/L (1.15-1.35)
[2017-08-26 05:17] LABS: Platelet Count 63 K/mcL (140-400)
[2017-08-26 05:20] LABS: BUN/Creatinine Ratio 13 (6-26); Blood Urea Nitrogen 10 mg/dL (8-26); Calcium 7.7 mg/dL (8.6-10.8); Carbon Dioxide 23 mEq/L (19-29); Chloride 106 mEq/L (98-109); Glucose 80 mg/dL (70-99); Osmolality,Calculated 284 (280-300); Phosphorous 3.7 mg/dL (2.3-4.7); Potassium 4.1 mEq/L (3.5-4.5); Sodium 138 mEq/L (136-145); eGFR For African Americans > 60 (> 60); eGFR For Non-African Americans > 60 (> 60)
[2017-08-26] MEDS: Nicotine 21 MG PATCH.TD24 TD SCH (09:01)
[2017-08-26] MEDS: Furosemide 40 MG/4 ML VIAL IVP SCH (09:01)
[2017-08-26] MEDS: Piperacillin/Tazobactam 3.375 GM in D5% in Water (Mini-Bag+) 100 ML IVPB SCH ×2 (09:01→18:19)
[2017-08-26] MEDS: Calcium Gluconate 1,000 MG in D5% in Water 100 ML IVPB PRN (09:10)
--- NOTE | 2017-08-26 10:16 | Infectious Disease Progress No ---
Date of Encounter: 08/26/17 Time of Encounter: 10:14 - Assessment and Plan (1) Sepsis Current Visit: Yes Status: Acute The patient had fever and tachycardia. Source likely PNA. Improved. The patient has been afebrile >24 hours. He started having tachycardia again last night. He has also been tachypneic since being extubated. Blood cultures drawn 08/21/17 are NGTD x 2 sets. Qualifiers: Sepsis type: sepsis due to unspecified organism Qualified Code(s): A41.9 - Sepsis, unspecified organism (2) Pneumonia Current Visit: Yes Status: Acute Likely secondary to aspiration. CT scan of the chest showed bilateral lower airspace consolidation concerning for PNA vs. atelectasis vs. aspiration per radiology. The patient likely suffered an aspiration event prior to intubation given the large amount of hematemesis per documentation. Repeat CXR 08/25/17 shows evidence of RLL pneumonia, likely secondary to aspiration event the previous day. Continue Zosyn 3.375 grams IV Q8H. Continue Bactrim 15mg/kg/day. Duration of treatment depends on the clinical picture. Monitor renal function and dose-adjust antibiotics. Qualifiers: Pneumonia type: aspiration pneumonia Aspiration pneumonia type: due to vomit Laterality: bilateral Lung location: lower lobe of lung Qualified Code(s): J69.0 - Pneumonitis due to inhalation of food and vomit (3) Upper gastrointestinal hemorrhage Current Visit: Yes Status: Acute Secondary to gastric ulcer. Status post EGD 08/20/[address] Delaney. Endo report reviewed. Large gastric ulcer with visible vessel status post clipping. No evidence of recurrent bleeding. GI continues to follow. (4) Hemorrhagic shock Current Visit: Yes Status: Resolved Secondary to UGI bleed. Patient had hypotension and tachycardia. Resolved. (5) Anemia Current Visit: Yes Status: Acute Secondary to GI bleed. Stable. Further management per the GI and primary teams. Qualifiers: Anemia type: other cause Other causes of anemia: acute posthemorrhagic Qualified Code(s): D62 - Acute posthemorrhagic anemia (6) Gastric ulcer Current Visit: Yes Status: Acute Qualifiers: Gastric ulcer chronicity: acute Gastric ulcer complication status: with hemorrhage Qualified Code(s): K25.0 - Acute gastric ulcer with hemorrhage (7) Ascites Current Visit: Yes Status: Acute Liver UTS and CT of the abdomen and pelvis show interval development of moderate intra-abdominal pelvic ascites. Likely secondary to aggressive fluid volume resuscitation in the setting of liver cirrhosis. SBP less likely cause of the patient's sepsis. Discontinue Cipro and observe. Qualifiers: Ascites type: due to alcoholic cirrhosis Qualified Code(s): K70.31 - Alcoholic cirrhosis of liver with ascites (8) Pleural effusion Current Visit: Yes Status: Acute CT of the chest showed bilateral pleural effusions. Improved. Repeat CXR shows improvement. Likely secondary to aggressive fluid volume resuscitation. Management per the pulmonology team. (9) Syncope Current Visit: Yes Status: Resolved Likely secondary to orthostatic hypotension from GI bleed. No further syncopal events since admission. Qualifiers: Syncope type: unspecified Qualified Code(s): R55 - Syncope and collapse (10) Thrombocytopenia Current Visit: Yes Status: Chronic Likely secondary to AIDS, but worsened in the setting of acute infection/ illness. Continue to trend. Transfuse as appropriate per the primary team. (11) AIDS (acquired immune deficiency syndrome) Current Visit: No Status: Chronic Diagnosed with HIV 30 years ago. Has a history of non-compliance. Last CD4 count in June was 258, VL undetectable. Follows with Dr. Underwood and was actually seen by him on the day of admission and had medications refilled. No indications to start ART at this time. Will wait for the patient to stabilize and consider re-starting at that time. CD4 count 77. Continue Bactrim for PCP prophylaxis 15mg/kg daily. Viral load 35,000. (12) Liver cirrhosis, alcoholic Current Visit: Yes Status: Chronic Qualifiers: Ascites presence: without ascites Qualified Code(s): K70.30 - Alcoholic cirrhosis of liver without ascites - Subjective Interval history: Patient seen and examined. No acute overnight events noted. Patient extubated . Precedex turned off 08/25/17. Patient awakens to verbal stimuli, answers questions appropriately and follows commands. States he "wants to get out of this hole." Tells me he has not been on his HIV meds for several months because [facility] pharmacy messed things up. He denies pain, shortness of breath, or cough. Denies nausea, vomiting, or diarrhea. Denies abdominal pain. Benson catheter remains patent. No fevers documented overnight. Infect Dis PN-Objective Data - Labs CBC & Chem 7: 08/26/17 04:05 08/26/17 04:05 Labs: Laboratory Results - last 24 hr 08/25/17 08/25/17 08/25/17 12:16 17:36 17:42 WBC RBC Hgb Hct MCV MCH MCHC RDW Plt Count MPV Immature Plt Fraction Sodium Potassium Chloride Carbon Dioxide BUN Creatinine Est GFR ( Amer) Est GFR (Non-Af Amer) BUN/Creatinine Ratio Glucose POC Glucose 112 H 133 H Calculated Osmolality Calcium Ionized Calcium Phosphorus 2.8 Magnesium 08/26/17 08/26/17 08/26/17 00:17 04:05 04:05 WBC 5.8 RBC 3.06 L Hgb 8.6 L Hct 26.0 L MCV 85.0 MCH 28.1 MCHC 33.1 RDW 17.8 H Plt Count 63 L MPV TNP Immature Plt Fraction 12.4 H Sodium 138 Potassium 4.1 Chloride 106 Carbon Dioxide 23 BUN 10 Creatinine 0.79 Est GFR ( Amer) > 60 Est GFR (Non-Af Amer) > 60 BUN/Creatinine Ratio 13 Glucose 80 POC Glucose 89 Calculated Osmolality 284 Calcium 7.7 L Ionized Calcium 1.07 L Phosphorus 3.7 Magnesium 2.0 08/26/17 05:25 WBC RBC Hgb Hct MCV MCH MCHC RDW Plt Count MPV Immature Plt Fraction Sodium Potassium Chloride Carbon Dioxide BUN Creatinine Est GFR ( Amer) Est GFR (Non-Af Amer) BUN/Creatinine Ratio Glucose POC Glucose 85 Calculated Osmolality Calcium Ionized Calcium Phosphorus Magnesium Cultures: Cultures 08/21/17 00:49 Blood Culture - Final Peripheral Venipuncture No growth. 08/21/17 00:48 Blood Culture - Final Peripheral Venipuncture No growth. Serology 08/21/17 08/20/17 Range/Units 11:17 14:45 Urine Color Yellow (Yellow) Urine Clarity Clear (Clear) Urine pH 6.0 (5.0-8.0) pH Units Ur Specific [place] 1.026 H (1.010-1.025) Urine Protein Negative (Neg-Trace) mg/dL Urine Glucose (UA) Normal (Normal) mg/dL Urine Ketones Negative (Negative) mg/dL Urine Blood Trace H (Negative) Urine Nitrite Negative (Negative) Urine Bilirubin Negative (Negative) Urine Urobilinogen Normal (Normal) mg/dL Ur Leukocyte Esterase Negative (Negative) Urine Microscopic RBC 5-15 H (0-3) per hpf Urine Microscopic WBC 0-3 (0-3) per hpf Ur Squamous Epith Cells Moderate H (None-Few) per lpf Urine Bacteria None Seen (None-Few) per hpf Hyaline Casts None Seen (None-Few) per lpf Ur Culture Indicated? NO (NO) HIV-1 RNA copies/mL 35,000 cpy/mL HIV RNA Quant Info DETECTED A (Not Detected) HIV-1 RNA Qnt Date Rpt 4.5 log - Impressions Impressions Abdomen/Pelvis Ultrasound 08/22/17 14:24 IMPRESSION: Mildly nodular hepatic contour, suggestive of cirrhosis. The major hepatic vasculature is patent. Main portal vein is patent and demonstrates normal direction of flow. Sludge within the gallbladder. Diffuse gallbladder wall thickening may be related to hepatic disease. Small volume ascites in the right upper quadrant and left lower quadrant. D/ / 08/22/2017 16:45:19 [facility] Inter[facility]ting Provider: Jose Gurrola MD Exam - Constitutional Vitals: Temp Pulse Resp BP Pulse Ox 98.5 F 103 24 103/71 100 08/26/17 08:58 08/26/17 09:00 08/26/17 09:00 08/26/17 09:00 08/26/17 09:00 General appearance: cooperative, no acute distress, thin - Head Head exam: Present: atraumatic, normal inspection, normocephalic - Eye Eye exam: Present: EOMI, normal appearance, PERRL - ENT ENT exam: Present: mucous membranes dry Additional comments: Large amount of thick yellow sputum noted in the posterior pharynx. - Neck Neck exam: Present: normal inspection - Respiratory Respiratory exam: Present: rales (Bilateral bases). Absent: respiratory distress, wheezes, tachypnea - Cardiovascular Cardiovascular exam: Present: +S1, +S2, tachycardia. Absent: irregular rhythm - GI/Abdominal GI/Abdominal exam: Present: distended, normal bowel sounds, soft. Absent: tenderness Additional comments: Benson catheter patent with clear yellow urine. - Extremities Exam Extremities exam: Present: normal inspection. Absent: joint swelling, pedal edema, tenderness Additional comments: Triple lumen CVVC noted to the right groin. - Neurological Exam Neurological exam: Present: alert, oriented X3, no focal deficits - Psychiatric Psychiatric exam: Present: normal affect, normal mood - Skin Skin exam: Present: dry, intact, normal color, warm - VTE Documentation of Mechanical Device: Intermittent pneumatic compression device Consult Discharge Plan - Plan Referrals: Willie Underwood MD [Primary Care Provider] -
--- NOTE | 2017-08-26 10:52 | Pulmonology Progress Note ---
<Joel Pelletier - Last Filed: 08/26/17 10:48> Date of Encounter: 08/26/17 Time of Encounter: 10:49 Assessment and Plan (1) Hemorrhagic shock Current Visit: Yes Status: Acute Secondary to bleeding gastric ulcer which has been treated endoscopically. No evidence of active bleeding. Hgb stable, 8.6 today. Patient received a total of 7u pRBCs. (2) Gastric ulcer Current Visit: Yes Status: Acute S/P endoscopic clipping on 08/21/17. No evidence of active bleeding. Unchanged. Continue BID PPI. GI following Qualifiers: Gastric ulcer chronicity: acute Gastric ulcer complication status: with hemorrhage Qualified Code(s): K25.0 - Acute gastric ulcer with hemorrhage (3) Pleural effusion Current Visit: Yes Status: Acute Likely related to aggressive fluid hydration in the setting of hemorrhagic shock. Resolved on recent CXR. (4) Pneumonia Current Visit: Yes Status: Acute CXR shows new RLL infiltrate, concern for aspiration PNA. WBC count stable, no evidence of sepsis. Continue current regimen with cipro and zosyn. Qualifiers: Pneumonia type: aspiration pneumonia Aspiration pneumonia type: due to vomit Laterality: bilateral Lung location: lower lobe of lung Qualified Code(s): J69.0 - Pneumonitis due to inhalation of food and vomit (5) HIV disease Current Visit: Yes Status: Chronic CD4 count 77. On Bactrim for PCP prophylaxis. Continue to hold antiretroviral therapy in the setting of acute illness. ID is onboard (6) Liver cirrhosis, alcoholic Current Visit: Yes Status: Chronic Qualifiers: Ascites presence: without ascites Qualified Code(s): K70.30 - Alcoholic cirrhosis of liver without ascites (7) Thrombocytopenia Current Visit: Yes Status: Chronic Secondary to HIV and chronic liver disease. No evidence of active bleeding, no indication for transfusion at this time. Continue to monitor. Subjective Principal diagnosis: GI Bleed Interval history: Patient is seen and examined at bedside. He is somnolent yet arousable, appears to be in no acute distress. As of this morning he has no acute complaints. Most recent CIWA was 8, no reported episodes of vomiting overnight. Objective PUL Vital signs: Last Vital Signs Temp 98.5 F 08/26/17 08:58 Pulse 103 08/26/17 09:00 Resp 24 08/26/17 09:00 BP 103/71 08/26/17 09:00 Pulse Ox 100 08/26/17 09:00 General appearance: no acute distress, other (Somnolent) Eyes: nonicteric ENT: oropharynx moist (Evidence of vomiting seen periorally ) Neck: supple Effort: normal Auscultation: bilateral: wheezes (Faint) Cardiovascular: other (Sinus tachycardia) Gastrointestinal: hypoactive bowel sounds, soft, non-tender, non-distended Extremities: no cyanosis, no clubbing, edema (B/L Upper extremities, trace ) pupils equal and round, unable to assess due to mental status (Alert, challenging to interpret due to dysarthria, answers questions appropriately) mood appropriate, affect normal Results - Laboratory Findings CBC and BMP: 08/26/17 04:05 08/26/17 04:05 ABG ABG pH 7.40 pH Units (7.32-7.45) 08/24/17 07:40 ABG pCO2 47 mmHg (35-45) H 08/24/17 07:40 ABG pO2 108 mmHg (85-104) H 08/24/17 07:40 ABG O2 Saturation 98 % (95-98) 08/24/17 07:40 PT/INR, D-dimer PT 17.4 Seconds (9.4-12.1) H 08/22/17 16:00 Abnormal lab findings: Abnormal lab results RBC 3.06 M/mcL (4.19-5.50) L 08/26/17 04:05 Hgb 8.6 g/dL (12.9-16.9) L 08/26/17 04:05 Hct 26.0 % (37.5-50.1) L 08/26/17 04:05 RDW 17.8 % (11.5-14.5) H 08/26/17 04:05 Plt Count 63 K/mcL (140-400) L 08/26/17 04:05 Lymphocytes # 0.4 K/mcL (0.6-4.6) L 08/23/17 03:30 Nucleated RBCs/100 WBC 0.5 /100 WBC (0) H 08/22/17 12:15 Platelet Estimate Decreased (Normal) L 08/21/17 17:16 Immature Plt Fraction 12.4 % (1.1-6.1) H 08/26/17 04:05 Polychromasia 1+ (Not Present) A 08/19/17 18:13 Hypochromasia Present (Not Present) A 08/20/17 01:43 PT 17.4 Seconds (9.4-12.1) H 08/22/17 16:00 ABG pCO2 47 mmHg (35-45) H 08/24/17 07:40 ABG pO2 108 mmHg (85-104) H 08/24/17 07:40 ABG HCO3 29 mEq/L (21-27) H 08/24/17 07:40 ABG Total CO2 30 mEq/L (20-26) H 08/24/17 07:40 ABG Base Excess 4 mEq/L (-2 to 3) H 08/24/17 07:40 Calcium 7.7 mg/dL (8.6-10.8) L 08/26/17 04:05 Ionized Calcium 1.07 mmol/L (1.15-1.35) L 08/26/17 04:05 AST 52 Units/L (5-34) H 08/23/17 03:30 Ammonia 80 mcmol/L (18-72) H 08/22/17 15:45 Serum Total Protein 4.7 g/dL (6.0-8.3) L 08/23/17 03:30 Albumin 2.0 g/dL (3.5-5.0) L 08/23/17 03:30 Albumin/Globulin Ratio 0.7 (1.1-2.2) L 08/23/17 03:30 Lipase 96 Units/L (8-78) H 08/19/17 18:13 Ur Specific [place] 1.026 (1.010-1.025) H 08/21/17 11:17 Urine Blood Trace (Negative) H 08/21/17 11:17 Urine Microscopic RBC 5-15 per hpf (0-3) H 08/21/17 11:17 Ur Squamous Epith Cells Moderate per lpf (None-Few) H 08/21/17 11:17 Stool Occult Blood Positive (Negative) A 08/19/17 19:30 Vancomycin Trough 7.3 mcg/mL (10-20) L 08/23/17 18:30 % CD3 Cells 49 % (62-87) L 08/22/17 13:17 Absolute CD3 Count 184 cells/uL (570-2400) L 08/22/17 13:17 % CD4 Cells 20 % (32-64) L 08/22/17 13:17 Absolute CD4 Count 77 cells/uL (430-1800) L 08/22/17 13:17 T-Lymph CD4/CD8 Ratio 0.71 ratio (0.80-3.90) L 08/22/17 13:17 Absolute CD8 Count 106 cells/uL (210-1200) L 08/22/17 13:17 HIV RNA Quant Info DETECTED (Not Detected) A 08/20/17 14:45 - Microbiology Findings Microbiology Findings: Microbiology, Last 48 Hours 08/21/17 00:49 Blood Culture - Final Peripheral Venipuncture No growth. 08/21/17 00:48 Blood Culture - Final Peripheral Venipuncture No growth. - Clinical Findings Intake & Output: Intake & Output 08/25/17 08/26/17 08/26/17 23:59 07:59 15:59 Intake Total 718 / 718 560 / 560 Output Total 100 / 100 550 / 550 Balance 618 / 618 Weight 69.7 kg - VTE Documentation of Mechanical Device: Intermittent pneumatic compression device Consult Discharge Plan - Plan Referrals: Willie Underwood MD [Primary Care Provider] - <Salomón Mccullough - Last Filed: 08/26/17 16:00> Date of Encounter: 08/26/17 Objective PUL Vital signs: Last Vital Signs Temp 98.7 F 08/26/17 12:37 Pulse 105 08/26/17 11:00 Resp 30 08/26/17 11:00 BP 111/66 08/26/17 11:00 Pulse Ox 100 08/26/17 11:00 Results - Laboratory Findings CBC and BMP: 08/26/17 04:05 08/26/17 04:05 ABG ABG pH 7.40 pH Units (7.32-7.45) 08/24/17 07:40 ABG pCO2 47 mmHg (35-45) H 08/24/17 07:40 ABG pO2 108 mmHg (85-104) H 08/24/17 07:40 ABG O2 Saturation 98 % (95-98) 08/24/17 07:40 PT/INR, D-dimer PT 17.4 Seconds (9.4-12.1) H 08/22/17 16:00 Abnormal lab findings: Abnormal lab results RBC 3.06 M/mcL (4.19-5.50) L 08/26/17 04:05 Hgb 8.6 g/dL (12.9-16.9) L 08/26/17 04:05 Hct 26.0 % (37.5-50.1) L 08/26/17 04:05 RDW 17.8 % (11.5-14.5) H 08/26/17 04:05 Plt Count 63 K/mcL (140-400) L 08/26/17 04:05 Lymphocytes # 0.4 K/mcL (0.6-4.6) L 08/23/17 03:30 Nucleated RBCs/100 WBC 0.5 /100 WBC (0) H 08/22/17 12:15 Platelet Estimate Decreased (Normal) L 08/21/17 17:16 Immature Plt Fraction 12.4 % (1.1-6.1) H 08/26/17 04:05 Polychromasia 1+ (Not Present) A 08/19/17 18:13 Hypochromasia Present (Not Present) A 08/20/17 01:43 PT 17.4 Seconds (9.4-12.1) H 08/22/17 16:00 ABG pCO2 47 mmHg (35-45) H 08/24/17 07:40 ABG pO2 108 mmHg (85-104) H 08/24/17 07:40 ABG HCO3 29 mEq/L (21-27) H 08/24/17 07:40 ABG Total CO2 30 mEq/L (20-26) H 08/24/17 07:40 ABG Base Excess 4 mEq/L (-2 to 3) H 08/24/17 07:40 POC Glucose 99 (58-89) H 08/26/17 12:04 Calcium 7.7 mg/dL (8.6-10.8) L 08/26/17 04:05 Ionized Calcium 1.07 mmol/L (1.15-1.35) L 08/26/17 04:05 AST 52 Units/L (5-34) H 08/23/17 03:30 Ammonia 80 mcmol/L (18-72) H 08/22/17 15:45 Serum Total Protein 4.7 g/dL (6.0-8.3) L 08/23/17 03:30 Albumin 2.0 g/dL (3.5-5.0) L 08/23/17 03:30 Albumin/Globulin Ratio 0.7 (1.1-2.2) L 08/23/17 03:30 Lipase 96 Units/L (8-78) H 08/19/17 18:13 Ur Specific [place] 1.026 (1.010-1.025) H 08/21/17 11:17 Urine Blood Trace (Negative) H 08/21/17 11:17 Urine Microscopic RBC 5-15 per hpf (0-3) H 08/21/17 11:17 Ur Squamous Epith Cells Moderate per lpf (None-Few) H 08/21/17 11:17 Stool Occult Blood Positive (Negative) A 08/19/17 19:30 Vancomycin Trough 7.3 mcg/mL (-) L 08/23/17 18:30 % CD3 Cells 49 % (62-87) L 08/22/17 13:17 Absolute CD3 Count 184 cells/uL (570-2400) L 08/22/17 13:17 % CD4 Cells 20 % (32-64) L 08/22/17 13:17 Absolute CD4 Count 77 cells/uL (430-1800) L 08/22/17 13:17 T-Lymph CD4/CD8 Ratio 0.71 ratio (0.80-3.90) L 08/22/17 13:17 Absolute CD8 Count 106 cells/uL (210-1200) L 08/22/17 13:17 HIV RNA Quant Info DETECTED (Not Detected) A 08/20/17 14:45 - Microbiology Findings Microbiology Findings: Microbiology, Last 48 Hours 08/21/17 00:49 Blood Culture - Final Peripheral Venipuncture No growth. 08/21/17 00:48 Blood Culture - Final Peripheral Venipuncture No growth. - Clinical Findings Intake & Output: Intake & Output 08/25/17 08/26/17 08/26/17 23:59 07:59 15:59 Intake Total 718 / 718 560 / 560 Output Total 100 / 100 550 / 550 1900 / 1900 Balance 618 / 618 / -1900 Weight 69.7 kg - Attending Attestation I examined this patient and my medical decision-making was reviewed with the Resident Physician. I agree with the documented findings, disposition and treatment plan as described except to the extent set forth below. Patient seen and examined. Labs, radiology, chart personally reviewed. Agree with resident's history and physical, assessment, plan with following comments: [employer]: Patient follows commands, Pulmonary: Acceptable oxygenation and ventilation Cardiovascular: She does with hypotension, however MAP is normal and I suspect this is his baseline since he is awake and follows commands. GI: Nutrition per dietary and GI prophylaxis per routine Heme: DVT prophylaxis per routine ID: Continue antibiotics and plan to de-escalation Renal; urine out put and renal funtion reviewed Endorcine: blood glucose is monitored Lines: all lines checked and no evidence of infections Skin: skin care to prevent pressure ulcers per nursing routine care Patient stable to be transferred to the floor.
[2017-08-26] MEDS ORDERED: Naloxone 0.4 MG/ML INJ IVP PRN (11:00)
[2017-08-26] MEDS ORDERED: *HR* LORazepam 2 MG/ML VIAL IVP PRN ×3 (11:00)
[2017-08-26] MEDS ORDERED: Dexmedetomidine HCl 400 MCG/100 ML MLS IVC SCH (11:00)
[2017-08-26] MEDS ORDERED: Metoclopramide 10 MG/2 ML VIAL IVP PRN (11:00)
[2017-08-26] MEDS ORDERED: Ondansetron 4 MG/2 ML VIAL IVP PRN (11:00)
[2017-08-26] MEDS: Lactulose Oral Soln 20 GM/30 ML UDC PO SCH ×3 (16:12→20:17)
[2017-08-27] MEDS: Piperacillin/Tazobactam 3.375 GM in D5% in Water (Mini-Bag+) 100 ML IVPB SCH ×3 (00:42→17:13)
[2017-08-27] MEDS: Pantoprazole 40 MG VIAL IVP SCH ×2 (05:19→17:11)
[2017-08-27 05:31] LABS: Hematocrit 25.8 % (37.5-50.1); Hemoglobin 8.5 g/dL (12.9-16.9); Immature Platelets 10.4 % (1.1-6.1); Mean Corpuscular HGB Conc 32.9 g/dL (31.6-35.5); Mean Corpuscular Volume 84.9 fL (83.0-100.0); Mean Platelet Volume 12.5 fL (9.4-12.4); Red Blood Count 3.04 M/mcL (4.19-5.50); Red Cell Distribution Width 17.7 % (11.5-14.5)
[2017-08-27 05:46] LABS: BUN/Creatinine Ratio 9 (6-26); Blood Urea Nitrogen 7 mg/dL (8-26); Carbon Dioxide 24 mEq/L (19-29); Chloride 106 mEq/L (98-109); Glucose 91 mg/dL (70-99); Osmolality,Calculated 280 (280-300); Potassium 3.8 mEq/L (3.5-4.5); Sodium 136 mEq/L (136-145); eGFR For African Americans > 60 (> 60); eGFR For Non-African Americans > 60 (> 60)
[2017-08-27] MEDS ORDERED: Piperacillin/Tazobactam 3.375 GM VIAL IVPB ONE (09:06)
[2017-08-27] MEDS: Sulfamethoxazole/Trimeth Oral Soln 400-80mg/10 ML UDC PO SCH (09:34)
[2017-08-27] MEDS: Lactulose Oral Soln 20 GM/30 ML UDC PO SCH ×4 (09:39→21:49)
[2017-08-27] MEDS: Nicotine 21 MG PATCH.TD24 TD SCH (09:40)
[2017-08-27] MEDS: Furosemide 40 MG/4 ML VIAL IVP SCH (09:42)
--- NOTE | 2017-08-27 12:27 | Urology - Consult Note ---
Date of Encounter: 08/27/17 Time of Encounter: 12:25 - Assessment and Plan (1) Malfunction of Benson catheter Current Visit: Yes Status: Acute Assessment and plan: catheter was removed. no further urology tx needed. Qualifiers: Encounter type: initial encounter Qualified Code(s): T83.011A - Breakdown ( mechanical) of indwelling urethral catheter, initial encounter Urology CN:HPI Consult date: 08/27/17 Reason for consult Urology: Difficult Benson Requesting physician: Ariel Rasheed History of present illness: lisa is a 57 y/o male who I was consulted to remove a catheter which was stuck. patient does not respond to questions with much verbal response. Past Med Surg Social Fam HX - Past Medical History Medical history: cirrhosis, HIV/AIDS (Diagnosed 30 years ago. ), hyperlipidemia , other (thrombocytopenia, anemia, esophageal varices, osteopenia, pneumonia, wasting disease) Psychiatric history: other (chronic mood disorder) - Past Surgical History Surgical History: other (EGD/Colonoscopy) - Social History Smoking Status: Current every day smoker Packs per day: 1 Smokeless Tobacco Status: No Alcohol use: none Drug use: none - Family History Father Living Status: Hx Family Cancer: Yes (Lung) Mother Living Status: Hx Family Cancer: Yes (Breast) Grandfather Hx Family Cancer: Yes (Lung) Brother Living Status: Still Living Medications and Allergies Aspirin/Caffeine [Anacin 400-32 mg Tablet] 1 each PO Q4H PRN 04/29/17 [History] Calcium Carbonate [Calcium] 500 mg PO DAILY 04/29/17 [History] Multivitamin [Multi-Day Vitamins] 1 each PO DAILY 04/29/17 [History] Paroxetine [Paxil] 20 mg PO DAILY 04/29/17 [History] Potassium 99 mg PO DAILY 04/29/17 [History] Raltegravir Potassium [Isentress] 400 mg PO BID 04/29/17 [History] Clarithromycin [Biaxin] 500 mg PO BID #6 tablet 05/02/17 [Rx] Ferrous Sulfate 325 mg PO BIDWM 30 Days tablet 05/02/17 [Rx] Sulfamethoxazole/Trimeth DS [Bactrim Ds] 1 each PO DAILY #30 tablet 05/02/17 [Rx ] Emtricitabine/Tenofovir [Truvada] 1 tab PO DAILY 05/07/17 [History] Lopinavir/Ritonavir [Kaletra] 1 tab PO BID 05/07/17 [History] Furosemide [Lasix] 20 mg PO DAILY #30 tablet 05/09/17 [Rx] Spironolactone [Aldactone] 50 mg PO DAILY #30 tablet 05/09/17 [Rx] 3 Allergy/AdvReac Type Severity Reaction Status Date / Time No Known Allergies Allergy Verified 08/19/17 17:49 Review of Systems ROS unobtainable: due to mental status Exam Initial Vital Signs Temp Pulse Resp BP Pulse Ox 98.2 F 108 16 109/69 97 08/19/17 17:46 08/19/17 17:46 08/19/17 17:46 08/19/17 17:46 08/19/17 17:46 - General physical appearance Present: well developed - Cardiovascular Cardiovascular exam IM: RRR - Abdomen Abdomen: Present: soft - Genitourinary other (catheter was completely out of penis. ) Urology Results - Labs 08/27/17 04:48 08/27/17 04:48 Abnormal lab results RBC 3.04 M/mcL (4.19-5.50) L 08/27/17 04:48 Hgb 8.5 g/dL (12.9-16.9) L 08/27/17 04:48 Hct 25.8 % (37.5-50.1) L 08/27/17 04:48 RDW 17.7 % (11.5-14.5) H 08/27/17 04:48 Plt Count 62 K/mcL (140-400) L 08/27/17 04:48 MPV 12.5 fL (9.4-12.4) H 08/27/17 04:48 Lymphocytes # 0.4 K/mcL (0.6-4.6) L 08/23/17 03:30 Nucleated RBCs/100 WBC 0.5 /100 WBC (0) H 08/22/17 12:15 Platelet Estimate Decreased (Normal) L 08/21/17 17:16 Immature Plt Fraction 10.4 % (1.1-6.1) H 08/27/17 04:48 Polychromasia 1+ (Not Present) A 08/19/17 18:13 Hypochromasia Present (Not Present) A 08/20/17 01:43 PT 17.4 Seconds (9.4-12.1) H 08/22/17 16:00 ABG pCO2 47 mmHg (35-45) H 08/24/17 07:40 ABG pO2 108 mmHg (85-104) H 08/24/17 07:40 ABG HCO3 29 mEq/L (21-27) H 08/24/17 07:40 ABG Total CO2 30 mEq/L (20-26) H 08/24/17 07:40 ABG Base Excess 4 mEq/L (-2 to 3) H 08/24/17 07:40 BUN 7 mg/dL (8-26) L 08/27/17 04:48 POC Glucose 99 (58-89) H 08/26/17 12:04 Calcium 8.0 mg/dL (8.6-10.8) L 08/27/17 04:48 Ionized Calcium 1.07 mmol/L (1.15-1.35) L 08/26/17 04:05 AST 52 Units/L (5-34) H 08/23/17 03:30 Ammonia 80 mcmol/L (18-72) H 08/22/17 15:45 Serum Total Protein 4.7 g/dL (6.0-8.3) L 08/23/17 03:30 Albumin 2.0 g/dL (3.5-5.0) L 08/23/17 03:30 Albumin/Globulin Ratio 0.7 (1.1-2.2) L 08/23/17 03:30 Lipase 96 Units/L (8-78) H 08/19/17 18:13 Ur Specific [place] 1.026 (1.010-1.025) H 08/21/17 11:17 Urine Blood Trace (Negative) H 08/21/17 11:17 Urine Microscopic RBC 5-15 per hpf (0-3) H 08/21/17 11:17 Ur Squamous Epith Cells Moderate per lpf (None-Few) H 08/21/17 11:17 Stool Occult Blood Positive (Negative) A 08/19/17 19:30 Vancomycin Trough 7.3 mcg/mL (10-20) L 08/23/17 18:30 % CD3 Cells 49 % (62-87) L 08/22/17 13:17 Absolute CD3 Count 184 cells/uL (570-2400) L 08/22/17 13:17 % CD4 Cells 20 % (32-64) L 08/22/17 13:17 Absolute CD4 Count 77 cells/uL (430-1800) L 08/22/17 13:17 T-Lymph CD4/CD8 Ratio 0.71 ratio (0.80-3.90) L 08/22/17 13:17 Absolute CD8 Count 106 cells/uL (210-1200) L 08/22/17 13:17 HIV RNA Quant Info DETECTED (Not Detected) A 08/20/17 14:45 Diabetes panel 08/27/17 Range/Units 04:48 Sodium 136 (136-145) mEq/L Potassium 3.8 (3.5-4.5) mEq/L Chloride 106 (98-109) mEq/L Carbon Dioxide 24 (19-29) mEq/L BUN 7 L (8-26) mg/dL Creatinine 0.82 (0.72-1.25) mg/dL Glucose 91 (70-99) mg/dL Calcium 8.0 L (8.6-10.8) mg/dL Calcium panel 08/27/17 Range/Units 04:48 Calcium 8.0 L (8.6-10.8) mg/dL Pituitary panel 08/27/17 Range/Units 04:48 Sodium 136 (136-145) mEq/L Potassium 3.8 (3.5-4.5) mEq/L Chloride 106 (98-109) mEq/L Carbon Dioxide 24 (19-29) mEq/L BUN 7 L (8-26) mg/dL Creatinine 0.82 (0.72-1.25) mg/dL Glucose 91 (70-99) mg/dL Calcium 8.0 L (8.6-10.8) mg/dL Adrenal panel 08/27/17 Range/Units 04:48 Sodium 136 (136-145) mEq/L Potassium 3.8 (3.5-4.5) mEq/L Chloride 106 (98-109) mEq/L Carbon Dioxide 24 (19-29) mEq/L BUN 7 L (8-26) mg/dL Creatinine 0.82 (0.72-1.25) mg/dL Glucose 91 (70-99) mg/dL Calcium 8.0 L (8.6-10.8) mg/dL All other labs normal. Consult Discharge Plan - Plan Referrals: Willie Underwood MD [Primary Care Provider] - (will wait and see what plans are for d/c. Unsure at this time )
--- NOTE | 2017-08-27 12:52 | Infectious Disease Progress No ---
Date of Encounter: 08/27/17 Time of Encounter: 12:50 - Assessment and Plan (1) Sepsis Current Visit: Yes Status: Acute The patient had fever and tachycardia. Source likely PNA. Improved. The patient has been afebrile >24 hours. Continues to have tachycardia. He has also been tachypneic since being extubated. Blood cultures drawn 08/21/17 are NGTD x 2 sets. Qualifiers: Sepsis type: sepsis due to unspecified organism Qualified Code(s): A41.9 - Sepsis, unspecified organism (2) Pneumonia Current Visit: Yes Status: Acute Likely secondary to aspiration. CT scan of the chest showed bilateral lower airspace consolidation concerning for PNA vs. atelectasis vs. aspiration per radiology. The patient likely suffered an aspiration event prior to intubation given the large amount of hematemesis per documentation. Repeat CXR 08/25/17 shows evidence of RLL pneumonia, likely secondary to aspiration event the previous day. Continue Zosyn 3.375 grams IV Q8H. Duration of treatment depends on the clinical picture. Monitor renal function and dose-adjust antibiotics. Qualifiers: Pneumonia type: aspiration pneumonia Aspiration pneumonia type: due to vomit Laterality: bilateral Lung location: lower lobe of lung Qualified Code(s): J69.0 - Pneumonitis due to inhalation of food and vomit (3) Upper gastrointestinal hemorrhage Current Visit: Yes Status: Acute Secondary to gastric ulcer. Status post EGD 08/20/[address] Delaney. Endo report reviewed. Large gastric ulcer with visible vessel status post clipping. No evidence of recurrent bleeding. GI continues to follow. (4) Hemorrhagic shock Current Visit: Yes Status: Resolved Secondary to UGI bleed. Patient had hypotension and tachycardia. Resolved. (5) Anemia Current Visit: Yes Status: Acute Secondary to GI bleed. Stable. Further management per the GI and primary teams. Qualifiers: Anemia type: other cause Other causes of anemia: acute posthemorrhagic Qualified Code(s): D62 - Acute posthemorrhagic anemia (6) Gastric ulcer Current Visit: Yes Status: Acute Qualifiers: Gastric ulcer chronicity: acute Gastric ulcer complication status: with hemorrhage Qualified Code(s): K25.0 - Acute gastric ulcer with hemorrhage (7) Ascites Current Visit: Yes Status: Acute Liver UTS and CT of the abdomen and pelvis show interval development of moderate intra-abdominal pelvic ascites. Likely secondary to aggressive fluid volume resuscitation in the setting of liver cirrhosis. SBP less likely cause of the patient's sepsis. Continue Cipro 400mg IV BID (day 7). Duration of treatment to total 10 days. Qualifiers: Ascites type: due to alcoholic cirrhosis Qualified Code(s): K70.31 - Alcoholic cirrhosis of liver with ascites (8) Pleural effusion Current Visit: Yes Status: Resolved CT of the chest showed bilateral pleural effusions. Improved. Repeat CXR shows improvement. Likely secondary to aggressive fluid volume resuscitation. Management per the pulmonology team. (9) Syncope Current Visit: Yes Status: Resolved Likely secondary to orthostatic hypotension from GI bleed. No further syncopal events since admission. Qualifiers: Syncope type: unspecified Qualified Code(s): R55 - Syncope and collapse (10) Thrombocytopenia Current Visit: Yes Status: Chronic Likely secondary to AIDS, but worsened in the setting of acute infection/ illness. Improved. Continue to trend. Transfuse as appropriate per the primary team. (11) AIDS (acquired immune deficiency syndrome) Current Visit: No Status: Chronic Diagnosed with HIV 30 years ago. Has a history of non-compliance. Last CD4 count in June was 258, VL undetectable. Follows with Dr. Underwood and was actually seen by him on the day of admission and had medications refilled. No indications to start ART at this time. Will wait for the patient to stabilize and consider re-starting at that time. CD4 count 77. Continue Bactrim for PCP prophylaxis 1 DS daily. Viral load 35,000. (12) Liver cirrhosis, alcoholic Current Visit: Yes Status: Chronic Qualifiers: Ascites presence: without ascites Qualified Code(s): K70.30 - Alcoholic cirrhosis of liver without ascites - Subjective Interval history: Patient seen and examined. No acute overnight events noted. Patient extubated . Sitter at bedside. Patient awakens to verbal stimuli, answers questions appropriately and follows commands. He denies pain, shortness of breath, or cough. Denies nausea, vomiting, or diarrhea. Denies abdominal pain. Benson catheter remains patent. No fevers documented overnight. Infect Dis PN-Objective Data - Labs CBC & Chem 7: 08/27/17 04:48 08/27/17 04:48 Labs: Laboratory Results - last 24 hr 08/27/17 08/27/17 04:48 04:48 WBC 5.0 RBC 3.04 L Hgb 8.5 L Hct 25.8 L MCV 84.9 MCH 28.0 MCHC 32.9 RDW 17.7 H Plt Count 62 L MPV 12.5 H Immature Plt Fraction 10.4 H Sodium 136 Potassium 3.8 Chloride 106 Carbon Dioxide 24 BUN 7 L Creatinine 0.82 Est GFR ( Amer) > 60 Est GFR (Non-Af Amer) > 60 BUN/Creatinine Ratio 9 Glucose 91 Calculated Osmolality 280 Calcium 8.0 L Cultures: Cultures 08/21/17 00:49 Blood Culture - Final Peripheral Venipuncture No growth. 08/21/17 00:48 Blood Culture - Final Peripheral Venipuncture No growth. Serology 08/21/17 08/20/17 Range/Units 11:17 14:45 Urine Color Yellow (Yellow) Urine Clarity Clear (Clear) Urine pH 6.0 (5.0-8.0) pH Units Ur Specific [place] 1.026 H (1.010-1.025) Urine Protein Negative (Neg-Trace) mg/dL Urine Glucose (UA) Normal (Normal) mg/dL Urine Ketones Negative (Negative) mg/dL Urine Blood Trace H (Negative) Urine Nitrite Negative (Negative) Urine Bilirubin Negative (Negative) Urine Urobilinogen Normal (Normal) mg/dL Ur Leukocyte Esterase Negative (Negative) Urine Microscopic RBC 5-15 H (0-3) per hpf Urine Microscopic WBC 0-3 (0-3) per hpf Ur Squamous Epith Cells Moderate H (None-Few) per lpf Urine Bacteria None Seen (None-Few) per hpf Hyaline Casts None Seen (None-Few) per lpf Ur Culture Indicated? NO (NO) HIV-1 RNA copies/mL 35,000 cpy/mL HIV RNA Quant Info DETECTED A (Not Detected) HIV-1 RNA Qnt Date Rpt 4.5 log Exam - Constitutional Vitals: Temp Pulse Resp BP Pulse Ox 98.6 F 102 16 130/77 97 08/27/17 08:15 08/27/17 08:15 08/27/17 08:15 08/27/17 08:15 08/27/17 08:15 General appearance: cooperative, no acute distress, thin - Head Head exam: Present: atraumatic, normal inspection, normocephalic - Eye Eye exam: Present: EOMI, normal appearance, PERRL Pupils: Present: normal accommodation - ENT ENT exam: Present: mucous membranes moist - Neck Neck exam: Present: normal inspection - Respiratory Respiratory exam: Present: CTAB. Absent: rales, respiratory distress, rhonchi, wheezes - Cardiovascular Cardiovascular exam: Present: RRR, +S1, +S2 - GI/Abdominal GI/Abdominal exam: Present: normal bowel sounds, soft. Absent: distended, tenderness Additional comments: Benson catheter noted to be draining clear yellow urine. - Extremities Exam Extremities exam: Present: normal inspection. Absent: joint swelling, pedal edema, tenderness - Neurological Exam Neurological exam: Present: alert, oriented X3, no focal deficits - Psychiatric Psychiatric exam: Present: normal affect, normal mood - Skin Skin exam: Present: dry, intact, normal color, warm - VTE Documentation of Mechanical Device: Intermittent pneumatic compression device Consult Discharge Plan - Plan Referrals: Willie Underwood MD [Primary Care Provider] - (will wait and see what plans are for d/c. Unsure at this time )
--- NOTE | 2017-08-27 19:15 | Internal Med Progress Note ---
Date of Encounter: 08/27/17 Time of Encounter: 11:00 - Assessment and plan (1) Upper gastrointestinal hemorrhage Current Visit: Yes Status: Acute Assessment and plan: From possible esophageal varices or peptic ulcer disease. Continue IV PPI and octreotide. (2) Liver cirrhosis, alcoholic Current Visit: Yes Status: Chronic Assessment and plan: With esophageal viruses. Supportive care. IV fluids. Folic acid and thiamine. Qualifiers: Ascites presence: without ascites Qualified Code(s): K70.30 - Alcoholic cirrhosis of liver without ascites (3) Thrombocytopenia associated with AIDS Current Visit: No Status: Chronic Assessment and plan: Secondary to liver disease (4) Anemia Current Visit: Yes Status: Acute Assessment and plan: Severe anemia due to GI bleed. Hemoglobin stable; monitor blood counts closely. Qualifiers: Anemia type: other cause Other causes of anemia: acute posthemorrhagic Qualified Code(s): D62 - Acute posthemorrhagic anemia (5) Pneumonia Current Visit: Yes Status: Acute Assessment and plan: We will continue Zosyn Qualifiers: Pneumonia type: aspiration pneumonia Aspiration pneumonia type: due to vomit Laterality: bilateral Lung location: lower lobe of lung Qualified Code(s): J69.0 - Pneumonitis due to inhalation of food and vomit - Subjective Interval history: No acute events overnight - Constitutional Vitals: Temp Pulse Resp BP Pulse Ox 98.5 F 106 20 120/72 94 08/27/17 19:03 08/27/17 19:03 08/27/17 19:03 08/27/17 19:03 08/27/17 19:03 General appearance: Present: cachectic, A&O X 3, severe distress, answers questions appropriately Internal Medicine: Result - Labs CBC & Chem 7: 08/27/17 04:48 08/27/17 04:48 Labs: Short CBC 08/27/17 Range/Units 04:48 WBC 5.0 (4.3-11.1) K/mcL Hgb 8.5 L (12.9-16.9) g/dL Hct 25.8 L (37.5-50.1) % Plt Count 62 L (140-400) K/mcL BMP 08/27/17 04:48 Sodium 136 Potassium 3.8 Chloride 106 Carbon Dioxide 24 BUN 7 L Creatinine 0.82 Glucose 91 Calcium 8.0 L - ABG Interpretation ABG results: ABG ABG pH 7.40 pH Units (7.32-7.45) 08/24/17 07:40 ABG pCO2 47 mmHg (35-45) H 08/24/17 07:40 ABG pO2 108 mmHg (85-104) H 08/24/17 07:40 ABG O2 Saturation 98 % (95-98) 08/24/17 07:40 PT/INR, D-dimer PT 17.4 Seconds (9.4-12.1) H 08/22/17 16:00 - VTE Documentation of Mechanical Device: Intermittent pneumatic compression device Consult Discharge Plan - Plan Referrals: Willie Underwood MD [Primary Care Provider] - (will wait and see what plans are for d/c. Unsure at this time )
[2017-08-28] MEDS: Piperacillin/Tazobactam 3.375 GM in D5% in Water (Mini-Bag+) 100 ML IVPB SCH ×4 (00:32→23:20)
[2017-08-28] MEDS: Pantoprazole 40 MG VIAL IVP SCH ×2 (06:07→17:00)
[2017-08-28 07:38] LABS: Hematocrit 25.2 % (37.5-50.1); Hemoglobin 7.9 g/dL (12.9-16.9); Immature Platelets 9.4 % (1.1-6.1); Mean Corpuscular HGB Conc 31.3 g/dL (31.6-35.5); Mean Corpuscular Hemoglobin 27.1 pg (28.0-33.3); Mean Platelet Volume 13.2 fL (9.4-12.4); Red Blood Count 2.92 M/mcL (4.19-5.50); Red Cell Distribution Width 17.9 % (11.5-14.5)
[2017-08-28 07:48] LABS: Mean Corpuscular Volume 86.3 fL (83.0-100.0)
[2017-08-28 07:54] LABS: BUN/Creatinine Ratio 10 (6-26); Blood Urea Nitrogen 8 mg/dL (8-26); Carbon Dioxide 21 mEq/L (19-29); Chloride 108 mEq/L (98-109); Glucose 123 mg/dL (70-99); Osmolality,Calculated 282 (280-300); Sodium 136 mEq/L (136-145); eGFR For African Americans > 60 (> 60); eGFR For Non-African Americans > 60 (> 60)
[2017-08-28] MEDS: Sulfamethoxazole/Trimeth Oral Soln 400-80mg/10 ML UDC PO SCH (09:35)
[2017-08-28] MEDS: Lactulose Oral Soln 20 GM/30 ML UDC PO SCH ×4 (09:35→19:45)
[2017-08-28] MEDS: Furosemide 40 MG/4 ML VIAL IVP SCH (09:35)
[2017-08-28] MEDS: Nicotine 21 MG PATCH.TD24 TD SCH (09:36)
--- NOTE | 2017-08-28 10:49 | Infectious Disease Progress No ---
Date of Encounter: 08/28/17 Time of Encounter: 10:47 - Assessment and Plan (1) Sepsis Current Visit: Yes Status: Acute The patient had fever and tachycardia. Source likely PNA. Improved. The patient has been afebrile. Continues to have tachycardia, but this is better today. Tachypnea has resolved. Blood cultures drawn 08/21/17 are negative x 2 sets. Qualifiers: Sepsis type: sepsis due to unspecified organism Qualified Code(s): A41.9 - Sepsis, unspecified organism (2) Pneumonia Current Visit: Yes Status: Acute Likely secondary to aspiration. CT scan of the chest showed bilateral lower airspace consolidation concerning for PNA vs. atelectasis vs. aspiration per radiology. The patient likely suffered an aspiration event prior to intubation given the large amount of hematemesis per documentation. Repeat CXR 08/25/17 shows evidence of RLL pneumonia, likely secondary to aspiration event the previous day. Repeat CXR in the AM. Continue Zosyn 3.375 grams IV Q8H (day 8). Duration of treatment depends on the clinical picture. Can likely de-escalate to oral antibiotics when ready for discharge. Monitor renal function and dose-adjust antibiotics. Qualifiers: Pneumonia type: aspiration pneumonia Aspiration pneumonia type: due to vomit Laterality: bilateral Lung location: lower lobe of lung Qualified Code(s): J69.0 - Pneumonitis due to inhalation of food and vomit (3) Upper gastrointestinal hemorrhage Current Visit: Yes Status: Acute Secondary to gastric ulcer. Status post EGD 08/20/[address] Delaney. Endo report reviewed. Large gastric ulcer with visible vessel status post clipping. No evidence of recurrent bleeding. GI continues to follow. (4) Hemorrhagic shock Current Visit: Yes Status: Resolved Secondary to UGI bleed. Patient had hypotension and tachycardia. Resolved. (5) Anemia Current Visit: Yes Status: Acute Secondary to GI bleed. Stable. Further management per the GI and primary teams. Qualifiers: Anemia type: other cause Other causes of anemia: acute posthemorrhagic Qualified Code(s): D62 - Acute posthemorrhagic anemia (6) Gastric ulcer Current Visit: Yes Status: Acute Qualifiers: Gastric ulcer chronicity: acute Gastric ulcer complication status: with hemorrhage Qualified Code(s): K25.0 - Acute gastric ulcer with hemorrhage (7) Ascites Current Visit: Yes Status: Acute Liver UTS and CT of the abdomen and pelvis show interval development of moderate intra-abdominal pelvic ascites. Likely secondary to aggressive fluid volume resuscitation in the setting of liver cirrhosis. SBP less likely cause of the patient's sepsis. Continue Cipro 400mg IV BID (day 8). Duration of treatment to total 10 days. Qualifiers: Ascites type: due to alcoholic cirrhosis Qualified Code(s): K70.31 - Alcoholic cirrhosis of liver with ascites (8) Pleural effusion Current Visit: Yes Status: Resolved CT of the chest showed bilateral pleural effusions. Improved. Repeat CXR shows improvement. Likely secondary to aggressive fluid volume resuscitation. Management per the pulmonology team. (9) Syncope Current Visit: Yes Status: Resolved Likely secondary to orthostatic hypotension from GI bleed. No further syncopal events since admission. Qualifiers: Syncope type: unspecified Qualified Code(s): R55 - Syncope and collapse (10) Thrombocytopenia Current Visit: Yes Status: Chronic Likely secondary to AIDS, but worsened in the setting of acute infection/ illness. Improved. Continue to trend. Transfuse as appropriate per the primary team. (11) AIDS (acquired immune deficiency syndrome) Current Visit: No Status: Chronic Diagnosed with HIV 30 years ago. Has a history of non-compliance. Last CD4 count in June was 258, VL undetectable. Follows with Dr. Underwood and was actually seen by him on the day of admission and had medications refilled. No indications to start ART at this time. Will wait for the patient to stabilize and consider re-starting at that time. CD4 count 77. Continue Bactrim for PCP prophylaxis 1 DS daily. Viral load 35,000. (12) Liver cirrhosis, alcoholic Current Visit: Yes Status: Chronic Qualifiers: Ascites presence: without ascites Qualified Code(s): K70.30 - Alcoholic cirrhosis of liver without ascites - Subjective Interval history: Patient seen and examined. No acute overnight events noted. Patient awake and alert this morning. Denies fevers or chills. He denies pain, shortness of breath , or cough. Denies nausea, vomiting, or diarrhea. Denies abdominal pain. No fevers documented overnight. Denies urinary complaints and states his appetite is back to normal for him. Denies oral thrush or skin lesions. Infect Dis PN-Objective Data - Labs CBC & Chem 7: 08/28/17 07:09 08/28/17 07:09 Labs: Laboratory Results - last 24 hr 08/28/17 08/28/17 08/28/17 03:49 07:09 07:09 WBC 4.2 L RBC 2.92 L Hgb 7.9 L Hct 25.2 L MCV 86.3 MCH 27.1 L MCHC 31.3 L RDW 17.9 H Plt Count 61 L MPV 13.2 H Immature Plt Fraction 9.4 H Sodium 136 Potassium 4.0 Chloride 108 Carbon Dioxide 21 BUN 8 Creatinine 0.82 Est GFR ( Amer) > 60 Est GFR (Non-Af Amer) > 60 BUN/Creatinine Ratio 10 Glucose 123 H Calculated Osmolality 282 Calcium 8.0 L Specimen Rejected Volume Cultures: Cultures 08/21/17 00:49 Blood Culture - Final Peripheral Venipuncture No growth. 08/21/17 00:48 Blood Culture - Final Peripheral Venipuncture No growth. Serology 08/21/17 08/20/17 Range/Units 11:17 14:45 Urine Color Yellow (Yellow) Urine Clarity Clear (Clear) Urine pH 6.0 (5.0-8.0) pH Units Ur Specific [place] 1.026 H (1.010-1.025) Urine Protein Negative (Neg-Trace) mg/dL Urine Glucose (UA) Normal (Normal) mg/dL Urine Ketones Negative (Negative) mg/dL Urine Blood Trace H (Negative) Urine Nitrite Negative (Negative) Urine Bilirubin Negative (Negative) Urine Urobilinogen Normal (Normal) mg/dL Ur Leukocyte Esterase Negative (Negative) Urine Microscopic RBC 5-15 H (0-3) per hpf Urine Microscopic WBC 0-3 (0-3) per hpf Ur Squamous Epith Cells Moderate H (None-Few) per lpf Urine Bacteria None Seen (None-Few) per hpf Hyaline Casts None Seen (None-Few) per lpf Ur Culture Indicated? NO (NO) HIV-1 RNA copies/mL 35,000 cpy/mL HIV RNA Quant Info DETECTED A (Not Detected) HIV-1 RNA Qnt Date Rpt 4.5 log Exam - Constitutional Vitals: Temp Pulse Resp BP Pulse Ox 98.4 F 96 16 110/57 93 08/28/17 07:13 08/28/17 07:13 08/28/17 07:13 08/28/17 07:13 08/28/17 07:13 General appearance: cooperative, no acute distress, thin - Head Head exam: Present: atraumatic, normal inspection, normocephalic - Eye Eye exam: Present: EOMI, normal appearance, PERRL Pupils: Present: normal accommodation - ENT ENT exam: Present: mucous membranes moist - Neck Neck exam: Present: normal inspection - Respiratory Respiratory exam: Present: CTAB. Absent: rales, respiratory distress, rhonchi, wheezes - Cardiovascular Cardiovascular exam: Present: RRR, +S1, +S2 - GI/Abdominal GI/Abdominal exam: Present: normal bowel sounds, soft. Absent: distended, tenderness - Extremities Exam Extremities exam: Present: normal inspection. Absent: joint swelling, pedal edema, tenderness - Neurological Exam Neurological exam: Present: alert, oriented X3, no focal deficits - Psychiatric Psychiatric exam: Present: normal affect, normal mood - Skin Skin exam: Present: dry, intact, normal color, warm - VTE Documentation of Mechanical Device: Intermittent pneumatic compression device Consult Discharge Plan - Plan Referrals: Willie Underwood MD [Primary Care Provider] - (will wait and see what plans are for d/c. Unsure at this time )
--- NOTE | 2017-08-28 18:27 | Internal Med Progress Note ---
Date of Encounter: 08/28/17 Time of Encounter: 11:00 - Assessment and plan (1) Upper gastrointestinal hemorrhage Current Visit: Yes Status: Acute Assessment and plan: From possible esophageal varices or peptic ulcer disease. Continue IV PPI and octreotide. (2) Alcoholic cirrhosis of liver with ascites Current Visit: No Status: Acute Assessment and plan: -We will continue IV Cipro for potential SBP per infectious disease (3) Liver cirrhosis, alcoholic Current Visit: Yes Status: Chronic Assessment and plan: With esophageal viruses. Supportive care. IV fluids. Folic acid and thiamine. Qualifiers: Ascites presence: with ascites Qualified Code(s): K70.31 - Alcoholic cirrhosis of liver with ascites (4) Thrombocytopenia associated with AIDS Current Visit: No Status: Chronic Assessment and plan: Secondary to liver disease (5) Anemia Current Visit: Yes Status: Acute Assessment and plan: Severe anemia due to GI bleed. Hemoglobin stable; monitor blood counts closely. Qualifiers: Anemia type: other cause Other causes of anemia: acute posthemorrhagic Qualified Code(s): D62 - Acute posthemorrhagic anemia (6) Pneumonia Current Visit: Yes Status: Acute Assessment and plan: We will continue Zosyn Qualifiers: Pneumonia type: aspiration pneumonia Aspiration pneumonia type: due to vomit Laterality: bilateral Lung location: lower lobe of lung Qualified Code(s): J69.0 - Pneumonitis due to inhalation of food and vomit - Subjective Interval history: No acute events overnight - Constitutional Vitals: Temp Pulse Resp BP Pulse Ox 98.5 F 94 16 125/77 96 08/28/17 16:51 08/28/17 16:51 08/28/17 16:51 08/28/17 16:51 08/28/17 16:51 General appearance: Present: cachectic, A&O X 3, severe distress, answers questions appropriately - Respiratory Respiratory exam: Present: CTAB. Absent: accessory muscle use, rales, rhonchi, wheezes - Cardiovascular Cardiovascular exam: Present: RRR, +S1, +S2. Absent: diastolic murmur, gallop, rubs, systolic murmur Internal Medicine: Result - Labs CBC & Chem 7: 08/28/17 07:09 08/28/17 07:09 Labs: Short CBC 08/28/17 Range/Units 07:09 WBC 4.2 L (4.3-11.1) K/mcL Hgb 7.9 L (12.9-16.9) g/dL Hct 25.2 L (37.5-50.1) % Plt Count 61 L (140-400) K/mcL BMP 08/28/17 07:09 Sodium 136 Potassium 4.0 Chloride 108 Carbon Dioxide 21 BUN 8 Creatinine 0.82 Glucose 123 H Calcium 8.0 L - ABG Interpretation ABG results: ABG ABG pH 7.40 pH Units (7.32-7.45) 08/24/17 07:40 ABG pCO2 47 mmHg (35-45) H 08/24/17 07:40 ABG pO2 108 mmHg (85-104) H 08/24/17 07:40 ABG O2 Saturation 98 % (95-98) 08/24/17 07:40 PT/INR, D-dimer PT 17.4 Seconds (9.4-12.1) H 08/22/17 16:00 - VTE Documentation of Mechanical Device: Intermittent pneumatic compression device Consult Discharge Plan - Plan Referrals: Willie Underwood MD [Primary Care Provider] - (will wait and see what plans are for d/c. Unsure at this time )
[2017-08-29 06:06] LABS: BUN/Creatinine Ratio 11 (6-26); Blood Urea Nitrogen 9 mg/dL (8-26); Carbon Dioxide 23 mEq/L (19-29); Chloride 108 mEq/L (98-109); Glucose 92 mg/dL (70-99); Hematocrit 24.9 % (37.5-50.1); Immature Platelets 9.7 % (1.1-6.1); Mean Corpuscular HGB Conc 32.1 g/dL (31.6-35.5); Mean Corpuscular Hemoglobin 27.1 pg (28.0-33.3); Mean Corpuscular Volume 84.4 fL (83.0-100.0); Mean Platelet Volume 12.5 fL (9.4-12.4); Osmolality,Calculated 282 (280-300); Potassium 3.3 mEq/L (3.5-4.5); Red Blood Count 2.95 M/mcL (4.19-5.50); Red Cell Distribution Width 17.8 % (11.5-14.5); Sodium 137 mEq/L (136-145); eGFR For African Americans > 60 (> 60); eGFR For Non-African Americans > 60 (> 60)
[2017-08-29] MEDS: Pantoprazole 40 MG VIAL IVP SCH ×2 (06:29→16:06)
[2017-08-29] MEDS: Furosemide 40 MG/4 ML VIAL IVP SCH (09:07)
[2017-08-29] MEDS: Nicotine 21 MG PATCH.TD24 TD SCH (09:07)
[2017-08-29] MEDS: Lactulose Oral Soln 20 GM/30 ML UDC PO SCH ×4 (09:09→20:25)
[2017-08-29] MEDS: Sulfamethoxazole/Trimeth Oral Soln 400-80mg/10 ML UDC PO SCH (09:09)
[2017-08-29] MEDS: Piperacillin/Tazobactam 3.375 GM in D5% in Water (Mini-Bag+) 100 ML IVPB SCH ×3 (10:00→23:49)
--- NOTE | 2017-08-29 10:20 | Infectious Disease Progress No ---
Date of Encounter: 08/29/17 Time of Encounter: 10:18 - Assessment and Plan (1) Sepsis Current Visit: Yes Status: Acute The patient had fever and tachycardia. Source likely PNA. Improved. The patient has been afebrile. Tachycardia and tachypnea have resolved. Blood cultures drawn 08/21/17 are negative x 2 sets. Qualifiers: Sepsis type: sepsis due to unspecified organism Qualified Code(s): A41.9 - Sepsis, unspecified organism (2) Pneumonia Current Visit: Yes Status: Acute Likely secondary to aspiration. CT scan of the chest showed bilateral lower airspace consolidation concerning for PNA vs. atelectasis vs. aspiration per radiology. The patient likely suffered an aspiration event prior to intubation given the large amount of hematemesis per documentation. Repeat CXR 08/25/17 shows evidence of RLL pneumonia, likely secondary to aspiration event the previous day. Repeat CXR 08/29/17 shows near-resolution. Continue Zosyn 3.375 grams IV Q8H (day 9). Duration of treatment depends on the clinical picture. Can likely de-escalate to oral antibiotics when ready for discharge. Recommend Augmentin when ready for discharge to complete a 10 day course. Monitor renal function and dose-adjust antibiotics. Qualifiers: Pneumonia type: aspiration pneumonia Aspiration pneumonia type: due to vomit Laterality: bilateral Lung location: lower lobe of lung Qualified Code(s): J69.0 - Pneumonitis due to inhalation of food and vomit (3) Upper gastrointestinal hemorrhage Current Visit: Yes Status: Resolved Secondary to gastric ulcer. Status post EGD 08/20/[address] Delaney. Endo report reviewed. Large gastric ulcer with visible vessel status post clipping. No evidence of recurrent bleeding. . (4) Hemorrhagic shock Current Visit: Yes Status: Resolved Secondary to UGI bleed. Patient had hypotension and tachycardia. Resolved. (5) Anemia Current Visit: Yes Status: Acute Secondary to GI bleed. Stable. Further management per the GI and primary teams. Qualifiers: Anemia type: other cause Other causes of anemia: acute posthemorrhagic Qualified Code(s): D62 - Acute posthemorrhagic anemia (6) Gastric ulcer Current Visit: Yes Status: Acute Qualifiers: Gastric ulcer chronicity: acute Gastric ulcer complication status: with hemorrhage Qualified Code(s): K25.0 - Acute gastric ulcer with hemorrhage (7) Ascites Current Visit: Yes Status: Acute Liver UTS and CT of the abdomen and pelvis show interval development of moderate intra-abdominal pelvic ascites. Likely secondary to aggressive fluid volume resuscitation in the setting of liver cirrhosis. SBP less likely cause of the patient's sepsis. Continue Cipro 400mg IV BID (day 9) through tomorrow, then discontinue. Duration of treatment to total 10 days. Qualifiers: Ascites type: due to alcoholic cirrhosis Qualified Code(s): K70.31 - Alcoholic cirrhosis of liver with ascites (8) Pleural effusion Current Visit: Yes Status: Resolved CT of the chest showed bilateral pleural effusions. Improved. Repeat CXR shows improvement. Likely secondary to aggressive fluid volume resuscitation. Management per the pulmonology team. (9) Syncope Current Visit: Yes Status: Resolved Likely secondary to orthostatic hypotension from GI bleed. No further syncopal events since admission. Qualifiers: Syncope type: unspecified Qualified Code(s): R55 - Syncope and collapse (10) Thrombocytopenia Current Visit: Yes Status: Chronic Likely secondary to AIDS, but worsened in the setting of acute infection/ illness. Improved. Continue to trend. Transfuse as appropriate per the primary team. (11) AIDS (acquired immune deficiency syndrome) Current Visit: No Status: Chronic Diagnosed with HIV 30 years ago. Has a history of non-compliance. Last CD4 count in June was 258, VL undetectable. Follows with Dr. Underwood and was actually seen by him on the day of admission and had medications refilled. No indications to start ART at this time. Will wait for the patient to stabilize and consider re-starting at that time. CD4 count 77. Continue Bactrim for PCP prophylaxis 1 DS daily. Viral load 35,000. Patient needs to start HAART on discharge as prescribed by his PCP, Dr. Underwood. (12) Liver cirrhosis, alcoholic Current Visit: Yes Status: Chronic Qualifiers: Ascites presence: with ascites Qualified Code(s): K70.31 - Alcoholic cirrhosis of liver with ascites - Subjective Interval history: Patient seen and examined. No acute overnight events noted. Patient awake and alert this morning. Denies fevers or chills. He denies pain, shortness of breath. Reports a mild, non-productive cough. Denies nausea, vomiting, or diarrhea. Denies abdominal pain. No fevers documented overnight. Denies urinary complaints and states his appetite is back to normal for him. Denies oral thrush or skin lesions. Reports last BM was this morning. Infect Dis PN-Objective Data - Labs CBC & Chem 7: 08/29/17 05:24 08/29/17 05:24 Labs: Laboratory Results - last 24 hr 08/29/17 08/29/17 05:24 05:24 WBC 3.4 L RBC 2.95 L Hgb 8.0 L Hct 24.9 L MCV 84.4 MCH 27.1 L MCHC 32.1 RDW 17.8 H Plt Count 64 L MPV 12.5 H Immature Plt Fraction 9.7 H Sodium 137 Potassium 3.3 L Chloride 108 Carbon Dioxide 23 BUN 9 Creatinine 0.84 Est GFR ( Amer) > 60 Est GFR (Non-Af Amer) > 60 BUN/Creatinine Ratio 11 Glucose 92 Calculated Osmolality 282 Calcium 8.0 L Cultures: Cultures 08/21/17 00:49 Blood Culture - Final Peripheral Venipuncture No growth. 08/21/17 00:48 Blood Culture - Final Peripheral Venipuncture No growth. Serology 08/21/17 08/20/17 Range/Units 11:17 14:45 Urine Color Yellow (Yellow) Urine Clarity Clear (Clear) Urine pH 6.0 (5.0-8.0) pH Units Ur Specific Alexander 1.026 H (1.010-1.025) Urine Protein Negative (Neg-Trace) mg/dL Urine Glucose (UA) Normal (Normal) mg/dL Urine Ketones Negative (Negative) mg/dL Urine Blood Trace H (Negative) Urine Nitrite Negative (Negative) Urine Bilirubin Negative (Negative) Urine Urobilinogen Normal (Normal) mg/dL Ur Leukocyte Esterase Negative (Negative) Urine Microscopic RBC 5-15 H (0-3) per hpf Urine Microscopic WBC 0-3 (0-3) per hpf Ur Squamous Epith Cells Moderate H (None-Few) per lpf Urine Bacteria None Seen (None-Few) per hpf Hyaline Casts None Seen (None-Few) per lpf Ur Culture Indicated? NO (NO) HIV-1 RNA copies/mL 35,000 cpy/mL HIV RNA Quant Info DETECTED A (Not Detected) HIV-1 RNA Qnt Date Rpt 4.5 log - Impressions Impressions Chest X-Ray 08/29/17 06:00 IMPRESSION: Interval improvement to near resolution of right airspace opacities. D/ / Jada Gurrola MD / Jada Gurrola MD Interpreting Provider: Jada Gurrola MD Exam - Constitutional Vitals: Temp Pulse Resp BP Pulse Ox 97.9 F 85 16 118/68 97 08/29/17 07:01 08/29/17 07:01 08/29/17 07:01 08/29/17 07:01 08/29/17 07:01 General appearance: cooperative, no acute distress, thin - Head Head exam: Present: atraumatic, normal inspection, normocephalic - Eye Eye exam: Present: EOMI, normal appearance, PERRL Pupils: Present: normal accommodation - ENT ENT exam: Present: mucous membranes moist - Neck Neck exam: Present: normal inspection - Respiratory Respiratory exam: Present: CTAB, rhonchi (Right anterior upper lobe). Absent: rales, respiratory distress, wheezes - Cardiovascular Cardiovascular exam: Present: RRR, +S1, +S2 - GI/Abdominal GI/Abdominal exam: Present: normal bowel sounds, soft. Absent: distended, tenderness - Extremities Exam Extremities exam: Present: normal inspection. Absent: joint swelling, pedal edema, tenderness - Neurological Exam Neurological exam: Present: alert, oriented X3, no focal deficits - Psychiatric Psychiatric exam: Present: normal affect, normal mood - Skin Skin exam: Present: dry, intact, normal color, warm - VTE Documentation of Mechanical Device: Intermittent pneumatic compression device Consult Discharge Plan - Plan Referrals: Willie Underwood MD [Primary Care Provider] - (will wait and see what plans are for d/c. Unsure at this time )
[2017-08-29] MEDS ORDERED: Potassium Chloride Elixir 20 MEQ/15 ML UDC PO ONE (11:23)
--- NOTE | 2017-08-29 18:30 | Internal Med Progress Note ---
Date of Encounter: 08/29/17 Time of Encounter: 11:00 - Assessment and plan (1) Upper gastrointestinal hemorrhage Current Visit: Yes Status: Resolved Assessment and plan: From possible esophageal varices or peptic ulcer disease. Continue IV PPI. (2) Alcoholic cirrhosis of liver with ascites Current Visit: No Status: Acute Assessment and plan: -We will continue IV Cipro for potential SBP per infectious disease (3) Liver cirrhosis, alcoholic Current Visit: Yes Status: Chronic Assessment and plan: With esophageal viruses. Supportive care. IV fluids. Folic acid and thiamine. Qualifiers: Ascites presence: with ascites Qualified Code(s): K70.31 - Alcoholic cirrhosis of liver with ascites (4) Thrombocytopenia associated with AIDS Current Visit: No Status: Chronic Assessment and plan: Secondary to liver disease (5) Anemia Current Visit: Yes Status: Acute Assessment and plan: Severe anemia due to GI bleed. Hemoglobin stable; monitor blood counts closely. Qualifiers: Anemia type: other cause Other causes of anemia: acute posthemorrhagic Qualified Code(s): D62 - Acute posthemorrhagic anemia (6) Pneumonia Current Visit: Yes Status: Acute Assessment and plan: We will continue Zosyn Qualifiers: Pneumonia type: aspiration pneumonia Aspiration pneumonia type: due to vomit Laterality: bilateral Lung location: lower lobe of lung Qualified Code(s): J69.0 - Pneumonitis due to inhalation of food and vomit - Subjective Interval history: No acute events overnight - Constitutional Vitals: Temp Pulse Resp BP Pulse Ox 98.1 F 95 17 102/62 95 08/29/17 16:23 08/29/17 16:23 08/29/17 16:23 08/29/17 16:23 08/29/17 16:23 General appearance: Present: cachectic, A&O X 3, severe distress, answers questions appropriately - Respiratory Respiratory exam: Present: CTAB. Absent: accessory muscle use, rales, rhonchi, wheezes - Cardiovascular Cardiovascular exam: Present: RRR, +S1, +S2. Absent: diastolic murmur, gallop, rubs, systolic murmur Internal Medicine: Result - Labs CBC & Chem 7: 08/29/17 05:24 08/29/17 05:24 Labs: Short CBC 08/29/17 Range/Units 05:24 WBC 3.4 L (4.3-11.1) K/mcL Hgb 8.0 L (12.9-16.9) g/dL Hct 24.9 L (37.5-50.1) % Plt Count 64 L (140-400) K/mcL BMP 08/29/17 05:24 Sodium 137 Potassium 3.3 L Chloride 108 Carbon Dioxide 23 BUN 9 Creatinine 0.84 Glucose 92 Calcium 8.0 L - ABG Interpretation ABG results: ABG ABG pH 7.40 pH Units (7.32-7.45) 08/24/17 07:40 ABG pCO2 47 mmHg (35-45) H 08/24/17 07:40 ABG pO2 108 mmHg (85-104) H 08/24/17 07:40 ABG O2 Saturation 98 % (95-98) 08/24/17 07:40 PT/INR, D-dimer PT 17.4 Seconds (9.4-12.1) H 08/22/17 16:00 - Impressions Impressions Chest X-Ray 08/29/17 06:00 IMPRESSION: Interval improvement to near resolution of right airspace opacities. D/ / Jada Gurrola MD / Jada Gurrola MD Interpreting Provider: Jada Gurrola MD - VTE Documentation of Mechanical Device: Intermittent pneumatic compression device Consult Discharge Plan - Plan Referrals: Willie Underwood MD [Primary Care Provider] - (will wait and see what plans are for d/c. Unsure at this time )
[2017-08-30] MEDS: Pantoprazole 40 MG VIAL IVP SCH ×2 (06:25→17:02)
[2017-08-30] MEDS: Furosemide 40 MG/4 ML VIAL IVP SCH (08:30)
[2017-08-30] MEDS: Lactulose Oral Soln 20 GM/30 ML UDC PO SCH ×4 (08:30→19:59)
[2017-08-30] MEDS: Nicotine 21 MG PATCH.TD24 TD SCH (08:31)
[2017-08-30] MEDS: Sulfamethoxazole/Trimeth Oral Soln 400-80mg/10 ML UDC PO SCH (08:31)
[2017-08-30] MEDS: Piperacillin/Tazobactam 3.375 GM in D5% in Water (Mini-Bag+) 100 ML IVPB SCH ×2 (08:31→17:02)
[2017-08-30 08:50] LABS: Eosinophils % 1.7 %; Lymphocytes % 19.5 %
[2017-08-30 08:52] LABS: Basophils % 0.5 %; Eosinophils # 0.1 K/mcL (0.0-0.6); Hematocrit 28.5 % (37.5-50.1); Immature Granulocytes % 0.7 % (0-4); Immature Platelets 8.8 % (1.1-6.1); Lymphocytes # 0.8 K/mcL (0.6-4.6); Mean Corpuscular HGB Conc 31.6 g/dL (31.6-35.5); Mean Corpuscular Volume 85.6 fL (83.0-100.0); Mean Platelet Volume 11.8 fL (9.4-12.4); Monocytes # 0.7 K/mcL (0.0-1.3); Monocytes % 16.6 %; Neutrophils # 2.5 K/mcL (1.6-8.9); Platelet Count 81 K/mcL (140-400); Red Blood Count 3.33 M/mcL (4.19-5.50); Red Cell Distribution Width 17.8 % (11.5-14.5)
[2017-08-30 08:59] LABS: BUN/Creatinine Ratio 11 (6-26); Blood Urea Nitrogen 10 mg/dL (8-26); Calcium 8.5 mg/dL (8.6-10.8); Carbon Dioxide 25 mEq/L (19-29); Chloride 107 mEq/L (98-109); Glucose 123 mg/dL (70-99); Osmolality,Calculated 284 (280-300); Potassium 3.8 mEq/L (3.5-4.5); Sodium 137 mEq/L (136-145); eGFR For African Americans > 60 (> 60); eGFR For Non-African Americans > 60 (> 60)
--- NOTE | 2017-08-30 16:39 | Internal Med Progress Note ---
Date of Encounter: 08/30/17 Time of Encounter: 11:00 - Assessment and plan (1) Upper gastrointestinal hemorrhage Current Visit: Yes Status: Resolved Assessment and plan: -EGD on 08/20/17 showed congested mucosa in the esophagus with an oozing gastric ulcer with a visible vessel which was clipped. -Recommendations for IV PPI and octreotide infusion which was discontinued after 24 hours. (2) Alcoholic cirrhosis of liver with ascites Current Visit: No Status: Acute Assessment and plan: -There were concerns for SBP due to ascites secondary to alcoholic liver cirrhosis. -Disease recommended IV Cipro which has now been completed and discontinued. -Will continue to monitor (3) Liver cirrhosis, alcoholic Current Visit: Yes Status: Chronic Assessment and plan: With esophageal viruses. Supportive care. IV fluids. Folic acid and thiamine. Qualifiers: Ascites presence: with ascites Qualified Code(s): K70.31 - Alcoholic cirrhosis of liver with ascites (4) Thrombocytopenia associated with AIDS Current Visit: No Status: Chronic Assessment and plan: Secondary to liver disease (5) Anemia Current Visit: Yes Status: Acute Assessment and plan: Severe anemia due to GI bleed. Hemoglobin stable; monitor blood counts closely. Qualifiers: Anemia type: other cause Other causes of anemia: acute posthemorrhagic Qualified Code(s): D62 - Acute posthemorrhagic anemia (6) Pneumonia Current Visit: Yes Status: Resolved Assessment and plan: -Resolved; antibiotics discontinued Qualifiers: Pneumonia type: aspiration pneumonia Aspiration pneumonia type: due to vomit Laterality: bilateral Lung location: lower lobe of lung Qualified Code(s): J69.0 - Pneumonitis due to inhalation of food and vomit - Subjective Interval history: Patient reports of feeling much better today and is sitting up in a chair watching TV. - Constitutional Vitals: Temp Pulse Resp BP Pulse Ox 97.9 F 82 16 108/59 100 08/30/17 11:57 08/30/17 11:57 08/30/17 11:57 08/30/17 11:57 08/30/17 11:57 General appearance: Present: cachectic, A&O X 3, severe distress, answers questions appropriately - Respiratory Respiratory exam: Present: CTAB. Absent: accessory muscle use, rales, rhonchi, wheezes - Cardiovascular Cardiovascular exam: Present: RRR, +S1, +S2. Absent: diastolic murmur, gallop, rubs, systolic murmur Internal Medicine: Result - Labs CBC & Chem 7: 08/30/17 08:40 08/30/17 08:40 Labs: Short CBC 08/30/17 Range/Units 08:40 WBC 4.1 L (4.3-11.1) K/mcL Hgb 9.0 L (12.9-16.9) g/dL Hct 28.5 L (37.5-50.1) % Plt Count 81 L (140-400) K/mcL Neutrophils # 2.5 (1.6-8.9) K/mcL BMP 08/30/17 08:40 Sodium 137 Potassium 3.8 Chloride 107 Carbon Dioxide 25 BUN 10 Creatinine 0.92 Glucose 123 H Calcium 8.5 L - ABG Interpretation ABG results: ABG ABG pH 7.40 pH Units (7.32-7.45) 08/24/17 07:40 ABG pCO2 47 mmHg (35-45) H 08/24/17 07:40 ABG pO2 108 mmHg (85-104) H 08/24/17 07:40 ABG O2 Saturation 98 % (95-98) 08/24/17 07:40 PT/INR, D-dimer PT 17.4 Seconds (9.4-12.1) H 08/22/17 16:00 - VTE Documentation of Mechanical Device: Intermittent pneumatic compression device Consult Discharge Plan - Plan Referrals: Willie Underwood MD [Primary Care Provider] - (will wait and see what plans are for d/c. Unsure at this time )
[2017-08-31] MEDS: Piperacillin/Tazobactam 3.375 GM in D5% in Water (Mini-Bag+) 100 ML IVPB SCH ×3 (00:17→17:35)
[2017-08-31] MEDS: Pantoprazole 40 MG VIAL IVP SCH ×2 (06:05→17:35)
[2017-08-31] MEDS: Lactulose Oral Soln 20 GM/30 ML UDC PO SCH ×4 (09:39→20:43)
[2017-08-31] MEDS: Furosemide 40 MG/4 ML VIAL IVP SCH (09:40)
[2017-08-31] MEDS: Sulfamethoxazole/Trimeth Oral Soln 400-80mg/10 ML UDC PO SCH (09:40)
[2017-08-31] MEDS: Nicotine 21 MG PATCH.TD24 TD SCH (09:44)
[2017-08-31 11:11] LABS: Hemoglobin 9.8 g/dL (12.9-16.9)
[2017-08-31 11:13] LABS: Basophils % 0.5 %; Eosinophils # 0.1 K/mcL (0.0-0.6); Eosinophils % 1.4 %; Hematocrit 30.6 % (37.5-50.1); Immature Granulocytes % 3.2 % (0-4); Immature Platelets 10.4 % (1.1-6.1); Lymphocytes % 15.4 %; Mean Corpuscular Hemoglobin 26.8 pg (28.0-33.3); Mean Corpuscular Volume 83.6 fL (83.0-100.0); Monocytes # 0.9 K/mcL (0.0-1.3); Monocytes % 14.2 %; Neutrophils # 4.3 K/mcL (1.6-8.9); Nucleated Red Blood Cells 0.6 /100 WBC (0); Red Blood Count 3.66 M/mcL (4.19-5.50); Red Cell Distribution Width 17.9 % (11.5-14.5); Segmented Neutrophils % 65.3 %
[2017-08-31 11:14] LABS: Platelet Count 93 K/mcL (140-400)
[2017-08-31 11:27] LABS: BUN/Creatinine Ratio 12 (6-26); Blood Urea Nitrogen 12 mg/dL (8-26); Calcium 8.7 mg/dL (8.6-10.8); Carbon Dioxide 21 mEq/L (19-29); Chloride 104 mEq/L (98-109); Glucose 140 mg/dL (70-99); Osmolality,Calculated 282 (280-300); Potassium 3.9 mEq/L (3.5-4.5); Sodium 135 mEq/L (136-145); eGFR For African Americans > 60 (> 60); eGFR For Non-African Americans > 60 (> 60)
--- NOTE | 2017-08-31 19:01 | Internal Med Progress Note ---
Date of Encounter: 08/31/17 Time of Encounter: 11:00 - Assessment and plan (1) Upper gastrointestinal hemorrhage Current Visit: Yes Status: Resolved Assessment and plan: -EGD on 08/20/17 showed congested mucosa in the esophagus with an oozing gastric ulcer with a visible vessel which was clipped. -Recommendations for IV PPI and octreotide infusion which was discontinued after 24 hours. (2) Alcoholic cirrhosis of liver with ascites Current Visit: No Status: Acute Assessment and plan: -There were concerns for SBP due to ascites secondary to alcoholic liver cirrhosis. -Disease recommended IV Cipro which has now been completed and discontinued. -Will continue to monitor (3) Liver cirrhosis, alcoholic Current Visit: Yes Status: Chronic Assessment and plan: With esophageal viruses. Supportive care. IV fluids. Folic acid and thiamine. Qualifiers: Ascites presence: with ascites Qualified Code(s): K70.31 - Alcoholic cirrhosis of liver with ascites (4) Thrombocytopenia associated with AIDS Current Visit: No Status: Chronic Assessment and plan: Secondary to liver disease (5) Anemia Current Visit: Yes Status: Acute Assessment and plan: Severe anemia due to GI bleed. Hemoglobin stable; monitor blood counts closely. Qualifiers: Anemia type: other cause Other causes of anemia: acute posthemorrhagic Qualified Code(s): D62 - Acute posthemorrhagic anemia (6) Pneumonia Current Visit: Yes Status: Resolved Assessment and plan: -Resolved; antibiotics discontinued Qualifiers: Pneumonia type: aspiration pneumonia Aspiration pneumonia type: due to vomit Laterality: bilateral Lung location: lower lobe of lung Qualified Code(s): J69.0 - Pneumonitis due to inhalation of food and vomit - Subjective Interval history: Patient reports of feeling much better today and is sitting up in a chair watching TV. - Constitutional Vitals: Temp Pulse Resp BP Pulse Ox 98.6 F 91 16 123/73 95 08/31/17 18:37 08/31/17 18:37 08/31/17 18:37 08/31/17 18:37 08/31/17 18:37 General appearance: Present: cachectic, A&O X 3, severe distress, answers questions appropriately - Respiratory Respiratory exam: Present: CTAB. Absent: accessory muscle use, rales, rhonchi, wheezes - Cardiovascular Cardiovascular exam: Present: RRR, +S1, +S2. Absent: diastolic murmur, gallop, rubs, systolic murmur Internal Medicine: Result - Labs CBC & Chem 7: 08/31/17 10:59 08/31/17 10:59 Labs: Short CBC 08/31/17 Range/Units 10:59 WBC 6.6 D (4.3-11.1) K/mcL Hgb 9.8 L (12.9-16.9) g/dL Hct 30.6 L (37.5-50.1) % Plt Count 93 L (140-400) K/mcL Neutrophils # 4.3 (1.6-8.9) K/mcL BMP 08/31/17 10:59 Sodium 135 L Potassium 3.9 Chloride 104 Carbon Dioxide 21 BUN 12 Creatinine 1.02 Glucose 140 H Calcium 8.7 - ABG Interpretation ABG results: ABG ABG pH 7.40 pH Units (7.32-7.45) 08/24/17 07:40 ABG pCO2 47 mmHg (35-45) H 08/24/17 07:40 ABG pO2 108 mmHg (85-104) H 08/24/17 07:40 ABG O2 Saturation 98 % (95-98) 08/24/17 07:40 PT/INR, D-dimer PT 17.4 Seconds (9.4-12.1) H 08/22/17 16:00 - VTE Documentation of Mechanical Device: Intermittent pneumatic compression device Consult Discharge Plan - Plan Referrals: Willie Underwood MD [Primary Care Provider] - (will wait and see what plans are for d/c. Unsure at this time )
[2017-09-01] MEDS: Piperacillin/Tazobactam 3.375 GM in D5% in Water (Mini-Bag+) 100 ML IVPB SCH ×2 (00:58→08:07)
[2017-09-01] MEDS: Pantoprazole 40 MG VIAL IVP SCH (05:17)
[2017-09-01] MEDS: Sulfamethoxazole/Trimeth Oral Soln 400-80mg/10 ML UDC PO SCH (08:07)
[2017-09-01] MEDS: Furosemide 40 MG/4 ML VIAL IVP SCH (08:07)
[2017-09-01] MEDS: Nicotine 21 MG PATCH.TD24 TD SCH (08:08)
[2017-09-01] MEDS: Lactulose Oral Soln 20 GM/30 ML UDC PO SCH ×4 (08:08→20:18)
[2017-09-01 08:19] LABS: BUN/Creatinine Ratio 15 (6-26); Blood Urea Nitrogen 13 mg/dL (8-26); Calcium 8.5 mg/dL (8.6-10.8); Carbon Dioxide 25 mEq/L (19-29); Chloride 102 mEq/L (98-109); Glucose 109 mg/dL (70-99); Osmolality,Calculated 281 (280-300); Potassium 3.5 mEq/L (3.5-4.5); Sodium 135 mEq/L (136-145); eGFR For African Americans > 60 (> 60); eGFR For Non-African Americans > 60 (> 60)
[2017-09-01 08:21] LABS: Basophils % 0.7 %; Eosinophils # 0.1 K/mcL (0.0-0.6); Eosinophils % 1.9 %; Hematocrit 29.2 % (37.5-50.1); Hemoglobin 9.1 g/dL (12.9-16.9); Immature Granulocytes % 0.5 % (0-4); Lymphocytes # 0.8 K/mcL (0.6-4.6); Lymphocytes % 18.1 %; Mean Corpuscular HGB Conc 31.2 g/dL (31.6-35.5); Mean Corpuscular Hemoglobin 26.3 pg (28.0-33.3); Mean Corpuscular Volume 84.4 fL (83.0-100.0); Mean Platelet Volume 11.2 fL (9.4-12.4); Monocytes # 0.6 K/mcL (0.0-1.3); Monocytes % 14.6 %; Neutrophils # 2.8 K/mcL (1.6-8.9); Red Blood Count 3.46 M/mcL (4.19-5.50); Red Cell Distribution Width 17.8 % (11.5-14.5); Segmented Neutrophils % 64.2 %
[2017-09-01 08:22] LABS: Platelet Count 81 K/mcL (140-400)
--- NOTE | 2017-09-01 10:14 | Infectious Disease Progress No ---
Date of Encounter: 09/01/17 Time of Encounter: 10:12 - Assessment and Plan (1) Sepsis Current Visit: Yes Status: Resolved The patient had fever and tachycardia. Source likely PNA. Resolved. The patient has been afebrile. Tachycardia and tachypnea have resolved. Blood cultures drawn 08/21/17 are negative x 2 sets. Qualifiers: Sepsis type: sepsis due to unspecified organism Qualified Code(s): A41.9 - Sepsis, unspecified organism (2) Pneumonia Current Visit: Yes Status: Resolved Likely secondary to aspiration. CT scan of the chest showed bilateral lower airspace consolidation concerning for PNA vs. atelectasis vs. aspiration per radiology. The patient likely suffered an aspiration event prior to intubation given the large amount of hematemesis per documentation. Repeat CXR 08/25/17 shows evidence of RLL pneumonia, likely secondary to aspiration event the previous day. Repeat CXR 08/29/17 shows near-resolution. Has completed 12 days of IV Zosyn. Okay to discontinue. Monitor off antibiotics. No further recommendations from the ID team. Will sign off. Please re-consult if needed. Qualifiers: Pneumonia type: aspiration pneumonia Aspiration pneumonia type: due to vomit Laterality: bilateral Lung location: lower lobe of lung Qualified Code(s): J69.0 - Pneumonitis due to inhalation of food and vomit (3) Upper gastrointestinal hemorrhage Current Visit: Yes Status: Resolved Secondary to gastric ulcer. Status post EGD 08/20/[address] Delaney. Endo report reviewed. Large gastric ulcer with visible vessel status post clipping. No evidence of recurrent bleeding. . (4) Hemorrhagic shock Current Visit: Yes Status: Resolved Secondary to UGI bleed. Patient had hypotension and tachycardia. Resolved. (5) Anemia Current Visit: Yes Status: Acute Secondary to GI bleed. Stable. Further management per the GI and primary teams. Qualifiers: Anemia type: other cause Other causes of anemia: acute posthemorrhagic Qualified Code(s): D62 - Acute posthemorrhagic anemia (6) Gastric ulcer Current Visit: Yes Status: Acute Qualifiers: Gastric ulcer chronicity: acute Gastric ulcer complication status: with hemorrhage Qualified Code(s): K25.0 - Acute gastric ulcer with hemorrhage (7) Ascites Current Visit: Yes Status: Acute Liver UTS and CT of the abdomen and pelvis show interval development of moderate intra-abdominal pelvic ascites. Likely secondary to aggressive fluid volume resuscitation in the setting of liver cirrhosis. SBP less likely cause of the patient's sepsis. Treated with 10 days of IV Cipro. Qualifiers: Ascites type: due to alcoholic cirrhosis Qualified Code(s): K70.31 - Alcoholic cirrhosis of liver with ascites (8) Pleural effusion Current Visit: Yes Status: Resolved CT of the chest showed bilateral pleural effusions. Improved. Repeat CXR shows improvement. Likely secondary to aggressive fluid volume resuscitation. Management per the pulmonology team. (9) Syncope Current Visit: Yes Status: Resolved Likely secondary to orthostatic hypotension from GI bleed. No further syncopal events since admission. Qualifiers: Syncope type: unspecified Qualified Code(s): R55 - Syncope and collapse (10) Thrombocytopenia Current Visit: Yes Status: Chronic Likely secondary to AIDS, but worsened in the setting of acute infection/ illness. Improved. Continue to trend. Transfuse as appropriate per the primary team. (11) AIDS (acquired immune deficiency syndrome) Current Visit: No Status: Chronic Diagnosed with HIV 30 years ago. Has a history of non-compliance. Last CD4 count in June was 258, VL undetectable. Follows with Dr. Underwood and was actually seen by him on the day of admission and had medications refilled. No indications to start ART at this time. Will wait for the patient to stabilize and consider re-starting at that time. CD4 count 77. Continue Bactrim for PCP prophylaxis 1 DS daily. Viral load 35,000. Patient needs to start HAART on discharge as prescribed by his PCP, Dr. Underwood. (12) Liver cirrhosis, alcoholic Current Visit: Yes Status: Chronic Qualifiers: Ascites presence: with ascites Qualified Code(s): K70.31 - Alcoholic cirrhosis of liver with ascites - Subjective Interval history: Patient seen and examined. Weekend notes reviewed. No acute events noted. Patient awake and alert this morning. Denies fevers or chills. He denies pain, shortness of breath. Reports a mild, non-productive cough. Denies nausea, vomiting. Reports 3 loose stools per day. Denies abdominal pain. Denies urinary complaints and states his appetite is back to normal for him. Denies oral thrush or skin lesions. Reports last BM was this morning. Infect Dis PN-Objective Data - Labs CBC & Chem 7: 09/01/17 07:44 09/01/17 07:44 Labs: Laboratory Results - last 24 hr 08/31/17 08/31/17 09/01/17 10:59 10:59 07:44 WBC 6.6 D RBC 3.66 L Hgb 9.8 L Hct 30.6 L MCV 83.6 MCH 26.8 L MCHC 32.0 RDW 17.9 H Plt Count 93 L MPV TNP Immature Gran % 3.2 Seg Neutrophils % 65.3 Lymphocytes % 15.4 Monocytes % 14.2 Eosinophils % 1.4 Basophils % 0.5 Neutrophils # 4.3 Lymphocytes # 1.0 Monocytes # 0.9 Eosinophils # 0.1 Basophils # 0.0 Nucleated RBCs/100 WBC 0.6 H Immature Plt Fraction 10.4 H Sodium 135 L 135 L Potassium 3.9 3.5 Chloride 104 102 Carbon Dioxide 21 25 BUN 12 13 Creatinine 1.02 0.85 Est GFR ( Amer) > 60 > 60 Est GFR (Non-Af Amer) > 60 > 60 BUN/Creatinine Ratio 12 15 Glucose 140 H 109 H Calculated Osmolality 282 281 Calcium 8.7 8.5 L 09/01/17 07:44 WBC 4.3 RBC 3.46 L Hgb 9.1 L Hct 29.2 L MCV 84.4 MCH 26.3 L MCHC 31.2 L RDW 17.8 H Plt Count 81 L MPV 11.2 Immature Gran % 0.5 Seg Neutrophils % 64.2 Lymphocytes % 18.1 Monocytes % 14.6 Eosinophils % 1.9 Basophils % 0.7 Neutrophils # 2.8 Lymphocytes # 0.8 Monocytes # 0.6 Eosinophils # 0.1 Basophils # 0.0 Nucleated RBCs/100 WBC Immature Plt Fraction Sodium Potassium Chloride Carbon Dioxide BUN Creatinine Est GFR ( Amer) Est GFR (Non-Af Amer) BUN/Creatinine Ratio Glucose Calculated Osmolality Calcium Cultures: Cultures 08/21/17 00:49 Blood Culture - Final Peripheral Venipuncture No growth. 08/21/17 00:48 Blood Culture - Final Peripheral Venipuncture No growth. Serology 08/21/17 08/20/17 Range/Units 11:17 14:45 Urine Color Yellow (Yellow) Urine Clarity Clear (Clear) Urine pH 6.0 (5.0-8.0) pH Units Ur Specific [place] 1.026 H (1.010-1.025) Urine Protein Negative (Neg-Trace) mg/dL Urine Glucose (UA) Normal (Normal) mg/dL Urine Ketones Negative (Negative) mg/dL Urine Blood Trace H (Negative) Urine Nitrite Negative (Negative) Urine Bilirubin Negative (Negative) Urine Urobilinogen Normal (Normal) mg/dL Ur Leukocyte Esterase Negative (Negative) Urine Microscopic RBC 5-15 H (0-3) per hpf Urine Microscopic WBC 0-3 (0-3) per hpf Ur Squamous Epith Cells Moderate H (None-Few) per lpf Urine Bacteria None Seen (None-Few) per hpf Hyaline Casts None Seen (None-Few) per lpf Ur Culture Indicated? NO (NO) HIV-1 RNA copies/mL 35,000 cpy/mL HIV RNA Quant Info DETECTED A (Not Detected) HIV-1 RNA Qnt Date Rpt 4.5 log Exam - Constitutional Vitals: Temp Pulse Resp BP Pulse Ox 97.9 F 83 17 106/68 100 09/01/17 07:01 09/01/17 07:01 09/01/17 07:01 09/01/17 07:01 09/01/17 07:01 General appearance: cooperative, no acute distress, thin - Head Head exam: Present: atraumatic, normal inspection, normocephalic - Eye Eye exam: Present: EOMI, normal appearance, PERRL Pupils: Present: normal accommodation - ENT ENT exam: Present: mucous membranes moist - Neck Neck exam: Present: normal inspection - Respiratory Respiratory exam: Present: CTAB. Absent: rales, respiratory distress, rhonchi, wheezes - Cardiovascular Cardiovascular exam: Present: RRR, +S1, +S2 - GI/Abdominal GI/Abdominal exam: Present: normal bowel sounds, soft. Absent: distended, tenderness - Extremities Exam Extremities exam: Present: normal inspection. Absent: joint swelling, pedal edema, tenderness - Back Exam Back exam: Present: normal inspection. Absent: paraspinal tenderness, vertebral tenderness - Neurological Exam Neurological exam: Present: alert, oriented X3, no focal deficits - Psychiatric Psychiatric exam: Present: normal affect, normal mood - Skin Skin exam: Present: dry, intact, normal color, warm - VTE Documentation of Mechanical Device: Intermittent pneumatic compression device Consult Discharge Plan - Plan Referrals: Willie Underwood MD [Primary Care Provider] - (will wait and see what plans are for d/c. Unsure at this time )
--- NOTE | 2017-09-01 18:25 | Internal Med Progress Note ---
Date of Encounter: 09/01/17 Time of Encounter: 11:00 - Assessment and plan (1) Upper gastrointestinal hemorrhage Current Visit: Yes Status: Resolved Assessment and plan: -EGD on 08/20/17 showed congested mucosa in the esophagus with an oozing gastric ulcer with a visible vessel which was clipped. -Recommendations for IV PPI which has now been de-escalated to oral PPI; octreotide infusion was discontinued after 24 hours. (2) Alcoholic cirrhosis of liver with ascites Current Visit: No Status: Acute Assessment and plan: -There were concerns for SBP due to ascites secondary to alcoholic liver cirrhosis. -ID recommended IV Cipro which has now been completed and discontinued. -Will continue to monitor (3) Liver cirrhosis, alcoholic Current Visit: Yes Status: Chronic Assessment and plan: With esophageal viruses. Supportive care. IV fluids. Folic acid and thiamine. Qualifiers: Ascites presence: with ascites Qualified Code(s): K70.31 - Alcoholic cirrhosis of liver with ascites (4) Thrombocytopenia associated with AIDS Current Visit: No Status: Chronic Assessment and plan: Secondary to liver disease (5) Anemia Current Visit: Yes Status: Acute Assessment and plan: Severe anemia due to GI bleed. Hemoglobin stable; monitor blood counts closely. Qualifiers: Anemia type: other cause Other causes of anemia: acute posthemorrhagic Qualified Code(s): D62 - Acute posthemorrhagic anemia (6) Pneumonia Current Visit: Yes Status: Resolved Assessment and plan: -Resolved; antibiotics discontinued Qualifiers: Pneumonia type: aspiration pneumonia Aspiration pneumonia type: due to vomit Laterality: bilateral Lung location: lower lobe of lung Qualified Code(s): J69.0 - Pneumonitis due to inhalation of food and vomit - Subjective Interval history: No acute events overnight - Constitutional Vitals: Temp Pulse Resp BP Pulse Ox 98.7 F 89 16 110/70 96 09/01/17 16:16 09/01/17 16:16 09/01/17 16:16 09/01/17 16:16 09/01/17 16:16 General appearance: Present: cachectic, A&O X 3, severe distress, answers questions appropriately - Respiratory Respiratory exam: Present: CTAB. Absent: accessory muscle use, rales, rhonchi, wheezes - Cardiovascular Cardiovascular exam: Present: RRR, +S1, +S2. Absent: diastolic murmur, gallop, rubs, systolic murmur Internal Medicine: Result - Labs CBC & Chem 7: 09/01/17 07:44 09/01/17 07:44 Labs: Short CBC 09/01/17 Range/Units 07:44 WBC 4.3 (4.3-11.1) K/mcL Hgb 9.1 L (12.9-16.9) g/dL Hct 29.2 L (37.5-50.1) % Plt Count 81 L (140-400) K/mcL Neutrophils # 2.8 (1.6-8.9) K/mcL BMP 09/01/17 07:44 Sodium 135 L Potassium 3.5 Chloride 102 Carbon Dioxide 25 BUN 13 Creatinine 0.85 Glucose 109 H Calcium 8.5 L - ABG Interpretation ABG results: ABG ABG pH 7.40 pH Units (7.32-7.45) 08/24/17 07:40 ABG pCO2 47 mmHg (35-45) H 08/24/17 07:40 ABG pO2 108 mmHg (85-104) H 08/24/17 07:40 ABG O2 Saturation 98 % (95-98) 08/24/17 07:40 PT/INR, D-dimer PT 17.4 Seconds (9.4-12.1) H 08/22/17 16:00 - VTE Documentation of Mechanical Device: Intermittent pneumatic compression device Consult Discharge Plan - Plan Referrals: Willie Underwood MD [Primary Care Provider] - (will wait and see what plans are for d/c. Unsure at this time )
--- NOTE | 2017-09-02 07:54 | Internal Med Progress Note ---
Date of Encounter: 09/02/17 Time of Encounter: 08:20 - Assessment and plan (1) Anemia Current Visit: Yes Status: Acute Assessment and plan: Severe anemia due to GI bleed. s/p 7 RBCs, 1 FFP, 3 PLT, 1 cryo HB stable, continue to monitor Qualifiers: Anemia type: other cause Other causes of anemia: acute posthemorrhagic Qualified Code(s): D62 - Acute posthemorrhagic anemia (2) Ascites Current Visit: Yes Status: Chronic Assessment and plan: Improved Continue current management Qualifiers: Ascites type: due to alcoholic cirrhosis Qualified Code(s): K70.31 - Alcoholic cirrhosis of liver with ascites (3) Gastric ulcer Current Visit: Yes Status: Acute Assessment and plan: Continue Omeprazole and Carafate Qualifiers: Gastric ulcer chronicity: acute Gastric ulcer complication status: with hemorrhage Qualified Code(s): K25.0 - Acute gastric ulcer with hemorrhage (4) Liver cirrhosis, alcoholic Current Visit: Yes Status: Chronic Assessment and plan: With esophageal viruses. Supportive care. Continue M/T/F Qualifiers: Ascites presence: with ascites Qualified Code(s): K70.31 - Alcoholic cirrhosis of liver with ascites (5) Thrombocytopenia Current Visit: Yes Status: Chronic Assessment and plan: Multifactorial: Cirrhosis, AIDS No bleeding at this time PLT stable, continue to monitor (6) Hemorrhagic shock Current Visit: Yes Status: Resolved Assessment and plan: Secondary to hemorrhage Resolved (7) Pleural effusion Current Visit: Yes Status: Resolved Assessment and plan: Improved CT of the chest showed bilateral pleural effusions. Repeat CXR shows improvement. (8) Pneumonia Current Visit: Yes Status: Resolved Assessment and plan: Aspiration pneumonia Completed 12 days of Zosyn Qualifiers: Pneumonia type: aspiration pneumonia Aspiration pneumonia type: due to vomit Laterality: bilateral Lung location: lower lobe of lung Qualified Code(s): J69.0 - Pneumonitis due to inhalation of food and vomit (9) Sepsis Current Visit: Yes Status: Resolved Assessment and plan: Resolved The patient had fever and tachycardia. Source likely PNA. Resolved. The patient has been afebrile. Tachycardia and tachypnea have resolved. Blood cultures drawn 08/21/17 are negative x 2 sets. Qualifiers: Sepsis type: sepsis due to unspecified organism Qualified Code(s): A41.9 - Sepsis, unspecified organism (10) Upper gastrointestinal hemorrhage Current Visit: Yes Status: Resolved Assessment and plan: EGD on 08/20/17 showed congested mucosa in the esophagus with an oozing gastric ulcer with a visible vessel which was clipped. Recommendations for IV PPI which has now been de-escalated to oral PPI; octreotide infusion was discontinued after 24 hours. No evidence of recurrence Hb stable Continue to monitor (11) Alcoholic cirrhosis of liver with ascites Current Visit: Yes Status: Acute Assessment and plan: -There were concerns for SBP due to ascites secondary to alcoholic liver cirrhosis. -ID recommended IV Cipro which has now been completed and discontinued. -Will continue to monitor (12) AIDS (acquired immune deficiency syndrome) Current Visit: Yes Status: Chronic Assessment and plan: CD4 count 77. Continue Bactrim for PCP prophylaxis 1 DS daily. Viral load 35,000. For HAART upon d/c by PCP - Subjective Interval history: Initial encounter. HD 15 patient with AIDS/Thrombocytopenia/Liver cirrhosis/UGIB/Sepsis/Aspiration PNA/ hemorrhagic shock/SBP/Anemia He has completed treatment for SBP, Aspiration pneumonia No new complains No labs to review this a.m Awaiting SW for ECF placement - Constitutional Vitals: Temp Pulse Resp BP Pulse Ox 97.6 F 82 17 112/67 98 09/02/17 06:30 09/02/17 06:30 09/02/17 06:30 09/02/17 06:30 09/02/17 06:30 General appearance: Present: cachectic, disheveled, A&O X 3, pleasant, severe distress, answers questions appropriately - Head Head exam: Present: atraumatic, normocephalic - Eye Eye exam: Present: PERRL, conjuntiva pink, sclera anicteric Pupils: Present: PERRL - Neck Neck exam general surgery: Present: supple, trachea midline. Absent: lymphadenopathy - Respiratory Respiratory exam: Present: CTAB. Absent: accessory muscle use, rales, rhonchi, wheezes - Cardiovascular Cardiovascular exam: Present: RRR, +S1, +S2. Absent: diastolic murmur, gallop, rubs, systolic murmur - GI/Abdominal GI/Abdominal exam: Present: normal bowel sounds, soft, no peritoneal signs. Absent: distended, tenderness - Extremities Exam Extremities exam: Present: warm, radial pulses palpable and symmetrical. Absent : calf tenderness, cyanotic, pedal edema - Neurological Exam Neurological exam: Present: alert, CN II-XII intact, oriented X3, no focal deficits. Absent: pronater drift, facial droop, speech deficit - Skin Skin exam: Present: dry, intact Internal Medicine: Result - Labs CBC & Chem 7: 09/01/17 07:44 09/01/17 07:44 Labs: Short CBC 09/01/17 Range/Units 07:44 WBC 4.3 (4.3-11.1) K/mcL Hgb 9.1 L (12.9-16.9) g/dL Hct 29.2 L (37.5-50.1) % Plt Count 81 L (140-400) K/mcL Neutrophils # 2.8 (1.6-8.9) K/mcL BMP 09/01/17 07:44 Sodium 135 L Potassium 3.5 Chloride 102 Carbon Dioxide 25 BUN 13 Creatinine 0.85 Glucose 109 H Calcium 8.5 L - ABG Interpretation ABG results: ABG ABG pH 7.40 pH Units (7.32-7.45) 08/24/17 07:40 ABG pCO2 47 mmHg (35-45) H 08/24/17 07:40 ABG pO2 108 mmHg (85-104) H 08/24/17 07:40 ABG O2 Saturation 98 % (95-98) 08/24/17 07:40 PT/INR, D-dimer PT 17.4 Seconds (9.4-12.1) H 08/22/17 16:00 - VTE Documentation of Mechanical Device: Intermittent pneumatic compression device Consult Discharge Plan - Plan Referrals: Willie Underwood MD [Primary Care Provider] - (will wait and see what plans are for d/c. Unsure at this time )
[2017-09-02] MEDS: Lactulose Oral Soln 20 GM/30 ML UDC PO SCH ×4 (09:03→20:04)
[2017-09-02] MEDS: Sulfamethoxazole/Trimeth DS 1 EACH TABLET PO SCH (09:03)
[2017-09-02] MEDS: Furosemide 40 MG/4 ML VIAL IVP SCH (09:03)
[2017-09-02] MEDS: Nicotine 21 MG PATCH.TD24 TD SCH (09:03)
[2017-09-03 03:00] LABS: Basophils % 0.6 %; Eosinophils # 0.1 K/mcL (0.0-0.6); Eosinophils % 1.9 %; Hematocrit 27.4 % (37.5-50.1); Hemoglobin 8.9 g/dL (12.9-16.9); Immature Granulocytes % 0.4 % (0-4); Immature Platelets 8.3 % (1.1-6.1); Lymphocytes % 20.5 %; Mean Corpuscular HGB Conc 32.5 g/dL (31.6-35.5); Mean Platelet Volume 11.8 fL (9.4-12.4); Monocytes # 0.7 K/mcL (0.0-1.3); Monocytes % 15.6 %; Neutrophils # 2.9 K/mcL (1.6-8.9); Platelet Count 101 K/mcL (140-400); Red Cell Distribution Width 17.2 % (11.5-14.5)
[2017-09-03 03:13] LABS: BUN/Creatinine Ratio 14 (6-26); Blood Urea Nitrogen 11 mg/dL (8-26); Calcium 8.7 mg/dL (8.6-10.8); Carbon Dioxide 27 mEq/L (19-29); Chloride 102 mEq/L (98-109); Glucose 123 mg/dL (70-99); Osmolality,Calculated 285 (280-300); Potassium 3.4 mEq/L (3.5-4.5); Sodium 137 mEq/L (136-145); eGFR For African Americans > 60 (> 60); eGFR For Non-African Americans > 60 (> 60)
[2017-09-03 04:20] LABS: Platelet Estimate Decreased (Normal)
[2017-09-03 04:21] LABS: Anisocytosis 1+ (Not Present)
[2017-09-03] MEDS: Lactulose Oral Soln 20 GM/30 ML UDC PO SCH ×2 (08:36→13:46)
[2017-09-03] MEDS: Sulfamethoxazole/Trimeth DS 1 EACH TABLET PO SCH (08:38)
[2017-09-03] MEDS: Nicotine 21 MG PATCH.TD24 TD SCH (08:38)
[2017-09-03] MEDS ORDERED: Furosemide 40 MG TABLET PO SCH (09:00)
--- NOTE | 2017-09-03 09:06 | Internal Med Progress Note ---
Date of Encounter: 09/03/17 Time of Encounter: 09:03 - Assessment and plan (1) Anemia Current Visit: Yes Status: Acute Assessment and plan: Severe anemia due to GI bleed. s/p 7 RBCs, 1 FFP, 3 PLT, 1 cryo HB stable, continue to monitor Qualifiers: Anemia type: other cause Other causes of anemia: acute posthemorrhagic Qualified Code(s): D62 - Acute posthemorrhagic anemia (2) Ascites Current Visit: Yes Status: Chronic Assessment and plan: Improved Continue current management Qualifiers: Ascites type: due to alcoholic cirrhosis Qualified Code(s): K70.31 - Alcoholic cirrhosis of liver with ascites (3) Gastric ulcer Current Visit: Yes Status: Acute Assessment and plan: Continue Omeprazole and Carafate Qualifiers: Gastric ulcer chronicity: acute Gastric ulcer complication status: with hemorrhage Qualified Code(s): K25.0 - Acute gastric ulcer with hemorrhage (4) Liver cirrhosis, alcoholic Current Visit: Yes Status: Chronic Assessment and plan: With esophageal viruses. Supportive care. Continue M/T/F Qualifiers: Ascites presence: with ascites Qualified Code(s): K70.31 - Alcoholic cirrhosis of liver with ascites (5) Thrombocytopenia Current Visit: Yes Status: Chronic Assessment and plan: Multifactorial: Cirrhosis, AIDS No bleeding at this time PLT stable, continue to monitor (6) Hemorrhagic shock Current Visit: Yes Status: Resolved Assessment and plan: Secondary to hemorrhage Resolved (7) Pleural effusion Current Visit: Yes Status: Resolved Assessment and plan: Improved CT of the chest showed bilateral pleural effusions. Repeat CXR shows improvement. (8) Pneumonia Current Visit: Yes Status: Resolved Assessment and plan: Aspiration pneumonia Completed 12 days of Zosyn Qualifiers: Pneumonia type: aspiration pneumonia Aspiration pneumonia type: due to vomit Laterality: bilateral Lung location: lower lobe of lung Qualified Code(s): J69.0 - Pneumonitis due to inhalation of food and vomit (9) Sepsis Current Visit: Yes Status: Resolved Assessment and plan: Resolved The patient had fever and tachycardia. Source likely PNA. Resolved. The patient has been afebrile. Tachycardia and tachypnea have resolved. Blood cultures drawn 08/21/17 are negative x 2 sets. Qualifiers: Sepsis type: sepsis due to unspecified organism Qualified Code(s): A41.9 - Sepsis, unspecified organism (10) Upper gastrointestinal hemorrhage Current Visit: Yes Status: Resolved Assessment and plan: EGD on 08/20/17 showed congested mucosa in the esophagus with an oozing gastric ulcer with a visible vessel which was clipped. Recommendations for IV PPI which has now been de-escalated to oral PPI; octreotide infusion was discontinued after 24 hours. No evidence of recurrence Hb stable Continue to monitor (11) Alcoholic cirrhosis of liver with ascites Current Visit: Yes Status: Chronic Assessment and plan: -There were concerns for SBP due to ascites secondary to alcoholic liver cirrhosis. -ID recommended IV Cipro which has now been completed and discontinued. -Will continue to monitor (12) AIDS (acquired immune deficiency syndrome) Current Visit: Yes Status: Chronic Assessment and plan: CD4 count 77. Continue Bactrim for PCP prophylaxis 1 DS daily. Viral load 35,000. For HAART upon d/c by PCP (13) Discharge planning issues Current Visit: Yes Status: Acute Assessment and plan: Awaiting placement (14) Hypokalemia Current Visit: Yes Status: Acute Assessment and plan: K 3.4 today, replaced - Subjective Interval history: Patient with AIDS/Thrombocytopenia/Liver cirrhosis/UGIB/Sepsis/Aspiration PNA/ hemorrhagic shock/SBP/Anemia He has completed treatment for SBP, Aspiration pneumonia No new complains Frustrated about his prolonged hospital stay. Having regular bowel movements Awaiting SW for ECF placement - Constitutional Vitals: Temp Pulse Resp BP Pulse Ox 98.0 F 83 17 112/64 96 09/03/17 06:39 09/03/17 06:39 09/03/17 06:39 09/03/17 06:39 09/03/17 06:39 General appearance: Present: cachectic, disheveled, A&O X 3, pleasant, severe distress, answers questions appropriately - Head Head exam: Present: atraumatic, normocephalic - Eye Eye exam: Present: PERRL, conjuntiva pink, sclera anicteric Pupils: Present: PERRL - Neck Neck exam general surgery: Present: supple, trachea midline. Absent: lymphadenopathy - Respiratory Respiratory exam: Present: CTAB. Absent: accessory muscle use, rales, rhonchi, wheezes - Cardiovascular Cardiovascular exam: Present: RRR, +S1, +S2. Absent: diastolic murmur, gallop, rubs, systolic murmur - GI/Abdominal GI/Abdominal exam: Present: normal bowel sounds, soft, no peritoneal signs. Absent: distended, tenderness - Extremities Exam Extremities exam: Present: warm, radial pulses palpable and symmetrical. Absent : calf tenderness, cyanotic, pedal edema - Neurological Exam Neurological exam: Present: alert, CN II-XII intact, oriented X3, no focal deficits. Absent: pronater drift, facial droop, speech deficit - Skin Skin exam: Present: dry, intact Internal Medicine: Result - Labs CBC & Chem 7: 09/03/17 02:54 09/03/17 02:54 Labs: Short CBC 09/03/17 Range/Units 02:54 WBC 4.7 (4.3-11.1) K/mcL Hgb 8.9 L (12.9-16.9) g/dL Hct 27.4 L (37.5-50.1) % Plt Count 101 L (140-400) K/mcL Neutrophils # 2.9 (1.6-8.9) K/mcL BMP 09/03/17 02:54 Sodium 137 Potassium 3.4 L Chloride 102 Carbon Dioxide 27 BUN 11 Creatinine 0.81 Glucose 123 H Calcium 8.7 - ABG Interpretation ABG results: ABG ABG pH 7.40 pH Units (7.32-7.45) 08/24/17 07:40 ABG pCO2 47 mmHg (35-45) H 08/24/17 07:40 ABG pO2 108 mmHg (85-104) H 08/24/17 07:40 ABG O2 Saturation 98 % (95-98) 08/24/17 07:40 PT/INR, D-dimer PT 17.4 Seconds (9.4-12.1) H 08/22/17 16:00 - VTE Documentation of Mechanical Device: Intermittent pneumatic compression device Consult Discharge Plan - Plan Referrals: Willie Underwood MD [Primary Care Provider] - (will wait and see what plans are for d/c. Unsure at this time )
[2017-09-03 11:36] VITALS: BP 128/72
--- NOTE | 2017-09-03 14:42 | Physician Discharge Referral ---
ExtendedCare Referral Info Transfer To: [facility] Provider in Charge: Imtiaz Elizabeth Provider in Charge after Transfer: PCP Institutional Level of Care: Skilled - Diagnosis (1) Anemia Priority: Primary Status: Resolved (2) Ascites Priority: Secondary Status: Chronic (3) Gastric ulcer Priority: Primary Status: Acute (4) Liver cirrhosis, alcoholic Priority: Secondary Status: Chronic (5) Thrombocytopenia Priority: Secondary Status: Chronic (6) Hemorrhagic shock Priority: Primary Status: Resolved (7) Pleural effusion Priority: Primary Status: Resolved (8) Pneumonia Priority: Primary Status: Resolved (9) Sepsis Priority: Primary Status: Resolved (10) Upper gastrointestinal hemorrhage Priority: Primary Status: Resolved (11) Alcoholic cirrhosis of liver with ascites Priority: Secondary Status: Chronic (12) AIDS (acquired immune deficiency syndrome) Priority: Secondary Status: Chronic (13) Discharge planning issues Priority: Primary Status: Resolved (14) Hypokalemia Priority: Primary Status: Resolved Prognosis: Fair Aware of Diagnosis: Patient Aware of Prognosis: Patient - Transfer Medications Home Medications: Calcium Carbonate [Calcium] 500 mg PO DAILY 04/29/17 [History] Multivitamin [Multi-Day Vitamins] 1 each PO DAILY 04/29/17 [History] Paroxetine [Paxil] 20 mg PO DAILY 04/29/17 [History] Spironolactone [Aldactone] 50 mg PO DAILY #30 tablet 05/09/17 [Rx] Furosemide [Lasix] 40 mg PO DAILY tablet 09/03/17 [Rx] Lactulose 20 gm PO QID udc 09/03/17 [Rx] Nicotine Patch [Nicoderm] 21 mg TD DAILY patch.td24 09/03/17 [Rx] Omeprazole [PriLOSEC] 40 mg PO BIDAC capsule. 09/03/17 [Rx] Rifaximin [Xifaxan] 400 mg PO BID tablet 09/03/17 [Rx] Sulfamethoxazole/Trimeth DS [Bactrim Ds] 1 each PO DAILY tablet 09/03/17 [Rx] Allergies/Adverse Reactions: 3 Allergy/AdvReac Type Severity Reaction Status Date / Time No Known Allergies Allergy Verified 08/19/17 17:49 - Respiratory Orders Smoking Cessation: Smoking cessation has been advised. For more information, call the [employer] Tobacco Quit Line at 2-267-TOCT-NOW. - Advance Directives Code Status: Full Code - Mobility Orders Ambulate - Rehabiliation Orders Rehab Potential: Good Rehab Orders: Evaluation for Physical Therapy - Diet Orders Cardiac CERTIFICATION: I certify that the transfer of the above named patient to an Extended Care Facility is necessary for the continuing treatment of the diagnosis listed. The above information is true and accurate reflection of patient's current condition. Confidential - Redisclosure prohibited without a patient's written consent.
--- NOTE | 2017-09-03 14:45 | Discharge Summary ---
Date of Encounter: 09/03/17 Time of Encounter: 14:43 - Discharge Diagnosis (1) Anemia Priority: Primary Status: Resolved Comments: Presented with Severe anemia due to GI bleed. s/p 7 RBCs, 1 FFP, 3 PLT, 1 cryo HB stable, continue to monitor with PCP Qualifiers: Anemia type: other cause Other causes of anemia: acute posthemorrhagic Qualified Code(s): D62 - Acute posthemorrhagic anemia (2) Ascites Priority: Secondary Status: Chronic Comments: Resolved, continue to monitor Qualifiers: Ascites type: due to alcoholic cirrhosis Qualified Code(s): K70.31 - Alcoholic cirrhosis of liver with ascites (3) Gastric ulcer Priority: Primary Status: Acute Comments: EGD on 08/20/17 showed congested mucosa in the esophagus with an oozing gastric ulcer with a visible vessel which was clipped. Recommendations for IV PPI which has now been de-escalated to oral PPI; octreotide infusion was discontinued after 24 hours. No evidence of recurrence Hb stable Continue to monitor, Avoid NSAIDS and ASA products, patient educated Qualifiers: Gastric ulcer chronicity: acute Gastric ulcer complication status: with hemorrhage Qualified Code(s): K25.0 - Acute gastric ulcer with hemorrhage (4) Liver cirrhosis, alcoholic Priority: Secondary Status: Chronic Qualifiers: Ascites presence: with ascites Qualified Code(s): K70.31 - Alcoholic cirrhosis of liver with ascites (5) Thrombocytopenia Priority: Secondary Status: Chronic Comments: Multifactorial: Cirrhosis, AIDS No bleeding at this time PLT stable, continue to monitor (6) Hemorrhagic shock Priority: Primary Status: Resolved (7) Pleural effusion Priority: Secondary Status: Resolved Comments: Improved CT of the chest showed bilateral pleural effusions. Repeat CXR shows improvement. (8) Sepsis Priority: Primary Status: Resolved Comments: Resolved The patient had fever and tachycardia. Source likely PNA. Resolved. The patient has been afebrile. Tachycardia and tachypnea have resolved. Blood cultures drawn 08/21/17 are negative x 2 sets. Completed antibiotic course for both SBP and Pneumonia Qualifiers: Sepsis type: sepsis due to unspecified organism Qualified Code(s): A41.9 - Sepsis, unspecified organism (9) Pneumonia Priority: Primary Status: Resolved Qualifiers: Pneumonia type: aspiration pneumonia Aspiration pneumonia type: due to vomit Laterality: bilateral Lung location: lower lobe of lung Qualified Code(s): J69.0 - Pneumonitis due to inhalation of food and vomit (10) Upper gastrointestinal hemorrhage Priority: Primary Status: Resolved (11) Alcoholic cirrhosis of liver with ascites Priority: Secondary Status: Chronic (12) AIDS (acquired immune deficiency syndrome) Priority: Secondary Status: Chronic Comments: CD4 count 77. Continue Bactrim for PCP prophylaxis 1 DS daily. Viral load 35,000. For HAART upon d/c by PCP, follow up with Dr. Mantilla for recommencement of HAART (13) Discharge planning issues Priority: Primary Status: Resolved (14) Hypokalemia Priority: Primary Status: Resolved - Discharge Medications Home Medications: Calcium Carbonate [Calcium] 500 mg PO DAILY 04/29/17 [History] Multivitamin [Multi-Day Vitamins] 1 each PO DAILY 04/29/17 [History] Paroxetine [Paxil] 20 mg PO DAILY 04/29/17 [History] Spironolactone [Aldactone] 50 mg PO DAILY #30 tablet 05/09/17 [Rx] Furosemide [Lasix] 40 mg PO DAILY tablet 09/03/17 [Rx] Lactulose 20 gm PO QID udc 09/03/17 [Rx] Nicotine Patch [Nicoderm] 21 mg TD DAILY patch.td24 09/03/17 [Rx] Omeprazole [PriLOSEC] 40 mg PO BIDAC capsule. 09/03/17 [Rx] Rifaximin [Xifaxan] 400 mg PO BID tablet 09/03/17 [Rx] Sulfamethoxazole/Trimeth DS [Bactrim Ds] 1 each PO DAILY tablet 09/03/17 [Rx] Allergies/Adverse Reactions: 3 Allergy/AdvReac Type Severity Reaction Status Date / Time No Known Allergies Allergy Verified 08/19/17 17:49 Date of admission: 08/20/17 00:44 Primary care physician: Willie Underwood MD Consults: 08/20/17 00:58 Consult to Gastroenterology [CONS] Routine Consulting Provider: [facility] [place] Reason for Consult: GI bleed Call Completed: No 08/22/17 07:52 Consult to Infectious Diseases [CONS] Routine Consulting Provider: [facility] [place] Reason for Consult: HIV+. Noncompliant with medication. Fever of unknown origin. Time Notified: 08:07 Call Completed: Yes 08/26/17 08:49 Consult to Occupational Therapy [CONS] Routine Comment: Evaluate, develop and implement POC Reason for Consult: severe weakness from prolonged immobilization. Consult to Physical Therapy [CONS] Routine Comment: Evaluate, develop and implement POC Reason for Consult: severe weakness from prolonged immobilization. Consult to Speech Therapy [CONS] Stat Comment: Evaluate, develop and implement POC Reason for Consult: garbled speech, trouble clearing throat, failed dyspahgia screen. Time Notified: 08:51 Call Completed: Yes 08/27/17 11:16 Consult to Urology [CONS] Routine Consulting Provider: [facility] Reason for Consult: unable to remove lo Call Completed: Yes Discharging clinician: Ab Elizabeth Anticipated date of discharge: 09/03/17 - Patient Status Disposition: Transfer SNF Condition: Good Functional capacity at discharge: independent ambulation Overall status at discharge: patient is progressing back to baseline - Discharge Instructions Follow Up With: Willie Underwood MD [Primary Care Provider] - (will wait and see what plans are for d/c. Unsure at this time ) - Diet and Activity Activity: as per physical therapy, resume usual activities as tolerated Diet: low salt diet Interval History: See below Hospital course: Mr. Anthony is a 57 year old male with HIV/AIDS, Liver cirrhosis from alcohol with associated thrombocytopenia who was admitted and managed for sepsis , hemorrhagic shock secondary to bleeding gastric ulcer, Pneumonia, SBP. Acute blood loss anemia from hemorrhage He is seen and evaluated at bedside he is clinically stable to be discharged, he has been adequately treated for all his medical problems Patient educated extensively about compliance Tobacco cessation counselling was done Follow up with PCP for HAART recommencement Ensure at least 2 BM daily to prevent Hepatic encephalopathy Rest of details as in each diagnosis Time spent discussing smoking cessation with patient: 3 to 10 minutes - Time Spent with Patient Total time spent providing and/or coordinating discharge services: Greater than 30 minutes - Constitutional Vitals: Temp Pulse Resp BP Pulse Ox 98.0 F 94 18 128/72 96 09/03/17 11:34 09/03/17 11:34 09/03/17 11:34 09/03/17 11:34 09/03/17 11:34 General appearance: Present: cachectic, disheveled, A&O X 3, pleasant, severe distress, answers questions appropriately - Head Head exam: Present: atraumatic, normocephalic - Eye Eye exam: Present: PERRL, conjuntiva pink, sclera anicteric Pupils: Present: PERRL - Neck Neck exam general surgery: Present: supple, trachea midline. Absent: lymphadenopathy - Respiratory Respiratory exam: Present: CTAB. Absent: accessory muscle use, rales, rhonchi, wheezes - Cardiovascular Cardiovascular exam: Present: RRR, +S1, +S2. Absent: diastolic murmur, gallop, rubs, systolic murmur - GI/Abdominal GI/Abdominal exam: Present: normal bowel sounds, soft, no peritoneal signs. Absent: distended, tenderness - Extremities Exam Extremities exam: Present: warm, radial pulses palpable and symmetrical. Absent : calf tenderness, cyanotic, pedal edema - Neurological Exam Neurological exam: Present: alert, CN II-XII intact, oriented X3, no focal deficits. Absent: pronater drift, facial droop, speech deficit - Skin Skin exam: Present: dry, intact - VTE Documentation of Mechanical Device: Intermittent pneumatic compression device
== END 2017-09-03 16:10 | DRG 377 ==
LOC: EMEROO 17:31 → 2ANU 17:31 → SUATTDRO 08-20 00:44 → ICNU 08-20 11:46 → 2ANU 08-26 19:35
PROVIDERS: ADMIT Internal Medicine; ATTEND Internal Medicine

== ENCOUNTER 2020-01-14 19:42 | Inpatient (IN) ==
[2020-01-14] MEDS ORDERED: Naloxone 0.4 MG/ML INJ IVP PRN (20:47)
[2020-01-14] MEDS ORDERED: Ondansetron 4 MG/2 ML VIAL IVP PRN (20:47)
[2020-01-14] MEDS ORDERED: Acetaminophen 325 MG TABLET PO PRN (20:47)
[2020-01-14] MEDS ORDERED: Ipratropium/Albuterol Neb 3 ML IH PRN (21:03)
[2020-01-14] MEDS ORDERED: *HR* Heparin 5,000 UNIT/ML VIAL SQ SCH (22:00)
[2020-01-14] MEDS: 0.9 % Sodium Chloride 1,000 ML IVC SCH (22:35)
[2020-01-14] MEDS ORDERED: Lactulose Oral Soln 20 GM/30 ML UDC PO SCH (23:45)
[2020-01-15 04:54] LABS: Hemoglobin 12.2 g/dL (12.9-16.9); Red Blood Count 3.49 M/mcL (4.19-5.50)
[2020-01-15 04:56] LABS: Basophils % 0.5 %; Eosinophils # 0.1 K/mcL (0.0-0.6); Eosinophils % 1.4 %; Hematocrit 36.6 % (37.5-50.1); Immature Granulocytes % 0.5 % (0-4); Immature Platelets 3.9 % (1.1-6.1); Lymphocytes % 25.7 %; Mean Corpuscular HGB Conc 33.3 g/dL (31.6-35.5); Mean Corpuscular Volume 104.9 fL (83.0-100.0); Mean Platelet Volume 10.7 fL (9.4-12.4); Monocytes # 0.5 K/mcL (0.0-1.3); Monocytes % 12.7 %; Neutrophils # 2.2 K/mcL (1.6-8.9); Red Cell Distribution Width 14.2 % (11.5-14.5); Segmented Neutrophils % 59.2 %; White Blood Count 3.7 K/mcL (4.3-11.1)
[2020-01-15 05:00] LABS: INR 1.8; Prothrombin Time 20.9 Seconds (9.4-12.1)
[2020-01-15 05:02] LABS: Platelet Count 38 K/mcL (140-400)
[2020-01-15 05:03] LABS: Platelet Estimate Decreased (Normal)
[2020-01-15 05:14] LABS: Alanine Aminotransferase 30 Units/L (7-52); Albumin 2.8 g/dL (3.5-5.7); Alkaline Phosphatase 64 Units/L (34-104); Aspartate Amino Transferase 46 Units/L (13-39); BUN/Creatinine Ratio 24 (6-26); Bilirubin,Total 1.5 mg/dL (0.3-1.0); Blood Urea Nitrogen 18 mg/dL (6-20); Calcium 8.4 mg/dL (8.6-10.3); Carbon Dioxide 23 mEq/L (23-29); Chloride 117 mEq/L (98-107); Chol/HDL Ratio 2.8 (0-4.9); Cholesterol 106 mg/dL (< 200); Globulin 2.8 g/dL (2.4-3.5); Glucose 85 mg/dL (70-105); HDL Cholesterol 38 mg/dL (40-59); LDL Cholesterol,Calculated 56 mg/dL (0-99); Magnesium 1.7 mg/dL (1.6-2.6); Osmolality,Calculated 301 (280-300); Phosphorous 2.4 mg/dL (2.7-4.5); Potassium 3.7 mEq/L (3.5-5.1); Sodium 145 mEq/L (136-145); Total Protein 5.6 g/dL (6.4-8.9); Triglycerides 60 mg/dL (< 150); eGFR For African Americans > 60 (> 60); eGFR For Non-African Americans > 60 (> 60)
[2020-01-15] MEDS: Ascorbic Acid 500 MG TABLET PO SCH ×2 (07:11→19:40)
[2020-01-15] MEDS: Lactulose Oral Soln 20 GM/30 ML UDC PO SCH ×2 (07:11→19:40)
[2020-01-15] MEDS: Azithromycin 500 MG in 0.9 % Sodium Chloride 250 ML IVPB SCH (07:11)
[2020-01-15] MEDS: 0.9 % Sodium Chloride 1,000 ML IVC SCH (07:12)
[2020-01-15] MEDS: cefTRIAXone 1,000 MG in Water for inj. (sterile) 10 ML IVPB SCH (07:12)
[2020-01-15] MEDS ORDERED: PARoxetine 20 MG TABLET PO SCH (09:00)
[2020-01-15] MEDS: EMTRICITABINE PO SCH (19:15)
[2020-01-15] MEDS: [UNRECOGNIZED DRUG - OTHER] PO SCH (19:15)
[2020-01-15] MEDS: DARUNAVIR PO SCH (19:15)
[2020-01-15] MEDS: COBICISTAT PO SCH (19:15)
[2020-01-15] MEDS ORDERED: QUEtiapine Fumarate 25 MG TABLET PO SCH (21:00)
[2020-01-16 07:20] LABS: White Blood Count 2.1 K/mcL (4.3-11.1)
[2020-01-16 07:22] LABS: Hematocrit 33.3 % (37.5-50.1); Hemoglobin 11.5 g/dL (12.9-16.9); Immature Platelets 3.9 % (1.1-6.1); Mean Corpuscular HGB Conc 34.5 g/dL (31.6-35.5); Mean Corpuscular Hemoglobin 35.9 pg (28.0-33.3); Mean Corpuscular Volume 104.1 fL (83.0-100.0); Mean Platelet Volume 10.7 fL (9.4-12.4); Red Blood Count 3.2 M/mcL (4.19-5.50); Red Cell Distribution Width 14.4 % (11.5-14.5)
[2020-01-16] MEDS ORDERED: *HR* Enoxaparin 40 MG/0.4 ML SYRINGE SQ SCH (07:22)
[2020-01-16 07:40] LABS: Alanine Aminotransferase 29 Units/L (7-52); Albumin 2.6 g/dL (3.5-5.7); Alkaline Phosphatase 59 Units/L (34-104); Aspartate Amino Transferase 44 Units/L (13-39); BUN/Creatinine Ratio 26 (6-26); Bilirubin,Total 1.4 mg/dL (0.3-1.0); Blood Urea Nitrogen 16 mg/dL (6-20); Calcium 8.3 mg/dL (8.6-10.3); Carbon Dioxide 23 mEq/L (23-29); Chloride 116 mEq/L (98-107); Globulin 2.7 g/dL (2.4-3.5); Glucose 87 mg/dL (70-105); Osmolality,Calculated 295 (280-300); Potassium 3.6 mEq/L (3.5-5.1); Sodium 142 mEq/L (136-145); Total Protein 5.3 g/dL (6.4-8.9); eGFR For African Americans > 60 (> 60); eGFR For Non-African Americans > 60 (> 60)
[2020-01-16] MEDS: Ascorbic Acid 500 MG TABLET PO SCH ×2 (07:53→21:23)
[2020-01-16] MEDS: Lactulose Oral Soln 20 GM/30 ML UDC PO SCH ×3 (07:53→21:23)
[2020-01-16] MEDS: cefTRIAXone 1,000 MG in Water for inj. (sterile) 10 ML IVPB SCH (07:54)
[2020-01-16] MEDS: Azithromycin 500 MG in 0.9 % Sodium Chloride 250 ML IVPB SCH (07:54)
[2020-01-16] MEDS: Furosemide 20 MG TABLET PO SCH (11:00)
[2020-01-16] MEDS: DARUNAVIR PO SCH (12:00)
[2020-01-16] MEDS: EMTRICITABINE PO SCH (12:00)
[2020-01-16] MEDS: COBICISTAT PO SCH (12:00)
[2020-01-16] MEDS: [UNRECOGNIZED DRUG - OTHER] PO SCH (12:00)
[2020-01-16] MEDS: QUEtiapine Fumarate 25 MG TABLET PO SCH (21:23)
[2020-01-17 08:16] LABS: Hematocrit 35.9 % (37.5-50.1); Hemoglobin 12.1 g/dL (12.9-16.9); Mean Corpuscular HGB Conc 33.7 g/dL (31.6-35.5); Mean Corpuscular Volume 103.8 fL (83.0-100.0); Platelet Count 32 K/mcL (140-400); Red Blood Count 3.46 M/mcL (4.19-5.50); Red Cell Distribution Width 14.5 % (11.5-14.5); White Blood Count 2.3 K/mcL (4.3-11.1)
[2020-01-17] MEDS: levoFLOXacin 500 MG TABLET PO SCH (08:21)
[2020-01-17] MEDS: Furosemide 20 MG TABLET PO SCH (08:21)
[2020-01-17] MEDS: Cyanocobalamin (B-12) 1,000 MCG TABLET PO SCH (08:21)
[2020-01-17] MEDS: Ascorbic Acid 500 MG TABLET PO SCH ×2 (08:21→20:48)
[2020-01-17] MEDS: Lactulose Oral Soln 20 GM/30 ML UDC PO SCH ×3 (08:21→20:47)
[2020-01-17 08:29] LABS: BUN/Creatinine Ratio 24 (6-26); Blood Urea Nitrogen 16 mg/dL (6-20); Calcium 8.3 mg/dL (8.6-10.3); Carbon Dioxide 26 mEq/L (23-29); Chloride 116 mEq/L (98-107); Glucose 84 mg/dL (70-105); Osmolality,Calculated 296 (280-300); Sodium 143 mEq/L (136-145); eGFR For African Americans > 60 (> 60); eGFR For Non-African Americans > 60 (> 60)
[2020-01-17] MEDS ORDERED: Pantoprazole 40 MG VIAL IVP ONE (10:25)
[2020-01-17] MEDS: DARUNAVIR PO SCH (12:28)
[2020-01-17] MEDS: [UNRECOGNIZED DRUG - OTHER] PO SCH (12:28)
[2020-01-17] MEDS: EMTRICITABINE PO SCH (12:28)
[2020-01-17] MEDS: COBICISTAT PO SCH (12:28)
[2020-01-17] MEDS: Spironolactone 25 MG TABLET PO SCH (12:28)
[2020-01-17] MEDS: QUEtiapine Fumarate 25 MG TABLET PO SCH (20:47)
[2020-01-18 06:08] LABS: Mean Corpuscular HGB Conc 33.9 g/dL (31.6-35.5); Mean Platelet Volume 11.3 fL (9.4-12.4)
[2020-01-18 06:10] LABS: Hematocrit 36.3 % (37.5-50.1); Hemoglobin 12.3 g/dL (12.9-16.9); Immature Platelets 5.7 % (1.1-6.1); Mean Corpuscular Hemoglobin 34.8 pg (28.0-33.3); Mean Corpuscular Volume 102.8 fL (83.0-100.0); Red Blood Count 3.53 M/mcL (4.19-5.50); Red Cell Distribution Width 14.4 % (11.5-14.5); White Blood Count 2.5 K/mcL (4.3-11.1)
[2020-01-18 06:27] LABS: BUN/Creatinine Ratio 28 (6-26); Blood Urea Nitrogen 18 mg/dL (6-20); Calcium 8.9 mg/dL (8.6-10.3); Carbon Dioxide 27 mEq/L (23-29); Chloride 112 mEq/L (98-107); Glucose 93 mg/dL (70-105); Osmolality,Calculated 296 (280-300); Potassium 3.9 mEq/L (3.5-5.1); Sodium 142 mEq/L (136-145); eGFR For African Americans > 60 (> 60); eGFR For Non-African Americans > 60 (> 60)
[2020-01-18] MEDS: Furosemide 20 MG TABLET PO SCH (08:54)
[2020-01-18] MEDS: Cyanocobalamin (B-12) 1,000 MCG TABLET PO SCH (08:54)
[2020-01-18] MEDS: levoFLOXacin 500 MG TABLET PO SCH (08:54)
[2020-01-18] MEDS: Ascorbic Acid 500 MG TABLET PO SCH ×2 (08:54→20:43)
[2020-01-18] MEDS: Spironolactone 25 MG TABLET PO SCH (08:54)
[2020-01-18] MEDS: Lactulose Oral Soln 20 GM/30 ML UDC PO SCH ×3 (08:55→20:42)
[2020-01-18] MEDS: EMTRICITABINE PO SCH (11:17)
[2020-01-18] MEDS: [UNRECOGNIZED DRUG - OTHER] PO SCH (11:17)
[2020-01-18] MEDS: COBICISTAT PO SCH (11:17)
[2020-01-18] MEDS: DARUNAVIR PO SCH (11:17)
[2020-01-18] MEDS: QUEtiapine Fumarate 25 MG TABLET PO SCH (20:43)
[2020-01-19 07:36] VITALS: BP 94/62
[2020-01-19] MEDS: Lactulose Oral Soln 20 GM/30 ML UDC PO SCH (08:40)
[2020-01-19] MEDS: levoFLOXacin 500 MG TABLET PO SCH (08:41)
[2020-01-19] MEDS: Cyanocobalamin (B-12) 1,000 MCG TABLET PO SCH (08:41)
[2020-01-19] MEDS: Ascorbic Acid 500 MG TABLET PO SCH (08:41)
[2020-01-19] MEDS: Furosemide 20 MG TABLET PO SCH (08:41)
== END 2020-01-19 11:30 | DRG 91 ==
LOC: 2ANU → SUATTDRO 01-16 16:25
PROVIDERS: ADMIT Family Medicine; ATTEND Internal Medicine